=== PATIENT | female | born 1960 | race Caucasian/White ===

== ENCOUNTER 2017-09-18 13:29 | Emergency (ER) | payer OTHER ==
[~2017-09-18] VITALS: Ht 167.6 cm; Wt 106.1 kg
[~2017-09-18 13:29] MED LIST: DEPAKOTE500 MG PO; GLUCOSAMINE &1 EAC1 PO; KEPPRA500 MG PO; LEVOTHYROXINE75 MCG PO; LISINOPRIL2.5 MG PO; MACRODANTIN100 MG PO; OMEPRAZOLE20 MG PO; PRAMIPEXOLE0.125 MG PO; XANAX0.5 MG PO
[2017-09-18] MEDS ORDERED: ROBAXIN-750750 MG NG (16:17)
== END 2017-09-18 16:46 | disposition home or self-care (01) ==
LOC: ED 13:29
DX: M62.838 Other muscle spasm (principal); I10 Essential (primary) hypertension; E03.9 Hypothyroidism, unspecified; K21.9 Gastro-esophageal reflux disease without esophagitis; F32.9 Major depressive disorder, single episode, unspecified; G40.909 Epilepsy, unspecified, not intractable, without status epilepticus; Z90.710 Acquired absence of both cervix and uterus; Z87.891 Personal history of nicotine dependence; Z90.89 Acquired absence of other organs; Z88.5 Allergy status to narcotic agent; Z88.8 Allergy status to other drugs, medicaments and biological substances; Z88.0 Allergy status to penicillin; Z79.899 Other long term (current) drug therapy
CPT/HCPCS: 76830; 76856; 80053; 81001; 85025; 99284

== ENCOUNTER 2018-01-20 07:21 | Emergency (ER) | payer OTHER ==
[~2018-01-20] VITALS: Ht 167.6 cm; Wt 108.9 kg
--- OUTSIDE RECORDS SUMMARY | ~2018-01-20 | XMS | Clinical Summary ---
Demographics + + + | Address | [address] | | | [address] [place] [address] | | | [place] [address] | + + + | Home Phone | | + + + | Preferred Language | Unknown | + + + | Marital Status | Single | + + + | Judaism Affiliation | 1013 | + + + | Race | Unknown | + + + | Ethnic Group | Unknown | + + + Author + + + | Author | [facility] | | | and [place] | + + + | Organization | [facility] | | | and [place] | + + + | Address | Unknown | + + + | Phone | Unavailable | + + + Support + + +---------+ + | Name | Relationship | Address | Phone | + + +---------+ + | Rosita Casey | RYLIE | Unknown | | + + +---------+ + Care Team Providers + +------+ + | Care Shop Coordinator Name | Role | Phone | + +------+ + PP | Unavailable | + +------+ + Allergies + + + +--------+ + | Active Allergy | Reactions | Severity | Noted | Comments | | | | | Date | | + + + +--------+ + | Codeine Sulfate | | | | | + + + +--------+ + | Demerol | | | | | + + + +--------+ + | Hydrocodone-Acetamin | | | | | | ophen | | | | | + + + +--------+ + | Morphine Sulfate | | | | | + + + +--------+ + | Oxycodone | | | | | + + + +--------+ + | Penicillin V | | | | | | Potassium | | | | | + + + +--------+ + Current Medications + + +-------+---------+------+------+-------+ | Prescription | Sig. | Disp. | Refills | Star | End | Statu | | | | | | t | Date | s | | | | | | Date | | | + + +-------+---------+------+------+-------+ | diclofenac | one patch applied to | | | 07/1 | | Activ | | (FLECTOR) 1.3% PTCH | skin of affected | | | 0/20 | | e | | | area every 12 hours. | | | 12 | | | + + +-------+---------+------+------+-------+ | omeprazole | | | | 09/2 | | Activ | | (PRILOSEC) 20 mg | | | | 4/20 | | e | | TBEC | | | | 12 | | | + + +-------+---------+------+------+-------+ | divalproex | | | | 09/2 | | Activ | | (DEPAKOTE) 500 mg EC | | | | 4/20 | | e | | tablet | | | | 12 | | | + + +-------+---------+------+------+-------+ | levothyroxine | | | | 09/2 | | Activ | | (SYNTHROID, | | | | 4/20 | | e | | LEVOTHROID) 100 mcg | | | | 12 | | | | tablet | | | | | | | + + +-------+---------+------+------+-------+ | lisinopril | | | | 05/29 | | Activ | | (MARV CARRANZARILissette) | | | | 4 | | e | | 20 mg tablet | | | | 12 | | | + + +-------+---------+------+------+-------+ Active Problems + + + | Problem | Noted Date | + + + | SHOULDER PAIN, RIGHT | 04/05/2012 | + + + | PARESTHESIA | 04/05/2012 | + + + | MYOFASCIAL PAIN SYNDROME | 04/05/2012 | + + + | BURSITIS, SHOULDER | | + + + Social History + +-------+ [...] on file | | + + + Last Filed Vital Signs + + + + | Vital Sign | Reading | Time Taken | + + + + | Blood Pressure | - | - | + + + + | Pulse | - | - | + + + + | Temperature | - | - | + + + + | Respiratory Rate | - | - | + + + + | Oxygen Saturation | - | - | + + + + | Inhaled Oxygen | - | - | | Concentration | | | + + + + | Weight | 106.6 kg (235 lb) | 04/05/2012 0000 PDT | + + + + | Height | 165.1 cm (5' 5") | 04/05/2012 0000 PDT | + + + + | Body Mass Index | 39.11 | 04/05/2012 0000 PDT | + + + + Plan of Treatment + + + + + | Health Maintenance | Due Date | Last Done | Comments | + + + + + | Hepatitis C | | | | | Screening | 0 | | | + + + + + | Vaccine: | | | | | Dtap/Tdap/Td (1 - | 9 | | | | Tdap) | | | | + + + + + | CERVICAL CANCER | | | | | SCREENING (PAP EVERY | 1 | | | | 3 YEARS 21-64 ) | | | | + + + + + | BREAST CANCER | | | | | SCREENING (MAMM Q2 | 0 | | | | YEARS 50-74) | | | | + + + + + | COLON CANCER | | | | | SCREENING | 0 | | | | (COLONOSCOPY EVERY | | | | | 10 YEARS 50-75) | | | | + + + + + | Vaccine: Influenza | | | | | (Season Ended) | 8 | | | + + + + + Results Not on filefrom Last 3 Months
--- OUTSIDE RECORDS SUMMARY | ~2018-01-20 | XMS | Clinical Summary ---
Demographics + + + | Address | [address] | | | [address] [place] [address] | | | [place] [address] | + + + | Home Phone | | + + + | Preferred Language | Unknown | + + + | Marital Status | Single | + + + | Baptist Affiliation | 1013 | + + + [...] Team Providers + +------+ + | Care Client Success Director Name | Role | Phone | + [...]
--- OUTSIDE RECORDS SUMMARY | ~2018-01-20 | XMS | Clinical Summary ---
Demographics + + + | Address | [address] | | | [place] [address] | + + + | Home Phone | | + + + | Preferred Language | Unknown | + + + | Marital Status | Single | + + + | Hinduism Affiliation | Unknown | + + + | Race | Unknown | + + + | Ethnic Group | Unknown | + + + Author + + + | Author | [facility] | + + + | Organization | [facility] | + + + | Address | [...] Team Providers + +------+ + | Care Certified Wellness Program Coordinator Name | Role | Phone | [...] | Morphine | Anaphylaxis | High | 06/20/20 | [...] | Oxycodone-Acetaminop | Anaphylaxis | High | 09/24/20 | | | hen | | | [...] filefrom Last 3 Months Insurance + +--------+ +------+-------+---------+ | Payer | Benefi | Subscriber | Type | Phone | Address | | | t Plan | ID | | | | | | / | | | | | | | Group | | | | | + +--------+ +------+-------+---------+ | [employer] | [employer] | xxxxxxxxx | | | | | | HEALTH | | | | | | | PLAN | | | | | + +--------+ +------+-------+---------+ + +--------+ +--------+ + + | Guarantor Name | Accoun | Relation to | Date | Phone | Billing Address | | | t Type | Patient | of | | | | | | | | | | + +--------+ +--------+ + + | PAULA MCLEOD | Person | Self [birth year] | Home: | [address] | | | al/Fam | | 1960 | [phone] [place] | | | priti | | | [phone] | + +--------+ +--------+ + +
--- OUTSIDE RECORDS SUMMARY | ~2018-01-20 | XMS | Clinical Summary ---
Demographics + + + | Address | [address] | | | [place] [address] | + + + | Home Phone | | + + + | Preferred Language | Unknown | + + + | Marital Status | Single | + + + | Mormonism Affiliation | Unknown | + + + | Race | Unknown | + + + | Ethnic Group | Unknown | + + + Author + + + | Author | [facility] | + + + | Organization | [facility] | + + + | Address | [...] Team Providers + +------+ + | Care Jack Spooler Tender Name | Role | Phone | [...] | | al/Fam | | 1960 | [phone] | [place] | | | priti | | | [phone] | [phone] | + +--------+ +--------+ + +
[~2018-01-20 07:21] MED LIST changes: +ROBAXIN-750750 MG NG
[2018-01-20] MEDS ORDERED: FISH OIL + D31 EACH PO (08:00)
[2018-01-20] MEDS ORDERED: PROBIOTIC1 EAC4 PO (08:00)
[2018-01-20] MEDS ORDERED: MIRAPEX0.125 MG PO (08:09)
[2018-01-20] MEDS ORDERED: KETOROLAC TROME10 MG PO (09:22)
[2018-01-27] MEDS ORDERED: KEPPRA250 MG PO (15:39)
[2018-01-27] MEDS ORDERED: LOVASTATIN40 MG PO (15:42)
[2018-01-27] MEDS ORDERED: SERTRALINE HCL50 MG PO (15:42)
== END 2018-01-20 10:34 | disposition home or self-care (01) ==
LOC: ED 07:21
DX: G40.909 Epilepsy, unspecified, not intractable, without status epilepticus (principal); S82.51XA Displaced fracture of medial malleolus of right tibia, 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 for closed fracture; I10 Essential (primary) hypertension; E03.9 Hypothyroidism, unspecified; K21.9 Gastro-esophageal reflux disease without esophagitis; F32.9 Major depressive disorder, single episode, unspecified; Z87.891 Personal history of nicotine dependence; Z88.5 Allergy status to narcotic agent; Z88.8 Allergy status to other drugs, medicaments and biological substances; Z88.0 Allergy status to penicillin; Z91.041 Radiographic dye allergy status; Z79.899 Other long term (current) drug therapy; X50.1XXA Overexertion from prolonged static or awkward postures, 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
CPT/HCPCS: 70450; 73610; 80053; 85025; 85610; 85730; 96365; 96375; 99284; J1170; J1885; J1953; J2405

== ENCOUNTER 2018-10-24 21:17 | Emergency (ER) | payer OTHER ==
[~2018-10-24] VITALS: Ht 165.1 cm; Wt 108.0 kg
[~2018-10-24 21:17] MED LIST changes: +FISH OIL + D31 EACH PO; +KEPPRA250 MG PO; +KETOROLAC TROME10 MG PO; +LOVASTATIN40 MG PO; +MIRAPEX0.125 MG PO; +PROBIOTIC1 EAC4 PO; +ROBAXIN-750750 MG PO; +SERTRALINE HCL50 MG PO
[2018-10-24] MEDS ORDERED: LISINOPRIL2.5 MG PO (21:35)
[2018-10-24] MEDS ORDERED: ZESTRIL2.5 MG PO (21:35)
[2018-10-24] MEDS ORDERED: NEURONTIN300 MG PO (21:36)
[2018-10-25] MEDS ORDERED: PROTONIX40 MG PO (02:51)
--- NOTE | 2018-10-25 07:58 | EKG ---
[facility] [address] [facility] [place], [place] [address] Signed Normal sinus rhythm Normal ECG When compared with ECG of 20-JUL-2017 10:35, No significant change was found Confirmed by MIGUEL GLEZ MD ([id number]) on 10/25/2018 7:57:49 AM Electronically Signed By: MIGUEL GLEZ MD 10/25/18 0758 PATIENT NAME: PAULA MCLEOD Electrocardiogram DATE OF : 60 PHYSICIAN: MIGUEL GLEZ MD REPORT #: [id number] REPORT IS CONFIDENTIAL AND NOT TO BE RELEASED WITHOUT AUTHORIZATION
== END 2018-10-25 03:05 | disposition home or self-care (01) ==
LOC: ED 21:17
DX: K21.9 Gastro-esophageal reflux disease without esophagitis (principal); I10 Essential (primary) hypertension; E03.9 Hypothyroidism, unspecified; E78.00 Pure hypercholesterolemia, unspecified; F32.9 Major depressive disorder, single episode, unspecified; Z87.891 Personal history of nicotine dependence; Z88.5 Allergy status to narcotic agent; Z88.8 Allergy status to other drugs, medicaments and biological substances; Z88.0 Allergy status to penicillin; Z91.041 Radiographic dye allergy status
CPT/HCPCS: 80053; 81001; 83690; 85025; 93005; 93010; 96361; 96374; 96375; 99284-25; C9113; J2405; J7030

== ENCOUNTER 2018-10-28 06:55 | Day surgery (SDC) | payer OTHER ==
[~2018-10-28] VITALS: Ht 165.1 cm; Wt 108.0 kg
[~2018-10-28 06:55] MED LIST changes: +NEURONTIN300 MG PO; +PROTONIX40 MG PO; +ZESTRIL2.5 MG PO
--- NOTE | 2018-10-28 09:55 | NUR ---
10/28/18 0955 Angela Aguayo 0942- PT ARRIVES TO PACU. AROUSABLE TO VOICE. PT INSTANTLY BACK TO SLEEP. RESP EVEN AND UNLABORED. OXYGEN SAT HIGH 90'S TO 100% ON RA. PT REPORTS NO PAIN OR NAUSEA AT THIS TIME. 0954- PT SITTING UP IN BED SIPPING ON WATER SHE STATES HER THROAT HURTS. THE PT REPORTS THE PAIN TO IMPROVE WITH DRINKING WATER. PT REMAINS VERY DROWSY AND FALLS INSTANTLY BACK TO SLEEP. RESP EVEN AND UNLABORED.
--- NOTE | 2018-10-28 10:08 | NUR ---
MARCIANO WILSON REQUESTED THAT I NOT VISIT PT BEFORE SURGERY. WILL FOLLOW NEEDED
--- NOTE | 2018-10-29 05:23 | OR ---
[facility] [address] [place], [place] [address] Signed DATE OF OPERATION: 10/28/2018 SURGEON: Viktor Vargas MD PREOPERATIVE DIAGNOSES: 1. Gastroesophageal reflux disease. 2. Change in voice. 3. Epigastric abdominal pain. POSTOPERATIVE DIAGNOSES: 1. Moderate to large hiatal hernia (32-40 cm). 2. Mild to moderate diffuse gastritis. 3. Minimal distal esophagitis. PROCEDURES: EGD with CLOtest and biopsies of the antrum and distal esophagus. ESTIMATED BLOOD LOSS: None. INDICATIONS: Paula is a 58-year-old female with longstanding epilepsy and acid reflux. She has had a benign heart murmur for many years. She said it has never bothered her even when she had her three children. In the last year, she has had a change in her acid reflux. It is becoming worse. She has now had a change in voice. It really bothers her when she goes to bed at night. She has to work the afternoon shift from 2 o'clock to 8:30. She eats and then goes to bed and course that makes it much worse. She had been to her primary care provider. She was asked to see me for an upper endoscopy. When I saw her in the office, she was out of Prilosec for 2 days and said she was miserable. It went on another week and it continued to be miserable. Apparently, she had been in the emergency room because of her symptoms. In the office, I gave Paula a [employer] brochure on acid reflux. We looked at that in detail. She is aware that she can buy an Prilosec [id number] until she gets a new prescription from her primary care provider. We also reviewed upper endoscopy in detail. She understands the nature of the test along with the risks including, but not limited to gas bloating, crampy abdominal pain, bleeding, perforation, requiring surgery, and missed diagnosis. In addition, she has multiple allergies including codeine, Demerol, hydrocodone, morphine, oxycodone, penicillin, and Percocet. She said Dilaudid is okay. She also has a very full face and neck and for these reasons, we asked an anesthesia provider to help us with increased monitoring sedation. She did see our anesthesia provider preoperatively. He actually Electronically Signed By: VIKTOR VARGAS MD 10/29/18 0523 PATIENT NAME: PAULA MCLEOD OPERATIVE REPORT DATE OF : 60 REPORT #: [id number] PHYSICIAN: VIKTOR VARGAS MD PCP: NOAH COOK DO REPORT IS CONFIDENTIAL AND NOT TO BE RELEASED WITHOUT AUTHORIZATION [facility] [address] [place], [place] [address] Signed called and asked that we provide her with some Xanax prior to coming to the hospital. Even then she was quite anxious. In the end, it proved to be a quach decision to have an anesthesia provider for airway control as well as infusion of propofol. She had expressed understanding and wished to proceed. PROCEDURE NOTE: Paula was taken into our endoscopy suite and placed in the supine semi-recumbent position. The posterior oropharynx was anesthetized with Hurricaine spray. A bite block was utilized for the case. She was given IV propofol per our nurse law instructor. The adult gastroscope was then introduced and advanced all the way out into the third portion of the duodenum under direct visualization of camera without difficulty. The duodenum and pyloric channel were unremarkable. The stomach showed moderate inflammatory changes throughout. No ulcerations. We took a biopsy of the antrum for pathologic review as well as CLOtest. Upon retroflexion of scope, we can see she has a moderate-sized hiatal hernia. We could easily see the hernia moved back and forth during her respiratory cycle. No evidence of any gastric or esophageal varices. No Matthias's ulcer. No Yelitza-Leyva tear. The scope was withdrawn up through the area of the GE junction, which was compliant without stricture. Her hiatal hernia measured out from 40 cm back to 32 cm. The Z-line was relatively intact. There was a little bit of inflammatory changes there and she had a little bit of streaky erythematous changes in her distal esophagus. We went ahead and took a biopsy of the distal esophagus for pathologic review. No Acuña's mucosa. The middle and upper esophagus did not show any inflammatory changes. After this, the gas was suctioned out and the gastroscope removed. Paula tolerated the procedure quite well. RECOMMENDATIONS: I will see Paula back in my office in 7 to 14 days to review her results. She needs to maintain her proton pump inhibitor. She might consider a surgical repair of her hiatal hernia. Viktor Vargas MD ALB/MODL /[id number] cc: Noah Cook DO Electronically Signed By: VIKTOR VARGAS MD 10/29/18 0523 PATIENT NAME: PAULA MCLEOD OPERATIVE REPORT DATE OF : 60 REPORT #: [id number] PHYSICIAN: VIKTOR VARGAS MD PCP: NOAH COOK DO REPORT IS CONFIDENTIAL AND NOT TO BE RELEASED WITHOUT AUTHORIZATION [address] [place], [place] [address] Signed Viktor Vargas MD Copies: NOAH COOK ANDREW L MD ~ Electronically Signed By: VIKTOR VARGAS MD 10/29/18 0523 PATIENT NAME: PAULA MCLEOD OPERATIVE REPORT DATE OF : 60 REPORT #: [id number] PHYSICIAN: VIKTOR VARGAS MD PCP: NOAH COOK DO REPORT IS CONFIDENTIAL AND NOT TO BE RELEASED WITHOUT AUTHORIZATION
== END 2018-10-28 11:05 | disposition home or self-care (01) ==
LOC: DS 06:55
PROVIDERS: Colon & Rectal Surgery
PROC: 0DB38ZX Excision of Lower Esophagus, Via Natural or Artificial Opening Endoscopic, Diagnostic (ICD-10-PCS; 2018-10-28)
PROC: 0DB78ZX Excision of Stomach, Pylorus, Via Natural or Artificial Opening Endoscopic, Diagnostic (ICD-10-PCS; principal; 2018-10-28 08:15)
DX: K29.50 Unspecified chronic gastritis without bleeding (principal); K21.0 Gastro-esophageal reflux disease with esophagitis; K44.9 Diaphragmatic hernia without obstruction or gangrene; K31.9 Disease of stomach and duodenum, unspecified; E03.9 Hypothyroidism, unspecified; I10 Essential (primary) hypertension; G25.81 Restless legs syndrome; G47.30 Sleep apnea, unspecified; G40.909 Epilepsy, unspecified, not intractable, without status epilepticus; E66.9 Obesity, unspecified; Z68.39 Body mass index [BMI] 39.0-39.9, adult; Z79.899 Other long term (current) drug therapy
CPT/HCPCS: 86677; 88305; J2704; J7120

== ENCOUNTER 2018-12-28 15:26 | Emergency (ER) | payer OTHER ==
[~2018-12-28] VITALS: Ht 165.1 cm; Wt 108.0 kg
--- OUTSIDE RECORDS SUMMARY | ~2018-12-28 | XMS | Encounter Summary ---
Demographics + + + | Address | [address] | | | [place] [address] | + + + | Home Phone | | + + + | Preferred Language | Unknown | + + + | Marital Status | Single | + + + | Anglican Affiliation | Unknown | + + + | Race | Unknown | + + + | Ethnic Group | Unknown | + + + Author + + + | Author | [facility] | | | and [place] | + + + | Organization | [facility] | | | and [place] | + + + | Address | Unknown | + + + | Phone | Unavailable | + + + Support + + +---------+ + | Name | Relationship | Address | Phone | + + +---------+ + | Rosita Casey | ECON | Unknown | | + + +---------+ + | Rosita Casey | ECON | Unknown | + | + + +---------+ + | Lanie Malhotra | ECON | Unknown | | + + +---------+ + Care Team Providers + +------+ + | Care Development Vice President Name | Role | Phone | + +------+ + | Lupillo Valdez DO | PCP | | + +------+ + Reason for Visit +--------+ + | Reason | Comments | +--------+ + | Other | physical capacity test | +--------+ + Encounter Details +--------+ + + + + | Date | Type | Department | Care Team | Description | +--------+ + + + + | 10/17/ | Telephone | [facility] | Lupillo Valdez | Other (physical | | 2018 | | [facility] | E, DO [address] | capacity test) | | | | [facility] [address] | [place], [place] | | | | | [facility], | [address] | | | | | [place] [address] | [phone] | | | | | [phone] | | | +--------+ + + + + Social History + + [...] + +---------+ + | Alcohol Use | Drinks/We | oz/Week | Comments | | | ek | | | + + +---------+ + | Yes | | | Occassional, may be10 drinks a year | + + +---------+ + + + + | Sex Assigned at | Date Recorded | | | | + + + | Not on file | | + + + as of this encounter Plan of Treatment Not on fileas of this encounter Visit Diagnoses Not on filein this encounter"
--- OUTSIDE RECORDS SUMMARY | ~2018-12-28 | XMS | Encounter Summary ---
Demographics + + + | Address | [address] | | | [place] [address] | + + + | Home Phone | | + + + | Preferred Language | Unknown | + + + | Marital Status | Single | + + + | Druze Affiliation | Unknown | + + + | Race | Unknown | + + + | Ethnic Group | Unknown | + + + Author + + + | Author | [facility] | | | and [place] | + + + | Organization | [facility] | | | and [...] Team Providers + +------+ + | Care Trouble Tracer Name | Role | Phone | + +------+ + | Lupillo Valdez DO | PCP | | + +------+ + Reason for Visit + + + | Reason | Comments | + + + | Medication Refill | | + + + Encounter Details +--------+--------+ + + + | Date | Type | Department | Care Team | Description | +--------+--------+ + + + | 12/19/ | Refill | [facility] | Lavinia Arroyo, | Medication Refill | | 2019 | | [facility] | CC AOC DIRECTOR COMBAT PLANS OFFICER | | | | | [facility] [address] | | | | | | [address] [facility], | | | | | | [place] [address] | | | | | | [phone] | | | +--------+--------+ + + + [...] + +---------+ + | Yes | 0 | 0.0 | Occassional, may be10 drinks a year | | | Glasses | | | | | of wine | | | | | 0 Cans of | | | | | beer 0 | | | | | Shots of | | | | | liquor | | | + + +---------+ + + + + | Sex Assigned at | Date Recorded | | | | + + + | Not on file | | + + + as of this encounter Plan of Treatment Not on fileas of this encounter Visit Diagnoses Not on filein this encounter"
--- OUTSIDE RECORDS SUMMARY | ~2018-12-28 | XMS | Encounter Summary ---
Demographics + + + | Address | [address] | | | [place] [address] | + + + | Home Phone | | + + + | Preferred Language | Unknown | + + + | Marital Status | Single | + + + | Mandaen Affiliation | Unknown | + + + | Race | Unknown | + + + | Ethnic Group | Unknown | + + + Author + + + | Author | [facility] | + + + | Organization | [facility] | + + + | Address | [...] Team Providers + +------+ + | Care Sprinkling Truck Driver Name | Role | Phone | + +------+ + | Noah Valdez DO | PCP | | + +------+ + Reason for Visit + + + | Reason | Comments | + + + | Referral | schedule from new referral | + + + Encounter Details +--------+ + + + + | Date | Type | Department | Care Team | Description | +--------+ + + + + | 10/03/ | Telephone | [facility] | Hemal Rudd, | Referral (schedule | | 2019 | | [facility] | MD [address] | from new referral) | | | | [address] | Drive [place], [place] | | | | | [place], [place] | [address] | | | | | [address] | | | | | | [phone] | | | +--------+ + + + + Social History + +-------+ +--------+------+ | Tobacco Use | Types | Packs/Day | Years | Date | | | | | Used | | + +-------+ +--------+------+ | Former Smoker | | | | | + +-------+ +--------+------+ + + | Comments: quit 30 yrs ago | + + + + +---------+ + | Alcohol Use | Drinks/We | oz/Week | Comments | | | ek | | | + + +---------+ + | Yes | 0 | 0.0 | rarely | | | Standard | | | | | drinks or | | | | | | | | | | equivalen | | | | | t | | | + + +---------+ + + + + | Sex Assigned at | Date Recorded | | | | + + + | Not on file | | + + + as of this encounter Plan of Treatment Not on fileas of this encounter Visit Diagnoses Not on filein this encounter"
--- OUTSIDE RECORDS SUMMARY | ~2018-12-28 | XMS | Encounter Summary ---
Demographics + + + | Address | [address] | | | [place] [address] | + + + | Home Phone | | + + + | Preferred Language | Unknown | + + + | Marital Status | Single | + + + | Tenriism Affiliation | Unknown | + + + | Race | Unknown | + + + | Ethnic Group | Unknown | + + + Author + + + | Author | [facility] | | | and [place] | + + + | Organization | [facility] | | | [...] Team Providers + +------+ + | Care Balloon Artist Name | Role | Phone | + +------+ + | Lupillo Valdez DO | PCP | | + +------+ + Reason for Visit +--------+ + | Reason | Comments | +--------+ + | Other | | +--------+ + Encounter Details +--------+ + + + + | Date | Type | Department | Care Team | Description | +--------+ + + + + | 12/01/ | Telephone | [facility] | Lupillo Valdez | Other | | 2019 | | [facility] | E, DO [address] | | | | | MEDICAL CL[facility] [address] | [place] | | | | [address] [place], | [address] | | | | | [place] [address] | [phone] | | | | | [phone] | | | +--------+ + + + [...]
--- OUTSIDE RECORDS SUMMARY | ~2018-12-28 | XMS | Encounter Summary ---
Demographics + + + | Address | [address] | | | [place] [address] | + + + | Home Phone | | + + + | Preferred Language | Unknown | + + + | Marital Status | Single | + + + | Islam Affiliation | Unknown | + + + | Race | Unknown | + + + | Ethnic Group | Unknown | + + + Author + + + | Author | [facility] | | | and [place] | + + + | Organization | [facility] | | | [...] Team Providers + +------+ + | Care Baling Press Operator Name | Role | Phone | + [...] Description | +--------+--------+ + + + | 12/02/ | Refill | [facility] | Hanh Burger, CC | Medication Refill | | 2019 | | [facility] | [place] II INSPECTOR | | | | | [facility] [address] | | | | | | [facility], | | | | | | [place] [address] | | | | | | [phone] | | | +--------+--------+ + + + [...]
--- OUTSIDE RECORDS SUMMARY | ~2018-12-28 | XMS | Encounter Summary ---
Demographics + + + | Address | [address] | | | [place] [address] | + + + | Home Phone | | + + + | Preferred Language | Unknown | + + + | Marital Status | Single | + + + | Faith Affiliation | Unknown | + + + | Race | Unknown | + + + | Ethnic Group | Unknown | + + + Author + + + | Author | [facility] | | | and [place] | + + + | Organization | [facility] | | | [...] Team Providers + +------+ + | Care Maintenance And Utilities Supervisor Name | Role | Phone | + +------+ + | Lupillo Valdez DO | PCP | | + +------+ + Reason for Visit + + + | Reason | Comments | + + + | Medication Related | | + + + Encounter Details +--------+ + + + + | Date | Type | Department | Care Team | Description | +--------+ + + + + | 10/04/ | Telephone | [facility] | Lupillo Valdez | Medication Related | | 2019 | | [facility] | E, DO [address] | | | | | MEDICAL CLIN[facility] [address] | [place] | | | | | [address] [facility], | [address] | | | | | [place] [address] | [phone] | | | | | [phone] | | | +--------+ + + + [...]
--- OUTSIDE RECORDS SUMMARY | ~2018-12-28 | XMS | Encounter Summary ---
Demographics + + + | Address | [address] | | | [place] [address] | + + + | Home Phone | | + + + | Preferred Language | Unknown | + + + | Marital Status | Single | + + + | Christian Affiliation | Unknown | + + + | Race | Unknown | + + + | Ethnic Group | Unknown | + + + Author + + + | Author | [facility] | + + + | Organization | [facility] | + + + | Address | [...] Team Providers + +------+ + | Care Gasoline Catalyst Operator Name | Role | Phone | [...] + + | 10/03/ | Telephone | [facility] | Hemal Rudd, | Referral (schedule | | 2019 | | [facility] | MD [address] | from new referral) | | | | [address] | Drive [place], [place] | | | | | [place], [place] | [address] | | | | | [address] | | | | | | [phone] | | | +--------+ + + + [...]
--- OUTSIDE RECORDS SUMMARY | ~2018-12-28 | XMS | Encounter Summary ---
Demographics + + + | Address | [address] | | | [place] [address] | + + + | Home Phone | | + + + | Preferred Language | Unknown | + + + | Marital Status | Single | + + + | Sikhism Affiliation | Unknown | + + + | Race | Unknown | + + + | Ethnic Group | Unknown | + + + Author + + + | Author | [facility] | | | and [place] | + + + | Organization | [facility] | | | and [...] Team Providers + +------+ + | Care Ocular Care Technician Name | Role | Phone | + +------+ + | Lupillo Valdez DO | PCP | | + +------+ + Reason for Visit + + + | Reason | Comments | + + + | Follow-up | multiple issues | + + + Encounter Details +--------+---------+ + + + | Date | Type | Department | Care Team | Description | +--------+---------+ + + + | 11/24/ | Office | [facility] | Lupillo Valdez | Hypothyroidism, | | 2019 | Visit | [facility] | E, DO [address] | unspecified type | | | | [facility] | [place], [place] | (Primary Dx); | | | [address] [facility], | [address] | Gastroesophageal | | | | [place] [address] | [phone] | reflux disease | | | | [phone] | | without esophagitis; | | | | | | Nonintractable | | | | | | epilepsy without | | | | | | status epilepticus, | | | | | | unspecified epilepsy | | | | | | type (HCC); Hiatal | | | | | | hernia; Breast | | | | | | cancer screening | +--------+---------+ + + + Social History [...] + + + as of this encounter Last Filed Vital Signs + + + + | Vital Sign | Reading | Time Taken | + + + + | Blood Pressure | 138/76 | 11/24/2018 1443 PST | + + + + | Pulse | 74 | 11/24/20181442 PST | + + + + | Temperature | 36.9 C (98.4 F) | 11/24/20181442 PST | + + + + | Respiratory Rate | 16 | 11/24/20181442 PST | + + + + | Oxygen Saturation | 98% | 11/24/20181442 PST | + + + + | Inhaled Oxygen | - | - | | Concentration | | | + + + + | Weight | 111.6 kg (246 lb) | 11/24/20181442 PST | + + + + | Height | - | - | + + + + | Body Mass Index | 40.94 | 11/24/2018 1443 PST | + + + + in this encounter Instructions Patient Instructions - Carina Figueroa - 11/24/2018 1500 PST-Elevate head of your bed -Start counting your carbohydrates, stay under 100 grams a day -Schedule appointment with -It is okay to take Pepcid on really bad days -Order for Mammogram, call [facility] to schedule [phone] this encounter Progress Notes Lupillo Valdez DO - 11/24/2018 1500 PSTFormatting of this note may be different from t kev original. Patient ID: Abril Callaway is a 58 y.o. year old female Chief Complaint Patient presents with Follow-up multiple issues Assessment: Hypothyroidism, unspecified type (Primary) Gastroesophageal reflux disease without esophagitis Nonintractable epilepsy without status epilepticus, unspecified epilepsy type (HCC) Hiatal hernia Breast cancer screening - AYALA Tomosynthesis Screening Bilateral; Future; Expected date: 11/24/2018 Plan: -Elevate head of your bed -Start counting your carbohydrates, stay under 100 grams a day -Schedule appointment with Lanie Reyes PA-C -It is okay to take Pepcid on really bad days -Order for Mammogram, call [facility] to schedule [phone] Subjective: ROBERT Samuels presents to the clinic today for a follow up regarding multiple concerns. Reviewed recent blood work with her. Her TSH level was 3.39. She is currently Levothyroxine 112 mcg daily. She had a function capacity evaluation. It was a very hard test for her, she did complete i t. It was a 3 hour evaluation she did for 3 hours and 20 minutes. She did the stairs and aft erwards she was in so much pain. The patient is aware of the results. 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 She needs a note stating why she was off work fro m July to October. Her question is where do we go from here? Lanie Reyes PA-C is determining her work status. 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 She had vocational testing done 09/15/2018 with Wilmar Irvin RN. 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 She states she is unable to work because of her below average communication and math skills evaluated by Adriana Irvin RN, her advocate for [facility]. She went to a work hardening therapy. She was only approved for only 3 physical therapy visi t but Ortho requested 3X/week for 3 months. She has a hiatal hernia. She is currently on a BRAT diet, she was started from urgent care in [place]. At the time she was unable to keep anything down. She also have acid reflux. E verything she eats the food will just sit there and burn. She had a EGD scope by Dr. Carroll 3 weeks ago. She was told she had a hiatal hernia and advised the Mediterranean diet. She alamo s take Nexium daily, prescribed by me previously. She has not elevated the head of her bed. She was on Omeprazole for years. Discussion that as you lose weight with the Mediterranean diet the hiatal hernia and acid reflux will get better. Per review she needs Hepatitis C screening, she states she was tested in 1997. She needs a Mammogram. Order has been sent to [facility]. Current Outpatient Prescriptions Medication Sig Dispense Refill CARAFATE 1 GM/10ML suspension gabapentin (NEURONTIN) 100 mg capsule Take 1 capsule by mouth 2 times daily. 180 capsul e 3 levETIRAcetam (KEPPRA) 750 MG tablet Take 750 mg by mouth 2 times daily. levothyroxine (SYNTHROID) 112 mcg tablet lisinopril (PRINIVIL, ZESTRIL) 20 mg tablet Take 1 tablet by mouth Daily. 90 tablet 3 lovastatin (MEVACOR) 40 MG tablet Take 40 mg by mouth nightly. methocarbamol (ROBAXIN) 750 mg tablet pantoprazole (PROTONIX) 40 mg tablet pramipexole (MIRAPEX) 0.125 MG tablet Take 1 tablet by mouth 3 times daily. 90 tablet 3 valACYclovir (VALTREX) 1 g tablet Take two tablets by mouth twice a day for 1 day. 4 ta blet 0 No current facility-administered medications for this visit. Review of Systems Gastrointestinal: Positive for abdominal pain. Hiatal Hernia Acid Reflux Objective: Vitals: BP 138/76 Comment: right arm medium cuff | Pulse 74 Comment: reg | Temp 36.9 C (98.4 F) (Oral) | Resp 16 | Wt 111.6 kg (246 lb) | SpO2 98% Comment: ra | BMI 40.94 kg/m Physical Exam Constitutional: She is oriented to person, place, and time. She appears well-developed and well-nourished. No distress. Eyes: EOM are normal. Pulmonary/Chest: Effort normal. No respiratory distress. She has no wheezes. Neurological: She is alert and oriented to person, place, and time. Skin: Skin is warm and dry. Psychiatric: She has a normal mood and affect. Judgment normal. Entered by Carina Figueroa [facility], acting as scribe for Noah Valdez D.O. The documentation recorded by the scribe accurately reflects the service I personally perfo [facility] and the decisions made by me. in this encounter Plan of Treatment + +--------+ + + | Name | Priori | Associated Diagnoses | Order Schedule | | | ty | | | + +--------+ + + | AYALA Tomosynthesis Screening | Routin | Breast cancer | Expected: | | Bilateral | e | screening | 11/24/2018, Expires: | | | | | 01/23/2020 | + +--------+ + + as of this encounter Procedures + +--------+ + + + | Procedure Name | Priori | Date/Time | Associated Diagnosis | Comments | | | ty | | | | + +--------+ + + + | LABS - EXTERNAL SCAN | | 12/09/2018 | | Results for this | | | | 0000 PDT | | procedure are in the | | | | | | results section. | + +--------+ + + + in this encounter Results LABS - EXTERNAL SCAN (12/09/2018) + + + | Narrative | Performed At | + + + | Ordered by an | | | unspecified provider. | | + + + in this encounter Visit Diagnoses + + | Diagnosis | + + | Hypothyroidism, unspecified type - Primary | + + | Gastroesophageal reflux disease without esophagitis | + + | Esophageal reflux | + + | Nonintractable epilepsy without status epilepticus, unspecified epilepsy type (HCC) | + + | Hiatal hernia | + + | Diaphragmatic hernia without mention of obstruction or gangrene | + + | Breast cancer screening | + + | Breast screening, unspecified | + +"
--- OUTSIDE RECORDS SUMMARY | ~2018-12-28 | XMS | Encounter Summary ---
Demographics + + + | Address | [address] | | | [place] [address] | + + + | Home Phone [...] Providers + +------+ + | Care Maintenance Man Name | Role | Phone | + +------+ + | Lupillo Valdez DO | PCP | | + +------+ + Reason for Referral Evaluate & Treat (Routine) + + + + + + + | Status | Reason | Specialty | Diagnoses / | Referred By | Referred To | | | | | Procedures | Contact | Contact | + + + + + + + | Authorized | Specialty | Audiology | Diagnoses | Courtney, | Kin, | | | Services | | Hearing | Lupillo Ken, | HYUN Rivera | | | Required | | loss, | DO [address] | | | | | unspecified | [address] | | | | | hearing loss | [place], [place] | [place] | | | | | type, | [address] | [address] | | | | | unspecified | Phone: | Phone: | | | | | laterality | [phone] | [phone] | | | | | | Fax: | Fax: | | | | | | [phone] | [phone] | + + + + + + + Reason for Visit + + + | Reason | Comments | + + + | Referral | | + + + Encounter Details +--------+ + + + + | Date | Type | Department | Care Team | Description | +--------+ + + + + | 11/15/ | Telephone | [facility] | Lupillo Valdez | Referral | | 2019 | | [facility] | E, DO [address] | | | | | MEDICAL CLIN[facility] [address] | [place], [place] | | | | [address] [place], | [address] | | | | | [place] [address] | [phone] | | | | | [phone] | | | +--------+ + + + [...] as of this encounter Plan of Treatment + +--------+ + + | Name | Priori | Associated Diagnoses | Order Schedule | | | ty | | | + +--------+ + + | Audiology, External - AMB | Routin | Hearing loss, | Ordered: 11/15/2018 | | Referral | e | unspecified hearing | | | | | loss type, | | | | | unspecified | | | | | laterality | | + +--------+ + + as of this encounter Procedures + +--------+ + + + | Procedure Name | Priori | Date/Time | Associated Diagnosis | Comments | | | ty | | | | + +--------+ + + + | THYROID STIMULATING | Routin | 11/21/2018 | | Results for this | | HORMONE 3RD GEN | e | 1220 PST | | procedure are in the | | | | | | results section. | + +--------+ + + + in this encounter Results Thyroid Stimulating Hormone 3rd Gen (11/21/2018 1220) + + + + + | Component | Value | Ref Range | Performed At | + + + + + | TSH | 3.39Comment: Biotin in | 0.270 - 4.20 | REFERENCE LAB | | | specimens taken from | | [facility] | | | patients on high-dose | | | | | biotin therapy or | | | | | supplements may intefere | | | | | with this test and | | | | | cause inaccurate test | | | | | results. It is | | | | | recommended that for | | | | | patients receiving | | | | | therapy with high biotin | | | | | doses (> 5 mg/day), no | | | | | laboratory test specimen | | | | | should be collected | | | | | until at least 8 hours | | | | | after the last biotin | | | | | administration. | | | + + + + + + + + | Narrative | Performed At | + + + | Testing Performed at: [facility] [place] [facility] CLIA: [id number] | REFERENCE LAB | | [place] [address] | [facility] | + + + + + + + + | Performing | Address | City/State/Zipcode | Phone Number | | Organization | | | | + + + + + | REFERENCE LAB | [facility] | [place] [id number] | [phone] | | [facility] | | | | + + + + + in this encounter Visit Diagnoses + + | Diagnosis | + + | Hearing loss, unspecified hearing loss type, unspecified laterality - Primary | + +"
--- OUTSIDE RECORDS SUMMARY | ~2018-12-28 | XMS | Clinical Summary ---
Demographics + + + | Address | [address] | | | [place] [address] | + + + | Home Phone | | + + + | Preferred Language | Unknown | + + + | Marital Status | Single | + + + | Moravian Affiliation | Unknown | + + + | Race | Unknown | + + + | Ethnic Group | Unknown | + + + Author + + + | Author | [facility] | | | and [place] | + + + | Organization | [facility] | | | and [...] Team Providers + +------+ + | Care Front Desk Auxiliary Name | Role | Phone | + +------+ + | Lupillo Valdez DO | PP | | + +------+ + Allergies + + + + + + | Active Allergy | Reactions | Severity | Noted | Comments | | | | | Date | | + + + + + + | Acetaminophen | Anaphylaxis | High | 08/29/20 | | | | | | 18 | | + + + + + + | Codeine Sulfate | Anaphylaxis | High | | | + + + + + + | Demerol | Anaphylaxis | High | | | + + + + + + | Hydrocodone-Acetamin | Anaphylaxis | High | | | | ophen | | | | | + + + + + + | Morphine Sulfate | Anaphylaxis | High | | | + + + + + + | Oxycodone | Anaphylaxis | High | | | + + + + + + | Penicillin V | Anaphylaxis | High | | | | Potassium | | | | | + + + + + + Current Medications + + +---------+---------+------+------+-------+ | Prescription | Sig. | Disp. | Refills | Star | End | Statu | | | | | | t | Date | s | | | | | | Date | | | + + +---------+---------+------+------+-------+ | levETIRAcetam | Take 750 mg by mouth | | | | | Activ | | (KEPPRA) 750 MG | 2 times daily. | | | | | e | | tablet | | | | | | | + + +---------+---------+------+------+-------+ | lisinopril | Take 1 tablet by | 90 | 3 | 12/0 | | Activ | | (PRINIVIL, ZESTRIL) | mouth Daily. | tablet | | 4/20 | | e | | 20 mg tablet | | | | 18 | | | + + +---------+---------+------+------+-------+ | gabapentin | Take 1 capsule by | 180 | 3 | 12/0 | | Activ | | (NEURONTIN) 100 mg | mouth 2 times daily. | capsule | | 4/20 | | e | | capsule | | | | 18 | | | + + +---------+---------+------+------+-------+ | pramipexole | Take 1 tablet by | 90 | 3 | 12/2 | | Activ | | (MIRAPEX) 0.125 MG | mouth 3 times daily. | tablet | | 0/20 | | e | | tablet | | | | 18 | | | + + +---------+---------+------+------+-------+ | valACYclovir | Take two tablets by | 4 | 0 | 01/0 | | Activ | | (VALTREX) 1 g tablet | mouth twice a day | tablet | | 05/16 | | e | | | for 1 day. | | | 19 | | | + + +---------+---------+------+------+-------+ | levothyroxine | | | | 01/0 | | Activ | | (SYNTHROID) 112 mcg | | | | 04/15 | | e | | tablet | | | | 19 | | | + + +---------+---------+------+------+-------+ | CARAFATE 1 GM/10ML | | | | 02/1 | | Activ | | suspension | | | | 10/16 | | e | | | | | | 19 | | | + + +---------+---------+------+------+-------+ | methocarbamol | | | | 12/1 | | Activ | | (ROBAXIN) 750 mg | | | | 2/20 | | e | | tablet | | | | 18 | | | + + +---------+---------+------+------+-------+ | pantoprazole | Take 1 tablet by | 90 | 3 | 03/0 | | Activ | | (PROTONIX) 40 mg | mouth every morning | tablet | | 8/20 | | e | | tablet | (before breakfast). | | | 19 | | | + + +---------+---------+------+------+-------+ | lovastatin | Take 1 tablet by | 90 | 0 | 03/2 | | Activ | | (MEVACOR) 40 MG | mouth nightly. | tablet | | 5/20 | | e | | tablet | | | | 19 | | | + + +---------+---------+------+------+-------+ | lovastatin | Take 40 mg by mouth | | | | 03/2 | Disco | | (MEVACOR) 40 MG | nightly. | | | | 5/20 | ntinu | | tablet | | | | | 19 | ed | + + +---------+---------+------+------+-------+ | pantoprazole | | | | 01/3 | 03/0 | Disco | | (PROTONIX) 40 mg | | | | 0/20 | 8/20 | ntinu | | tablet | | | | | | ed | + + +---------+---------+------+------+-------+ Active Problems + + + | Problem | Noted Date | + + + | Hiatal hernia | 11/24/2018 | + + + | Primary osteoarthritis, right ankle and foot | 08/15/2018 | + + + + + | Last Assessment & Plan: -Referral to Claus Reed at | | [facility] for Functional Capacity | | Testing-Follow up | + + + + + | Gastroesophageal reflux disease without esophagitis | 06/20/2015 | + + + + + | Last Assessment & Plan: -Referral placed to Dr. Lugo for | | consideration of EGD for evaluation of worsening GERD | + + + + + | Heart murmur | 12/10/2013 | + + + | Degenerative disc disease, cervical | 11/22/2013 | + + + + + | Overview: Overview: Last MRI 2010 in [facility] | | [facility]. Multilevel disc disease and arthritic changes. | + + + + + | Hypertension | 11/22/2013 | + + + | SHOULDER PAIN, RIGHT | 04/05/2012 | + + + | PARESTHESIA | 04/05/2012 | + + + | MYOFASCIAL PAIN SYNDROME | 04/05/2012 | + + + | BURSITIS, SHOULDER | | + + + | Epilepsy without status epilepticus (HCC) | | + + + | Syncope and collapse | | + + + | Piriformis syndrome | | + + + | Neoplasm of soft tissue | | + + + | Hypothyroid | | + + + | Hyposmolality | | + + + | Fatigue | | + + + | Atypical chest pain | | + + + Encounters +--------+ + + + + | Date | Type | Specialty | Care Team | Description | +--------+ + + + + | 12/28/ | Telephone | | Lavinia Arroyo, | Triage (Chest pain, | | 2018 | | | CC TEACHING ARTIST | seizure) | +--------+ + + + + | 12/19/ | Refill | | Lavinia Arroyo, | Medication Refill | | 2018 | | | CC TEACHING ARTIST | | +--------+ + + + + | 12/02/ | Refill | | Hanh Burger CC | Medication Refill | | 2018 | | | TEACHING ARTIST | | +--------+ + + + + | 12/01/ | Telephone | | Lupillo Valdez | Other | | 2019 | | | E, DO | | +--------+ + + + + | 11/24/ | Office | | Lupillo Valdez | Hypothyroidism, | | 2019 | Visit | | E, DO | unspecified type | | | | | | (Primary Dx); | | | | | | Gastroesophageal | | | | | | reflux disease | | | | | | without esophagitis; | | | | | | Nonintractable | | | | | | epilepsy without | | | | | | status epilepticus, | | | | | | unspecified epilepsy | | | | | | type (HCC); Hiatal | | | | | | hernia; Breast | | | | | | cancer screening | +--------+ + + + + | 11/24/ | Telephone | | Hanh Burger CC | Paperwork | | 2018 | | | TEACHING ARTIST | | +--------+ + + + + | 11/21/ | Telephone | Lupillo Limon | Lab Results | | 2018 | | | E, DO | | +--------+ + + + + | 11/21/ | Refill | | Lavinia Arroyo, | Medication Refill | | 2018 | | | CC TEACHING ARTIST | | +--------+ + + + + | 11/15/ | Telephone | | Lupillo Valdez | Referral | | 2018 | | | E, DO | | +--------+ + + + + | 10/24/ | Refill | | Lupillo Valdez | Medication Refill | | 2018 | | | E, DO | | +--------+ + + + + | 10/17/ | Telephone | Lupillo Limon | Other (physical | | 2018 | | | E, DO | capacity test) | +--------+ + + + + | 10/04/ | Telephone | | Lupillo Valdez | Medication Related | | 2018 | | | E, DO | | +--------+ + + + + from Last 3 Months Immunizations + + + + | Name | Dates Previously Given | Next Due | + + + + | INFLUENZA PF | 08/15/2018 | | | QUAD(PED/ADOL/ADULT) | | | | ,PSKT or VIAL | | | + + + + | TDAP, (ADOL/ADULT) | 09/07/2018 | | + + + + Family History + + +------+ + | Medical History | Relation | Name | Comments | + + +------+ + | Arthritis | Mother | | | + + +------+ + | Cancer | Mother | | | + + +------+ + | Depression | Mother | | | + + +------+ + | Heart disease | Mother | | | + + +------+ + | Hypertension | Mother | | | + + +------+ + | Sleep apnea | Mother | | | + + +------+ + | Stroke | Mother | | | + + +------+ + | Thyroid disease | Mother | | | + + +------+ + | Ulcer disease | Mother | | | + + +------+ + + +------+--------+ + | Relation | Name | Status | Comments | + +------+--------+ + | Mother | | | | + +------+--------+ + Social History + + + +--------+ [...] + + | Tobacco Cessation: Counseling Given: Yes | + + + + +---------+ + [...] + | Blood Pressure | 138/76 | 11/24/20181442 PST | + + + [...] Height | 165.1 cm (5' 5") | 08/15/20184 PST | + + + + | Body Mass Index | 40.94 | 11/24/20181442 PST | + + + + Plan of Treatment + + + + + | Health Maintenance | Due Date | Last Done | Comments | + + + + + | Hepatitis C | | | | | Screening | 0 | | | + + + + + | PRIMARY CARE | | | | | OUTREACH-MODERATE | 0 | | | | RISK EVERY 1 YEAR | | | | + + + + + | Cervical Cancer | | | | | Screening (Pap) | 0 | | | + + + + + | BREAST CANCER | | | | | SCREENING (MAMM Q2 | 0 | | | | YEARS 50-74) | | | | + + + + + | Vaccine: Zoster (1 | | | | | of 2) | 0 | | | + + + + + | Colorectal Cancer | | 07/27/2017, 07/27/2017 | | | Screening | 7 | | | | (Colonoscopy) | | | | + + + + + | Vaccine: | | 09/07/2018 | | | Dtap/Tdap/Td (2 - | 8 | | | | Td) | | | | + + + + + | Vaccine: Influenza | Completed | 08/15/2018 | | + + + + + Procedures + +--------+ + + + | Procedure Name | Priori | Date/Time | Associated Diagnosis | Comments | | | ty | | | | + +--------+ + + + | LABS - EXTERNAL SCAN | | 12/24/2018 | | Results for this | | [...] section. | + +--------+ + + + from Last 3 Months Results LABS - EXTERNAL SCAN (12/24/2018)Only the most recent of 2 results within the time period i s included. + + + | Narrative | Performed At | + + + | Ordered by an | | | unspecified provider. | | + + + Thyroid Stimulating Hormone 3rd Gen (11/21/2018 1220) [...] + + + | Testing Performed at: [facility] CLIA: [id number] - [id number] | REFERENCE LAB | | [place] [address] | [facility] | + + + + + + + + | Performing | Address | City/State/Zipcode | Phone Number | | Organization | | | | + + + + + | REFERENCE LAB | [address] [facility] | [place] [address] | [phone] | | [facility] | | | | + + + + + from Last 3 Months Insurance + +--------+ +--------+ +---------+ | Payer | Benefi | Subscriber | Type | Phone | Address | | | t Plan | ID | | | | | | / | | | | | | | Group | | | | | + +--------+ +--------+ +---------+ | [employer] | MODA | [id number] | Medica | [phone] | | MEDICAID HMO | HEALTH | | id | 9821 | | | | [place] | | | | | | | [place] | | | | | + +--------+ +--------+ +---------+ + +--------+ +--------+ + + | Guarantor Name | Accoun | Relation to | Date | Phone | Billing Address | | | t Type | Patient | of | | | | | | | | | | + +--------+ +--------+ + + | PAULA MCLEOD | Person | Self [birth year] | Home: | [address] [place] | | | al/Fam | | 1960 | [phone] [address] [place], [place] | | | priti | | [phone] | [address] | + +--------+ +--------+ + +
--- OUTSIDE RECORDS SUMMARY | ~2018-12-28 | XMS | Encounter Summary ---
Demographics + + + | Address | [address] | | | [place] [address] | + + + | Home Phone | | + + + | Preferred Language | Unknown | + + + | Marital Status | Single | + + + | Anabaptist Affiliation | Unknown | + + + | Race | Unknown | + + + | Ethnic Group | Unknown | + + + Author + + + | Author | [facility] | + + + | Organization | [facility] | + + + | Address | [...] Team Providers + +------+ + | Care Straight Slicing Machine Operator Name | Role | Phone | + +------+ + | Noah Valdez DO | PCP | | + +------+ + Reason for Visit Physical Medicine (Routine) +--------+ + + + + + | Status | Reason | Specialty | Diagnoses / | Referred By | Referred To | | | | | Procedures | Contact | Contact | +--------+ + + + + + | Closed | PT | Physical | Diagnoses | Courtney | Crystal | | | Functional | Therapy | Primary | Noah Ken DO | Physical | | | Capacity | | osteoarthrit | [address] | Therapy 1268 | | | Eval | | is, right | [place], | [address] | | | | | ankle and | [place] | [place], [place] | | | | | foot | [address] | [address] Phone: | | | | | Procedures | Phone: | [phone] | | | | | PT | [phone] | Fax: | | | | | Functional | Fax: | [phone] | | | | | Capacity | [phone] | | | | | | Test | | | +--------+ + + + + + Encounter Details +--------+ + + + + | Date | Type | Department | Care Team | Description | +--------+ + + + + | 11/11/ | Hospital | [facility] | Noha Valdez, | | | 2019 | Encounter | Physical Therapy | DO [address] | | | | | [address] | [place] | | | | | [place] [address] | [id number] | | | | | [phone] | | | | | | | Salomón Caballero, PT | | +--------+ + + + + [...] + + + as of this encounter Medications at Time of Discharge + + +-------+---------+--------+ + | Medication | Sig. | Disp. | Refills | Start | End Date | | | | | | Date | | + + +-------+---------+--------+ + | divalproex | Take 500 mg by mouth | | | | | | (DEPAKOTE) 500 MG EC | 3 (three) times | | | | | | tablet | daily. | | | | | + + +-------+---------+--------+ + | | Take 1 capsule by | | | | | | glucosamine-chondroi | mouth 3 (three) | | | | | | tin 500-400 MG CAPS | times daily. | | | | | + + +-------+---------+--------+ + | levothyroxine | Take 75 mcg by mouth | | | | | | (SYNTHROID) 25 MCG | every morning | | | | | | tablet | before breakfast. | | | | | + + +-------+---------+--------+ + | lisinopril | Take 2.5 mg by mouth | | | | | | (ZESTRIL) 2.5 MG | daily. | | | | | | tablet | | | | | | + + +-------+---------+--------+ + | omeprazole | Take 20 mg by mouth | | | | | | (PRILOSEC) 20 MG | 2 (two) times daily. | | | | | | capsule | | | | | | + + +-------+---------+--------+ + as of this encounter Plan of Treatment Not on fileas of this encounter Visit Diagnoses Not on filein this encounter"
--- OUTSIDE RECORDS SUMMARY | ~2018-12-28 | XMS | Encounter Summary ---
Demographics + + + | Address | [address] | | | [place] [address] | + + + | Home Phone [...] + + + | Author | [facility] | | | and [place] | + + + | Organization | [facility] | | | [...] Team Providers + +------+ + | Care Finish Cleaner Name | Role | Phone | + [...] Medication Refill | | 2019 | | [facility] | E, DO [address] | | | | | MEDICAL CLINIC [address] | [place], [place] | | | | | [address] [place], | [address] | | | | | [place] [address] | [phone] | | | | | [phone] | | | +--------+--------+ + + + [...]
--- OUTSIDE RECORDS SUMMARY | ~2018-12-28 | XMS | Encounter Summary ---
Demographics + + + | Address | [address] | | | [place] [address] | + + + | Home Phone | | + + + | Preferred Language | Unknown | + + + | Marital Status | Single | + + + | Presybeterian Affiliation | Unknown | + + + | Race | Unknown | + + + | Ethnic Group | Unknown | + + + Author + + + | Author | [facility] | + + + | Organization | [facility] | + + + | Address | [...] Team Providers + +------+ + | Care Stock Holder Name | Role | Phone | + +------+ + | Noah Valdez DO | PCP | | + +------+ + Encounter Details +--------+ + + + + | Date | Type | Department | Care Team | Description | +--------+ + + + + | 10/19/ | Documentati | [facility] | Noah Valdez, | | | 2019 | on Only | Medical Center | DO [address] | | | | | Patient Access [id number] | [place] | | | | | [address] [place], | [address] | | | | | [place] [address] | | | | | | [phone] | | | +--------+ + + + [...]
--- OUTSIDE RECORDS SUMMARY | ~2018-12-28 | XMS | Clinical Summary ---
Demographics + + + | Address | [address] | | | [place] [address] | + + + | Home Phone | | + + + | Preferred Language | Unknown | + + + | Marital Status | Single | + + + | Judaism Affiliation | Unknown | + + + | Race | Unknown | + + + | Ethnic Group | Unknown | + + + Author + + + | Author | [facility] | + + + | Organization | [facility] | + + + | Address | [...] Team Providers + +------+ + | Care Packaging Assembler Name | Role | Phone | [...] | Meperidine | Anaphylaxis | High | 06/20/20 | | | | | | 15 | | + + + + + + | Morphine | Anaphylaxis | High | 20 | | | | | | 15 | | + + + + + + | Oxycodone | Anaphylaxis | High | 06/20/20 | [...] tablet by | 30 | 0 | 05/29 | | Activ | | (NORVASC) 5 MG | mouth daily. | tablet | | 5/20 | | e | | tablet | | | | 15 | | | + + +--------+---------+------+------+-------+ | aspirin (ASPIRIN | Take 1 tablet by | 30 | 0 | 05/29 | | Activ | | CHILDRENS) 81 [...] Obesity | 06/20/2015 | + + + Encounters +--------+ + + + + | Date | Type | Specialty | Care Team | Description | +--------+ + + + + | 12/01/ | Telephone | | Salomón Caballero PT | | | 2018 | | | | | +--------+ + + + + | 11/15/ | Telephone | | Salomón Caballero PT | | | 2018 | | | | | +--------+ + + + + | 11/11/ | Hospital | | Noah Valdez, | | | 2018 | Encounter | | DO Salomón Caballero, | | | | | | PT | | +--------+ + + + + | 10/19/ | Documentati | | Noah Valdez, | | | 2018 | on Only | | DO | | +--------+ + + + + | 10/03/ | Telephone | | Hemal Rudd, | Referral (schedule | | 2019 | | | MD | from new referral) | +--------+ + + + + from Last 3 Months Family History + + +------+ + | [...] +------+-------+ + | MEDICAID | [place] | [id number] | | | [address] | | | [place] | | | | [place] | | | [place] | | | | [address] | | | SUBSORTER | | | | | + +--------+ [...] [address] | | | al/[place] | | 1960 | [phone] | [address] [place] | | | [place] | | | [address] | [address] | + +--------+ +--------+ + +
--- OUTSIDE RECORDS SUMMARY | ~2018-12-28 | XMS | Encounter Summary ---
Demographics + + + | Address | [address] | | | [place] [address] | + + + | Home Phone [...] Team Providers + +------+ + | Care Blacking Wheel Tender Name | Role | Phone | + [...] + | 11/21/ | Refill | [facility] | Lavinia Arroyo, | Medication Refill | | 2019 | | [facility] | CC SLEEP MEDICINE PHYSICIAN | | | | | MEDICAL CLINIC [address] | | | | | | [address] [place], | | | | | | [place] [address] | | | | | | [phone] | | | +--------+--------+ + + + [...] as of this encounter Plan of Treatment +------+--------+ + + | Name | Priori | Associated Diagnoses | Order Schedule | | | ty | | | +------+--------+ + + | TSH | Routin | Hypothyroidism, | Expected: | | | e | unspecified type | 11/21/2018, Expires: | | | | | 11/21/2019 | +------+--------+ + + as of this encounter Visit Diagnoses + + | Diagnosis | + + | Hypothyroidism, unspecified type - Primary | + +"
--- OUTSIDE RECORDS SUMMARY | ~2018-12-28 | XMS | Encounter Summary ---
Demographics + + + | Address | [address] | | | [place] [address] | + + + | Home Phone | | + + + | Preferred Language | Unknown | + + + | Marital Status | Single | + + + | Druze Affiliation | Unknown | + + + | Race | Unknown | + + + | Ethnic Group | Unknown | + + + Author + + + | Author | [facility] | + + + | Organization | [facility] | + + + | Address | [...] Team Providers + +------+ + | Care Grease Press Helper Name | Role | Phone | + +------+ + | Noah Valdez DO | PCP | | + +------+ + Encounter Details +--------+ + + + + | Date | Type | Department | Care Team | Description | +--------+ + + + + | 10/19/ | Documentati | [facility] | Noah Valdez, | | | 2019 | on Only | Medical Center | DO [address] | | | | | Patient Access [id number] | [place] | | | | | [address] [place], | [id number] | | | | | [place] [address] | | | | | | [phone] | | | +--------+ + + + [...]
--- OUTSIDE RECORDS SUMMARY | ~2018-12-28 | XMS | Clinical Summary ---
Demographics + + + | Address | [address] | | | [place] [address] | + + + | Home Phone | | + + + | Preferred Language | Unknown | + + + | Marital Status | Single | + + + | Hoahaoism Affiliation | Unknown | + + + | Race | White | + + + | Ethnic Group | Not or | + + + Author + + + | Author | [facility] | + + + | Organization | [facility] | + + + | Address | Unknown | + + + | Phone | Unavailable | + + + Support + + +---------+ + | Name | Relationship | Address | Phone | + + +---------+ + | Camelia Malhotra | ECON | Unknown | | + + +---------+ + Care Team Providers + +------+ + | Care Unscrambler Name | Role | Phone | + +------+ + | Daniel Elliott MD | PP | | + +------+ + Source Comments [facility] is fully live on both [facility] and [facility] InPatient.[facility] Allergies + + + + + + | Active Allergy | Reactions | Severity | Noted | Comments | | | | | Date | | + + + + + + | Codeine | Anaphylaxis | High | 06/20/20 | | | | | | 15 | | + + + + + + | Lag-Nuoabwdcbsh-Mllx | Unknown | | | | | aminophen | | | | | + + + + + + | Meperidine (Pf) | Unknown | | | | + + + + + + | Hydrocodone | Anaphylaxis | High | 06/20/20 | | | | | | 15 | | + + + + + + | Meperidine | Anaphylaxis | High | 06/20/20 | | | | | | 15 | | + + + + + + | Morphine | Palpitations, | High | 11/22/19 | | | | Dyspnea | | 14 | | + + + + + + | Oxycodone | Anaphylaxis | High | 06/20/20 | | | | | | 15 | | + + + + + + | Oxycodone-Acetaminop | Unknown | | | | | hen | | | | | + + + + + + | Penicillins | Anaphylaxis | High | 06/20/20 | | | | | | 15 | | + + + + + + | Propoxyphene | Anaphylaxis | High | 06/20/20 | | | | | | 15 | | + + + + + + | Propoxyphene | Unknown | | | | | N-Acetaminophen | | | | | + + + + + + Current Medications + + +-------+---------+------+------+-------+ | Prescription | Sig. | Disp. | Refills | Star | End | Statu | | | | | | t | Date | s | | | | | | Date | | | + + +-------+---------+------+------+-------+ | levETIRAcetam | Take 750 mg by mouth | | | | | Activ | | (KEPPRA) 750 mg oral | two times daily. | | | | | e | | tablet | | | | | | | + + +-------+---------+------+------+-------+ | levothyroxine 112 | Take 112 mcg by | | | 04/27 | | Activ | | mcg oral tablet | mouth once daily. | | | 020 | | e | | | | | | 18 | | | + + +-------+---------+------+------+-------+ | lisinopril 20 mg | Take 20 mg by mouth | | | 2 | | Activ | | oral tablet | two times daily. | | | 03/16 | | e | | | | | | 18 | | | + + +-------+---------+------+------+-------+ | omeprazole 20 mg | | | | 08 | | Activ | | oral capsule,delayed | | | | 8/20 | | e | | release(DR/EC) | | | | 18 | | | + + +-------+---------+------+------+-------+ | lovastatin 40 mg | 40 mg. | | | 08/1 | | Activ | | oral tablet | | | | 0/20 | | e | | | | | | 18 | | | + + +-------+---------+------+------+-------+ | sertraline 50 mg | Take 50 mg by mouth | | | 07/3 | | Activ | | oral tablet | once daily. | | | 0/20 | | e | | | | | | 18 | | | + + +-------+---------+------+------+-------+ | pramipexole 0.125 | Take 0.125 mg by | | | 08/1 | | Activ | | mg oral tablet | mouth once daily. | | | 0/20 | | e | | | | | | 18 | | | + + +-------+---------+------+------+-------+ | gabapentin 100 mg | Take 100 mg by mouth | | | 08/1 | | Activ | | oral capsule | two times daily. | | | 0/20 | | e | | | | | | 18 | | | + + +-------+---------+------+------+-------+ | IRON ORAL | Take by mouth. | | | | | Activ | | | | | | | | e | + + +-------+---------+------+------+-------+ | ascorbic acid | Take by mouth. | | | | | Activ | | (VITAMIN C ORAL) | | | | | | e | + + +-------+---------+------+------+-------+ | IBUPROFEN ORAL | Take by mouth. | | | | | Activ | | | | | | | | e | + + +-------+---------+------+------+-------+ Active Problems Not on file Social History + + + +--------+------+ | Tobacco Use | Types | Packs/Day | Years | Date | | | | | Used | | + + + +--------+------+ | Former Smoker | Cigarettes | | | | + + + +--------+------+ + +---+---+---+ | Smokeless Tobacco: | | | | | Never Used | | | | + +---+---+---+ + + + | Sex Assigned at | Date Recorded | | | | + + + | Not on file | | + + + Last Filed Vital Signs + + + + | Vital Sign | Reading | Time Taken | + + + + | Blood Pressure | 130/63 | 05/19/2018 9:30 AM PDT | + + + + | Pulse | 62 | 05/19/2018 9:30 AM PDT | + + + + | Temperature | - | - | + + + + | Respiratory Rate | - | - | + + + + | Oxygen Saturation | - | - | + + + + | Inhaled Oxygen | - | - | | Concentration | | | + + + + | Weight | 110.7 kg (244 lb) | 05/19/2018 9:30 AM PDT | + + + + | Height | - | - | + + + + | Body Mass Index | - | - | + + + + Plan of Treatment + + + + + | Health Maintenance | Due Date | Last Done | Comments | + + + + + | Influenza (Flu) | | | | | vaccination (#1) | 8 | | | + + + + + Results Not on filefrom Last 3 Months Insurance + +--------+ +--------+-------+---------+ | Payer | Benefi | Subscriber | Type | Phone | Address | | | t Plan | ID | | | | | | / | | | | | | | Group | | | | | + +--------+ +--------+-------+---------+ | ONCOLOGY RN MEDICAID | ONCOLOGY RN | xxxxxxxx | Medica | | | | | [place] | | id | | | | | [place] | | | | | + +--------+ +--------+-------+---------+ + +--------+ +--------+ + + | Guarantor Name | Accoun | Relation to | Date | Phone | Billing Address | | | t Type | Patient | of | | | | | | | | | | + +--------+ +--------+ + + | PAULA MCLEOD | Person | Self | [birth year] Home: | [address] | | | jose [place] | | 1960 | [phone] | [address] [place] | | | [place] | | | [phone] | [phone] | + +--------+ +--------+ + +"
--- OUTSIDE RECORDS SUMMARY | ~2018-12-28 | XMS | Encounter Summary ---
Demographics + + + | Address | [address] | | | [place] [address] | + + + | Home Phone | | + + + | Preferred Language | Unknown | + + + | Marital Status | Single | + + + | Confucianist Affiliation | Unknown | + + + [...] Team Providers + +------+ + | Care Hosiery Looper Name | Role | Phone | + [...] Medication Related | | 2019 | | [facility] | E, DO [address] | | | | | MEDICAL CLIN[address] | [place] | | | | | [address] [facility], | [address] | | | | | [place] [address] | [phone] | | | | | [phone] | | | +--------+ + + + [...]
--- OUTSIDE RECORDS SUMMARY | ~2018-12-28 | XMS | Encounter Summary ---
Demographics + + + | Address | [address] | | | [place] [address] | + + + | Home Phone | | + + + | Preferred Language | Unknown | + + + | Marital Status | Single | + + + | Congregation Affiliation | Unknown | + + + | Race | Unknown | + + + | Ethnic Group | Unknown | + + + Author + + + | Author | [facility] | + + + | Organization | [facility] | + + + | Address | [...] Team Providers + +------+ + | Care Surgical Training Specialist Name | Role | Phone | + +------+ + | Noah Valdez DO | PCP | | + +------+ + Encounter Details +--------+ + + + + | Date | Type | Department | Care Team | Description | +--------+ + + + + | 12/01/ | Telephone | [facility] | Salomón Caballero PT | | | 2018 | | Physical Therapy | | | | | | [address] | | | | | | [place] [address] | | | | | | [phone] | | | +--------+ + + + [...]
--- OUTSIDE RECORDS SUMMARY | ~2018-12-28 | XMS | Encounter Summary ---
Demographics + + + | Address | [address] | | | [place] [address] | + + + | Home Phone | | + + + | Preferred Language | Unknown | + + + | Marital Status | Single | + + + | Sabianist Affiliation | Unknown | + + + [...] Team Providers + +------+ + | Care Billing Auditor Name | Role | Phone | + +------+ + | Lupillo Valdez DO | PCP | | + +------+ + Reason for Visit + + + | Reason | Comments | + + + | Paperwork | | + + + Encounter Details +--------+ + + + + | Date | Type | Department | Care Team | Description | +--------+ + + + + | 11/24/ | Telephone | [facility] | Hanh Burger, CC | Paperwork | | 2019 | | [facility] | OPERATIONAL INTELLIGENCE OFFICER | | | | | MEDICAL CLINIC [address] | | | | | | [address]TH [facility], | | | | | | [place] [address] | | | | | | [phone] | | | +--------+ + + + [...]
--- OUTSIDE RECORDS SUMMARY | ~2018-12-28 | XMS | Encounter Summary ---
Demographics + + + | Address | [address] | | | [place] [address] | + + + | Home Phone | | + + + | Preferred Language | Unknown | + + + | Marital Status | Single | + + + | Quaker Affiliation | Unknown | + + + | Race | Unknown | + + + | Ethnic Group | Unknown | + + + Author + + + | Author | [facility] | | | and [place] | + + + | Organization | [facility] | | | [...] + | + + +---------+ + | Lnaie Malhotra | ECON | Unknown | | + + +---------+ + Care Team Providers + +------+ + | Care Budget Specialist Name | Role | Phone | + +------+ + | Lupillo Valdez DO | PCP | | + +------+ + Reason for Visit +--------+ + | Reason | Comments | +--------+ + | Triage | Chest pain, seizure | +--------+ + Encounter Details +--------+ + + + + | Date | Type | Department | Care Team | Description | +--------+ + + + + | 12/28/ | Telephone | [facility] | Lavinia Arroyo, | Triage (Chest pain, | | 2019 | | [facility] | CC REEL FED PRINTER | seizure) | | | | MEDICAL CLINIC [address] | | | | | | 4TH [facility], | | | | | | [place] [address] | | | | | | [phone] | | | +--------+ + + + [...]
--- OUTSIDE RECORDS SUMMARY | ~2018-12-28 | XMS | Clinical Summary ---
Demographics + + + | Address | [address] | | | [place] [address] | + + + | Home Phone | | + + + | Preferred Language | Unknown | + + + | Marital Status | Single | + + + | Cheondoism Affiliation | Unknown | + + + [...] Team Providers + +------+ + | Care Director Social Welfare Name | Role | Phone | + [...] -Referral to Claus Reed at | | [facility] for Functional Capacity | | [...] | | 2018 | | | CC OUTSIDE B2B SALES | seizure) | +--------+ + + + + | 12/19/ | Refill | | Lavinia Arroyo, | Medication Refill | | 2018 | | | CC OUTSIDE [facility]ES | | +--------+ + + + + | 12/02/ | Refill | | Hanh Burger CC | Medication Refill | | 2018 | | | OUTSIDE [facility]2[employer] SALES | | +--------+ + + + + [...] Paperwork | | 2018 | | | OUTSIDE [employer] SALES | | +--------+ + + + + | 11/21/ | Telephone | Lupillo Limon | Lab Results | | 2018 | | | E, DO | | +--------+ + + + + | 11/21/ | Refill | | Lavinia Arroyo, | Medication Refill | | 2018 | | | CC OUTSIDE [facility] SALES | | +--------+ + + + + [...] + + + | Testing Performed at: [facility] CLIA: [id number] - [address] | REFERENCE LAB | | [place] [address] | [facility] | + + + + + + + + | Performing | Address | City/State/Zipcode | Phone Number | | Organization | | | | + + + + + | REFERENCE LAB | [address] [facility] | [place] [address] | [phone] | | [facility] | | | | [...] | [facility] | [facility] | [id number] | Medica | [phone] | | | [...] | | al/Fam | | 1960 | [phone] | [address] [place], [place] | | | priti | | | [phone] | [address] | + +--------+ +--------+ + +
--- OUTSIDE RECORDS SUMMARY | ~2018-12-28 | XMS | Encounter Summary ---
Demographics + + + | Address | [address] | | | [place] [address] | + + + | Home Phone | | + + + | Preferred Language | Unknown | + + + | Marital Status | Single | + + + | Yazdanism Affiliation | Unknown | + + + [...] Team Providers + +------+ + | Care Electrolysis Engineer Name | Role | Phone | [...] (Chest pain, | | 2019 | | [facility] | CC MUSIC TYPOGRAPHER | seizure) | | | | MEDICAL CLINIC [address] | | | | | | 4TH [facility], | | | | | | [place] [address] | | | | | | [phone] | | | +--------+ + + + [...]
--- OUTSIDE RECORDS SUMMARY | ~2018-12-28 | XMS | Encounter Summary ---
Demographics + + + | Address | [address] | | | [place] [address] | + + + | Home Phone | | + + + | Preferred Language | Unknown | + + + | Marital Status | Single | + + + | Latter-Day Affiliation | Unknown | + + + | Race | Unknown | + + + | Ethnic Group | Unknown | + + + Author + + + | Author | [facility] | + + + | Organization | [facility] | + + + | Address | [...] Team Providers + +------+ + | Care Sporting Goods Sales Manager Name | Role | Phone | + +------+ + | Noah Valdez DO | PCP | | + +------+ + Encounter Details +--------+ + + + + | Date | Type | Department | Care Team | Description | +--------+ + + + + | 11/15/ | Telephone | [facility] | Salomón Caballero PT | | | 2018 | | Physical Therapy | | | | | | [address] | | | | | | [place] [address] | | | | | | [phone] | | | +--------+ + + + [...]
--- OUTSIDE RECORDS SUMMARY | ~2018-12-28 | XMS | Encounter Summary ---
Demographics + + + | Address | [address] | | | [place] [address] | + + + | Home Phone [...] + + + | Author | [facility] | | | and [place] | + + + | Organization | [facility] | | [...] Team Providers + +------+ + | Care Pediatrician Name | Role | Phone | + [...] | | | | | type, | [address] | [address] | | | | | unspecified | Phone: | Phone: | | | | | laterality | [phone] | [phone] | | | | | | Fax: | Fax: | | | | | | [phone] | [phone] | + + + + + + [...] | Referral | | 2019 | | [facility] | E, DO [address] | | | | | MEDICAL CLINIC [address] | [place], [place] | | | | | [address] [place], | [address] | | | | | [place] [address] | [phone] | | | | | [phone] | | | +--------+ + + + [...] Testing Performed at: [facility] [place] [facility] CLIA: [id number] - 5375 | REFERENCE LAB | | [place] [address] | [facility] | + + + + + + + + | Performing | Address | City/State/Zipcode | Phone Number | | Organization | | | | + + + + + | REFERENCE LAB | [facility] | [place] [id number] | [phone] | | [facility] | | | | + + + + + in this encounter Visit Diagnoses + + | Diagnosis | + + | Hearing loss, unspecified hearing loss type, unspecified laterality - Primary | + +"
--- OUTSIDE RECORDS SUMMARY | ~2018-12-28 | XMS | Encounter Summary ---
Demographics + + + | Address | [address] | | | [place] [address] | + + + | Home Phone [...] Team Providers + +------+ + | Care Receiving Tank Operator Name | Role | Phone [...] Medication Refill | | 2019 | | [facility] | E, DO [address] | | | | | MEDICAL CLINIC [address] | [place], [place] | | | | | [address] [place], | [address] | | | | | [place] [address] | [phone] | | | | | [phone] | | | +--------+--------+ + + + [...]
--- OUTSIDE RECORDS SUMMARY | ~2018-12-28 | XMS | Encounter Summary ---
Demographics + + + | Address | [address] | | | [place] [address] | + + + | Home Phone | | + + + | Preferred Language | Unknown | + + + | Marital Status | Single | + + + | Pentecostalism Affiliation | Unknown | + + + [...] Team Providers + +------+ + | Care Bacon Slicer Name | Role | Phone | + [...] | | | MEDICAL CLINIC [address] | [place], [place] | | | | | [facility], | [address] | | | | | [place] [address] | [phone] | | | | | [phone] | | | +--------+ + + + [...]
--- OUTSIDE RECORDS SUMMARY | ~2018-12-28 | XMS | Encounter Summary ---
Demographics + + + | Address | [address] | | | [place] [address] | + + + | Home Phone | | + + + | Preferred Language | Unknown | + + + | Marital Status | Single | + + + | Caodaism Affiliation | Unknown | + + + | Race | Unknown | + + + | Ethnic Group | Unknown | + + + Author + + + | Author | [facility] | | | and [place] | + + + | Organization | [facility] | | | [...] Team Providers + +------+ + | Care Tag Press Operator Name | Role | Phone [...] Medication Refill | | 2019 | | [facility] | CC PENSION FUND MANAGER | | | | | MEDICAL CLINIC [address] | | | | | | [address]TH [facility], | | | | | | [place] [address] | | | | | | [phone] | | | +--------+--------+ + + + [...]
--- OUTSIDE RECORDS SUMMARY | ~2018-12-28 | XMS | Clinical Summary ---
Demographics + + + | Address | [address] | | | [place] [address] | + + + | Home Phone | | + + + | Preferred Language | Unknown | + + + | Marital Status | Single | + + + | Orthodoxy Affiliation | Unknown | + + + | Race | Unknown | + + + | Ethnic Group | Unknown | + + + Author + + + | Author | [facility] | + + + | Organization | [facility] | + + + | Address | [...] Team Providers + +------+ + | Care Nurses Educator Name | Role | Phone | + [...] +------+-------+ + | MEDICAID | [place] | [id number] | | | [address] | | | [place] | | | | [place] | | | [place] | | | | [address] | | | VP RESEARCH | | | | | + +--------+ [...] | priti | | | [phone] | [address] | + +--------+ +--------+ + +
--- OUTSIDE RECORDS SUMMARY | ~2018-12-28 | XMS | Encounter Summary ---
Demographics + + + | Address | [address] | | | [place] [address] | + + + | Home Phone [...] Team Providers + +------+ + | Care Facilities Project Manager Name | Role | Phone | [...] Medication Refill | | 2019 | | [facility] | WATCH ENGINE OPERATOR | | | | | MEDICAL CLINIC [address] | | | | | | [address]TH [facility], | | | | | | [place] [address] | | | | | | [phone] | | | +--------+--------+ + + + [...]
--- OUTSIDE RECORDS SUMMARY | ~2018-12-28 | XMS | Encounter Summary ---
Demographics + + + | Address | [address] | | | [place] [address] | + + + | Home Phone | | + + + | Preferred Language | Unknown | + + + | Marital Status | Single | + + + | Faith Affiliation | Unknown | + + + | Race | Unknown | + + + | Ethnic Group | Unknown | + + + Author + + + | Author | [facility] | + + + | Organization | [facility] | + + + | Address | [...] Team Providers + +------+ + | Care Rolled Oats Mill Operator Name | Role | Phone | + +------+ + | Noah Valdez DO | PCP | | + +------+ + Encounter Details +--------+ + + + + | Date | Type | Department | Care Team | Description | +--------+ + + + + | 11/15/ | Telephone | [facility] | Salomón Caballero PT | | | 2018 | | Physical Therapy | | | | | | [address] | | | | | | [place] [address] | | | | | | [phone] | | | +--------+ + + + [...]
--- OUTSIDE RECORDS SUMMARY | ~2018-12-28 | XMS | Encounter Summary ---
Demographics + + + | Address | [address] | | | [place] [address] | + + + | Home Phone [...] + + | Author | [facility] | | | and [place] | + + + | Organization | [facility] | | | [...] Team Providers + +------+ + | Care Coke Oven Mason Name | Role | Phone | + +------+ + | Lupillo Valdez DO | PCP | | + +------+ + Reason for Visit + + + | Reason | Comments | + + + | Lab Results | | + + + Encounter Details +--------+ + + + + | Date | Type | Department | Care Team | Description | +--------+ + + + + | 11/21/ | Telephone | [facility] | Lupillo Valdez | Lab Results | | 2019 | | [facility] | E, DO [address] | | | | | MEDICAL CLINIC [address] | [place], [place] | | | | | [address] [place], | [address] | | | | | [place] [address] | [phone] | | | | | [phone] | | | +--------+ + + + [...]
--- OUTSIDE RECORDS SUMMARY | ~2018-12-28 | XMS | Encounter Summary ---
Demographics + + + | Address | [address] | | | [place] [address] | + + + | Home Phone [...] Team Providers + +------+ + | Care Reheater Helper Name | Role | Phone | [...] | Paperwork | | 2019 | | [facility] | INSTALLATION SUPERVISOR | | | | | MEDICAL CLINIC [address] | | | | | | [address]TH [facility], | | | | | | [place] [address] | | | | | | [phone] | | | +--------+ + + + [...]
--- OUTSIDE RECORDS SUMMARY | ~2018-12-28 | XMS | Clinical Summary ---
Demographics + + + | Address | [address] | | | [place] [address] | + + + | Home Phone [...] + + | Author | [facility] | + + + | [...] Team Providers + +------+ + | Care Ict Account Manager Name | Role | Phone | + +------+ + | Daniel Elliott MD | PP | | + +------+ + Source Comments [facility] is [facility] and [facility] In[facility] Allergies + + + + + + | Active Allergy | Reactions | Severity | Noted | Comments | | | | | Date | | + + + + + + | Codeine | Anaphylaxis | High | 06/20/20 | | | | | | 15 | | + + + + + + | Fsj-[id number]-Gpqd | Unknown | | | | | [...] | | | + +--------+ +--------+-------+---------+ | DIRECTOR WRITING MEDICAID | DIRECTOR WRITING | xxxxxxxx | Medica | | | [...] | | | priti | | | [phone] | [phone] | + +--------+ +--------+ + +"
--- OUTSIDE RECORDS SUMMARY | ~2018-12-28 | XMS | Encounter Summary ---
Demographics + + + | Address | [address] | | | [place] [address] | + + + | Home Phone [...] Team Providers + +------+ + | Care Aircraft Maintenance Supervisor Name | Role | Phone | [...] | [facility] | CC THERAPEUTIC RECREATION DIRECTOR | | | | | MEDICAL CLINIC [address] | | | | | | [address]TH [facility], | | | | | | [place] [address] | | | | | | [phone] | | | +--------+--------+ + + + [...]
--- OUTSIDE RECORDS SUMMARY | ~2018-12-28 | XMS | Encounter Summary ---
Demographics + + + | Address | [address] | | | [place] [address] | + + + | Home Phone [...] + + + | Author | [facility] | | | and [place] | + + + | Organization | [facility] | | | and [...] Providers + +------+ + | Care Fitting Room Inspector Name | Role | Phone | [...] | Other | | 2019 | | [facility] | E, DO [address] | | | | | MEDICAL CLINIC [address] | [place] | | | | | [address] [place], | [address] | | | | | [place] [address] | [phone] | | | | | [phone] | | | +--------+ + + + [...]
--- OUTSIDE RECORDS SUMMARY | ~2018-12-28 | XMS | Encounter Summary ---
Demographics + + + | Address | [address] | | | [place] [address] | + + + | Home Phone [...] + + + | Author | [facility] | | | and [place] | + + + | Organization | [facility] | | [...] Team Providers + +------+ + | Care Microwave Supervisor Name | Role | Phone | [...] Lab Results | | 2019 | | [facility] | E, DO [address] | | | | | MEDICAL CLINIC [address] | [place], [place] | | | | | [address] [place], | [address] | | | | | [place] [address] | [phone] | | | | | [phone] | | | +--------+ + + + [...]
--- OUTSIDE RECORDS SUMMARY | ~2018-12-28 | XMS | Encounter Summary ---
Demographics + + + | Address | [address] | | | [place] [address] | + + + | Home Phone | | + + + | Preferred Language | Unknown | + + + | Marital Status | Single | + + + | Baptist Affiliation | Unknown | + + + | Race | Unknown | + + + | Ethnic Group | Unknown | + + + Author + + + | Author | [facility] | + + + | Organization | [facility] | + + + | Address | [...] Team Providers + +------+ + | Care Wilderness Guide Name | Role | Phone | + +------+ + | Noah Valdez DO | PCP | | + +------+ + Encounter Details +--------+ + + + + | Date | Type | Department | Care Team | Description | +--------+ + + + + | 12/01/ | Telephone | [facility] | Salomón Caballero PT | | | 2018 | | Physical Therapy | | | | | | [address] | | | | | | [place] [address] | | | | | | [phone] | | | +--------+ + + + [...]
--- OUTSIDE RECORDS SUMMARY | ~2018-12-28 | XMS | Encounter Summary ---
Demographics + + + | Address | [address] | | | [place] [address] | + + + | Home Phone | | + + + | Preferred Language | Unknown | + + + | Marital Status | Single | + + + | Moravian Affiliation | Unknown | + + + | Race | Unknown | + + + | Ethnic Group | Unknown | + + + Author + + + | Author | [facility] | + + + | Organization | [facility] | + + + | Address | [...] Team Providers + +------+ + | Care Underground Utility Locator Name | Role | Phone | + [...] | | ankle and | [place] | [place], [place] | | | | | foot | [address] | [address] Phone: | | | | | Procedures | Phone: | [phone] | | | | | PT | [phone] | Fax: | | | | | Functional | Fax: | [phone] | | | | | Capacity | [phone] | | | | | | Test | | | +--------+ + + + + + Encounter Details +--------+ + + + + | Date | Type | Department | Care Team | Description | +--------+ + + + + | 11/11/ | Hospital | [facility] | Noah Valdez, | | | 2019 | Encounter | Physical Therapy | DO [address] | | | | | [address] | [place] | | | | | [place] [address] | [id number] | | | | | [phone] | | | | | | | [...]
--- OUTSIDE RECORDS SUMMARY | ~2018-12-28 | XMS | Encounter Summary ---
Demographics + + + | Address | [address] | | | [place] [address] | + + + | Home Phone [...] Team Providers + +------+ + | Care Managing Member Name | Role | Phone | [...] Hypothyroidism, | | 2019 | Visit | [facility] | E, DO [address] | unspecified type | | | | MEDICAL CLINIC [address] | [place], [place] | (Primary Dx); | | | | [address] [facility], | [address] | Gastroesophageal | | | | [place] [address] | [phone] | reflux disease | | | | [phone] | | without esophagitis; | | | [...] Mammogram, call [facility] to schedule [phone] this encounter Progress Notes Lupillo Valdez DO [...] Mammogram, call [facility] to schedule [phone] Subjective: ROBERT Samuels presents to the clinic [...] 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 She needs a note stating why she was off work fro m July to October. Her question is where do we go from here? Lanie Reyes PA-C is determining her work status. 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 She had vocational testing done 09/15/2018 with Wilmar Irvin RN. 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 She states she is unable to work because of her below average communication and math skills evaluated by Adriana Irvin RN, her advocate for [facility]. She went to a work hardening therapy. She was only approved for only 3 physical therapy visi t but Ortho requested 3X/week for 3 months. She has a hiatal hernia. She is currently on a BRAT diet, she was started from urgent care in [place]. At the time she was unable to [...] a Mammogram. Order has been sent to [facility]. Current Outpatient Prescriptions Medication Sig Dispense Refill [...] affect. Judgment normal. Entered by Carina Figueroa [facility], acting as scribe for Noah Valdez D.O. The documentation recorded by the scribe accurately reflects the service I personally perfo [facility] and the decisions made by me. in [...]
[2018-12-28] MEDS ORDERED: NEXIUM20 MG PO (15:39)
--- NOTE | 2018-12-29 15:33 | EKG ---
[facility] [address] [facility] [place], [place] [address] Signed Normal sinus rhythm T wave abnormality, consider lateral ischemia Abnormal ECG When compared with ECG of 24-OCT-2018 21:28, No significant change was found Confirmed by THIAGO LIMA DO ([id number]) on 12/29/2018 3:33:11 PM Electronically Signed By: THIAGO LIMA DO 12/29/18 1533 PATIENT NAME: PAULA MCLEOD Electrocardiogram DATE OF : 60 PHYSICIAN: THIAGO LIMA DO REPORT #: [id number] REPORT IS CONFIDENTIAL AND NOT TO BE RELEASED WITHOUT AUTHORIZATION
== END 2018-12-28 18:00 | disposition short-term general hospital (02) ==
LOC: ED 15:26
DX: I21.4 Non-ST elevation (NSTEMI) myocardial infarction (principal); I10 Essential (primary) hypertension; E03.9 Hypothyroidism, unspecified; K21.9 Gastro-esophageal reflux disease without esophagitis; E78.00 Pure hypercholesterolemia, unspecified; F32.9 Major depressive disorder, single episode, unspecified; Z87.891 Personal history of nicotine dependence; Z88.8 Allergy status to other drugs, medicaments and biological substances; Z88.5 Allergy status to narcotic agent; Z88.0 Allergy status to penicillin; Z91.041 Radiographic dye allergy status; Z79.899 Other long term (current) drug therapy
CPT/HCPCS: 71045; 80053; 84484; 85025; 93005; 93010; 96372; 99291; 99292; J1650

== ENCOUNTER 2019-07-21 09:39 | Emergency (ER) | payer OTHER ==
[~2019-07-21] VITALS: Ht 165.1 cm; Wt 108.0 kg
--- OUTSIDE RECORDS SUMMARY | ~2019-07-21 | XMS | Encounter Summary ---
Demographics + + + | Address | [address] | | | [place] [address] | + + + | Home Phone | | + + + | Preferred Language | Unknown | + + + | Marital Status | Single | + + + | Gnosticist Affiliation | Unknown | + + + | Race | Unknown | + + + | Ethnic Group | Unknown | + + + Author + + + | Author | [facility] | | | and [place] | + + + | Organization | [facility] | | | [...] Team Providers + +------+ + | Care Manager Human Capital Name | Role | Phone | + +------+ + | Lupillo Valdez DO | PCP | | + +------+ + Encounter Details +--------+ + + + + | Date | Type | Department | Care Team | Description | +--------+ + + + + | 05/25/ | Abstract | [facility] | Waldemar Santoyo MD | | | 2018 | | CARDIOLOGY [address] | | | | | [place], | [place] | | | | | [place] [address] | [address] | | | | | [phone] | | | +--------+ + + + [...] + + + + + + | Job Start Date | Occupation | Industry | + + + + | Not on file | Not on file | Not on file | + + + + + + + + | Travel History | Travel Start | Travel End | + + + + + + | No recent travel history available. | + + documented as of this encounter Plan of Treatment +--------+---------+ + + + | Date | Type | Specialty | Care Team | Description | +--------+---------+ + + + | 07/26/ | Office | Pain Medicine | Shar Lugo, | | | 2018 | Visit | | [facility] [address] | | | | | | [place] [address] | | | | | | [phone] | | | | | | | | +--------+---------+ + + + documented as of this encounter Procedures + +--------+ + + + | Procedure Name | Priori | Date/Time | Associated Diagnosis | Comments | | | ty | | | | + +--------+ + + + | EXTERNAL LAB: | Routin | 03/08/2019 | | Results for this | | GLUCOSE | e | | | procedure are in the | | | | | | results section. | + +--------+ + + + | EXTERNAL LAB: ALT | Routin | 03/08/2019 | | Results for this | | | e | | | procedure are in the | | | | | | results section. | + +--------+ + + + | EXTERNAL LAB: AST | Routin | 03/08/2019 | | Results for this | | | e | | | procedure are in the | | | | | | results section. | + +--------+ + + + | EXTERNAL LAB: | Routin | 03/08/2019 | | Results for this | | BILIRUBIN, TOTAL | e | | | procedure are in the | | | | | | results section. | + +--------+ + + + | EXTERNAL LAB: | Routin | 03/08/2019 | | Results for this | | ALBUMIN | e | | | procedure are in the | | | | | | results section. | + +--------+ + + + | EXTERNAL LAB: | Routin | 03/08/2019 | | Results for this | | PROTEIN, TOTAL | e | | | procedure are in the | | | | | | results section. | + +--------+ + + + | EXTERNAL LAB: | Routin | 03/08/2019 | | Results for this | | CALCIUM | e | | | procedure are in the | | | | | | results section. | + +--------+ + + + | EXTERNAL LAB: CARBON | Routin | 03/08/2019 | | Results for this | | DIOXIDE | e | | | procedure are in the | | | | | | results section. | + +--------+ + + + | EXTERNAL LAB: | Routin | 03/08/2019 | | Results for this | | CHLORIDE | e | | | procedure are in the | | | | | | results section. | + +--------+ + + + | EXTERNAL LAB: | Routin | 03/08/2019 | | Results for this | | POTASSIUM | e | | | procedure are in the | | | | | | results section. | + +--------+ + + + | EXTERNAL LAB: SODIUM | Routin | 03/08/2019 | | Results for this | | | e | | | procedure are in the | | | | | | results section. | + +--------+ + + + | EXTERNAL LAB: CBC | Routin | 03/08/2019 | | Results for this | | | e | | | procedure are in the | | | | | | results section. | + +--------+ + + + | EXTERNAL LAB: | Routin | 03/08/2019 | | Results for this | | TRIGLYCERIDES | e | | | procedure are in the | | | | | | results section. | + +--------+ + + + | EXTERNAL LAB: | Routin | 03/08/2019 | | Results for this | | CHOLESTEROL, HDL | e | | | procedure are in the | | | | | | results section. | + +--------+ + + + | EXTERNAL LAB: | Routin | 03/08/2019 | | Results for this | | CHOLESTEROL, TOTAL | e | | | procedure are in the | | | | | | results section. | + +--------+ + + + | EXTERNAL LAB: | Routin | 03/08/2019 | | Results for this | | CHOLESTEROL, LDL | e | | | procedure are in the | | DIRECT | | | | results section. | + +--------+ + + + | EXTERNAL LAB: EGFR | Routin | 03/08/2019 | | Results for this | | | e | | | procedure are in the | | | | | | results section. | + +--------+ + + + | EXTERNAL LAB: | Routin | 03/08/2019 | | Results for this | | CREATININE | e | | | procedure are in the | | | | | | results section. | + +--------+ + + + | LIPID PANEL | Routin | 03/08/2019 | | Results for this | | | e | | | procedure are in the | | | | | | results section. | + +--------+ + + + documented in this encounter Results Lipid Panel (03/08/2019) + +-------+ + + + | Component | Value | Ref Range | Performed | Pathologist | | | | | At | Signature | + +-------+ + + + | BUN/Creatin | 19.2 | 6.0 - 28.6 | | | | ine Ratio | | | | | + +-------+ + + + | Globulin | 2.3 | 1.8 - 3.5 | | | + +-------+ + + + | MCH, POC | 31 | 27 - 33 | | | + +-------+ + + + | % Basophils | 1.3 | 0.0 - 2.0 % | | | + +-------+ + + + + + | Specimen | + + | Blood | + + External Lab: Glucose (03/08/2019) + +---------+ + + + | Component | Value | Ref Range | Performed | Pathologist | | | | | At | Signature | + +---------+ + + + | Glucose, | 110 (A) | 70 - 100 | | | | External | | | | | + +---------+ + + + External Lab: ALT (03/08/2019) + +-------+ + + + | Component | Value | Ref Range | Performed | Pathologist | | | | | At | Signature | + +-------+ + + + | ALT, | 16 | 7 - 52 | | | | External | | | | | + +-------+ + + + External Lab: AST (03/08/2019) + +-------+ + + + | Component | Value | Ref Range | Performed | Pathologist | | | | | At | Signature | + +-------+ + + + | AST, | 19 | 13 - 39 | | | | External | | | | | + +-------+ + + + External Lab: Bilirubin, Total (03/08/2019) + +-------+ + + + | Component | Value | Ref Range | Performed | Pathologist | | | | | At | Signature | + +-------+ + + + | Bilirubin, | 0.5 | 0 - 1.2 | | | | Total, | | | | | | External | | | | | + +-------+ + + + External Lab: Albumin (03/08/2019) + +-------+ + + + | Component | Value | Ref Range | Performed | Pathologist | | | | | At | Signature | + +-------+ + + + | Albumin, | 4.0 | 3.5 - 5 | | | | External | | | | | + +-------+ + + + External Lab: Protein, Total (03/08/2019) + +-------+ + + + | Component | Value | Ref Range | Performed | Pathologist | | | | | At | Signature | + +-------+ + + + | Protein, | 6.3 | 6 - 8.3 | | | | Total, | | | | | | External | | | | | + +-------+ + + + External Lab: Calcium (03/08/2019) + +-------+ + + + | Component | Value | Ref Range | Performed | Pathologist | | | | | At | Signature | + +-------+ + + + | Calcium, | 9.6 | 8.5 - 10.3 | | | | External | | | | | + +-------+ + + + External Lab: Carbon Dioxide (03/08/2019) + +-------+ + + + | Component | Value | Ref Range | Performed | Pathologist | | | | | At | Signature | + +-------+ + + + | Carbon | 24 | 19 - 31 | | | | Dioxide, | | | | | | External | | | | | + +-------+ + + + External Lab: Chloride (03/08/2019) + +-------+ + + + | Component | Value | Ref Range | Performed | Pathologist | | | | | At | Signature | + +-------+ + + + | Chloride, | 103 | 95 - 112 | | | | External | | | | | + +-------+ + + + External Lab: Potassium (03/08/2019) + +-------+ + + + | Component | Value | Ref Range | Performed | Pathologist | | | | | At | Signature | + +-------+ + + + | Potassium, | 4.0 | 3.6 - 5.1 | | | | External | | | | | + +-------+ + + + External Lab: Sodium (03/08/2019) + +-------+ + + + | Component | Value | Ref Range | Performed | Pathologist | | | | | At | Signature | + +-------+ + + + | Sodium, | 137 | 132 - 143 | | | | External | | | | | + +-------+ + + + External Lab: CBC (03/08/2019) + +-------+ + + + | Component | Value | Ref Range | Performed | Pathologist | | | | | At | Signature | + +-------+ + + + | WBC, | 5.3 | 4.5 - 11 | | | | External | | | | | + +-------+ + + + | HGB, | 13.7 | 12 - 16 | | | | External | | | | | + +-------+ + + + | HCT, | 40.0 | 35 - 45 | | | | External | | | | | + +-------+ + + + | PLT, | 220 | 140 - 440 | | | | External | | | | | + +-------+ + + + | Neutrophils | 56.4 | 39 - 80 | | | | %, | | | | | | External | | | | | + +-------+ + + + | Lymphocytes | 31.1 | 24 - 44 | | | | %, | | | | | | External | | | | | + +-------+ + + + | Monocytes | 8.3 | 0 - 12 | | | | %, External | | | | | + +-------+ + + + | Eosinophils | 2.9 | 0 - 6 | | | | %, | | | | | | External | | | | | + +-------+ + + + | RBC, | 4.47 | 3.8 - 5.1 | | | | External | | | | | + +-------+ + + + | MCV, | 90 | 81 - 99 | | | | External | | | | | + +-------+ + + + | RDW, | 13.4 | 10.5 - 15 | | | | External | | | | | + +-------+ + + + External Lab: Triglycerides (03/08/2019) + +---------+ + + + | Component | Value | Ref Range | Performed | Pathologist | | | | | At | Signature | + +---------+ + + + | Triglycerid | 176 (A) | 30 - 150 | | | | es, | | | | | | External | | | | | + +---------+ + + + + + | Specimen | + + | Blood | + + External Lab: Cholesterol, HDL (03/08/2019) + +-------+ + + + | Component | Value | Ref Range | Performed | Pathologist | | | | | At | Signature | + +-------+ + + + | HDL | 45.6 | mg/dl | | | | Cholesterol | | | | | | , External | | | | | + +-------+ + + + + + | Specimen | + + | Blood | + + External Lab: Cholesterol, Total (03/08/2019) + +-------+ + + + | Component | Value | Ref Range | Performed | Pathologist | | | | | At | Signature | + +-------+ + + + | Cholesterol | 167 | mg/dl | | | | , Total, | | | | | | External | | | | | + +-------+ + + + + + | Specimen | + + | Blood | + + External Lab: Cholesterol, LDL Direct (03/08/2019) + +-------+ + + + | Component | Value | Ref Range | Performed | Pathologist | | | | | At | Signature | + +-------+ + + + | LDL | 86 | | | | | Cholesterol | | | | | | , Direct, | | | | | | External | | | | | + +-------+ + + + + + | Specimen | + + | Blood | + + External Lab: eGFR (03/08/2019) + +-------+ + + + | Component | Value | Ref Range | Performed | Pathologist | | | | | At | Signature | + +-------+ + + + | eGFR, | 82 | | | | | External | | | | | + +-------+ + + + + + | Specimen | + + | Blood | + + External Lab: Creatinine (03/08/2019) + +-------+ + + + | Component | Value | Ref Range | Performed | Pathologist | | | | | At | Signature | + +-------+ + + + | Creatinine, | 0.73 | 0.7 - 1.33 | | | | External | | | | | + +-------+ + + + + + | Specimen | + + | Blood | + + documented in this encounter Visit Diagnoses Not on filedocumented in this encounter"
--- OUTSIDE RECORDS SUMMARY | ~2019-07-21 | XMS | Encounter Summary ---
Demographics + + + | Address | [address] | | | [place] [address] | + + + | Home Phone | | + + + | Preferred Language | Unknown | + + + | Marital Status | Single | + + + | Amish Affiliation | Unknown | + + + | Race | Unknown | + + + | Ethnic Group | Unknown | + + + Author + + + | Author | [facility] | | | and [place] | + + + | Organization | [facility] | | | and [...] Team Providers + +------+ + | Care Full Time Staff Interpreter Name | Role | Phone | + +------+ + | Lupillo Valdez DO | PCP | | + +------+ + Reason for Referral Self-referral (Routine) + + + + + + + | Status | Reason | Specialty | Diagnoses / | Referred By | Referred To | | | | | Procedures | Contact | Contact | + + + + + + + | Authorized | Specialty | Ophthalmology | Diagnoses | Courtney, | Provider | | | Services | | Dry eye | Lupillo Ken | Not, In | | | Required | | | DO [address] | [address] | | | | | | [address] | [place] | | | | | | [facility], [place] | Health and | | | | | | [address] | Service | | | | | | Phone: | | | | | | | [phone] | | | | | | | Fax: | | | | | | | [phone] | | + + + + + + + Reason for Visit + + + | Reason | Comments | + + + | Referral | Dry Eyes | + + + Encounter Details +--------+ + + + + | Date | Type | Department | Care Team | Description | +--------+ + + + + | 06/05/ | Telephone | [facility] | Lupillo Valdez | Referral (Dry Eyes) | | 2019 | | [facility] | E, DO [address] | | | | | [facility] | [place], [place] | | | | | [address] [place], | [address] | | | | | [place] [address] | [phone] | | | | | [phone] | | | +--------+ + + + [...] | | 2018 | Visit | | MONOMER RECOVERY SUPERVISOR [address] | | | | | | [address] | | | | | | [place] [address] | | | | | | [phone] | | | | | | | | +--------+---------+ + + + + +--------+ + + | Name | Priori | Associated Diagnoses | Order Schedule | | | ty | | | + +--------+ + + | Ophthalmology, External - AMB | Routin | Dry eye | Ordered: 06/05/2019 | | Referral | e | | | + +--------+ + + documented as of this encounter Visit Diagnoses + + | Diagnosis | + + | Dry eye - Primary | + + documented in this encounter"
--- OUTSIDE RECORDS SUMMARY | ~2019-07-21 | XMS | Encounter Summary ---
Demographics + + + | Address | [address] | | | [place] [address] | + + + | Home Phone | | + + + | Preferred Language | Unknown | + + + | Marital Status | Single | + + + | Zoroastrianism Affiliation | Unknown | + + + | Race | Unknown | + + + | Ethnic Group | Unknown | + + + Author + + + | Author | [facility] | | | and [place] | + + + | Organization | [facility] | | | [...] Team Providers + +------+ + | Care Glaucoma Specialist Name | Role | Phone | + +------+ + | Lupillo Valdez DO | PCP | | + +------+ + Reason for Visit + + + | Reason | Comments | + + + | Referral | checking on status/sent 06/30 | + + + Encounter Details +--------+ + + + + | Date | Type | Department | Care Team | Description | +--------+ + + + + | 07/10/ | Telephone | [facility] | Roland Spears, | Referral (checking | | 2019 | | [facility] | [address] | on status/sent | | | | [address] | 06/30) | | | | [address] | [place] [address] | | | | | [place] | [phone] | | | | | [address] | | | | | | [phone] | | | +--------+ + + + [...] | | 2018 | Visit | | [facility] | | | | | | [address] | | | | | | [place] [address] | | | | | | [phone] | | | | | | | | +--------+---------+ + + + documented as of this encounter Visit Diagnoses Not on filedocumented in this encounter"
--- OUTSIDE RECORDS SUMMARY | ~2019-07-21 | XMS | Clinical Summary ---
Demographics + + + | Address | [address] | | | [place] [address] | + + + | Home Phone | | + + + | Preferred Language | Unknown | + + + | Marital Status | Single | + + + | Samaritan Affiliation | Unknown | + + + | Race | Unknown | + + + | Ethnic Group | Unknown | + + + Author + + + | Author | [facility] (Historical as of | | | 05-13-19) | + + + | Organization | [facility] (Historical as of | | | 05-13-19) | + + + | Address | [...] Team Providers + +------+ + | Care Field Crop Farmworker Name | Role | Phone | + +------+ + | Noah Valdez DO | PP | | + +------+ + Allergies + + + + + + | Active Allergy | Reactions | Severity | Noted | Comments | | | | | Date | | + + + + + + | Codeine | Anaphylaxis | High | 09/24/20 | | | | | | 15 | | + + + + + + | Hydrocodone | Anaphylaxis | High | 09/24/20 | | | | | | 15 | | + + + + + + | Meperidine | Anaphylaxis | High | 09/24/20 | | | | | | 15 | | + + + + + + | Morphine | Anaphylaxis | High | 09/24/20 | | | | | | 15 | | + + + + + + | Oxycodone | Anaphylaxis | High | 09/24/20 | | | | | | 15 | | + + + + + + | Penicillins | Anaphylaxis | High | 09/24/20 | | | | | | 15 | | + + + + + + | Oxycodone-Acetaminop | Anaphylaxis | High | 06/20/20 | | | hen | | | 15 | | + + + + + + | Propoxyphene | Anaphylaxis | High | 06/20/20 | | | | | | 15 | | + + + + + + Current Medications + + +--------+---------+------+------+-------+ | Prescription | Sig. | Disp. | Refills | Star | End | Statu | | | | | | t | Date | s | | | | | | Date | | | + + +--------+---------+------+------+-------+ | divalproex | Take 500 mg by mouth | | | | | Activ | | (DEPAKOTE) 500 MG EC | 3 (three) times | | | | | e | | tablet | daily. | | | | | | + + +--------+---------+------+------+-------+ | levothyroxine | Take 75 mcg by mouth | | | | | Activ | | (SYNTHROID) 25 MCG | every morning | | | | | e | | tablet | before breakfast. | | | | | | + + +--------+---------+------+------+-------+ | lisinopril | Take 2.5 mg by mouth | | | | | Activ | | (ZESTRIL) 2.5 MG | daily. | | | | | e | | tablet | | | | | | | + + +--------+---------+------+------+-------+ | omeprazole | Take 20 mg by mouth | | | | | Activ | | (PRILOSEC) 20 MG | 2 (two) times daily. | | | | | e | | capsule | | | | | | | + + +--------+---------+------+------+-------+ | | Take 1 capsule by | | | | | Activ | | glucosamine-chondroi | mouth 3 (three) | | | | | e | | tin 500-400 MG CAPS | times daily. | | | | | | + + +--------+---------+------+------+-------+ | amLODIPine | Take 1 tablet by | 30 | 0 | 09/2 | | Activ | | (NORVASC) 5 MG | mouth daily. | tablet | | 5/20 | | e | | tablet | | | | 15 | | | + + +--------+---------+------+------+-------+ | aspirin (ASPIRIN | Take 1 tablet by | 30 | 0 | 09/2 | | Activ | | CHILDRENS) 81 MG | mouth daily. | tablet | | 5/20 | | e | | chewable tablet | | | | 15 | | | + + +--------+---------+------+------+-------+ Active Problems + + + | Problem | Noted Date | + + + | Acute chest pain | 06/20/2015 | + + + | Accelerated hypertension | 06/20/2015 | + + + | Gastroesophageal reflux disease without esophagitis | 06/20/2015 | + + + | Epilepsy without status epilepticus (HCC) | 06/20/2015 | + + + | Obesity | 06/20/2015 | + + + Family History + + +------+ + | Medical History | Relation | Name | Comments | + + +------+ + | Alcoholism | Father | | | + + +------+ + | Heart Disease | Mother | | cardiac stent in her 70's, alive | + + +------+ + + +------+--------+ + | Relation | Name | Status | Comments | + +------+--------+ + | Father | | | | + +------+--------+ + | Mother | | | | + +------+--------+ + Social History + +-------+ +--------+------+ | [...] + + + | Blood Pressure | 167/70 | 06/21/2015 3:03 PM PDT | + + + + | Pulse | 71 | 06/21/2015 3:03 PM PDT | + + + + | Temperature | 36.6 C (97.8 F) | 06/21/2015 3:03 PM PDT | + + + + | Respiratory Rate | 16 | 06/21/2015 3:03 PM PDT | + + + + | Oxygen Saturation | 99% | 06/21/2015 3:03 PM PDT | + + + + | Inhaled Oxygen | - | - | | Concentration | | | + + + + | Weight | 109 kg (240 lb 4.8 | 06/20/2015 11:20 PM PDT | | | oz) | | + + + + | Height | 167.6 cm (5' 6") | 06/20/2015 11:16 PM PDT | + + + + | Body Mass Index | 38.79 | 06/20/2015 11:20 PM PDT | + + + + Plan of Treatment Not on file Results Not on filefrom Last 3 Months Insurance + +--------+ +------+-------+ + | Payer | Benefi | Subscriber | Type | Phone | Address | | | t Plan | ID | | | | | | / | | | | | | | Group | | | | | + +--------+ +------+-------+ + | MEDICAID | [employer] | [id number] | | | [address] | | | N | | | | [place], [place] | | | [place] | | | | [address] | | | DIRECTOR DIGITAL COMMUNICATIONS | | | | | + +--------+ +------+-------+ + + +--------+ +--------+ + + | Guarantor Name | Accoun | Relation to | Date | Phone | Billing Address | | | t Type | Patient | of | | | | | | | | | | + +--------+ +--------+ + + | PAULA MCLEOD | Person | Self | [birth year] | Home: | [address] | | | al/Quoc | | 1960 | [phone] [address] [place] | | | [place] | | | [phone] | [address] | + +--------+ +--------+ + +
--- OUTSIDE RECORDS SUMMARY | ~2019-07-21 | XMS | Encounter Summary ---
Demographics + + + | Address | [address] | | | [place] [address] | + + + | Home Phone | | + + + | Preferred Language | Unknown | + + + | Marital Status | Single | + + + | Worship Affiliation | Unknown | + + + | Race | White | + + + | Ethnic Group | Not or | + + + Author + + + | Author | [facility] | + + + | Organization | [facility] | + + + | Address | Unknown | + + + | Phone | Unavailable | + + + Support + + +---------+ + | Name | Relationship | Address | Phone | + + +---------+ + | Camelia Malhotra | ECON | Unknown | | + + +---------+ + Care Team Providers + +------+ + | Care Nitrator Operator Name | Role | Phone | + +------+ + PCP | Unavailable | + +------+ + Encounter Details +--------+ + + + + | Date | Type | Department | Care Team | Description | +--------+ + + + + | 04/12/ | Abstract | Neurology at | Clinic, Neurology | | | 2017 | | [facility] & | | | | | | [facility] [address] | | | | | | Fabiano Snow Mailcode: | | | | | | [facility] | | | | | | [facility], | | | | | | [facility] | | | | | | [place], [place] | | | | | | [address] | | | | | | [phone] | | | +--------+ + + + [...]
--- OUTSIDE RECORDS SUMMARY | ~2019-07-21 | XMS | Encounter Summary ---
Demographics + + + | Address | [address] | | | [place] [address] | + + + | Home Phone [...] + + + | Author | [facility] | | | and [place] | + + + | Organization | [facility] | | [...] Team Providers + +------+ + | Care Computer Meteorologist Name | Role | Phone | + [...] [address] | | | | | [place], | [place] | | | | | [place] [address] | [address] | | | | | [phone] | | | +--------+ + + + [...] | | 2018 | Visit | | COMPANION CAREGIVER [address] | | | | | | [address] | | | | | | [place] [address] | | | | | | [phone] | | | | | | | [...]
--- OUTSIDE RECORDS SUMMARY | ~2019-07-21 | XMS | Encounter Summary ---
Demographics + + + | Address | [address] | | | [place] [address] | + + + | Home Phone | | + + + | Preferred Language | Unknown | + + + | Marital Status | Single | + + + | Evangelical Affiliation | Unknown | + + + | Race | Unknown | + + + | Ethnic Group | Unknown | + + + Author + + + | Author | [facility] | | | and [place] | + + + | Organization | [facility] | | | and [...] Team Providers + +------+ + | Care Scale Tank Operator Name | Role | Phone | + +------+ + | Lupillo Valdez DO | PCP | | + +------+ + Encounter Details +--------+ + + + + | Date | Type | Department | Care Team | Description | +--------+ + + + + | 04/26/ | Orders Only | [facility] | Provider, | | | 2018 | | SYSTEM GENERIC OP | MD [address] | | | | | [address] | [place] | | | | | [address] [place], [place] | [place] [address] | | | | | [address] | | | | | | [phone] | | | +--------+ + + + [...] | | | | | [place] [address] | | | | | | [phone] | | | | | | | | +--------+---------+ + + + documented as of this encounter Visit Diagnoses Not on filedocumented in this encounter"
--- OUTSIDE RECORDS SUMMARY | ~2019-07-21 | XMS | Encounter Summary ---
Demographics + + + | Address | [address] | | | [place] [address] | + + + | Home Phone [...] Team Providers + +------+ + | Care Phosphoric Acid Operator Name | Role | Phone | + +------+ + | Lupillo Valdez DO | PCP | | + +------+ + Encounter Details +--------+ + + + + | Date | Type | Department | Care Team | Description | +--------+ + + + + | 04/26/ | Orders Only | [facility] | Provider, | | | 2018 | | SYSTEM GENERIC OP | [address] | | | | | [address] | [place] | | | | | [address] [place], [place] | [place] [address] | | | | | [address] | | | | | | [phone] | | | +--------+ + + + [...] | | | | | [place] [address] | | | | | | [phone] | | | | | | | | +--------+---------+ + + + documented as of this encounter Visit Diagnoses Not on filedocumented in this encounter"
--- OUTSIDE RECORDS SUMMARY | ~2019-07-21 | XMS | Encounter Summary ---
Demographics + + + | Address | [address] | | | [place] [address] | + + + | Home Phone | | + + + | Preferred Language | Unknown | + + + | Marital Status | Single | + + + | Taoism Affiliation | Unknown | + + + | Race | Unknown | + + + | Ethnic Group | Unknown | + + + Author + + + | Author | [facility] | | | and [place] | + + + | Organization | [facility] | | [...] Team Providers + +------+ + | Care Motor And Chassis Inspector Name | Role | Phone | + [...] | | | | [address] | [place] [address] | | | | | [place] | [phone] | | | | | [address] | | | | | | [phone] | | | +--------+ + + + [...] B | | | | | | [place] [address] | | | | | | [phone] | | | | | | | | +--------+---------+ + + + documented as of this encounter Visit Diagnoses Not on filedocumented in this encounter"
--- OUTSIDE RECORDS SUMMARY | ~2019-07-21 | XMS | Clinical Summary ---
Demographics + + + | Address | [address] | | | [place] [address] | + + + | Home Phone | | + + + | Preferred Language | Unknown | + + + | Marital Status | Single | + + + | Yarsanism Affiliation | Unknown | + + + | Race | Unknown | + + + | Ethnic Group | Unknown | + + + Author + + + | Author | [email or web address] (Historical as of | | | 05-13-19) | + + + | Organization | [email or web address] (Historical as of | | | 05-13-19) [...] Team Providers + +------+ + | Care Aerospace Products Sales Engineer Name | Role | Phone | [...] +------+-------+ + | MEDICAID | [employer] | [id number] | | | [address] | | | N | | | | [place], [place] | | | [place] | | | | [address] | | | [place] SALESPERSON | | | | | + +--------+ [...] | | | [place] | | | [address] | [address] | + +--------+ +--------+ + +
--- OUTSIDE RECORDS SUMMARY | ~2019-07-21 | XMS | Clinical Summary ---
Demographics + + + | Address | [address] | | | [place] [address] | + + + | Home Phone [...] Team Providers + +------+ + | Care Dispatcher Motor Vehicle Name | Role | Phone | + [...] + + + + | Uncoded | Unknown | | 04/26/20 | | | Nonscreenable | | | 19 | | | Allergen | | | | [...] | mouth Daily. | tablet | | /20 | | e | | | | [...] tablet by | 90 | 3 | 04/2 | | Activ | | (SYNTHROID) 100 mcg | mouth every morning | tablet | | 9/20 | | e | | tablet | (before breakfast). | | | 19 | | | | | Patient needs labs | | | | | | | | before further | | | | | | | | fills. | | | | | | + + + +---------+------+------+-------+ | clopidogrel | Take 1 tablet by | 90 | 3 | 04/3 | | Activ | | (PLAVIX) 75 mg | mouth Daily. | tablet | | 0/20 | | e | | tablet | | | | 19 | | | + + + +---------+------+------+-------+ | lisinopril | Take 1 tablet by | 90 | 3 | 04/ | | Activ | | (PRINIVIL, ZESTRIL) | mouth Daily. | tablet | | 0/20 | | e | | 20 mg [...] mg Wednesday, | 36 | 3 | 05/0 | | Activ | | hydroCHLOROthiazide | Wednesday, and | capsule | | 04/15 | | e | | (MICROZIDE) 12.5 MG | Wednesday | | | 19 | | | | capsuleIndications: | | | | | | | | Essential | | | | | | | | hypertension | | | | | | | + + + +---------+------+------+-------+ | pantoprazole | Take 1 tablet by | 90 | 3 | 05/0 | | Activ | | (PROTONIX) 40 mg | mouth every morning | tablet | | 7/20 | | e | | tablet | (before breakfast). | | | 19 | | | + + + +---------+------+------+-------+ | gabapentin | Take 1 capsule by | 180 | 3 | 05/0 | | Activ | | (NEURONTIN) 100 mg | mouth 2 times daily. | capsule | | 7/20 | | e | | capsule | | | | 19 | | | + + + +---------+------+------+-------+ | pramipexole | Take 1 tablet by | 270 | 3 | 05/0 | | Activ | | (MIRAPEX) 0.125 MG | mouth 3 times daily. | tablet | | 7/20 | | e | | tablet | | | | 19 | | | + + + +---------+------+------+-------+ | levETIRAcetam | Take 1 tablet by | 180 | 3 | 06/0 | | Activ | | (KEPPRA) 750 MG | mouth 2 times daily. | tablet | | 5/20 | | e | | tablet | | | | 19 | | | + + + +---------+------+------+-------+ | lovastatin | Take 1 tablet by | 90 | 3 | 06/2 | | Activ | | (MEVACOR) 40 MG | mouth nightly. | tablet | | 6/20 | | e | | tablet | | | | 19 | | | + + + +---------+------+------+-------+ | sertraline | Take 50 mg by mouth | | 0 | 07/3 | | Activ | | (ZOLOFT) 50 mg | once daily. | | | 0/20 | | e | | tablet | | | | 18 | | | + + + +---------+------+------+-------+ | levothyroxine | Take 112 mcg by | | 0 | 08/1 | | Activ | | (SYNTHROID) 112 mcg | mouth once daily. | | | 0/20 | | e | | tablet | | | | 18 | | | + + + +---------+------+------+-------+ | lisinopril | | | 0 | 07/2 | | Activ | | (PRINIVIL, ZESTRIL) | | | | 6/20 | | e | | 20 mg tablet | | | | 18 | | | + + + +---------+------+------+-------+ | lovastatin | 40 mg. | | 0 | 08/1 | | Activ | | (MEVACOR) 40 MG | | | | 0/20 | | e | | tablet | | | | 18 | | | + + + +---------+------+------+-------+ | pramipexole | Take 0.125 mg by | | 0 | 08/1 | | Activ | | (MIRAPEX) 0.125 MG | mouth once daily. 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 Multilevel disc disease [...] + + | Epilepsy without status epilepticus | | + + + | Syncope [...] + + | 07/10/ | Telephone | Pain Medicine | Roland Spears, | Referral (checking | | 2018 | | | | on status/sent | | | | | | 06/30) | +--------+ + + + + | 06/05/ | Telephone | Primary Care | Lupillo Valdez | Referral (Dry Eyes) | | 2018 | | | Su[place], DO | | +--------+ + + + + | 05/25/ | Abstract | Cardiology | Waldemar Santoyo MD | | | 2018 | | | | | +--------+ + + + + | 05/03/ | Refill | Primary Care | Lupillo Valdez | Medication Refill | | 2018 | | | E, DO | | +--------+ + + + + | 04/26/ | Orders Only | | Provider, | | | 2018 | | | MD Gayatri | | +--------+ + + + + [...] recent travel history available. | + + Last Filed Vital Signs + + + + | Vital Sign | Reading | Time Taken | + + + + | Blood Pressure | 118/70 | 03/14/2019 1100 PDT | + + + + | Pulse | 68 | 03/14/2019 1100 PDT | + + + + | Temperature | 36.5 C (97.7 F) | 12/30/2018 1121 PDT | + + + + | Respiratory Rate | 14 | 03/14/2019 1100 PDT | + + + + | Oxygen Saturation | 98% | 01/31/2019 1510 PDT | + + + + | Inhaled Oxygen | - | - | | Concentration | | | + + + + | Weight | 108 kg (238 lb) | 03/14/20191099 PDT | + + + + | Height | 165.1 cm (5' 5") | 03/14/20191099 PDT | + + + + | Body Mass Index | 39.61 | 03/14/20191099 PDT | + + + + Plan of Treatment +--------+---------+ + + + | Date | Type | Specialty | Care Team | Description | +--------+---------+ + + + | 07/26/ | Office | Pain Medicine | Shar Lugo, | | | 2019 | Visit | | INCOME TAX ADJUSTER [address] | [address] | | | [address] | | | | | | [place] [address] | | | | | | [phone] | | | | | | | | +--------+---------+ + + + + + + + + | Health Maintenance | Due Date | Last Done | Comments | + + + + + | Hepatitis C | | | | | Screening | 0 | | | + + + + + | Vaccine: | | | | | Pneumococcal 19-64 | 9 | | | | (PPSV23 only) Medium | | | | | Risk (1 of 1 - | | | | | PPSV23) | | | | + + [...] + + | Vaccine: Influenza | | 08/15/2018 | | | (#1) | 9 | | | + + + + + | Primary Care | | 03/14/2019, 01/31/2019, | | | Outreach (Moderate | 0 | 01/24/2019, Additional history | | | Risk) | | exists | | + + [...] filefrom Last 3 Months Insurance + +--------+ +--------+ [...] | [employer] | [employer] | [id number] | 08/15/ | [phone] | | Medica | | MEDICAID HMO | HEALTH | | 2018-P | 1 | | id | | | [place]CD | | resent | | | | | | [place] | | | | | | + +--------+ +--------+ +---------+--------+ | [employer] | [employer] | [id number] | 12/27/19 | [phone] | | Medica | | MEDICAID HMO | HEALTH | | - | 1 | | id | | | MDCD | | sent | | | | | | [place] | | | | | | + +--------+ +--------+ +---------+--------+ | [employer] | [employer] | [id number] | 07/20/ | [phone] | | Medica | | MEDICAID HMO [...] | Self | [birth year] | [address] | | | al/Fam | | 1960 | [phone] | [address] [place] | | | [place] | | | [address] (Home) | [address] | + +--------+ +--------+ + + | Abril Callaway S | Person | Self | [birth year] | | [address] | | | al/Fam | | 1960 | [phone] | [address] [place], [place] | | | [place] | | | [address] (Home) | [address] | + +--------+ +--------+ + + | Abril Callaway S | Person | Self | [birth year] | | [address] | | | al/Fam | | 1960 | [phone] | [address] [place], [place] | | | [place] | | | [address] (Home) | [address] | + +--------+ +--------+ + + Advance Directives Patient has advance care planning documents, and code status on file. For more information, please contact:[facility] and [place] [address] + + + + + | Code Status | Date | Date | Comments | | | Activated | Inactivated | | + + + + + | Full Code | 12/28/2018 | 12/30/2018 | | | | 21:17 | 14:10 | | + + + + +
--- OUTSIDE RECORDS SUMMARY | ~2019-07-21 | XMS | Encounter Summary ---
Demographics + + + | Address | [address] | | | [place] [address] | + + + | Home Phone [...] Author + + + | Author | [facility] | + + + | Organization | [facility] | + + + | Address | Unknown | + + + | Phone | Unavailable | + + + Support + + +---------+ + | Name | Relationship | Address | Phone | + + +---------+ + | Camelia Malhotra | ECON | Unknown | | + + +---------+ + Care Team Providers + +------+ + | Care Procurement Clerk Name | Role | Phone | + +------+ + | Daniel Elliott MD | PCP | | + +------+ + Reason for Visit + + + | Reason | Comments | + + + | New patient | | | consultation | | + + + Intake Referral (Routine) +--------+--------+ + + + + | Status | Reason | Specialty | Diagnoses / | Referred By | Referred To | | | | | Procedures | Contact | Contact | +--------+--------+ + + + + | Closed | | Neurology | Diagnoses | Adonis Elliott | | | | | Other | Daniel Ken MD | Aging/Alz | | | | | amnesia | [facility] | [address] | | | | | memory | CLINIC | Mario Gwendolyn | | | | | difficulties | NEUROLOGY | Mailcode: | | | | | , second | [address] | [address] | | | | | opinion | [facility] | [facility] | | | | | Procedures | [place], [place] | and Healing, | | | | | [place] NEW | [address] | Building [address], | | | | | PATIENT | Phone: | 8th Floor | | | | | LEVEL V | [phone] | [place], [place] | | | | | | Fax: | [address] | | | | | | [phone] | Phone: | | | | | | | [phone] | | | | | | | Fax: | | | | | | | [phone] | +--------+--------+ + + + + Encounter Details +--------+---------+ + + + | Date | Type | Department | Care Team | Description | +--------+---------+ + + + | 05/19/ | Office | Neurology at | Jacobo Thorpe MD | Cognitive | | 2018 | Visit | [facility] & | [address] | impairment, mild, so | | | | Healing [address] | [place], [place] | stated; Current | | | | [address] Mailcode: | [id number] | moderate episode of | | | | [facility] | [phone] | major depressive | | | | Health and Healing, | | disorder without | | | | Building | | prior episode (HCC) | | | | Floor [place], [place] | | | | | | [address] | | | | | | [phone] | | | +--------+---------+ + + + [...] Pressure | 130/63 | 05/19/2018 9:30 AM | | | | | PDT | | + + + + + | Pulse | 62 | 05/19/2018 9:30 AM | | | | | PDT [...] kg (244 lb) | 05/19/2018 9:30 AM | | | | | PDT | | + + + + + | Height | - | - | | + + + + + | Body Mass Index | - | - | | + + + + + documented in this encounter Progress Notes Jacobo Thorpe MD - 05/20/2018 3:47 PM PDTClinic Date: 05/19/2018 NEUROLOGY [facility] NOTE History: The patient is a 58-year-old woman being seen for further opinion regarding compl aints of cognitive dysfunction. History is obtained from the patient, and outside medical r ecords on workup by her physicians. As best I can tell the patient was in her usual state of cognitive health until approximately June/July of 2016. 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 She began having more problems learning new software. She had a particular event where she woke up in the middle of night. She felt that everything was going in slow motion, felt like she was going to pass out, went into the bathroom, laid on the floor and had diarrhea. In terms of day-to-day cognitive function over the course of the year she has had some i ncreased problems. She says she cannot follow recipes. She lost her job 8 days after the e vent partly for forgetting things. Over the ensuing year she reports inability to remember the correct dates and could not learn new software at work. She was even using cheat sheets to run the equipment at the [employer] in her current position. She reports having over drawn on her checking account recently that she says is unusual for her, but there have been financial problems more recently. 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 She is able to manage her medica tions by setting them out for the week with reminders. She occasionally will almost not pay attention when she is driving and mistakenly go in the wrong direction or miss an exit, but there have been no specific concerns about driving. She is able to continue to do crafts t hat she enjoys, including making jewelry. She does sing karaoke. She does dance when able, but recently had an ankle and back injury, for which she is getting physical therapy and valadez s not been able to do this more recently. She used to be more social, but is fairly isolate d at this point in part because of the musculoskeletal problems, but in part because of some element of withdrawal. The patient apparently has a long history of seizures dating from childhood. She reports o nset of grand mal seizures at about age 2 years. She was initially on phenobarbital, been o n phenobarbital and phenytoin, and at approximately age 29 was switched to Depakote. She wa s maintained on Depakote for over 25 years, but was recently switched to Keppra in part peter use of the cognitive complaints. She did feel she was somewhat better on the Keppra than sh e was on the Depakote in terms of perhaps following recipes, but was not back to what she fe lt was her baseline. More recently because the Keppra levels were somewhat low the dose was increased. Although she apparently has definite seizures she apparently did have EEG fabi p and apparently also has nonepileptic seizures as well. In addition to the apparent genera lized seizures she reports having minor seizures or petit mals when she was a child, where s he would just be out for a few seconds. She reports "No one home" teachers noted. Apparent ly the workup in [place] did reveal that she had some emotional seizures, as well as epilept ic seizures. In addition, she had an episode where she had some chest pain and also went to the emergen cy room and had increased blood pressure and was kept overnight without any clear cardiac di agnoses, but did have some esophageal reflux, along with the accelerated hypertension. 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 She then had an apparent generalize d seizure on January 20. The patient had to cut back on work and has some financial stresso rs at this point. However, she was able to successfully move into her own apartment, having lived with her niece. The patient has some complaints of depression and apparently was voicing some suicidal thou ghts and was referred for counseling and started on antidepressants, which she is currently not taking. She does report her mood is somewhat better since she has moved into her own ap artment and is able to do some work. In terms of other neurologic symptoms that may be rele vant, the patient apparently did have a workup for sleep apnea, which was initially negative , but had a repeat study that apparently was positive, and she is scheduled to get a CPAP, b ut because of finances that has not been done yet. Besides the possible sleep apnea the zacarias martin has significant problems both falling asleep, as well as staying asleep with early morn ing awakenings where she is up for an hour in the middle night. She reports only getting 5- 1/2 to 6 hours of sleep at night. The patient has no history of symptomatic strokes, but apparently following one of the seiz ures where she had the MR was told that she had had a stroke in the past. She never was sym ptomatic as far as I can tell. She has no overt motor problems, other than the current musc uloskeletal problems. Current Medications: Include Keppra 750 mg twice daily, levothyroxine, lisinopril, 20 mg b .i.d., lovastatin 40 mg daily, omeprazole, pramipexole, sertraline 50 mg p.o. (as prescribed , but she is not taking), ibuprofen, gabapentin 100 mg b.i.d. for pain, vitamin C, and iron. Past Surgical History: Includes tonsillectomy as a child, hysterectomy in 1989, rotator cu ff injury in 2000. 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 Of some note, she said did well in writing and history but always had significant dif ficulty with math and science. She is a nondrinker and nonsmoker. At this point she is wor toby part-time at a [employer]. 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 Her first and she has been on her own. Marcos ken has limited social activities. She used to enjoy karaoke and dancing, but that has been limited recently in part because of the musculoskeletal problems, but partly related to the depression. She similarly used to be involved with the [employer], but because of her work sche dule with a swing shift she often cannot make usual meeting times. She does go out with her mother and father pretty regularly and sees one of her daughters regularly and occasionally baby sits one of her younger grandchildren, perhaps every couple of weeks. Family History: The patient's biologic father from cirrhosis of the liver, but her st epfather had adopted her and that is who she sees regularly now, lives with her mother. Her sister is 1 year younger, in good health, which she does see a few times a month. She has 3 children in good health. Review Of Systems: Review of systems is otherwise potentially contributory to the history of hypertension, perhaps since 2007, and high cholesterol since 2016. She has had a thyroid disease since 1998. She has had some urinary incontinence since the hysterectomy, that she manages herself and does not seem to be neurologic in origin. She does have the depressive symptoms as noted above, she says started only recently. Exam: On exam today the patient is an alert, well-nourished, obese woman in no distress. Blood pressure was 130/63, pulse is 62, and weight was 110.7 kg, with pain rating 4. On cog nitive testing the patient does respond to all questions appropriately. On the Geriatric De pression Scale she scores a 6/15, including causes on some questions that she ended up answe ring negatively for. However, she did say she was not basically satisfied with her life, valadez s dropped many of her activities and interests and feels pretty worthless and low energy, am pieter others. On cognitive testing her digit span is significantly impaired on the NCSE with just 4F and 3 backwards. She was able to register 4 unrelated words on the NCSE and recall 1 spontaneously, 1 with category prompt and 2 from a list, scoring a 7/12, but on repeating those words a 2nd time with another delay she recalled 3 spontaneously and 1 with a categor y prompt scoring 11/12. On following 3-step commands she had difficulty making mistakes on 3-step cojmands, but was able to follow along 2-step commands. Her repetition as assessed o n the NCSE was normal. Visual naming was normal. (8/8). Her visual memory was almost compl etely correct, although she had 1 extra vertical line on the first figure. On the visual co nstruction tasks she got all 3 in under 15 seconds. She had difficulty with some arithmetic scoring 3/4 on the NCSE. Reasoning as assessed on the NCSE is probably okay for education . On the MOCA, on the cube copy she seemed to have forgotten 1 line, but otherwise she sco red 4 of 5 on the visuospatial executive section. Her naming was fine. On attention with t he letter A she did lose track on several occasions and she could not do serial 7's past 93. Of some note, on delayed recall though she was able to come up with 4 words spontaneously after delay and it should be noted that this was after the NCSE word list and the potential conflict. Overall MOCA score was 24 out of 30. On the verbal fluency testing she generated 11 F-words in 1 minute and 15 animals in 1 minute, that was also administered. On general neurological exam visual rosenberg were full to confrontation. Extraocular movemen ts were full. There was no significant facial asymmetry. Hearing was intact to finger rub. Palate elevated in midline and voice was normal. Motor exam revealed no grossly normal bu lk, tone, and strength in both upper and lower extremities. Rapid-alternating movements wer e performed adequately. Deep tendon reflexes were trace or almost not obtainable. Because of the back pain and the foot injury she has an antalgic gait and no further testing was don e. She is able to easily walk from chair to examining table. Outside MRI scan was reviewed. It was impressively normal with no evidence of any atrophy in terms of possible neurodegenerative diseases. Assessment: The patient has complaints of mild cognitive dysfunction that seem to mostly c enter around attention, losing track of tasks, and on exam the only deficits are in working memory and attention (digit span, serial 7's, tapping to "a" and even following 3-step comm ands on the NCSE). Given the deficits in attention with a normal MRI scan I think the mild cognitive impairment is not related to any neurodegenerative disease, but is related to one of the medical problems that are likely contributing. 1. Depression. The patient has clear depression that is not currently being treated. Spo ke about her need to re-initiate medication and following up with a counselor. She is not c urrently suicidal, but that was an issue during this past year. 2. The other contributing factor is the sleep disturbance. The patient apparently has slee p apnea, which could contribute to cognitive deficit and even if sleep apnea is not the only cause her relative sleep deprivation is also a contributing factor to the cognitive problem s. 3. Medications. The patient is also on some medications that might cause cognitive proble ms that do include the Keppra and gabapentin (for pain). She likely needs keppra because s ome of the seizures have been epileptic although some have not. The recent dose increase was just based on blood levels and I would consider tapering down the keppra and even consider stopping it if she is seizure free for some period of time. Plan: 1. We spoke about the need to continue treatment of the depression in terms of medications and counselor. 2. The patient should pursue the CPAP machine for treatment of the sleep apnea, although fi nances might be a problem. In either case she does need to try to increase her amount of sl eep, possibly by going to sleep earlier, although this is difficult because of the swing kim ft work. 3. I spoke about general brain health issues, which do include physical activity, which is currently limited, but hopefully with the physical therapy she will be able to reinitiate wa lking with her dog, which she can use as her 20-30 minute daily exercise. I spoke about me ntal activity and this is also somewhat limited, but she does have some activities she does enjoy and hopefully when she is physically better she can continue to do the karaoke, which satisfies both mental, as well as social activity. Socially she is quite isolated at this p oint and this is likely contributing to the depression, as well as long-term contributing to her worsened cognitive function. We spoke about diet and suggested adding a multivitamin a nd fish oil to her current drug regimen. Jacobo Thorpe MD THOMAS/DYLAN /[id number] OkenJacobo MD - 018 9:15 AM PDTThis office note has been dictated. I spent 12 minutes with the patient, ov er half in counseling. CSN #: [id number] documented in this encoun ter Plan of Treatment Not on filedocumented as of this encounter Visit Diagnoses + + | Diagnosis | + + | Cognitive impairment, mild, so stated Mild cognitive impairment, so stated | + + | Current moderate episode of major depressive disorder without prior episode (HCC) | + + documented in this encounter
--- OUTSIDE RECORDS SUMMARY | ~2019-07-21 | XMS | Encounter Summary ---
Demographics + + + | Address | [address] | | | [place] [address] | + + + | Home Phone | | + + + | Preferred Language | Unknown | + + + | Marital Status | Single | + + + | Alevism Affiliation | Unknown | + + + | Race | Unknown | + + + | Ethnic Group | Unknown | + + + Author + + + | Author | [facility] | | | and [place] | + + + | Organization | [facility] | | | [...] Team Providers + +------+ + | Care Comic Book Writer Name | Role | Phone | + [...] Medication Refill | | 2019 | | [facility] | E, DO [address] | | | | | MEDICAL CLINIC [address] | [place], [place] | | | | | [address] [place], | [address] | | | | | [place] [address] | [phone] | | | | | [phone] | | | +--------+--------+ + + + [...] | | | | | [place] [address] | | | | | | [phone] | | | | | | | | +--------+---------+ + + + documented as of this encounter Visit Diagnoses Not on filedocumented in this encounter"
--- OUTSIDE RECORDS SUMMARY | ~2019-07-21 | XMS | Encounter Summary ---
Demographics + + + | Address | [address] | | | [place] [address] | + + + | Home Phone [...] Team Providers + +------+ + | Care Battalion Chief Name | Role | Phone | + [...] | | | | [facility] | [place] | | | | | | [facility], [place] | Health and | | | | | | [address] | Service | | | | | | Phone: | | | | | | | [phone] | | | | | | | Fax: | | | | | | | [phone] | | + + + + + [...] (Dry Eyes) | | 2019 | | [facility] | E, DO [address] | | | | | MEDICAL CLINIC [address] | [place], [place] | | | | | [address] [place], | [address] | | | | | [place] [address] | [phone] | | | | | [phone] | | | +--------+ + + + [...] | | 2018 | Visit | | [facility] [address] | | | | | | [address] | | | | | | [place] [address] | | | | | | [phone] | | | | | | | [...]
--- OUTSIDE RECORDS SUMMARY | ~2019-07-21 | XMS | Encounter Summary ---
Demographics + + + | Address | [address] | | | [place] [address] | + + + | Home Phone [...] Author + + + | Author | [facility] | + + + | Organization | [facility] | + + + | Address | Unknown | + + + | Phone | Unavailable | + + + Support + + +---------+ + | Name | Relationship | Address | Phone | + + +---------+ + | Camelia Malhotra | ECON | Unknown | | + + +---------+ + Care Team Providers + +------+ + | Care Crystal Calibrator Name | Role | Phone | + [...] | amnesia | [facility] | [address] | | | | | memory | CLINIC | Mario Gwendolyn | | | | | difficulties | NEUROLOGY | Mailcode: | | | | | , second | [address] | [address] | | | | | opinion | [facility] | [facility] | | | | | Procedures | [place], [place] | and Healing, | | | | | [place] NEW | [address] | Building 1, | | | | | PATIENT | Phone: | 8th Floor | | | | | LEVEL V | [phone] | [place], [place] | | | | | | Fax: | [address] | | | | | | [phone] | Phone: | | | | | | | [phone] | | | | | | | Fax: | | | | | | | [phone] | +--------+--------+ + + + + Encounter Details +--------+---------+ + + + | Date | Type | Department | Care Team | Description | +--------+---------+ + + + | 05/19/ | Office | Neurology at | Jacobo Thorpe MD | Cognitive | | 2018 | Visit | [facility] & | [address] | impairment, mild, so | | | | Healing [address] | [place], [place] | stated; Current | | | | [address] Mailcode: | [id number] | moderate episode of | | | | [facility] | [phone] | major depressive | | | | Health and Healing, | | disorder without | | | | Building | | prior episode (HCC) | | | | Floor [place], [place] | | | | | | [address] | | | | | | [phone] | | | +--------+---------+ + + + [...] June/July of 2016. 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 She then had an apparent generalize d [...] [employer]. 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 Jacobo Thorpe MD THOMAS/DYLAN /[id number] OkenJacobo MD - 018 9:15 AM PDTThis office note has been dictated. I spent 12 minutes with the patient, ov er half in counseling. CSN #: [id number] documented in this encoun ter Plan of [...]
--- OUTSIDE RECORDS SUMMARY | ~2019-07-21 | XMS | Encounter Summary ---
Demographics + + + | Address | [address] | | | [place] [address] | + + + | Home Phone [...] Team Providers + +------+ + | Care Fly Rail Operator Name | Role | Phone | [...] Medication Refill | | 2019 | | [facility] | E, DO [address] | | | | | MEDICAL CLINIC [address] | [place], [place] | | | | | [address] [place], | [address] | | | | | [place] [address] | [phone] | | | | | [phone] | | | +--------+--------+ + + + [...] | | | | | [place] [address] | | | | | | [phone] | | | | | | | | +--------+---------+ + + + documented as of this encounter Visit Diagnoses Not on filedocumented in this encounter"
--- OUTSIDE RECORDS SUMMARY | ~2019-07-21 | XMS | Clinical Summary ---
Demographics + + + | Address | [address] | | | [place] [address] | + + + | Home Phone [...] + + | Author | [facility] | + + + | Organization | [...] Team Providers + +------+ + | Care Freight Separator Name | Role | Phone | + +------+ + | Daniel Elliott MD | PCP | | + +------+ + Source Comments [facility] is fully live on both [facility] Allergies + + + + + + | Active Allergy | Reactions | Severity | Noted | Comments | | | | | Date | | + + + + + + | Codeine | Anaphylaxis | High | 06/20/20 | | | | | | 15 | | + + + + + + | Eqr-Rethitewhhm-Ayxv | Unknown | | | | | [...] | + + + +---------+------+------+-------+ | levothyroxine 112 | Take 112 mcg by | | 0 | 08/1 | | Activ | | mcg oral tablet | mouth once daily. | | | 0/20 | | e | | | | | | 18 | | | + + + +---------+------+------+-------+ | lisinopril 20 mg | Take 20 mg by mouth | | 0 | 07/2 | | Activ | | oral tablet | two times daily. | | | 6/20 | | e [...] | e | + + + +---------+------+------+-------+ Active Problems Not on file Social History [...] | | | | vaccination (#1) | 9 | | | + + + + + | Pneumococcal | Aged Out | | No longer eligible | | vaccination | | | based on patient's | | | | | age to complete this | | | | | topic | + + + + + [...] | | | + +--------+ +--------+-------+---------+--------+ | HOT BOX OPERATOR MEDICAID | HOT BOX OPERATOR | xxxxxxxx | 05/30/20 | | | Medica | [...] Person | Self | [birth year] | [address] | | | jose r/Quoc | | 1960 | [phone] | [address] [place] | | | priti | | | [address] (Home) | [id number] | + +--------+ +--------+ + +"
--- OUTSIDE RECORDS SUMMARY | ~2019-07-21 | XMS | Clinical Summary ---
Demographics + + + | Address | [address] | | | [place] [address] | + + + | Home Phone | | + + + | Preferred Language | Unknown | + + + | Marital Status | Single | + + + | Yarsani Affiliation | Unknown | + + + [...] Team Providers + +------+ + | Care Fingernail Sculpturer Name | Role | Phone | + +------+ + | Daniel Elliott MD | PCP | | + +------+ + Source Comments [facility] InPatient.[facility] Allergies + + + + + + | Active Allergy | Reactions | Severity | Noted | Comments | | | | | Date | | + + + + + + | Codeine | Anaphylaxis | High | 06/20/20 | | | | | | 15 | | + + + + + + | Zbp-Sohaaptcrct-Eyal | Unknown | | | | | [...] | | | + +--------+ +--------+-------+---------+--------+ | WELL TREATMENT OFFSIDER MEDICAID | WELL TREATMENT OFFSIDER | xxxxxxxx | 05/30/20 | | | [...] priti | | | 4 (Home) | [phone] | + +--------+ +--------+ + +"
--- OUTSIDE RECORDS SUMMARY | ~2019-07-21 | XMS | Clinical Summary ---
Demographics + + + | Address | [address] | | | [place] [address] | + + + | Home Phone [...] Team Providers + +------+ + | Care Law Instructor Name | Role | Phone | + [...] + + | Coronary artery disease involving [place] coronary artery of | 01/09/2019 | | [place] heart without angina pectoris | | + [...] -Referral to Claus Reed at | | [facility] for Functional Capacity | | [...] | | 2019 | Visit | | MICA SPLITTER [address] | | | | | [address] | | | | | | [place] [address] | | | | | | [phone] | | | | | | | [...] | [employer] | MODA | [id number] | 08/15/ | [phone] | | Medica | | MEDICAID HMO | HEALTH | | 2018-P | 1 | | id | | | MDCD | | resent | | | | | | [place] | | | | | | + +--------+ +--------+ +---------+--------+ | [employer] | MODA | [id number] | 12/27/19 | [phone] | | Medica | | MEDICAID HMO | HEALTH | | - | 1 | | id | | | MDCD | | sent | | | | | | [place] | | | | | | + +--------+ +--------+ +---------+--------+ | [employer]AN | MODA | [id number] | 07/20/ | [phone] | | Medica | | MEDICAID HMO [...] | | al/Fam | | 1960 | [phone] | [address] [place] | | | priti | | | 4 (Home) | [address] | + +--------+ +--------+ + + | Abril Callaway S | Person | Self | [birth year] | [address] | | | al/Fam | | 1960 | [phone] | [address] [place], [place] | | | priti | | | 4 (Home) | [address] | + +--------+ +--------+ + + | Abril Callaway S | Person | Self | [birth year] | | [address] | | | al/Fam | | 1960 | [phone] | [address] [place], [place] | | | priti | | | 4 (Home) | [address] | + +--------+ +--------+ + + Advance Directives Patient has advance care planning documents, and code status on file. For more information, please contact:[facility] and [place] [address] + + + + + | Code Status | Date | Date | Comments | | | Activated | Inactivated | | + + + + + | Full Code | 12/28/2018 | 12/30/2018 | | | | 21:17 | 14:10 | | + + + + +
--- OUTSIDE RECORDS SUMMARY | ~2019-07-21 | XMS | Encounter Summary ---
Demographics + + + | Address | [address] | | | [place] [address] | + + + | Home Phone [...] Author + + + | Author | [facility] | + + + | Organization | [facility] | + + + | Address | Unknown | + + + | Phone | Unavailable | + + + Support + + +---------+ + | Name | Relationship | Address | Phone | + + +---------+ + | Camelia Malhotra | ECON | Unknown | | + + +---------+ + Care Team Providers + +------+ + | Care Pharmacoepidemiologist Name | Role | Phone | + +------+ + PCP | Unavailable | + +------+ + Encounter Details +--------+ + + + + | Date | Type | Department | Care Team | Description | +--------+ + + + + | 04/12/ | Abstract | Neurology at | Clinic, Neurology | | | 2017 | | [facility] & | | | | | | [facility] | | | | | | [address] Mailcode: | | | | | | [facility] | | | | | | Health and Healing, | | | | | | [facility] | | | | | | [place], [place] | | | | | | [address] | | | | | | [phone] | | | +--------+ + + + [...]
[~2019-07-21 09:39] MED LIST changes: +NEXIUM20 MG PO
[2019-07-21] MEDS ORDERED: CYCLOBENZAPRINE10 MG PO (11:02)
[2019-07-21] MEDS ORDERED: INDOMETHACIN50 MG PO (11:02)
== END 2019-07-21 11:23 | disposition home or self-care (01) ==
LOC: ED 09:39
DX: M54.5 Low back pain (principal); I10 Essential (primary) hypertension; E03.9 Hypothyroidism, unspecified; F32.9 Major depressive disorder, single episode, unspecified; K21.9 Gastro-esophageal reflux disease without esophagitis; Z87.891 Personal history of nicotine dependence; Z88.5 Allergy status to narcotic agent; Z88.6 Allergy status to analgesic agent; Z88.0 Allergy status to penicillin; Z91.041 Radiographic dye allergy status; Z79.899 Other long term (current) drug therapy
CPT/HCPCS: 96372; 99283; J1885; J2550

== ENCOUNTER → 2020-06-03 | Emergency (ER) | payer OTHER ==
[~2020-06-03] VITALS: Ht 167.6 cm; Wt 111.4 kg
[~2020-06-03] MED LIST changes: +ASPIR-LOW81 MG PO; +CENTRUM WOMEN1 EACH PO; +CYCLOBENZAPRINE10 MG PO; +DILAUDID2 MG PO; +HYDROCHLOROTH12.5 M1 PO; +INDOMETHACIN50 MG PO; +KEPPRA750 MG PO; +MOBIC15 MG PO; +NEURONTIN100 MG PO; +PANTOPRAZOLE SO40 MG PO; +SYNTHROID100 MCG PO; +VITAMIN B-121000 MCG PO; +VITAMIN D350 MC3 PO; +ZESTRIL20 MG PO
--- OUTSIDE RECORDS SUMMARY | ~2020-06-03 | XMS | Encounter Summary ---
Demographics + + + | Address | [address] | | | [place] [address] | + + + | Home Phone | | + + + | Preferred Language | Unknown | + + + | Marital Status | Single | + + + | Quaker Affiliation | Unknown | + + + | Race | White | + + + | Ethnic Group | Not or | + + + Author + + + | Organization | Unknown | + + + | Address | Unknown | + + + | Phone | Unavailable | + + + Support + + +---------+ + | Name | Relationship | Address | Phone | + + +---------+ + | Camelia Malhotra | ECON | Unknown | | + + +---------+ + | Lanie Stephen | ECON | Unknown | | + + +---------+ + Care Team Providers + +------+ + | Care Wildlife And Game Protector Name | Role | Phone | + +------+ + | CourtneyLupillo DO | PCP | | + +------+ + Encounter Details +--------+--------+ + + + | Date | Type | Department | Care Team | Description | +--------+--------+ + + + | 02/06/ | Travel | | | | | 2020 | | | | | +--------+--------+ + + + Social History + + + +--------+------+ | Tobacco Use | Types | Packs/Day | Years | Date | | | | | Used | | + + + +--------+------+ | Former Smoker | Cigarettes | | | | + + + +--------+------+ + +---+---+---+ | Smokeless Tobacco: | | | | | Never Used | | | | + +---+---+---+ + + +---------+ + | Alcohol Use | Drinks/Week | oz/Week | Comments | + + +---------+ + | Yes | | | | + + +---------+ + + + + + | Alcohol Habits | Answer | Date Recorded | + + + + | How often do you have a drink containing | 2-4 times a month | 02/02/2020 | | alcohol? | | | + + + + | How many drinks containing alcohol do you | 1 or 2 | 02/02/2020 | | have on a typical day when you are | | | | drinking? | | | + + + + | How often do you have six or more drinks on | Not asked | | | one occasion? | | | + + + + + + + | Sex Assigned at | Date Recorded | | | | + + + | Not on file | | + + + + + + + | COVID-19 Exposure | Response | Date Recorded | + + + + | In the last month, have you been in contact | No / Unsure | 02/07/2020 9:25 AM | | with someone who was confirmed or | | PDT | | suspected to have Coronavirus / COVID-19? | | | + + + + documented as of this encounter Plan of Treatment Not on filedocumented as of this encounter Visit Diagnoses Not on filedocumented in this encounter"
--- OUTSIDE RECORDS SUMMARY | ~2020-06-03 | XMS | Encounter Summary ---
Demographics + + + | Address | [address] | | | [place] [address] | + + + | Home Phone | | + + + | Preferred Language | Unknown | + + + | Marital Status | Single | + + + | Rastafari Affiliation | Unknown | + + + | Race | White | + + + | Ethnic Group | Not or | + + + Author + + + | Author | [facility] | | | and [place] | + + + | Organization | [facility] | | | and [place] | + + + | Address | Unknown | + + + | Phone | Unavailable | + + + Support + + +---------+ + | Name | Relationship | Address | Phone | + + +---------+ + | Rosita Casey | ECON | Unknown | | + + +---------+ + | Lanie Malhotra | ECON | Unknown | | + + +---------+ + Care Team Providers + +------+ + | Care Tent Assembler Name | Role | Phone | + +------+ + | Lupillo Valdez DO | PCP | | + +------+ + Reason for Visit + +--------+ + | Reason | Onset | Comments | | | Date | | + +--------+ + | Medication Refill | 01/20/ | | | | 2019 | | + +--------+ + Encounter Details +--------+--------+ + + + | Date | Type | Department | Care Team | Description | +--------+--------+ + + + | 01/20/ | Refill | [place] | Carli López | Medication Refill | | 2019 | | [facility] | R, CC BI SPECIALIST | | | | | [facility] [address] | | | | | | [facility], | | | | | | [place] [address] | | | | | | [phone] | | | +--------+--------+ + + + Social History + + + +--------+ + | Tobacco Use | Types | Packs/Day | Years | Date | | | | | Used | | + + + +--------+ + | Former Smoker | Cigarettes | | | Quit: 1999 | + + + +--------+ + + +---+---+---+ | Smokeless Tobacco: | | | | | Never Used | | | | + +---+---+---+ + + +---------+ + | Alcohol Use | Drinks/Week | oz/Week | Comments | + + +---------+ + | Yes | 0 Glasses of wine | 0.0 | Occassional, may | | | 0 Cans of beer 0 | | be10 drinks a year | | | Shots of liquor | | | + + +---------+ + + + + | Sex Assigned at | Date Recorded | | | | + + + | Not on file | | + + + documented as of this encounter Miscellaneous Notes Telephone Encounter - Carli López CC CMA - 01/20/2019 5:05 PM PDTLast office visit 01/09/2019. Last TSH 3.39 11/21/2018. Please sign pended med. IDALIA Mason CMA documented in this encounter Plan of Treatment +--------+---------+ + + + | Date | Type | Specialty | Care Team | Description | +--------+---------+ + + + | 07/01/ | Office | Primary Care | Lupillo Valdez | | 2019 | Visit | | DO [place] [address] [place] [address] | | | | | | [place] | | | | | | [address] | | | | | | [phone] | | | | | | | | +--------+---------+ + + + | 08/14/ | Office | Neurology | Henry, Jessica, SUPERVISOR INSPECTION DEPARTMENT | | | 2020 | Visit | | [address] | | | | | | [place], [place] | | | | | | [address] | | | | | | [phone] | | | | | | | | +--------+---------+ + + + documented as of this encounter Visit Diagnoses Not on filedocumented in this encounter"
--- OUTSIDE RECORDS SUMMARY | ~2020-06-03 | XMS | Encounter Summary ---
Demographics + + + | Address | [address] | | | [place] [address] | + + + | Home Phone | | + + + | Preferred Language | Unknown | + + + | Marital Status | Single | + + + | Buddhism Affiliation | Unknown | + + + | Race | White | + + + | Ethnic Group | Not or | + + + Author + + + | Author | [facility] | | | and [place] | + + + | Organization | [facility] | | | and [...] Team Providers + +------+ + | Care Hybrid Technologist Name | Role | Phone | + +------+ + | Lupillo Cook DO | PCP | | + +------+ + Reason for Visit +--------+--------+ + | Reason | Onset | Comments | | | Date | | +--------+--------+ + | Pain | 08/29/ | | | | 2018 | | +--------+--------+ + Encounter Details +--------+ + + + + | Date | Type | Department | Care Team | Description | +--------+ + + + + | 08/29/ | Telephone | [facility] [facility] | Lupillo Cook | Pain | | 2018 | | [facility] | E, DO [address] | | | | | MED[facility] [address] | [place], [place] | | | | [address] [place], | [address] | | | | | [place] [address] | [phone] | | | | | [phone] | | | +--------+ + + + [...] | Yes | | | Occassional, may | | | | | be10 drinks a year | + + +---------+ + + + + | Sex Assigned at | Date Recorded | | | | + + + | Not on file | | + + + documented as of this encounter Miscellaneous Notes Addendum Note - Lupillo Cook DO - 08/29/2018 4:36 PM PST Addended by: VERO COOK on: 08/29/2018 16:36 Modules accepted: Orders ddendum Note - Hanh Burger CC CMA - 08/29/2018 4:20 PM PST Addended by: Hanh Burger on: 08/29/2018 1 6:20 Modules accepted: Orders elephone Encoun ter Hanh Bates CC CMA - 08/29/2018 4:19 PM PSTPatient informed, verified dose and SI G with pharmacy. I advised patient to call Dr. Tamayo's office Wednesday if she hasn't heard from them by tomorrow. IDALIA Huerta CMA elephone EncounLupillo Simmons DO - 08/29/2018 3:23 PM PSTHave her restart her Meloxicam but she M UST have her appt with Dr Tamayo. elephone Encounter - Hanh Burger CC CMA - 08/29/2018 3:11 PM PSTPatient s tates she has tried everything including Arnica and BioFreeze, she states she can not afford Salonpas. She is having a hard time sleeping. Please advise. IDALIA Huerta CMA elephone Encounte r - Luis Carlos Bagley - 08/29/2018 2:44 PM PSTPt last your call, please call [phone]/sravanthi in elephone Encounter - Hanh Anderson CC CMA - 08/29/2018 2:42 PM PSTLeft detailed message. IDALIA Huerta CMA elephone Lupillo Mantilla DO - 08/29/2018 1:12 PM PSTOk , then use all the other modalities d iscussed ! elephone Encounter - Hanh Burger CC CMA - 08/29/2018 1:09 PM PSTPatient is allergic to Tylenol. IDALIA Huerta CMA elephone Lupillo Mantilla DO - 08/29/2018 10:41 AM PSTShe was instructed to stop ALL NSAIDS du e to uncontrolled GERD. He can use APAP for pain, and she has other meds onboard to control pain. Try ice, heat, muscle rubs, Salonpas patch. elephone Encounter - Hanh Burger CC CMA - 08/29/2018 10:25 AM PSTPatient states LAST OFFICE VISIT 08/15/2018 it was advised she d/c Meloxicam. Patient i s experiencing extreme back pain of L1,2,3 and not sleeping well. She is using IBU 800mg wh ich is causing GERD flare-up. Please advise. IDALIA Huerta CMA elephone Myrna Blanco - 08/29/2018 9:48 AM PSTPt is requesting to speak with Hanh about her b ack pain. Pt states ibuprofen is not helping the pain. Please all pt to discuss Thanks Myrna documented in t his encounter Plan of Treatment +--------+---------+ + + + | Date | Type | Specialty | Care Team | Description | +--------+---------+ + + + | 07/01/ | Office | Primary Care | Lupillo Cook | | | 2019 | Visit | | DO [place] [address] | | | | | | [place] | | | | | | [address] | | | | | | [phone] | | | | | | | | +--------+---------+ + + + | 08/14/ | Office | Neurology | Jessica Henry NP | | | 2019 | Visit | | [address] | | | | | | [place] | | | | | | [address] | | | | | | [phone] | | | | | | | | +--------+---------+ + + + documented as of this encounter Visit Diagnoses Not on filedocumented in this encounter"
--- OUTSIDE RECORDS SUMMARY | ~2020-06-03 | XMS | Encounter Summary ---
Demographics + + + | Address | [address] | | | [place] [address] | + + + | Home Phone | | + + + | Preferred Language | Unknown | + + + | Marital Status | Single | + + + | Sikh Affiliation | Unknown | + + + | Race | White | + + + | Ethnic Group | Not or | + + + Author + + + | Author | [facility] | | | and [place] | + + + | Organization | [facility] | | | and [place] | + + + | Address | Unknown | + + + | Phone | Unavailable | + + + Support + + +---------+ + | Name | Relationship | Address | Phone | + + +---------+ + | Rosita Casey | ECON | Unknown | | + + +---------+ + | Laniefran Malhotra | ECON | Unknown | | + + +---------+ + Care Team Providers + +------+ + | Care Wash Barrel Leader Name | Role | Phone | + +------+ + | Lupillo Valdez DO | PCP | | + +------+ + Reason for Visit + + + | Reason | Comments | + + + | Follow-up | Follow up from director of accounts payable and medications | + + + | Other | Pt reports at rest she has gurgling in her chest, x4-5 months | + + + Encounter Details +--------+---------+ + + + | Date | Type | Department | Care Team | Description | +--------+---------+ + + + | 01/31/ | Office | [place] [facility] | Lupillo Valdez | Coronary artery | | 2019 | Visit | [facility] | E, DO [address] | disease involving | | | | [facility] | [place], [place] | king salmon coronary | | | [address] [place], | [address] | artery of [place] | | | | [place] [address] | [phone] | heart without angina | | | | [phone] | | pectoris (Primary | | | | | | Dx); Essential | | | | | | hypertension; Pure | | | | | | hypercholesterolemia | | | | | | ; Class 3 severe | | | | | | obesity without | | | | | | serious comorbidity | | | | | | with body mass index | | | | | | (BMI) of 40.0 to | | | | | | 44.9 in adult, | | | | | | unspecified obesity | | | | | | type (HCC) | +--------+---------+ + + + Social History + + + +--------+ + | Tobacco Use | Types | Packs/Day | Years | Date | | | | | Used | | + + + +--------+ + | Former Smoker | Cigarettes | | | Quit: 1998 | + + + +--------+ + + +---+---+---+ | Smokeless Tobacco: | | | | | Never Used | | | | + +---+---+---+ + + | Tobacco Cessation: Counseling Given: No | + + + + +---------+ + [...] + + documented as of this encounter Last Filed Vital Signs + + + + + | Vital Sign | Reading | Time Taken | Comments | + + + + + | Blood Pressure | 126/68 | 01/31/2019 3:10 PM | Right arm, large | | | | PDT | cuff | + + + + + | Pulse | 60 | 01/31/2019 3:10 PM | | | | | PDT | | + + + + + | Temperature | - | - | | + + + + + | Respiratory Rate | 16 | 01/31/2019 3:10 PM | | | | | PDT | | + + + + + | Oxygen Saturation | 98% | 01/31/2019 3:10 PM | | | | | PDT | | + + + + + | Inhaled Oxygen | - | - | | | Concentration | | | | + + + + + | Weight | 110.6 kg (243 lb | 01/31/2019 3:10 PM | | | | 12.8 oz) | PDT | | + + + + + | Height | 165.1 cm (5' 5") | 01/31/2019 3:10 PM | | | | | PDT | | + + + + + | Body Mass Index | 40.57 | 01/31/2019 3:10 PM | | | | | PDT | | + + + + + documented in this encounter Patient Instructions Patient Instructions Carina Figueroa - 01/31/2019 3:20 PM PDT-STOP Metoprolol -Keep follow up appointment with Dr. Santoyo in 1 month, complete blood work prior -Contact your insurance company and ask questions regarding gastric bypass surgeryYvette shaggy signed by Carina Figueroa at 01/31/2019 3:48 PM PDT documented in this encounter Progress Notes Lupillo Valdez DO - 01/31/2019 3:20 PM PDT Patient ID: Abril Callaway is a 58 y.o. year old female Chief Complaint Patient presents with Follow-up Follow up from director of accounts payable and medications Other Pt reports at rest she has gurgling in her chest, x4-5 months Assessment: NSTEMI (non-ST elevated myocardial infarction) (HCC) (Primary) Essential hypertension - hydroCHLOROthiazide; Take 12.5 mg Wednesday, Wednesday, and Wednesday Dispense: 36 capsule ; Refill: 3 Pure hypercholesterolemia Class 3 severe obesity without serious comorbidity with body mass index (BMI) of 40.0 to 44 .9 in adult, unspecified obesity type (HCC) Other orders - levETIRAcetam; Take 1 tablet by mouth 2 times daily. Dispense: 180 tablet; Refill: 3 - Pantoprazole Sodium; Take 1 tablet by mouth every morning (before breakfast). Dispen se: 90 tablet; Refill: 3 - Gabapentin; Take 1 capsule by mouth 2 times daily. Dispense: 180 capsule; Refill: 3 - Pramipexole Dihydrochloride; Take 1 tablet by mouth 3 times daily. Dispense: 270 tab let; Refill: 3 Plan: -STOP Metoprolol -Keep follow up appointment with Dr. Santoyo in 1 month, complete blood work prior -Contact your insurance company and ask questions regarding gastric bypass surgery Subjective: ROBERT Samuels presents to the clinic today for a follow up from recent visit with Ground Intelligence Officer and polly raymundo change in medications. Waldemar Santoyo M.D. Ground Intelligence Officer plan from 01/24/2019 was; Patient is to wean off beta-blockers . Her blood pressure is borderline and she will increase her lisinopril to 20 mg a day as pr evious. We will see her back in 1 month's time with evaluation her LFTs and general laborato kirby to see if there is improvement. Plan is to continue her aspirin and Plavix for 1 years time. Lipid therapy per her laboratories. She is currently taking Metoprolol 25 mg 1/2 tablet daily for 6 days. Her breathing is bett er, she went for a 2.5 mile walk yesterday and didn't get winded. She denies having chest pa in, palpitations today. She has a "gurgle" in her chest when she breaths she can hear. This "gurgle" doesn't happen all the time, it has been going on for 4-5 months. She is wondering if would be a candidate for gastric bypass surgery. I advised that she con tact her insurance company and ask questions. Current Outpatient Medications Medication Sig Dispense Refill aspirin 81 MG EC tablet Take 1 tablet by mouth Daily. 30 tablet cholecalciferol (VITAMIN D-3) 5000 units TABS Take 5,000 Units by mouth Daily. clopidogrel (PLAVIX) 75 mg tablet Take 1 tablet by mouth Daily. 90 tablet 3 gabapentin (NEURONTIN) 100 mg capsule Take 1 capsule by mouth 2 times daily. 180 capsul e 3 hydroCHLOROthiazide (MICROZIDE) 12.5 MG capsule Take 12.5 mg Wednesday, Wednesday, and Wed day 12 capsule 1 levETIRAcetam (KEPPRA) 750 MG tablet Take 750 mg by mouth 2 times daily. levothyroxine (SYNTHROID) 100 mcg tablet Take 1 tablet by mouth every morning (before b reakfast). Patient needs labs before further fills. 90 tablet 3 lisinopril (PRINIVIL, ZESTRIL) 20 mg tablet Take 1 tablet by mouth Daily. 90 tablet 3 lovastatin (MEVACOR) 40 MG tablet Take 1 tablet by mouth nightly. 90 tablet 0 metoprolol tartrate (LOPRESSOR) 25 mg tablet Take 0.5 tablets by mouth 2 times daily. 3 0 tablet 5 Multiple Vitamins-Minerals (MULTIVITAMIN ADULT PO) Take by mouth Daily. nitroglycerin (NITROSTAT) 0.[address] 1 tablet under the tongue every 5 mini tab as needed for Chest pain. May repeat X 2 100 tablet 0 pantoprazole (PROTONIX) 40 mg tablet Take 1 tablet by mouth every morning (before break fast). 90 tablet 3 pramipexole (MIRAPEX) 0.125 MG tablet Take 1 tablet by mouth 3 times daily. (Patient ta toby differently: Take 0.375 mg by mouth nightly.) 90 tablet 3 No current facility-administered medications for this visit. Review of Systems Constitutional: Feeling well Respiratory: Negative for shortness of breath. "gurgle" sound in chest while breathing Cardiovascular: Negative for chest pain and palpitations. Objective: Vitals: BP 126/68 Comment: Right arm, large cuff | Pulse 60 | Resp 16 | Ht 1.651 m (5' 5") | Wt 110.6 kg (243 lb 12.8 oz) | SpO2 98% | ? No | BMI 40.57 kg/m Physical Exam Constitutional: She is oriented to person, place, and time. She appears well-developed and well-nourished. Eyes: EOM are normal. Cardiovascular: Normal rate, regular rhythm and normal heart sounds. Pulmonary/Chest: Effort normal and breath sounds normal. Abdominal: Soft. Bowel sounds are normal. Neurological: She is alert and oriented to person, place, and time. Psychiatric: She has a normal mood and affect. Entered by Carina Figueroa CMSP, acting as scribe for Noah Valdez D.O. The documentation recorded by the scribe accurately reflects the service I personally perfo ed and the decisions made by me. documented in this encounter Plan of Treatment +--------+---------+ + + + | Date | Type | Specialty | Care Team | Description | +--------+---------+ + + + | 07/01/ | Office | Primary Care | Lupillo Valdez | | | 2019 | Visit | | DO [place] [address] | | | | | | [place] | | | | | | [address] | | | | | | [phone] | | | | | | | | +--------+---------+ + + + | 08/14/ | Office | Neurology | Jessica Henry NP | | | 2019 | Visit | | [address] [place] | | | | | | [place] | | | | | | [address] | | | | | | [phone] | | | | | | | | +--------+---------+ + + + documented as of this encounter Visit Diagnoses + + | Diagnosis | + + | Coronary artery disease involving king salmon coronary artery of king salmon heart without | | angina pectoris - Primary | + + | Essential hypertension Unspecified essential hypertension | + + | Pure hypercholesterolemia | + + | Class 3 severe obesity without serious comorbidity with body mass index (BMI) of 40.0 | | to 44.9 in adult, unspecified obesity type (HCC) | + + documented in this encounter
--- OUTSIDE RECORDS SUMMARY | ~2020-06-03 | XMS | Encounter Summary ---
Demographics + + + | Address | [address] | | | [place] [address] | + + + | Home Phone | | + + + | Preferred Language | Unknown | + + + | Marital Status | Single | + + + | Synagogue Affiliation | Unknown | + + + | Race | White | + + + | Ethnic Group | Not or | + + + Author + + + | Author | [facility] | | | and [place] | + + + | Organization | [facility] | | | [...] Team Providers + +------+ + | Care Registered Nurse Step Down Name | Role | Phone | + +------+ + | Lupillo Valdez DO | PCP | | + +------+ + Reason for Visit +--------+--------+ + | Reason | Onset | Comments | | | Date | | +--------+--------+ + | Other | 03/04/ | | | | 2020 | | +--------+--------+ + Encounter Details +--------+ + + + + | Date | Type | Department | Care Team | Description | +--------+ + + + + | 03/04/ | Telephone | [place] [facility] | Zakia Neumann | Other | | 2020 | | [facility] | MD Ana Luisa [address] | | | | | CL[address] | [address] | | | | | [address] [place], | [place] [address] | | | | | [place] [address] | [phone] | | | | | [phone] | | | +--------+ + + + + Social History + + + +--------+ + | Tobacco Use | Types | Packs/Day | Years | Date | | | | | Used | | + + + +--------+ + | Former Smoker | Cigarettes | 0.5 | 11 | Quit: 1999 | + + + +--------+ + + +---+---+---+ | Smokeless Tobacco: | | | | | Never Used | | | | + +---+---+---+ + + + + + | Alcohol Use | Drinks/Week | oz/Week | Comments | + + + + + | Yes | 0 Glasses of wine | 0.0 - 2.0 | | | | 0 Cans of beer 0 | | | | | Shots of liquor 0-2 | | | | | Standard drinks or | | | | | equivalent | | | + + + + + + + + | Sex Assigned at | Date Recorded | | | | + + + | Not on file | | + + + documented as of this encounter Miscellaneous Notes Telephone Encounter - Shilpa Yang RN - 03/05/2020 12:30 PM PDTPatient advised to share the DMV paperwork with her family which documents no seizures for 90 days, verbalized unders tanding. elephone Olimpia Diamond - 03/04/2020 11:19 AM PDTThe patient is asking is you could write a letter explaining why you let her get her license back. Her daughters are giving her a b ad time and telling her she should not be driving or living independently. Can you also exp adrian in the letter why she should live independently? documented in this encounter Plan of Treatment +--------+---------+ + + + | Date | Type | Specialty | Care Team | Description | +--------+---------+ + + + | 07/01/ | Office | Primary Care | Lupillo Valdez | | 2019 | Visit | | [place] | | | | | | [place] | | | | | | [address] | | | | | | [phone] | | | | | | | | +--------+---------+ + + + | 08/14/ | Office | Neurology | Jessica Henry NP | | | 2019 | Visit | | [address] [place] | | | | | | [place] | | | | | | [address] | | | | | | [phone] | | | | | | | | +--------+---------+ + + + documented as of this encounter Procedures + +--------+ + + + | Procedure Name | Priori | Date/Time | Associated Diagnosis | Comments | | | ty | | | | + +--------+ + + + | LEVETIRACETAM LEVEL | Routin | 03/18/2020 | | Results for this | | | e | 8:48 AM | | procedure are in the | | | | PDT | | results section. | + +--------+ + + + documented in this encounter Results Levetiracetam Level (03/18/2020 8:48 AM PDT) + + + + + + | Component | Value | Ref Range | Performed | Pathologist | | | | | At | Signature | + + + + + + | LEVETIRACET | 21Comment: Reference | | REFERENCE | | | AM | Range for LEVETIRACETAM | | LAB | | | | 12-46 ug/mLNotes below | | [facility] - | | | | apply to: | | [facility] | | | | LEVETIRACETAMINTERPRETIV | | | | | | E INFORMATION: Keppra | | | | | | (Levetiracetam) | | | | | | Therapeutic Range: | | | | | | 12-46 ug/mL | | | | | | Toxic: Not | | | | | | well Established | | | | | | Pharmacokinetics of | | | | | | levetiracetam are | | | | | | affected by renal | | | | | | function. Adverse | | | | | | effects may include | | | | | | somnolence, weakness, | | | | | | headache and vomiting. | | | | | | This levetiracetam | | | | | | (Keppra) immunoassay | | | | | | uses the [employer] | | | | | | reagents, which has | | | | | | known cross-reactivity | | | | | | with the drug | | | | | | brivaracetam (Briviact) | | | | | | and may report | | | | | | inaccurate results. | | | | | | Patients transitioning | | | | | | from levetiracetam to | | | | | | brivaracetam or those | | | | | | who are using both | | | | | | medications should not | | | | | | monitor drug | | | | | | concentrations with the | | | | | | [employer] assay. | | | | | | These patients should be | | | | | | monitored using a | | | | | | validated | | | | | | chromatographic | | | | | | methodology that | | | | | | distinguishes between | | | | | | drugs to determine drug | | | | | | concentrations.Performed | | | | | | by [facility] | | | | | | [facility],[address] [place] [address] | | | | | | [place] [address] | | | | | | [phone]. | | | | | | Robbi haas MD, | | | | | | Lab. Director | | | | + + + + + + + + | Specimen | + + | | + + + + + | Narrative | Performed At | + + + | Testing Performed at: [facility] CLIA: [id number] - [address] | REFERENCE LAB | | [place] [address] | [facility] - | | | [facility] | + + + + + + + + | Performing | Address | City/State/Zipcode | Phone Number | | Organization | | | | + + + + + | REFERENCE LAB | [address] | [place], [place] | [phone] | | [facility] | | [address] | | + + + + + documented in this encounter Visit Diagnoses Not on filedocumented in this encounter"
--- OUTSIDE RECORDS SUMMARY | ~2020-06-03 | XMS | Encounter Summary ---
Demographics + + + | Address | [address] | | | [place] [address] | + + + | Home Phone | | + + + | Preferred Language | Unknown | + + + | Marital Status | Single | + + + | Taoism Affiliation | Unknown | + + + | Race | White | + + + | Ethnic Group | Not or | + + + Author + + + | Author | [facility] | | | and [place] | + + + | Organization | [facility] | | | [...] Team Providers + +------+ + | Care Fire Crew Worker Name | Role | Phone | + +------+ + | Lupillo Valdez DO | PCP | | + +------+ + Reason for Visit + +--------+ + | Reason | Onset | Comments | | | Date | | + +--------+ + | Appointment | 11/21/ | | | | 2020 | | + +--------+ + Encounter Details +--------+ + + + + | Date | Type | Department | Care Team | Description | +--------+ + + + + | 11/21/ | Telephone | [facility] [facility] | Lupillo Valdez | Appointment | | 2020 | | [facility] | E, DO [address] | | | | | MEDICAL CL[facility] [address] | [place] | | | | [address] [facility] | [address] | | | | | [place] [address] | [phone] | | | | | [phone] | | | +--------+ + + + [...] this encounter Miscellaneous Notes Telephone Encounter - Luis Carlos Bagley - 11/21/2019 1:34 PM PSTI faxed TRISHA to [facility]/robin elephone Margaret green - Lavinia Arroyo CC CMA - 11/21/2019 12:20 PM PSTPlease obtain records from [facility]. The patient was seen last week. She also had labs done. Lavinia Moncada elephone Encounter - Lavinia Arroyo CC CMA - 11/21/2019 12:17 PM PSTI spoke with Abril. She was seen at [facility] by Dr. Walton. Per patient, Dr Walton does no t want to adjust meds, he would like that to be done by Dr. Valdez. Labs were done as well. I told patient we would get records and then review them with the doctor. IDALIA Messina CMA elephone Spencer rhodes - Luis Carlos Bagley - 11/21/2019 10:26 AM PSTPt called and would like to talk to you tavo ding an appointment for neurology, please call/robin documented in this encounter Plan of Treatment +--------+---------+ + + + | Date | Type | Specialty | Care Team | Description | +--------+---------+ + + + | 07/01/ | Office | Primary Care | Lupillo Valdez | | | 2019 | Visit | | DO [place] [address] | | | | | | [place] | | | | | | [address] | | | | | | [phone] | | | | | | | | +--------+---------+ + + + | 08/14/ | Office | Neurology | Jessica Henry NP | | | 2019 | Visit | | [address] | | | | | | [place] | | | | | | [address] | | | | | | [phone] | | | | | | | | +--------+---------+ + + + documented as of this encounter Visit Diagnoses Not on filedocumented in this encounter"
--- OUTSIDE RECORDS SUMMARY | ~2020-06-03 | XMS | Encounter Summary ---
Demographics + + + | Address | [address] | | | [place] [address] | + + + | Home Phone [...] + + + | Author | [facility] | | | and [place] | + + + | Organization | [facility] | | | [...] Team Providers + +------+ + | Care Air Reduction Equipment Operator Name | Role | Phone | + +------+ + | Lupillo Valdez DO | PCP | | + +------+ + Reason for Referral Diagnostic/Screening (Routine) +--------+--------+ + + + + | Status | Reason | Specialty | Diagnoses / | Referred By | Referred To | | | | | Procedures | Contact | Contact | +--------+--------+ + + + + | Closed | | Radiology | Diagnoses | Thien, | Cc Wgr Mri | | | | | Complex | Zakia Orosco, | [address] | | | | | partial | MD [address] | | | | | seizures | [address] | [place], [place] | | | | | evolving to | [address], [address] | [address] | | | | | generalized | [place], | Phone: | | | | | tonic-clonic | [place] [address] | [phone] | | | | | seizures | Phone: | Fax: | | | | | (HCC) | [phone] | [phone] | | | | | Procedures | Fax: | | | | | | MRI Brain w | [phone] | | | | | | wo Contrast | | | +--------+--------+ + + + + Reason for Visit Diagnostic/Screening (Routine) +--------+--------+ + + + + | Status | Reason | Specialty | Diagnoses / | Referred By | Referred To | | | | | Procedures | Contact | Contact | +--------+--------+ + + + + | Closed | | Radiology | Diagnoses | Thien, | Cc Wgr Mri | | | | | Complex | Zakia Orosco, | [address] | | | | | partial | [address] | [address] | | | | | seizures | [address] | [place], [place] | | | | | evolving to | [address], [address] | [address] | | | | | generalized | [place], | Phone: | | | | | tonic-clonic | [place] [address] | [phone] | | | | | seizures | Phone: | Fax: | | | | | (HCC) | [phone] | [phone] | | | | | Procedures | Fax: | | | | | | MRI Brain w | [phone] | | | | | | wo Contrast | | | +--------+--------+ + + + + Encounter Details +--------+ + + + + | Date | Type | Department | Care Team | Description | +--------+ + + + + | 12/31/ | Hospital | [place] [facility] | Zakia Neumann | Complex partial | | 2020 | Encounter | Hospital MRI [address] | [address] | seizures evolving to | | | | [address] | [address], [address] [place] | generalized | | | | [place], [place] | [place] [address] | tonic-clonic | | | | [address] | [phone] | seizures (HCC) | | | | [phone] | | | +--------+ + + + + Social History + + + +--------+ + | Tobacco Use | Types | Packs/Day | Years | Date | | | | | Used | | + + + +--------+ + | Former Smoker | Cigarettes | 0.5 | 11 | Quit: 1998 | + + + [...] + + documented as of this encounter Medications at Time of Discharge + + + +---------+ + + | Medication | Sig | Dispensed | Refills | Start | End Date | | | | | | Date | | + + + +---------+ + + | aspirin 81 MG EC | Take 1 tablet by | 30 | 0 | 01/01/20 | | | tablet | mouth Daily. | tablet | | 19 | | + + + +---------+ + + | cholecalciferol | Take 5,000 Units by | | 0 | | | | (VITAMIN D-3) 5000 | mouth Daily. | | | | | | units TABS | | | | | | + + + +---------+ + + | lisinopril | Take 1 tablet by | 90 | 3 | 08/21/20 | | | (PRINIVIL, ZESTRIL) | mouth Daily. | tablet | | 19 | | | 20 mg tablet | | | | | | + + + +---------+ + + | Misc. Devices | 1 Units by Does not | 1 each | 0 | 10/27/19 | | | (CANSuellen) | apply route | | | 20 | | | MISCIndications: | continuous. | | | | | | Syncope and | | | | | | | collapse, Gait | | | | | | | instability | | | | | | + + + +---------+ + + | Multiple | Take by mouth | | 0 | | | | Vitamins-Minerals | Daily. | | | | | | (MULTIVITAMIN ADULT | | | | | | | PO) | | | | | | + + + +---------+ + + | nitroglycerin | Place 1 tablet under | 100 | 0 | 12/31/19 | | | (NITROSTAT) 0.4 mg | the tongue every 5 | tablet | | 19 | | | SL tablet | minutes as needed | | | | | | | for Chest pain. May | | | | | | | repeat X 2 | | | | | + + + +---------+ + + | Cyanocobalamin | Take by mouth | | 0 | | | | (VITAMIN B12 PO) | Daily. Patient | | | | 0 | | | unsure of dose | | | | | + + + +---------+ + + | gabapentin | Take 1 capsule by | 180 | 3 | 02/01/20 | | | (NEURONTIN) 100 mg | mouth 2 times daily. | capsule | | 19 | 0 | | capsule | | | | | | + + + +---------+ + + | | Take 12.5 mg Wednesday, | 36 | 3 | 02/01/20 | | | hydroCHLOROthiazide | Wednesday, and | capsule | | 19 | 0 | | (MICROZIDE) 12.5 MG | Wednesday | | | | | | capsuleIndications: | | | | | | | Essential | | | | | | | hypertension | | | | | | + + + +---------+ + + | levETIRAcetam | Take 1 tablet by | 180 | 3 | 11/28/19 | | | (KEPPRA) 750 MG | mouth 2 times daily. | tablet | | 20 | 0 | | tabletIndications: | | | | | | | Nonintractable | | | | | | | epilepsy without | | | | | | | status epilepticus, | | | | | | | unspecified epilepsy | | | | | | | type (HCC) | | | | | | + + + +---------+ + + | levothyroxine | Take 100 mcg by | | 0 | 11/28/19 | | | (SYNTHROID) 100 mcg | mouth Daily. | | | 20 | 0 | | tablet | | | | | | + + + +---------+ + + | lovastatin | Take 1 tablet by | 90 | 3 | 03/22/20 | | | (MEVACOR) 40 MG | mouth nightly. | tablet | | 19 | 0 | | tablet | | | | | | + + + +---------+ + + | pantoprazole | Take 1 tablet by | 90 | 3 | 02/01/20 | | | (PROTONIX) 40 mg | mouth every morning | tablet | | 19 | 0 | | tablet | (before breakfast). | | | | | + + + +---------+ + + | pramipexole | Take 1 tablet by | 270 | 3 | 02/01/20 | | | (MIRAPEX) 0.125 MG | mouth 3 times daily. | tablet | | 19 | 0 | | tablet | | | | | | + + + +---------+ + + documented as of this encounter Plan of Treatment +--------+---------+ + + + | Date | Type | Specialty | Care Team | Description | +--------+---------+ + + + | 07/01/ | Office | Primary Care | Lupillo Valdez | | | 2019 | Visit | | [address] | | | | | [place] | | | | | | [address] | | | | | | [phone] | | | | | | | | +--------+---------+ + + + | 08/14/ | Office | Neurology | Jessica Henry NP | | | 2019 | Visit | | [address] [place] | | | | | | [place] | | | | | | [address] | | | | | | [phone] | | | | | | | | +--------+---------+ + + + documented as of this encounter Procedures + +--------+ + + + | Procedure Name | Priori | Date/Time | Associated Diagnosis | Comments | | | ty | | | | + +--------+ + + + | MRI BRAIN W WO | Routin | 01/01/2020 | Complex partial | Results for this | | CONTRAST | e | 2:05 PM | seizures evolving to | procedure are in the | | | | PDT | generalized | results section. | | | | | tonic-clonic | | | | | | seizures (HCC) | | + +--------+ + + + documented in this encounter Results MRI Brain w wo Contrast (01/01/2020 2:05 PM PDT) + + | Specimen | + + | | + + + + + | Impressions | Performed At | + + + | 1. No acute finding. 2. Mild white matter changes nonspecific the | [facility] | | most typically associated with small-vessel postischemic process. | | | Demyelination, and vasculitis could result in similar appearance. | | | Rarely infectious process such as Lyme disease can result in white | | | matter signal abnormalities. Dictated by: Yossi Dawn | | | | | + + + + + + | Narrative | Performed At | + + + | EXAMINATION: MRI BRAIN W WO CONTRAST HISTORY: Seizure, | [facility] | | nontraumatic (Age > 41y) COMPARISON STUDY: None TECHNIQUE: | | | Multiplanar multi sequence MRI of the brain is performed without and | | | with contrast. mL Gadovist was injected intravenously without post | | | contrast reaction. FINDINGS: Diffusion-weighted images show no | | | evidence of restricted diffusion. The henry-white matter interface is | | | intact. No acute intracranial hemorrhage, mass lesion, or midline | | | shift. No abnormal enhancement. Basilar cisterns are patent. | | | Ventricles are demonstrate cavum septum interpositum. Sulci are age | | | appropriate. Major flow voids are present. On the FLAIR sequence | | | images a few regions of periventricular and subcortical hyperintense | | | focal white matter lesion. Paranasal sinuses and mastoid air cells | | | are clear . No focal pituitary abnormality is identified. Corpus | | | callosum is unremarkable. Brainstem is unremarkable. No enhancing | | | masses are identified at the cerebellopontine angle or within the | | | internal auditory canals bilaterally. Visualized seventh and eighth | | | nerves are unremarkable. The cochlea and semicircular canals are | | | unremarkable. | | + + + + + | Procedure Note | + + | Hollis, Rad Results In - 01/01/2020 2:50 PM PDT EXAMINATION:MRI BRAIN W WO | | CONTRASTHISTORY:Seizure, nontraumatic (Age > 41y)COMPARISON | | STUDY:NoneTECHNIQUE:Multiplanar multi sequence MRI of the brain is performed without and | | with contrast. mL Gadovist was injected intravenously without post contrast | | reaction.FINDINGS:Diffusion-weighted images show no evidence of restricted diffusion.The | | henry-white matter interface is intact.No acute intracranial hemorrhage, mass lesion, or | | midline shift.No abnormal enhancement.Basilar cisterns are patent.Ventricles are | | demonstrate cavum septum interpositum.Sulci are age appropriate.Major flow voids are | | present.On the FLAIR sequence images a few regions of periventricular and subcortical | | hyperintense focal white matter lesion.Paranasal sinuses and mastoid air cells are clear | | .No focal pituitary abnormality is identified.Corpus callosum is unremarkable.Brainstem | | is unremarkable.No enhancing masses are identified at the cerebellopontine angle or | | within the internal auditory canals bilaterally. Visualized seventh and eighth nerves | | are unremarkable. The cochlea and semicircular canals are unremarkable.IMPRESSION: 1. No | | acute finding.2. Mild white matter changes nonspecific the most typically associated | | with small-vessel postischemic process. Demyelination, and vasculitis could result in | | similar appearance. Rarely infectious process such as Lyme disease can result in white | | matter signal abnormalities.Dictated by: Yossi Dawn | |Sulci are age appropriate. | |Major flow voids are present. | |On the FLAIR sequence images a few regions of periventricular and subcortical hyperintense focal white matter lesion. | |Paranasal sinuses and mastoid air cells are clear . | |No focal pituitary abnormality is identified. | |Corpus callosum is unremarkable. | |Brainstem is unremarkable. | | | |No enhancing masses are identified at the cerebellopontine angle or within the internal aud itory canals bilaterally. Visualized seventh and eighth nerves are unremarkable. The cochlea and semicircular canals are unremarkable. | | | |IMPRESSION: | |1. No acute finding. | |2. Mild white matter changes nonspecific the most typically associated with small-vessel po stischemic process. Demyelination, and vasculitis could result in similar appearance. Rare ly infectious process such as | |Lyme disease can result in white matter | |signal abnormalities. 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 (HCC) | | Localization-related (focal) (partial) epilepsy and epileptic syndromes with complex | | partial seizures, without mention of intractable epilepsy | + + documented in this encounter Administered Medications + +--------+ +--------+------+------+ | Medication Order | MAR | Action | Dose | Rate | Site | | | Action | Date | | | | + +--------+ +--------+------+------+ | gadobutrol (GADAVIST) injection | Given | 01/01/20 | 10 mLs | | | | 10 mL 10 mL, Intravenous, ONCE | | 20 1:57 | | | | | PRN, Other, Starting 01/01/20 | | PM PDT | | | | | at 1357, For 1 dose, MRI | | | | | | + +--------+ +--------+------+------+ +---+---+ | | | +---+---+ documented in this encounter"
--- OUTSIDE RECORDS SUMMARY | ~2020-06-03 | XMS | Encounter Summary ---
Demographics + + + | Address | [address] | | | [place] [address] | + + + | Home Phone | | + + + | Preferred Language | Unknown | + + + | Marital Status | Single | + + + | Gnosticism Affiliation | Unknown | + + + | Race | White | + + + | Ethnic Group | Not or | + + + Author + + + | Author | [facility] | | | and [place] | + + + | Organization | [facility] | | [...] Team Providers + +------+ + | Care Nondestructive Tester Name | Role | Phone | + +------+ + | Lupillo Valdez DO | PCP | | + +------+ + Reason for Referral Evaluate & Treat (Routine) +--------+ + + + + + | Status | Reason | Specialty | Diagnoses / | Referred By | Referred To | | | | | Procedures | Contact | Contact | +--------+ + + + + + | Closed | Specialty | Cardiology | Diagnoses | Courtney, | Jordyn, | | | Services | | NSTEMI | Lupillo Ken, | MD Nick | | | Required | | (non-ST | DO [address] | [address] | | | | | elevated | [address] [place] | [place] | | | | | myocardial | [place] | [place], [place] | | | | | infarction) | [address] | [address] Phone: | | | | | ([facility]) | Phone: | [phone] | | | | | | [phone] | Fax: | | | | | | Fax: | [phone] | | | | | | [phone] | | +--------+ + + + + + Reason for Visit + +--------+ + | Reason | Onset | Comments | | | Date | | + +--------+ + | Cardiac Arrest | 12/30/ | | | | 2018 | | + +--------+ + Encounter Details +--------+ + + + + | Date | Type | Department | Care Team | Description | +--------+ + + + + | 12/30/ | Telephone | [place] [facility] | Lupillo Valdez | Cardiac Arrest | | 2019 | | [facility] | E, DO [address] | | | | | [facility] [address] | [place], [place] | | | | | [address] [place], | [address] | | | | | [place] [address] | [phone] | | | | | [phone] | | | +--------+ + + + [...] this encounter Miscellaneous Notes Telephone Encounter - FigueroaMilton elderjeroxie Ana Luisa - 12/30/2018 3:30 PM PDTPlease sign pended referral. Thank You Carina elephone Encounter - Hanh Burger CC CMA - 12/30/2018 1:56 PM PDTKelsha, please write referral for patient to see Dr. Cobb in [place] for NSTEMI. Thank you, IDALIA Huerta CMA elephone Encounking r Hanh Bates CC CMA - 12/30/2018 1:51 PM PDTPatient needs a referral to Dr. Jordyn whalen or recent NSTEMI. Referral done. Patient transferred to front office for APPOINTMENT to [facility] with Dr. Valdez. IDALIA Huerta CMA elephone Encounking r Angela Harmon - 12/30/2018 1:27 PM PDTPatient returning your call Please call back [address] elephone Encounter - Hanh Burger CC CMA - 12/30/2018 12:37 PM PDTLeft message requesting call back. IDALIA Verma CMA elephone EncounLuis Carlos Landin - 12/30/2018 12:25 PM PDTPt called and [facility] a [facility], please call to discuss as soon as possible/Zaki portillo signed by Luis Carlos Bagley at 12/30/2018 12:27 PM PDTdocumented in this encounter Plan of Treatment +--------+---------+ + + + | Date | Type | Specialty | Care Team | Description | +--------+---------+ + + + | 07/01/ | Office | Primary Care | uLpillo Valdez | | | 2019 | Visit | | DO [address] | | | | | | [place] | | | | | | [address] | | | | | | [phone] | | | | | | | | +--------+---------+ + + + | 08/14/ | Office | Neurology | Jessica Henry NP | | | 2019 | Visit | | [address] [place] | | | | | | [place] | | | | | | [address] | | | | | | [phone] | | | | | | | | +--------+---------+ + + + + + +--------+ + + | Name | Type | Priori | Associated Diagnoses | Order Schedule | | | | ty | | | + + +--------+ + + | Cardiology, External | Outpatient | Routin | NSTEMI (non-ST | Ordered: 12/30/2018 | | - AMB Referral | Referral | e | elevated myocardial | | | | | | infarction) (ELLIE) | | + + +--------+ + + documented as of this encounter Visit Diagnoses + + | Diagnosis | + + | NSTEMI (non-ST elevated myocardial infarction) ([facility]) - Primary Acute myocardial | | infarction, subendocardial infarction, episode of care unspecified | + + documented in this encounter"
--- OUTSIDE RECORDS SUMMARY | ~2020-06-03 | XMS | Encounter Summary ---
Demographics + + + | Address | [address] | | | [place] [address] | + + + | Home Phone [...] + | Author | [facility] | | | and [place] | + + + | Organization | [facility] | | | [...] Team Providers + +------+ + | Care Casey Saw Operator Name | Role | Phone | + +------+ + | Lupillo Valdez DO | PCP | | + +------+ + Reason for Visit + + + | Reason | Comments | + + + | Follow-up | | + + + Follow Up (Routine) +--------+--------+ + + + + | Status | Reason | Specialty | Diagnoses / | Referred By | Referred To | | | | | Procedures | Contact | Contact | +--------+--------+ + + + + | Closed | | Cardiology | Diagnoses | Courtney, | Waldemar Santoyo | | | | | NSTEMI | Lupillo Ken, | MD Denys [address] | | | | | (non-ST | DO [address] | | | | | elevated | [place] | [place], | | | | | myocardial | [place], [place] | [place] [address] | | | | | infarction) | [address] | Phone: | | | | | (HCC) | Phone: | [phone] | | | | | Procedures | [phone] | Fax: | | | | | [facility] | Fax: | [phone] | | | | | | [phone] | | +--------+--------+ + + + + Encounter Details +--------+---------+ + + + | Date | Type | Department | Care Team | Description | +--------+---------+ + + + | 03/14/ | Office | [facility] [place] | Waldemar Santoyo MD | Precordial pain | | 2018 | Visit | CARDIOLOGY [address] | [address] | (Primary Dx) | | | | [place], | [place], [place] | | | | | [place] [address] | [address] | | | | | [phone] | | | +--------+---------+ + + + Social History [...] + + + | Blood Pressure | 118/70 | 03/14/2019 11:00 AM | | | | | PDT | | + + + + + | Pulse | 68 | 03/14/2019 11:00 AM | | | | | PDT | | + + + + + | Temperature | - | - | | + + + + + | Respiratory Rate | 14 | 03/14/2019 11:00 AM | | | | | PDT | | + + + + + | Oxygen Saturation | - | - | | + + + + + | Inhaled Oxygen | - | - | | | Concentration | | | | + + + + + | Weight | 108 kg (238 lb) | 03/14/2019 11:00 AM | | | | | PDT | | + + + + + | Height | 165.1 cm (5' 5") | 03/14/2019 11:00 AM | | | | | PDT | | + + + + + | Body Mass Index | 39.61 | 03/14/2019 11:00 AM | | | | | PDT | | + + + + + documented in this encounter Progress Notes Waldemar Santoyo MD - 03/14/2019 11:15 AM PDT PATIENT NAME: Abril Callaway : 1960: AGE: 58 y.o. PRIMARY CARE: Lupillo Valdez DO CORONARY DISEASE FOLLOW UP VISIT Date of Service: 03/14/19 PROBLEMS ADDRESSED AT THIS VISIT: Problem List Items Addressed This Visit None HISTORY OF PRESENT ILLNESS: Abril Callaway is a 58 y.o. female who was last seen after hospitalization with elevated trop onins and normal angiograms except for diffuse atherosclerosis. She had atypical pains and we stopped her beta-blockers. She now feels quite well except for the fact that there is si gnificant bruising from her Plavix. MEDICAL, SURGICAL, AND PERSONAL HISTORY Past Medical, Surgical, Family, and Social History are reviewed in EPIC. Patient Active Problem List Diagnosis SHOULDER PAIN, RIGHT PARESTHESIA MYOFASCIAL PAIN SYNDROME BURSITIS, SHOULDER Epilepsy without status epilepticus Syncope and collapse Piriformis syndrome Neoplasm of soft tissue Hypothyroid Hyposmolality Fatigue Atypical chest pain Degenerative disc disease, cervical Gastroesophageal reflux disease without esophagitis Heart murmur Hypertension Primary osteoarthritis, right ankle and foot Hiatal hernia NSTEMI (non-ST elevated myocardial infarction) Coronary artery disease involving lower brule coronary artery of lower brule heart without angina pectoris Hyperlipidemia Pure hypercholesterolemia Class 3 severe obesity in adult CURRENT MEDICATIONS Current Outpatient Medications Medication Sig Dispense Refill [...] 12.5 mg Wednesday, Wednesday, and Wed day 36 capsule 3 levETIRAcetam (KEPPRA) 750 MG tablet Take 1 tablet by mouth 2 times daily. 180 tablet 3 levothyroxine (SYNTHROID) 100 mcg tablet Take 1 tablet by mouth every morning (before b reakfast). Patient needs labs before further fills. 90 tablet 3 lisinopril (PRINIVIL, ZESTRIL) 20 mg tablet Take 1 tablet by mouth Daily. 90 tablet 3 lovastatin (MEVACOR) 40 MG tablet Take 1 tablet by mouth nightly. 90 tablet 0 Multiple Vitamins-Minerals (MULTIVITAMIN ADULT PO) Take by [...] 1 tablet by mouth 3 times daily. 270 tablet 3 No current facility-administered medications for this visit. ALLERGIES Allergies Allergen Reactions Acetaminophen Anaphylaxis Codeine Sulfate Anaphylaxis Demerol Anaphylaxis Hydrocodone-Acetaminophen Anaphylaxis Morphine Sulfate Anaphylaxis Oxycodone Anaphylaxis Penicillin V Potassium Anaphylaxis ROS Pertinent changes since last note: OBJECTIVE: PHYSICAL EXAM BP 118/70 | Pulse 68 | Resp 14 | Ht 1.651 m (5' 5") | Wt 108 kg (238 lb) | BMI 39.61 k g/m General: More comfortable today with moderate set HEENT: Neck veins are flat Chest: Chest clear to auscultation percussion CV: Normal S1-S2 no S3-S4 Abd: Benign Ext: No edema ECG: Not performed RECENT TEST DATA: None ASSESSMENT: Patient appears to be stable with decrease atypical chest pains off beta-blockers. Blood p ressure is controlled on her present regimen. I have reviewed her angiograms. What I felt was distal occlusion may be just taping her vessels. Given her bruising, we will DC her Lyudmila vix today. PLAN: DC Plavix. Lipid panel with primary care doctor, 3 months time. Follow-up as needed Electronically signed by: Waldemar Santoyo MD [facility] 03/14/2019 Portions of this chart may have been created with [employer] voice recognition software. Occasi onal wrong-word or sound-alike substitutions may have occurred due to the inherent colon itations of voice recognition software. Please read the chart carefully and recognize, using context, where these substitutions have occurred. documented in this enco unter Plan of Treatment +--------+---------+ + + + | Date | Type | Specialty | Care Team | Description | +--------+---------+ + + + | 07/01/ | Office | Primary Care | Lupillo Valdez | | | 2019 | Visit | | E, DO [address] | | | | | | [place] | | | | | | [address] | | | | | | [phone] | | | | | | | | +--------+---------+ + + + | 08/14/ | Office | Neurology | Jessica Henry NP | | | 2019 | Visit | | [address] | | | | | | [place] | | | | | | [address] | | | | | | [phone] | | | | | | | | +--------+---------+ + + + documented as of this encounter Procedures + +--------+ + + + | Procedure Name | Priori | Date/Time | Associated Diagnosis | Comments | | | ty | | | | + +--------+ + + + | LABS - EXTERNAL SCAN | | 03/08/2019 | | Results for this | | | | 12:00 AM | | procedure are in the | | | | PDT | | results section. | + +--------+ + + + | LABS - EXTERNAL SCAN | | 03/08/2019 | | Results for this | | | | 12:00 AM | | procedure are in the | | | | PDT | | results section. | + +--------+ + + + documented in this encounter Results LABS - EXTERNAL SCAN (03/08/2019 12:00 AM PDT) + + + | Narrative | Performed At | + + + | Ordered by an | | | unspecified provider. | | + + + LABS - EXTERNAL SCAN (03/08/2019 12:00 AM PDT) + + + | Narrative | Performed At | + + + | Ordered by an | | | unspecified provider. | | + + + documented in this encounter Visit Diagnoses + + | Diagnosis | + + | Precordial pain - Primary | + + documented in this encounter
--- OUTSIDE RECORDS SUMMARY | ~2020-06-03 | XMS | Encounter Summary ---
Demographics + + + | Address | [address] | | | [place] [address] | + + + | Home Phone | | + + + | Preferred Language | Unknown | + + + | Marital Status | Single | + + + | Moravian Affiliation | Unknown | + + + | Race | White | + + + | Ethnic Group | Not or | + + + Author + + + | Author | [facility] | | | and [place] | + + + | Organization | [facility] | | [...] Team Providers + +------+ + | Care Student Services Advisor Name | Role | Phone | + +------+ + | Lupillo Valdez DO | PCP | | + +------+ + Encounter Details +--------+ + + + + | Date | Type | Department | Care Team | Description | +--------+ + + + + | 11/11/ | Hospital | [facility] | Salomón Caballero, | | | 2019 | Encounter | CENTER OUTPATIENT | PT | | | | | PHYSICAL THERAPY | | | | | | [address] | | | | | | [place], [place] | | | | | | [address] | | | | | | [phone] | | | +--------+ + + + [...] + + + +---------+ + + | ascorbic acid | Take 500 mg by mouth | | 0 | | | | (VITAMIN C) 500 mg | Daily. | | | | 9 | | tablet | | | | | | + + + +---------+ + + | CARAFATE 1 GM/10ML | | | 0 | 11/07/19 | | | suspension | | | | 19 | 9 | + + + +---------+ + + | Cholecalciferol | Take by mouth | | 0 | | | | (VITAMIN D PO) | Daily. | | | | 9 | + + + +---------+ + + | gabapentin | Take 1 capsule by | 180 | 3 | 08/30/20 | | | (NEURONTIN) 100 mg | mouth 2 times daily. | capsule | | 18 | 9 | | capsule | | | | | | + + + +---------+ + + | levETIRAcetam | Take 750 mg by mouth | | 0 | | | | (KEPPRA) 750 MG | 2 times daily. | | | | 9 | | tablet | | | | | | + + + +---------+ + + | levothyroxine | Take 100 mcg by | | 0 | 10/03/19 | | | (SYNTHROID) 100 mcg | mouth every morning | | | 19 | 9 | | tablet | (before breakfast). | | | | | + + + +---------+ + + | levothyroxine | Take 112 mcg by | | 0 | 05/06/20 | | | (SYNTHROID) 112 mcg | mouth once daily. | | | 18 | 0 | | tablet | | | | | | + + + +---------+ + + | levothyroxine | | | 0 | 06/20/20 | | | (SYNTHROID, | | | | 12 | 9 | | LEVOTHROID) 100 mcg | | | | | | | tablet | | | | | | + + + +---------+ + + | lisinopril | | | 0 | 04/21/20 | | | (PRINIVIL, ZESTRIL) | | | | 18 | 9 | | 20 mg tablet | | | | | | + + + +---------+ + + | lisinopril | Take 1 tablet by | 90 | 3 | 08/30/20 | | | (PRINIVIL, ZESTRIL) | mouth Daily. | tablet | | 18 | 9 | | 20 mg tablet | | | | | | + + + +---------+ + + | lovastatin | 40 mg. | | 0 | 05/06/20 | | | (MEVACOR) 40 MG | | | | 18 | 9 | | tablet | | | | | | + + + +---------+ + + | lovastatin | Take 40 mg by mouth | | 0 | | | | (MEVACOR) 40 MG | nightly. | | | | 9 | | tablet | | | | | | + + + +---------+ + + | meloxicam (MOBIC) | Take 1 tablet by | 30 | 0 | 08/29/20 | | | 15 mg tablet | mouth Daily. | tablet | | 18 | 9 | + + + +---------+ + + | methocarbamol | | | 0 | 09/07/20 | | | (ROBAXIN) 750 mg | | | | 18 | 9 | | tablet | | | | | | + + + +---------+ + + | omeprazole | | | 0 | 10/24/19 | | | (PRILOSEC) 20 mg | | | | 19 | 9 | | capsule | | | | | | + + + +---------+ + + | omeprazole | Take 1 tablet by | 30 each | 3 | 10/24/19 | | | (PRILOSEC) 20 mg | mouth 2 times daily. | | | 19 | 9 | | TBEC | | | | | | + + + +---------+ + + | pantoprazole | | | 0 | 10/26/19 | | | (PROTONIX) 40 mg | | | | 19 | 9 | | tablet | | | | | | + + + +---------+ + + | pramipexole | Take 0.125 mg by | | 0 | 05/06/20 | | | (MIRAPEX) 0.125 MG | mouth once daily. | | | 18 | 9 | | tablet | | | | | | + + + +---------+ + + | pramipexole | Take 1 tablet by | 90 | 3 | 09/15/20 | | | (MIRAPEX) 0.125 MG | mouth 3 times daily. | tablet | | 18 | 9 | | tablet | | | | | | + + + +---------+ + + | sertraline | Take 50 mg by mouth | | 0 | 04/25/20 | | | (ZOLOFT) 50 mg | once daily. | | | 18 | 9 | | tablet | | | | | | + + + +---------+ + + | valACYclovir | Take two tablets by | 4 | 0 | 10/04/19 | | | (VALTREX) 1 g tablet | mouth twice a day | tablet | | 19 | 9 | | | for 1 day. | | | | | + + + +---------+ + + | VITAMIN E PO | Take by mouth | | 0 | | | | | Daily. | | | | 9 | + + + +---------+ + + documented as of this encounter Miscellaneous Notes Miscellaneous - Salomón Caballero PT - 11/11/2018 11:53 AM PST Treatment Plan by Salomón Caballero PT at 11/11/18 9398 Author: Salomón Caballero PT Service: (none) Author Type: Physical Therapist Filed: 11/15/18 0819 Date of Service: 11/11/181152 Status: Signed Freezer Machine Operator: Salomón Caballero PT (Physical Therapist) Functional Capacity Evaluation Client Name: Abril Callaway Dates of FCE: 11/11/2018 Therapist: Salomón Caballero Referrer: Noah Valdez DO [address] [place] [address] Functional Capacity Evaluation Summary Report Name: Abril Callaway Test Date: 11/11/2018 Date of : 1960 Gender: F Address: [address] [place] [address] [address] City: [place] State: [place] Zip Code: [address] Physician: Noah Valdez DO Employer: [employer] Primary Diagnosis: M19.071 - Primary osteoarthritis, right ankle and foot. Reason for Testing Evaluation to determine functional abilities and limitations. Description of Test Done One day Core [facility]. Cooperation and Effort The client demonstrated cooperative behavior and was willing to work to maximum abilities i n all test items, observed patterns of movement and physiological responses were consistent with maximal effort. She voiced anxiety and inability to continue during some test items, ho wever with encouragement the client was able to continue. Consistency of Performance The client gave maximal effort on all test items as evidenced by predictable patterns of mo vement including increased accessory muscle recruitment, counterbalancing, use of momentum, and physiological responses (i.e. increased heart rate). Her performance was consistent jw g FCE items as similar items had similar performance. Observed functional limitations were c onsistent with physical impairments, diagnosis, and past or prior injury. Pain Report Reported increase in the severity of lower back pain was the reason for limitations during the kneeling/half-kneeling and stair-climbing subtests. Objective signs coincided with the c scott's reports including increased heart rate, compensatory movements, and use of momentum. Safety The client demonstrated safe performance using appropriate body mechanics throughout all cameron btests, she was able to apply safety and body mechanics techniques to new situations after i nstruction. Quality of Movement The client demonstrated smooth and coordinated movement patterns throughout FCE testing. Sh e demonstrated safe and appropriate changes in body mechanics including use of accessory mus cles, counterbalancing, and momentum as load/force increased. These changes were expected an d are consistent with maximal effort. Abilities/Strengths -Good tolerance for prolonged ambulation. -Good tolerance for prolonged, seated work tasks. -Ability to lift up to 15 lbs from diesl-ab-sflyr height. -Ability to lift up to 22.5 lbs from acspj-kw-lcsys height. -Ability to carry up to 27.5 lbs a distance of 50 feet. -Ability to generate an average static push force of 87 lbs. -Ability to generate an average static pull force of 88 lbs. -Good tolerance for elevated, weighted work tasks. -Good tolerance for work tasks in a prolonged, forward-flexed posture. -Good tolerance for prolonged, standing work tasks. -Good tolerance for prolonged partial-squat/crouch positions. - Limitations -Antalgic gait pattern. -Slight to significant limitations with some spine (cervical and lumbar) and extremity AROM . -Slightly limited strength in the R ankle. -Limited tolerance for repetitive knee squatting. -Below average B solutions sales executive strength scores. -Below average B fine motor skills test scores. -Limited tolerance for kneeling/half-kneeling postures. -Limited tolerance for stair-climbing. Summary/Recommendations These projections are for 8 hours a day, 5 days a week at the levels indicated on the FCE g rid. Signature Salomón T. Federico, PT Date 11/11/18 [facility] Test Results and Interpretation The interpretation of [facility]'s standardized functional testing is based on assumptions in cluding normal breaks, basic ergonomic conditions and that the tested functions are not requ ired more than 2/3 of a normal working day. If a function is required continuously, job spec ific testing should be performed. Client Name: Abril Callaway Test Date: 11/11/2018 Interpretation of observed function regarding activity during a normal working day Frequency Weighted Activities Observed Physiologic Effort Level Position/Ambulation Quantitative + Qualitative Results % of Workday NEVER Contraindicated Not Possible 0% RARELY Maximum Significant Limitation 1-5% OCCASIONALLY Heavy Some Limitation 6-33% FREQUENTLY Low Slight/No Limitation 34-66% SELF LIMITED Client stopped test; submaximum effort level Submax percent Lifting, Strength(lbs) Never Max Rare 1-5% Heavy Occ 6-33% Low Freq 34-66% Limitations Fred mmendations Waist to Floor (11 in./28 cm from floor) 15 lbs 12.5 lbs 10 lbs Waist To [place] (Handles) 22.5 lbs 20 lbs 15 lbs Front Carry 27.5 lbs 25 lbs 15 lbs Posture, Flexibility, Ambulation Never Significant Limitation Rare 1-5% Some Limitation Occ 6-33% Slight/No Limitation Noted Freq 34-66% Limitations Recommendations Elevated Work (Weighted - 2 lb./1 kg cuff on both wrists) X Forward Bending-Standing X Standing Work X [place] X The client was only able to assume a partial squat/crouch position (45 degrees B hip and knee flexion) but was able to maintain this position for the full test duration. Kneel - Half Kneel X The client was limited during this subtest due to reports of increa sed severity of lower back pain. Stairs X The client climbed stairs with the use of B handrails and a step-to pattern. Sh e was limited during this subtest due to reports of increased severity of lower back pain. Walk - 6 Min Walk Test X The client ambulated just short of a distance considered averag e for her age range, it is anticipated she could actually walk frequently throughout the da y (though likely with pain and discomfort). Sitting X The client was able to sit for 45 continuous minutes. Push-Pull (Static) Force Generated(lbs) Limitations Recommendations Push Static 87 Pull Static 88 (Numerous variables impact Push/Pull force including load, equipment, surface, etc. These f orces do not represent the amount of weight that is moved.) Hand Function Hand/Finger Strength Force Generated (lbs) Mean for Age/ Gender Values for approx 2/3 of this age/ gender group Limitation Recommendations Hand Apprentice/Lineman Right 51 57.3 45 - 70 Hand Apprentice/Lineman Left 40 47.3 35 - 59 Coordination Standard Score Rating Limitations Recommendations PCE Board - Round Blocks Dominant Hand 45 Low PCE Board - Round Blocks Non Dominant Hand 45 Low Purdue Average Percentile Limitations Recommendations Purdue Pegboard Right 12.67 1 Purdue Pegboard Left 14 10 Purdue Pegboard Bilateral Assembly 10.67 1 Signature Salomón Caballero, PT Date 11/11/18 [facility] Physical Exam Systems Review Blood Pressure: 140/62 Height: 5'5" Heart Rate (resting): 67 Weight: 237 lbs Gait: Antalgic gait pattern: decreased stance time on R LE, decreased step-length with L LE . Posture: Unremarkable. Coordination: Normal. Movement Characteristics (speed, smoothness, posturing): Normal. Atrophy/Edema: None observed. Integumentary: Unremarkable. Muscle Tone/Spasms: None observed. PAR-Q Yes No Question X 1. Has your doctor ever said that you have a heart condition and that you should only do physical activity recommended by a doctor? X 2. Do you feel pain in your chest when you do physical activity? X 3. In the past month, have you had chest pain when you weren't doing physical activity? X 4. Do you lose your balance because of dizziness or do you ever lose consciousness? X 5. Do you have a bone or joint problem (for example, back, knee or hip) that could be ma de worse by a change in your physical activity? X 6. Is your doctor currently prescribing drugs (for example, water pills) for blood press ure or heart condition? X 7. Do you know any other reason why you should not do physical activity? Musculoskeletal System Neck Normal Range of Motion Flexion 45 WNL Extension 45 WNL Right Lateral Flexion 45 42 Left Lateral Flexion 45 WNL Right Rotation 90 75 Left Rotation 90 WNL Trunk Normal Range of Motion Flexion 80 60 Extension 30 15 Right Lateral Flexion 35 30 Left Lateral Flexion 35 WNL Right Rotation 45 WNL Left Rotation 45 WNL Comments/Quality of Motion - Spine Slightly limited AROM with cervical spine R lateral flexion, cervical spine R rotation, lum bar flexion, and R lumbar lateral flexion. Significantly limited AROM with lumbar extension. Range of Motion Muscle Strength Shoulder Normal Right Left Right Left Forward Flexion 180 WNL WNL 5 5 Extension 60 WNL WNL 5 5 Abduction 180 WNL WNL 5 5 Internal Rotation 70 WNL WNL 5 5 External Rotation 90 WNL WNL 5 5 Range of Motion Muscle Strength Elbow Normal Right Left Right Left Flexion 150 WNL WNL 5 5 Extension 0 WNL WNL 5 5 Range of Motion Muscle Strength Wrist Normal Right Left Right Left Flexion 80 35 70 5 5 Extension 70 60 WNL 5 5 Ulnar Deviation 30 WNL WNL 5 5 Radial Deviation 20 12 10 5 5 Range of Motion Muscle Strength Gross Hand Motion Normal Right Left Right Left Composite Motion WNL WNL See solutions sales executive strength testing. See solutions sales executive strength testing. Comments/Quality of Motion - [place] Slight AROM limitations with L wrist flexion and R wrist extension. Significant AROM limita tions with R wrist flexion and B wrist radial deviation. Range of Motion Muscle Strength Hip Normal Right Left Right Left Flexion (knee extd) 90 WNL WNL 5 5 Flexion (knee flxd) 120 WNL WNL 5 5 Abduction 45 WNL WNL 5 5 Extension 30 WNL WNL 5 5 Internal Rotation 45 WNL WNL 5 5 External Rotation 45 WNL WNL 5 5 Range of Motion Muscle Strength Knee Normal Right Left Right Left Flexion 135 120 120 5 5 Extension 0 WNL WNL 5 5 Range of Motion Muscle Strength Ankle Normal Right Left Right Left Plantar Flexion 50 40 WNL 5 5 Dorsiflexion 20 15 WNL 5 5 Inversion 35 WNL WNL 4 5 Eversion 15 WNL WNL 4+ 5 Other Toe Rise Reps (10) Right 10 Left 10 Knee Squat (20) 13 Comments/Quality of Motion - [place] Quarter Slight AROM limitations with B knee flexion, R ankle plantarflexion and R ankle dorsiflexio n. Slightly limited strength with R ankle inversion and eversion. This client was limited with repetitive knee squatting due to reports of increased severity of lower back pain. Screening for Gross Balance Attribute Trial 1(Times) Trial 2(Times) Standing on Floor, Eyes Open 30 N/T Standing on Floor, Eyes Closed 30 N/T Standing on Foam, Eyes Open 30 N/T Standing on Foam, Eyes Closed 30 N/T First Day Summary of Physical Exam Observation and physical assessment revealed: antalgic gait pattern, slight to significant limitations with some spine (cervical and lumbar) and extremity AROM, slightly limited stren gth in the R ankle, and limited tolerance for repetitive knee squatting. Signature Salomón Caballero, PT Date 11/11/18 [facility] FCE History Name: Abril Callaway Dates of FCE Testin11/11/2018 Date of : 1960 Date of Injury: 01/20/2018 Gender: Female Employer: [employer] Address: [address] [place] [address] [address] City/State/Zip: [place] [address] Physician: Noah Valdez DO Primary Diagnosis: M19.071 - Primary osteoarthritis, right ankle and foot. 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 The client reports multiple medical issues though her primary concern and limiting factor is a lower ba ck injury sustained during a seizure in December 2017. Apparently her lower back pain was the r flori she was "medically laid off" on 08/02/2018, she has not worked in any capacity since . Previous Treatment: Physical therapy, occupational therapy, chiropractic, and orthotics. Pertinent Surgery/Other Clinical Tests/Past Medical History: OA R ankle and foot, RTC repair R, HTN, epilepsy, DDD cervical, lower back pain, and myofas cial pain syndrome. Current Medications: Nexium, lisinopril, levothyroxin, lovastatin, gabapentin, and pramipexole. Functional Status/ Activity Level: This client reports the following activities increase her symptoms: sitting (> 30 minutes), walking, twisting, standing (> 1 hour), lifting, bending, stairs, rising from a chair, push ing, and pulling. The client reports being unable to complete the following household activi ties: vacuuming, cooking, washing dishes, and dancing. She has not worked in any capacity si nce being laid off by [employer] on 08/02/2018. Chief Complaints/Symptoms: The client reports pain with a severity of 4-5/10 on average and 8-9/10 at worst, at the st art of today's evaluation her pain was reported as 4/10. The pain is located in the lower ba ck, B hips, R posterior knee, B ankles, L heel, and R plantar surface of the foot. Return to Work Information: not working Goals: "Hopefully go back to work." Signature Salomón Caballero, PT Date 11/11/18 documented in this e ncounter Plan of Treatment +--------+---------+ + + + | Date | Type | Specialty | Care Team | Description | +--------+---------+ + + + | 07/01/ | Office | Primary Care | Lupillo Valdez | | | 2019 | Visit | | [place] DO [address] | | | | | | [place] | | | | | | [address] | | | | | | [phone] | | | | | | | | +--------+---------+ + + + | 08/14/ | Office | Neurology | Jessica Henry NP | | 2019 | Visit | | [address] | | | | | | [place] | | | | | | [address] | | | | | | [phone] | | | | | | | | +--------+---------+ + + + documented as of this encounter Visit Diagnoses Not on filedocumented in this encounter
--- OUTSIDE RECORDS SUMMARY | ~2020-06-03 | XMS | Encounter Summary ---
Demographics + + + | Address | [address] | | | [place] [address] | + + + | Home Phone [...] Author + + + | Author | [facility] | | | and [place] | + + + | Organization | [facility] | | [...] Team Providers + +------+ + | Care Band Aid Machine Operator Name | Role | Phone | + +------+ + | Lupillo Valdez DO | PCP | | + +------+ + Reason for Visit + +--------+ + | Reason | Onset | Comments | | | Date | | + +--------+ + | Medication Refill | 11/21/ | | | | 2019 | | + +--------+ + Encounter Details +--------+--------+ + + + | Date | Type | Department | Care Team | Description | +--------+--------+ + + + | 11/21/ | Refill | [place] [facility] | Lavinia Arroyo, | Medication Refill | | 2019 | | [facility] | CC PRODUCT SAFETY OFFICER | | | | | [facility] [address] | | | | | | [address] [facility], | | | | | | [place] [address] | | | | | | [phone] | | | +--------+--------+ + + + [...] this encounter Miscellaneous Notes Telephone Encounter - Abena Allison RN - 11/21/2018 2:54 PM PSTReferral was already comp leted previously. Abena Allison RN elephone Encounter - Abena Allison RN - 11/21/2018 10:55 AM PSTSpoke with patient to notify her that lab orders for TSH were sent to [facility] in [place]. Patient would like a referral to [facility] in [place] for a hearing test in order t o update her hearing aids. Would you like me to do the referral? Encouraged her to call with any questions. Abena Allison RN elephone Encounter - Lupillo Valdez DO - 11/21/2018 10:22 AM PSTShe needs labs in [place] at [facility] signed by Lupillo Valdez DO at 11/21/2018 10:22 AM PSTTelephone Encounter - Lavinia Arroyo CC CMA - 11/21/2018 10:18 AM PSTFormatting of this note might be different from t he original. Medication pended, the patient does not have a TSH on file. I will have her come in [facility] t. Patient was last seen on Recent Visits 08/15/2018 Gastroesophageal reflux disease without esophagitis [facility] Lupillo Valdez DO Office Visit IDALIA Messina CMA documented in th is encounter Plan of Treatment +--------+---------+ + + + | Date | Type | Specialty | Care Team | Description | +--------+---------+ + + + | 07/01/ | Office | Primary Care | Lupillo Valdez | | | 2019 | Visit | | E, DO [address] | | | | | | [place] | | | | | | [address] | | | | | | [phone] | | | | | | | | +--------+---------+ + + + | 08/14/ | Office | Neurology | Jessica Henry NP | | | 2019 | Visit | | [address] | | | | | | [place] | | | | | | [address] | | | | | | [phone] | | | | | | | | +--------+---------+ + + + +------+------+--------+ + + | Name | Type | Priori | Associated Diagnoses | Order Schedule | | | | ty | | | +------+------+--------+ + + | TSH | Lab | Routin | Hypothyroidism, | Expected: | | | | e | unspecified type | 11/21/2018, Expires: | | | | | | 11/21/2019 | +------+------+--------+ + + documented as of this encounter Visit Diagnoses + + | Diagnosis | + + | Hypothyroidism, unspecified type - Primary | + + documented in this encounter"
--- OUTSIDE RECORDS SUMMARY | ~2020-06-03 | XMS | Encounter Summary ---
Demographics + + + | Address | [address] | | | [place] [address] | + + + | Home Phone | | + + + | Preferred Language | Unknown | + + + | Marital Status | Single | + + + | Lutheran Affiliation | Unknown | + + + | Race | White | + + + | Ethnic Group | Not or | + + + Author + + + | Author | [facility] | | | and [place] | + + + | Organization | [facility] | | | and [...] Team Providers + +------+ + | Care Sales Merchandiser Name | Role | Phone | + +------+ + | Lupillo Valdez DO | PCP | | + +------+ + Reason for Visit + + + | Reason | Comments | + + + | Advice Only | | + + + Encounter Details +--------+ + + + + | Date | Type | Department | Care Team | Description | +--------+ + + + + | 08/07/ | Clinical | [facility] [facility] | Lupillo Valdez | | | 2019 | Support | [facility] | E, DO [address] | | | | | [facility] CLIN[facility] [address] | [facility] [place] | | | | [address] [facility], | [address] | | | | | [place] [address] | [phone] | | | | | [phone] | | | +--------+ + + + [...] + + documented as of this encounter Progress Notes Hanh Burger CC JEWELRY ESTIMATOR - 08/07/2019 5:30 PM PSTPatient came in to discuss multiple falls, she states she has had 5 in the past. Abril was told by her OCCUPATIONAL THERAPY she has an "adliterated central spinal columns." APPOINTMENT made to discuss with Dr. Valdez 08/18/20 19. We will need to obtain MRI done 08/02/2019 and Lucre[facility]'s chart notes from jaleel larson in [place]. Record request sent to Robin. Hanh Neely. IDALIA Burger JEWELRY ESTIMATOR documented in this encounter Plan of Treatment [...] [place] | | | | | | [address] | | | | | | [phone] | | | | | | | | +--------+---------+ + + + | 08/14/ | Office | Neurology | Jessica Henry NP | | | 2020 | Visit | | [address] | | | | | | [place] | | | | | | [address] | | | | | | [phone] | | | | | | | | +--------+---------+ + + + documented as of this encounter Visit Diagnoses Not on filedocumented in this encounter
--- OUTSIDE RECORDS SUMMARY | ~2020-06-03 | XMS | Encounter Summary ---
Demographics + + + | Address | [address] | | | [place] [address] | + + + | Home Phone [...] Author + + + | Author | [facility] | | | and [place] | + + + | Organization | [facility] | | | [...] Team Providers + +------+ + | Care Shift Supervisor Rn Name | Role | Phone | + +------+ + | Lupillo Valdez DO | PCP | | + +------+ + Reason for Visit + +--------+ + | Reason | Onset | Comments | | | Date | | + +--------+ + | Medication Question | 02/19/ | | | | 2019 | | + +--------+ + Encounter Details +--------+ + + + + | Date | Type | Department | Care Team | Description | +--------+ + + + + | 02/19/ | Telephone | [facility] | Zakia Neumann | Medication Question | | 2020 | | [facility] | MD Ana Luisa [address] | | | | | CL[address] | [place] | | | | | [address], | [place], [place] [address] | | | | | [place] [address] | [phone] | | | | | [phone] | | | +--------+ + + + [...] this encounter Miscellaneous Notes Telephone Encounter - Zakia Neumann MD - 02/20/2020 8:18 AM PDTPatient may resume K eppra 500 mg twice daily. She needs a level done in 2 weeks. elephone Encounter - Shilpa Yang RN - 2019 8:15 AM PDTPatient states that prior to her last seizure when she ran out of Keppra sh e was taking 500 mg twice a day. At the ER her dose was increased to 750 mg twice a day whi ch she has been taking. Patient states that she felt better on 500 mg twice a day and would like to go back to that dose. What do you recommend? elephone Encounter - Angelia Finn - 02/20/2020 8:03 AM PD TPt is calling about her medications. She has no energy. She has an rx for Keppra for 500 mg per day and she has been taking the 750 mg Keppra as that is what the pharmacy has been filling. She thinks she should be on the 500 mg dose. She thinks this is what is causing her recent issues with no energy and not able to think c learly. Please call pt to discuss. [phone] signed by Angelia Finn at 02/20/2020 8:06 AM PDTdocumented in this encounter Plan of Treatment +--------+---------+ + + + | Date | Type | Specialty | Care Team | Description | +--------+---------+ + + + | 07/01/ | Office | Primary Care | Lupillo Valdez | | | 2019 | Visit | | E DO [address] | | | | | | [place] | | | | | | [address] | | | | | | [phone] | | | | | | | | +--------+---------+ + + + | 08/14/ | Office | Neurology | Jessica Henry NP | | | 2019 | Visit | | [address] | | | | | | [place], [place] | | | | | | [address] | | | | | | [phone] | | | | | | | | +--------+---------+ + + + + +------+--------+ + + | Name | Type | Priori | Associated Diagnoses | Order Schedule | | | | ty | | | + +------+--------+ + + | Levetiracetam Level | Lab | Routin | Nonintractable | 1 Occurrences | | | | e | epilepsy without | starting 02/20/2020 | | | | | status epilepticus, | until 02/19/2021 | | | | | unspecified epilepsy | | | | | | type (HCC) | | + +------+--------+ + + documented as of this encounter Visit Diagnoses + + | Diagnosis | + + | Nonintractable epilepsy without status epilepticus, unspecified epilepsy type (HCC) | + + documented in this encounter"
--- OUTSIDE RECORDS SUMMARY | ~2020-06-03 | XMS | Encounter Summary ---
Demographics + + + | Address | [address] | | | [place] [address] | + + + | Home Phone | | + + + | Preferred Language | Unknown | + + + | Marital Status | Single | + + + | Judaism Affiliation | Unknown | + + + | Race | White | + + + | Ethnic Group | Not or | + + + Author + + + | Author | [facility] | | | and [place] | + + + | Organization | [facility] | | | [...] Team Providers + +------+ + | Care Home Supervisor Name | Role | Phone | + +------+ + | Lupillo Valdez DO | PCP | | + +------+ + Reason for Visit +---------+--------+ + | Reason | Onset | Comments | | | Date | | +---------+--------+ + | Results | 01/01/ | | | | 2020 | | +---------+--------+ + Encounter Details +--------+ + + + + | Date | Type | Department | Care Team | Description | +--------+ + + + + | 01/01/ | Telephone | [facility] | Zakia Neumann | Results | | 2020 | | HOSPITAL [facility] | MD Ana Luisa [address] | | | | | CL[address] | [address] [address] | | | | | [address], | [place], [place] [address] | | | | | [place] [address] | [phone] | | | | | [phone] | | | +--------+ + + + [...] Telephone Encounter - Zakia Neumann MD - 01/02/2020 7:05 AM PDTCalled patient and w ent over her EEG and brain MRI results, both of which are essentially normal. She verbalize d understanding. Her 24-hour EEG is scheduled for next week. The patient also tells me that she has a history of ALVINA and is currently untreated. I aske d her to call her PCP for a referral to me for a sleep evaluation. documented in this encounter Plan of Treatment +--------+---------+ + + + | Date | Type | Specialty | Care Team | Description | +--------+---------+ + + + | 07/01/ | Office | Primary Care | Lupillo Valdez | | 2019 | Visit | | [address] | | | | | | [place] | | | | | | [address] | | | | | | [phone] | | | | | | | | +--------+---------+ + + + | 08/14/ | Office | Neurology | Jessica Henry NP | | | 2019 | Visit | | [address] | | | | | | [place] | | | | | | [address] | | | | | | [phone] | | | | | | | | +--------+---------+ + + + documented as of this encounter Visit Diagnoses Not on filedocumented in this encounter"
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
--- OUTSIDE RECORDS SUMMARY | ~2020-06-03 | XMS | Encounter Summary ---
Demographics + + + | Address | [address] | | | [place] [address] | + + + | Home Phone | | + + + | Preferred Language | Unknown | + + + | Marital Status | Single | + + + | Catholic Affiliation | Unknown | + + + | Race | White | + + + | Ethnic Group | Not or | + + + Author + + + | Author | [facility] | | | and [place] | + + + | Organization | [facility] | | | [...] Team Providers + +------+ + | Care Healthcare Insurance Sales Agent Name | Role | Phone | + +------+ + | Lupillo Valdez DO | PCP | | + +------+ + Reason for Visit + +--------+ + | Reason | Onset | Comments | | | Date | | + +--------+ + | Medication Refill | 01/23/ | | | | 2019 | | + +--------+ + Encounter Details +--------+--------+ + + + | Date | Type | Department | Care Team | Description | +--------+--------+ + + + | 01/23/ | Refill | [facility] | Lavinia Arroyo, | Medication Refill | | 2018 | | [facility] | CC CARDIOLOGY TECHNICIAN | | | | | MEDICAL CLINIC [address] | | | | | | [address]TH [facility], | | | | | | [place] [address] | | | | | | [phone] | | | +--------+--------+ + + + [...] Encounter - Lavinia Arroyo CC CMA - 01/23/2019 11:52 AM PDTRequest for levothy roxine refill. Patient has nbeen informed she needs labs. Pended for 30 days. IDALIA Messina CMA documented in th is [...] [place] | | | | | | [address] | | | | | | [phone] | | | | | | | | +--------+---------+ + + + | 08/14/ | Office | Neurology | Jessica Henry NP | | | 2020 | Visit | | [address] | | | | | | [place], [place] | | | | | | [address] | | | | | | [phone] | | | | | | | | +--------+---------+ + + + documented as of this encounter Visit Diagnoses Not on filedocumented in this encounter"
--- OUTSIDE RECORDS SUMMARY | ~2020-06-03 | XMS | Encounter Summary ---
Demographics + + + | Address | [address] | | | [place] [address] | + + + | Home Phone | | + + + | Preferred Language | Unknown | + + + | Marital Status | Single | + + + | Hinduism Affiliation | Unknown | + + + | Race | White | + + + | Ethnic Group | Not or | + + + Author + + + | Author | [facility] | | | and [place] | + + + | Organization | [facility] | [...] Team Providers + +------+ + | Care Gun Sealing Machine Operator Name | Role | Phone | + +------+ + PCP | Unavailable | + +------+ + Encounter Details +--------+ + + + + | Date | Type | Department | Care Team | Description | +--------+ + + + + | 06/25/ | Hospital | [facility] | | | | 1997 | Encounter | MED CTR GENERIC OP | | | | | | CONV DEPT [address] | | | | | | [place], | | | | | | [place] [address] | | | | | | [phone] | | | +--------+ + + + + Social History + +-------+ +--------+------+ | Tobacco Use | Types | Packs/Day | Years | Date | | | | | Used | | + +-------+ +--------+------+ | Never Assessed | | | | | + +-------+ +--------+------+ + + + | Sex Assigned at [...] [place] | | | | | | [address] | | | | | | [phone] | | | | | | | | +--------+---------+ + + + | 08/14/ | Office | Neurology | Jessica Henry NP | | | 2019 | Visit | | [address] | | | | | | [place], [place] | | | | | | [address] | | | | | | [phone] | | | | | | | | +--------+---------+ + + + documented as of this encounter Visit Diagnoses Not on filedocumented in this encounter"
--- OUTSIDE RECORDS SUMMARY | ~2020-06-03 | XMS | Encounter Summary ---
Demographics + + + | Address | [address] | | | [place] [address] | + + + | Home Phone | | + + + | Preferred Language | Unknown | + + + | Marital Status | Single | + + + | Christian Affiliation | Unknown | + + + | Race | White | + + + | Ethnic Group | Not or | + + + Author + + + | Author | [facility] | | | and [place] | + + + | Organization | [facility] | | [...] Team Providers + +------+ + | Care Lining Machine Operator Name | Role | Phone | + +------+ + | Lupillo Valdez DO | PCP | | + +------+ + Reason for Visit +--------+--------+ + | Reason | Onset | Comments | | | Date | | +--------+--------+ + | Other | 05/03/ | | | | 2020 | | +--------+--------+ + Encounter Details +--------+ + + + + | Date | Type | Department | Care Team | Description | +--------+ + + + + | 05/03/ | Telephone | [facility] | Lupillo Valdez | Other | | 2020 | | [facility] | E, [address] | | | | | MEDICAL CLINIC [address] | [place], [place] | | | | | [address] [place], | [address] | | | | | [place] [address] | [phone] | | | | | [phone] | | | +--------+ + + + [...] this encounter Miscellaneous Notes Telephone Encounter - Nghia China Espinoza - 05/03/2020 3:35 PM PDTPatient is requesting a kim l back to discuss her last physical therapy appointment that caused her pain and the things she's done at home that could have contributed but will explain in more detail on return kim l. She also wants Dr. Valdez know that she stopped taking her Duloxetine about 2 weeks ago due to heart palpitations. Patient is aware call back will be on 05-06-20 or 05-07-20 when Lorena Valdez returns to clinic. China Agrawal documented in this encou nter Plan of Treatment +--------+---------+ + + + | Date | Type | Specialty | Care Team | Description | +--------+---------+ + + + | 07/01/ | Office | Primary Care | Lupillo Valdez | | 2019 | Visit | | E, DO [address] | | | | | | [place] | | | | | | [address] | | | | | | [phone] | | | | | | | | +--------+---------+ + + + | 08/14/ | Office | Neurology | Jessica Henry NP | | | 2019 | Visit | | [address] | | | | | | [place] | | | | | | [address] | | | | | | [phone] | | | | | | | | +--------+---------+ + + + documented as of this encounter Visit Diagnoses Not on filedocumented in this encounter"
--- OUTSIDE RECORDS SUMMARY | ~2020-06-03 | XMS | Encounter Summary ---
Demographics + + + | Address | [address] | | | [place] [address] | + + + | Home Phone | | + + + | Preferred Language | Unknown | + + + | Marital Status | Single | + + + | Mormon Affiliation | Unknown | + + + | Race | White | + + + | Ethnic Group | Not or | + + + Author + + + | Author | [facility] | | | and [place] | + + + | Organization | [facility] | | | [...] Team Providers + +------+ + | Care Couture Alterations Dressmaker Name | Role | Phone | + +------+ + PCP | Unavailable | + +------+ + Encounter Details +--------+ + + + + | Date | Type | Department | Care Team | Description | +--------+ + + + + | 08/06/ | Hospital | [facility] | | | | 1993 | Encounter | MED CTR GENERIC OP | | | | | | CONV DEPT [address] | | | | | | [place], | | | | | | [place] [address] | | | | | | [phone] | | | +--------+ + + + [...] [place] | | | | | | [address] | | | | | | [phone] | | | | | | | | +--------+---------+ + + + | 08/14/ | Office | Neurology | Jessica Henry NP | | | 2019 | Visit | | [address] | | | | | | [place], [place] | | | | | | [address] | | | | | | [phone] | | | | | | | | +--------+---------+ + + + documented as of this encounter Visit Diagnoses Not on filedocumented in this encounter"
--- OUTSIDE RECORDS SUMMARY | ~2020-06-03 | XMS | Encounter Summary ---
Demographics + + + | Address | [address] | | | [place] [address] | + + + | Home Phone | | + + + | Preferred Language | Unknown | + + + | Marital Status | Single | + + + | Voodoo Affiliation | Unknown | + + + | Race | White | + + + | Ethnic Group | Not or | + + + Author + + + | Author | [facility] | | | and [place] | + + + | Organization | [facility] | | [...] Team Providers + +------+ + | Care Life Coach Name | Role | Phone | + +------+ + | Lupillo Valdez DO | PCP | | + +------+ + Reason for Visit + +--------+ + | Reason | Onset | Comments | | | Date | | + +--------+ + | New Patient | 07/24/ | new patient appointment 07/26 | | | 2019 | | + +--------+ + Encounter Details +--------+ + + + + | Date | Type | Department | Care Team | Description | +--------+ + + + + | 07/24/ | Telephone | [facility] | Shar Lugo, | New Patient (new | | 2018 | | [facility] | ASSISTANT DIRECTOR OF PUBLIC WORKS [address] | patient appointment | | | | [address] | 07/26) | | | | [address] | [place] [address] | | | | | [place], [place] | [phone] | | | | | [address] | | | | | | [phone] | | | +--------+ + + + [...] this encounter Miscellaneous Notes Telephone Encounter - Flor Lovelace - 07/24/2019 3:44 PM PDTTeri, is calling regarding N ew Patient (new patient appointment 07/26) and would like a call back. Additional Call Details: Patient feel was told by to cancel appointment until she could do MRI. Patient will call back to reschedule. If this is a symptom based call, was patient offered triage? Not Applicable If this is a symptom based call and you were unable to immediately transfer the call to a karissa berry trimming press operator was caller made aware that if at any time she feels it is an emergency they sh ould call 911 or go to the nearest emergency room? not applicable documented in this encounter Plan of Treatment [...] [place] | | | | | | [address] | | | | | | [phone] | | | | | | | | +--------+---------+ + + + | 08/14/ | Office | Neurology | Jessica Henry NP | | | 2019 | Visit | | [address] | | | | | | [place], [place] | | | | | | [address] | | | | | | [phone] | | | | | | | | +--------+---------+ + + + documented as of this encounter Visit Diagnoses Not on filedocumented in this encounter"
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
--- OUTSIDE RECORDS SUMMARY | ~2020-06-03 | XMS | Encounter Summary ---
Demographics + + + | Address | [address] | | | [place] [address] | + + + | Home Phone | | + + + | Preferred Language | Unknown | + + + | Marital Status | Single | + + + | Zoroastrian Affiliation | Unknown | + + + | Race | White | + + + | Ethnic Group | Not or | + + + Author + + + | Author | [facility] | | | and [place] | + + + | Organization | [facility] | | | [...] Team Providers + +------+ + | Care Hi Ranger Operator Name | Role | Phone | [...] + + | Closed | Specialty | Physical | Diagnoses | [place], | [facility] | | | Services | Therapy / | Lumbar | Chelle Orosco DNP | Therapy Pt | | | Required | Rehabilitatio | spondylolysi | [address] | [address] | | | | n | s DDD | St [place] | [place], | | | | | (degenerativ | [place], [place] | [place] [address] | | | | | e disc | [phone] | Phone: | | | | | disease), | Phone: | [phone] | | | | | lumbar Risk | [phone] | Fax: | | | | | for falls | Fax: | [phone] | | | | | Procedures | [phone] | | | | | | PT EVAL | | | +--------+ + + + + + Self-referral (Routine) +--------+ + + + + + | Status | Reason | Specialty | Diagnoses / | Referred By | Referred To | | | | | Procedures | Contact | Contact | +--------+ + + + + + | Closed | Specialty | Physical | Diagnoses | [facility], | [facility] | | | Services | Therapy | Lumbar | Lupillo Suellen, | HOSPITAL | | | Required | | spondylolysi | DO [address] | PHYSICAL | | | | | s DDD | ST [place] | THERAPY [address] | | | | | (degenerativ | [place], [place] | [place] | | | | | e disc | [address] | [place], [place] | | | | | disease), | Phone: | [phone] | | | | | lumbar | [phone] | Phone: | | | | | | Fax: | [phone] | | | | | | [phone] | Fax: | | | | | | | [phone] | +--------+ + + + + + Reason for Visit + +--------+ + | Reason | Onset | Comments | | | Date | | + +--------+ + | Appointment | 09/01/ | Appt questions | | | 2018 | | + +--------+ + Encounter Details +--------+ + + + + | Date | Type | Department | Care Team | Description | +--------+ + + + + | 09/01/ | Telephone | [facility] | Lupillo Valdez | Appointment (Appt | | 2019 | | [facility] | E, DO [address] | questions ) | | | | MEDICAL [facility] [address] | [place], [place] | | | | | [place], | [address] | | | | | [place] [address] | [phone] | | | | | [phone] | | | +--------+ + + + [...] this encounter Miscellaneous Notes Telephone Encounter - Hanh Burger CC CMA - 09/07/2019 2:31 PM PSTSpoke with patient wh o states she "is not trying to be a thorn in my side." Patient states Dr. Miranda in [place] fused to take take patient as a client due to many allergies to pain medication. Abril then states: "Dr. Miranda does not know I tolerate Dilaudid." Patient states she informed Will Dang's office of this, I asked if she contacted Dr. Miranda office herself and she said she di d. Patient states she found a neurosurgeon in [place] that will take her insurance. She will know more on Wednesday. I advised patient to call us Wednesday and to take one day at a time. Lyly martin verbalized understanding. IDALIA Huerta CMA elephone Encounte r - Iza Alva CMA - 09/07/2019 2:24 PM PSTPt wants to discuss pain management after surgery and discussions had with another provider. Please call to discuss. Iza Alva CMA ddendum Note - Chelle Vicente DNP - 09/07/2019 12:07 PM PST Addended by: CHELLE LAURENT on: 09/07/2019 12:07 P M Modules accepted: Orders elephone Encounter - Chelle Laurent DNP - 09/07/2019 12:06 PM PSTPhysical therapy order has been placed. The referral will be sent to [facility] physical therapy. I noticed that the cooper badillo lives in [place]. If she would like to go to physical therapy elsewhere, please let me know and I will redirect the order. elephone Encounter - Gali Bourgeois CC [facility] - 09/06/2019 1:25 PM PSTLooks like pt needs to get PT ordered. IDALIA Quiñonez CMA elephone Encounter - Myrna Jordan - 09/06/2019 10:57 AM PSTPt states she was contacted by her insurance to schedule appt for PT. Pt states she is not comfortable doing PT on lower back due to her needing surgery but is w illing to do upper and lower extremities for strengthening only. Please call pt to discuss Thanks Myrna elephone Marielena maldonado - Lavinia Arroyo CC [facility] - 09/05/2019 8:20 AM PSTI spoke with Abril, she would like P T. Ordered. IDALIA Messina CMA elephone Lupillo Mejias DO - 09/05/2019 8:05 AM PST1. I am not in the habit to try and ch alma a nueurosurgeon's mind on his/her decision to accept a patient. 2. Those are definitely not my words regarding 'one wrong move....' 3. PT is fine. ele phone Encounter - Lavinia Arroyo CC [facility] - 09/05/2019 7:46 AM PSTI spoke with Sophia. Marcos white states patient needs to see Dr. Miranda in [place] (neurosurg), but Dr Miranda will not see her d/t her allergies to narcotics. Sophia wants to know if you will call Dr Miranda t convince him to see patient. Sophia stat es patient can take dilaudid, and states dilaudid "is a great after surgery drug". Sophia states Dr. Valdez told the patient "one wrong move and you could ". Sophia sta tab patient is scared. Sophia requesting PT for patient, since patient had recent fall, Sophia states PT would h elp. I told Sophia the patient would need to call to request this. IDALIA Messina CMA elephone Hanh Wong CC CMA - 09/04/2019 4:48 PM PSTI was unable to return call until now. Please try again tomorrow morning. IDALIA Huerta CMA elephone Luis Carlos Patel - 09/04/2019 12:57 PM PSTMelinda called back and will be in office until 4 pm today,is going to step out for lunch for just a little bit/Kadielectronically signed by Luis Carlos Bagley at 09/04/2019 12:59 PM PSTTelephone German - Hanh Burger CC CMA - 1 11/05/2018 12:34 PM PSTLeft message requesting call back. IDALIA Huerta CMA elephone Luis Carlos Patel - 09/01/2019 12:59 PM PSTMelinda called back, please call/Foreign coon signed by Luis Carlos Bagley at 09/01/2019 1:00 PM PSTTelephone German - Andrae Arroyo CC CMA - 09/01/2019 12:27 PM PSTLeft message. Will standby for return call. IDALIA Messina CMA elephone Luis Carlos French - 09/01/2019 10:51 AM PSTMeltino from [facility] called and had some questi ons regarding pts last visit with Dr Valdez, please call Sophia/Indiadaryl signed by Luis Carlos Bagley at 09/01/2019 10:53 AM PSTdocumented in this encounter Plan of Treatment +--------+---------+ + + + | Date | Type | Specialty | Care Team | Description | +--------+---------+ + + + | 07/01/ | Office | Primary Care | Lupillo Valdez | | | 2019 | Visit | | DO [place] [address] | | | | | | [place] | | | | | | [address] | | | | | | [phone] | | | | | | | | +--------+---------+ + + + | 08/14/ | Office | Neurology | Jessica Henry NP | | | 2019 | Visit | | [address] | | | | | | [place] | | | | | | [address] | | | | | | [phone] | | | | | | | | +--------+---------+ + + + + + +--------+ + + | Name | Type | Priori | Associated Diagnoses | Order Schedule | | | | ty | | | + + +--------+ + + | [facility] | Outpatient | Routin | Lumbar | Ordered: 09/05/2019 | | [facility] Physical | Referral | e | spondylolysis DDD | | | Therapy, External - | | | (degenerative disc | | | AMB Referral | | | disease), lumbar | | + + +--------+ + + | * [facility] | Outpatient | Routin | Lumbar | Ordered: 09/07/2019 | | [facility] Physical Therapy | Referral | e | spondylolysis DDD | | | - AMB Referral | | | (degenerative disc | | | | | | disease), lumbar | | | | | | Risk for falls | | + + +--------+ + + documented as of this encounter Visit Diagnoses + + | Diagnosis | + + | Lumbar spondylolysis - Primary Acquired spondylolisthesis | + + | DDD (degenerative disc disease), lumbar Degeneration of lumbar or lumbosacral | | intervertebral disc | + + | Risk for falls Personal history of fall | + + documented in this encounter
--- OUTSIDE RECORDS SUMMARY | ~2020-06-03 | XMS | Encounter Summary ---
Demographics + + + | Address | [address] | | | [place] [address] | + + + | Home Phone | | + + + | Preferred Language | Unknown | + + + | Marital Status | Single | + + + | Protestant Affiliation | Unknown | + + + [...] Team Providers + +------+ + | Care Senior Cytogenetic Technologist Name | Role | Phone | + +------+ + | Lupillo Valdez DO | PCP | | + +------+ + Reason for Visit + +--------+ + | Reason | Onset | Comments | | | Date | | + +--------+ + | Medication Refill | 10/24/ | | | | 2019 | | + +--------+ + Encounter Details +--------+--------+ + + + | Date | Type | Department | Care Team | Description | +--------+--------+ + + + | 10/24/ | Refill | [facility] | Lupillo Valdez | Medication Refill | | 2019 | | [facility] | E, DO [address] | | | | | MEDICAL CLIN[facility] [address] | [place], [place] | | | | [address] [place], | [address] | | | | | [place] [address] | [phone] | | | | | [phone] | | | +--------+--------+ + + + [...] [place] | | | | | | [address] | | | | | | [phone] | | | | | | | | +--------+---------+ + + + | 08/14/ | Office | Neurology | Jessica Henry NP | | | 2019 | Visit | | [address] | | | | | | [place] | | | | | | [address] | | | | | | [phone] | | | | | | | | +--------+---------+ + + + documented as of this encounter Visit Diagnoses Not on filedocumented in this encounter"
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
--- OUTSIDE RECORDS SUMMARY | ~2020-06-03 | XMS | Encounter Summary ---
Demographics + + + | Address | [address] | | | [place] [address] | + + + | Home Phone | | + + + | Preferred Language | Unknown | + + + | Marital Status | Single | + + + | Taoist Affiliation | Unknown | + + + | Race | White | + + + | Ethnic Group | Not or | + + + Author + + + | Author | [facility] | | | and [place] | + + + | Organization | [facility] | | [...] Team Providers + +------+ + | Care Architectural Engineer Name | Role | Phone | + [...] [address] | | | | | [place], | [place], [place] | | | | | [place] [address] | [address] | | | | | [phone] | | | +--------+ + + + [...] | 2019 | Visit | | [facility] [address] | | | | | | [place] | | | | | | [address] | | | | | | [phone] | | | | | | | | +--------+---------+ + + + | 08/14/ | Office | Neurology | Jessica Henry NP | | | 2019 | Visit | | [address] | | | | | | [place] | | | | | | [address] | | | | | | [phone] | | | | | | | [...]
--- OUTSIDE RECORDS SUMMARY | ~2020-06-03 | XMS | Encounter Summary ---
Demographics + + + | Address | [address] | | | [place] [address] | + + + | Home Phone [...] Author + + + | Author | [facility] | | | and [place] | + + + | Organization | [facility] | | | and [...] Team Providers + +------+ + | Care Last Model Department Supervisor Name | Role | Phone | + +------+ + | Lupillo Valdez DO | PCP | | + +------+ + Reason for Visit + +--------+ + | Reason | Onset | Comments | | | Date | | + +--------+ + | Medication Question | 11/28/ | Mannyppra | | | 2020 | | + +--------+ + Encounter Details +--------+ + + + + | Date | Type | Department | Care Team | Description | +--------+ + + + + | 11/28/ | Telephone | [place] | Lavinia Arroyo, | Medication Question | | 2020 | | [facility] | [facility]ANG[facility] | ([facility]) | | | | [facility] [address] | | | | | [address] [facility] | | | | | | [place] [address] | | | | | | [phone] | | | +--------+ + + + [...] Encounter - Lavinia Arroyo CC CMA - 11/29/2019 12:16 PM PSTI spoke with the pa noel, she does not need name brand Electronically signed by IDALIA Rosa CMA at 12/2019 12:17 PM PSTTelephone Encounter - Lupillo Valdez DO - 11/29/2019 11:41 AM PSTCal l the patient. The pharmacy has changed, verify brand necessary elephone Encounter - Lavinia Arroyo CC CMA - 11/29/2019 11 :24 AM PSTNote from in [place] states pt needs name brand anurag. Pt used to fill at [facility] but [facility] has no record of needing name brand. Insurance won't pay for name brand. Please advise. IDALIA Messina CMA documented in th is [...] [place] | | | | | | [address] | | | | | | [phone] | | | | | | | | +--------+---------+ + + + | 08/14/ | Office | Neurology | Jessica Henry NP | | | 2019 | Visit | | [address] | | | | | | [place] | | | | | | [address] | | | | | | [phone] | | | | | | | | +--------+---------+ + + + documented as of this encounter Visit Diagnoses Not on filedocumented in this encounter"
--- OUTSIDE RECORDS SUMMARY | ~2020-06-03 | XMS | Encounter Summary ---
Demographics + + + | Address | [address] | | | [place] [address] | + + + | Home Phone | | + + + | Preferred Language | Unknown | + + + | Marital Status | Single | + + + | Adventism Affiliation | Unknown | + + + | Race | White | + + + | Ethnic Group | Not or | + + + Author + + + | Author | [facility] | | | and [place] | + + + | Organization | [facility] | | | [...] Team Providers + +------+ + | Care Car Pusher Name | Role | Phone | + +------+ + | Lupillo Valdez DO | PCP | | + +------+ + Reason for Visit +--------+--------+ + | Reason | Onset | Comments | | | Date | | +--------+--------+ + | Other | 08/23/ | testify in a trial | | | 2018 | | +--------+--------+ + Encounter Details +--------+ + + + + | Date | Type | Department | Care Team | Description | +--------+ + + + + | 08/23/ | Telephone | [facility] | Lupillo Valdez | Other (testify in a | | 2019 | | [facility] | E, DO [address] | trial) | | | | [facility] [address] | [place], [place] | | | | | [place], | [address] | | | | | [place] [address] | [phone] | | | | | [phone] | | | +--------+ + + + [...] Telephone Encounter - Luis Carlos Bagley - 08/23/2019 3:16 PM Levy from [employer] called and was asking if Dr Valdez would be available to testify in a discrimination trial for this pt. Dr Valdez saw pt in [facility], please call Bart/Jarred signed by Luis Carlos Bagley at 08/23/2019 3:20 PM PSTdocumented in this encounter Plan of Treatment [...] [place] | | | | | | [address] | | | | | | [phone] | | | | | | | | +--------+---------+ + + + | 08/14/ | Office | Neurology | Jessica Henry NP | | | 2020 | Visit | | [address] | | | | | | [place] | | | | | | [address] | | | | | | [phone] | | | | | | | | +--------+---------+ + + + documented as of this encounter Visit Diagnoses Not on filedocumented in this encounter"
--- OUTSIDE RECORDS SUMMARY | ~2020-06-03 | XMS | Encounter Summary ---
Demographics + + + | Address | [address] | | | [place] [address] | + + + | Home Phone | | + + + | Preferred Language | Unknown | + + + | Marital Status | Single | + + + | Methodist Affiliation | Unknown | + + + | Race | White | + + + | Ethnic Group | Not or | + + + Author + + + | Author | [facility] | | | and [place] | + + + | Organization | [facility] | | | [...] Team Providers + +------+ + | Care Monorail Crane Operator Name | Role | Phone | + +------+ + | Lupillo Valdez DO | PCP | | + +------+ + Reason for Visit +--------+--------+ + | Reason | Onset | Comments | | | Date | | +--------+--------+ + | Other | 08/08/ | | | | 2019 | | +--------+--------+ + Encounter Details +--------+ + + + + | Date | Type | Department | Care Team | Description | +--------+ + + + + | 08/08/ | Telephone | [facility] | Lupillo Valdez | Other | | 2019 | | [facility] | E, [address] | | | | | [facility] [address] | [place], [place] | | | | [address] [place], | [address] | | | | | [place] [address] | [phone] | | | | | [phone] | | | +--------+ + + + [...] Telephone Encounter - Luis Carlos Bagley - 08/08/2019 10:15 AM PSTROI sent to [facility] and [facility]/robin el ephone Encounter - Luis Carlos Bagley - 08/08/2019 10:15 AM PST----- Message from IDALIA Noyola CULINARY ARTS TEACHER sent at 08/07/2019 5:48 PM PST ----- Regarding: Medical Records Needed Please obtain MRI done 08/02/2019 at [facility]'s chart notes from physiatry in [place]. Thank you, IDALIA Huerta CULINARY ARTS TEACHER documented in this encoun ter Plan of Treatment +--------+---------+ + + + | Date | Type | Specialty | Care Team | Description | +--------+---------+ + + + | 07/01/ | Office | Primary Care | Lupillo Valdez | | | 2019 | Visit | | E, DO [address] | | | | | | [place], [place] | | | | | | [address] | | | | | | [phone] | | | | | | | | +--------+---------+ + + + | 08/14/ | Office | Neurology | Jessica Henry NP | | | 2020 | Visit | | [address] [place] | | | | | | [place] | | | | | | [address] | | | | | | [phone] | | | | | | | | +--------+---------+ + + + documented as of this encounter Visit Diagnoses Not on filedocumented in this encounter"
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
--- OUTSIDE RECORDS SUMMARY | ~2020-06-03 | XMS | Encounter Summary ---
Demographics + + + | Address | [address] | | | [place] [address] | + + + | Home Phone | | + + + | Preferred Language | Unknown | + + + | Marital Status | Single | + + + | Jainism Affiliation | Unknown | + + + | Race | White | + + + | Ethnic Group | Not or | + + + Author + + + | Author | [facility] | | | and [place] | + + + | Organization | [facility] | | | [...] Team Providers + +------+ + | Care Referral Clerk Name | Role | Phone | + +------+ + | Lupillo Valdez DO | PCP | | + +------+ + Reason for Referral Self-referral (Routine) +--------+ + + + + + | Status | Reason | Specialty | Diagnoses / | Referred By | Referred To | | | | | Procedures | Contact | Contact | +--------+ + + + + + | Closed | Specialty | Audiology | Diagnoses | Courtney, | Kin, | | | Services | | Hearing | Lupillo Ken, | Nicole, AUD | | | Required | | loss, | DO [address] | [address] | | | | | unspecified | [address] | [address]VE | | | | | hearing loss | [place], [place] | [place], [place] | | | | | type, | [address] | [address] | | | | | unspecified | Phone: | Phone: | | | | | laterality | [phone] | [phone] | | | | | | Fax: | Fax: | | | | | | [phone] | [phone] | +--------+ + + + + + Reason for Visit + +--------+ + | Reason | Onset | Comments | | | Date | | + +--------+ + | Referral | 11/15/ | | | | 2018 | | + +--------+ + Encounter Details +--------+ + + + + | Date | Type | Department | Care Team | Description | +--------+ + + + + | 11/15/ | Telephone | [facility] | Lupillo Valdez | Referral | | 2019 | | [facility] | E, DO [address] | | | | | MEDICAL CLINIC [address] | [place], [place] | | | | | [address] [facility], | [address] | | | | | [place] [address] | [phone] | | | | | [phone] | | | +--------+ + + + [...] this encounter Miscellaneous Notes Telephone Encounter - Carina Figueroa - 11/15/2018 4:32 PM PSTPlease sign pended referral. Thank You Carina elephone Encounter - Lupillo Valdez DO - 11/15/2018 3:21 PM PSTsure elephone Encounter - Luis Carlos Bagley - 11/15/2018 11:27 AM PSTPt called and is asking for a referral for a hearing test with margarita Keys hearing aids and they need to be updated/robinElectronically signed by Luis Carlos Bagley at 0 11/15/2018 11:28 AM PSTdocumented in this encounter Plan of [...] [place] | | | | | | [address] | | | | | | [phone] | | | | | | | | +--------+---------+ + + + | 08/14/ | Office | Neurology | Jessica Henry NP | | 2019 | Visit | | [address] | | | | | | [place] | | | | | | [address] | | | | | | [phone] | | | | | | | | +--------+---------+ + + + + + +--------+ + + | Name | Type | Priori | Associated Diagnoses | Order Schedule | | | | ty | | | + + +--------+ + + | Audiology, External | Outpatient | Routin | Hearing loss, | Ordered: 11/15/2018 | | - AMB Referral | Referral | e | unspecified hearing | | | | | | loss type, | | | | | | unspecified | | | | | | laterality | | + + +--------+ + + documented as of this encounter Procedures + +--------+ + + + | Procedure Name | Priori | Date/Time | Associated Diagnosis | Comments | | | ty | | | | + +--------+ + + + | THYROID STIMULATING | Routin | 11/21/2018 | | Results for this | | HORMONE 3RD GEN | e | 12:20 PM | | procedure are in the | | | | PST | | results section. | + +--------+ + + + documented in this encounter Results Thyroid Stimulating Hormone 3rd Gen (11/21/2018 12:20 PM PST) + + + + + + | Component | Value | Ref Range | Performed | Pathologist | | | | | At | Signature | + + + + + + | TSH | 3.39Comment: Biotin in | 0.270 - 4.20 | REFERENCE | | | | specimens taken from | | LAB | | | | patients on high-dose | | [facility] | | | | biotin therapy or | | | | | | supplements may intefere | | | | | | with this test and | | | | | | cause inaccurate test | | | | | | results. It is | | | | | | recommended that for | | | | | | patients receiving | | | | | | therapy with high biotin | | | | | | doses (> 5 mg/day), no | | | | | | laboratory test specimen | | | | | | should be collected | | | | | | until at least 8 hours | | | | | | after the last biotin | | | | | | administration. | | | | + + + + + + + + | Specimen | + + | | + + + + + | Narrative | Performed At | + + + | Testing Performed at: [facility] CLIA: [id number] - [address] | REFERENCE LAB | | [place] [address] | [facility] | + + + + + + + + | Performing | Address | City/State/Zipcode | Phone Number | | Organization | | | | + + + + + | REFERENCE LAB | [address] | [place] | [phone] | | [facility] | | [address] | | + + + + + | REFERENCE LAB | [address] | [place] | [phone] | | [facility] | | [address] | | + + + + + documented in this encounter Visit Diagnoses + + | Diagnosis | + + | Hearing loss, unspecified hearing loss type, unspecified laterality - Primary | + + documented in this encounter"
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
--- OUTSIDE RECORDS SUMMARY | ~2020-06-03 | XMS | Encounter Summary ---
Demographics + + + | Address | [address] | | | [place] [address] | + + + | Home Phone | | + + + | Preferred Language | Unknown | + + + | Marital Status | Single | + + + | Scientology Affiliation | Unknown | + + + | Race | White | + + + | Ethnic Group | Not or | + + + Author + + + | Author | [facility] | | | and [place] | + + + | Organization | [facility] | | | and [...] Team Providers + +------+ + | Care Labor And Delivery Nurse Name | Role | Phone | + +------+ + | Lupillo Valdez DO | PCP | | + +------+ + Reason for Visit + +--------+ + | Reason | Onset | Comments | | | Date | | + +--------+ + | Lab Results | 11/21/ | | | | 2019 | | + +--------+ + Encounter Details +--------+ + + + + | Date | Type | Department | Care Team | Description | +--------+ + + + + | 11/21/ | Telephone | [facility] | Lupillo Valdez | Lab Results | | 2019 | | [facility] | E, DO [address] | | | | | MEDICAL CLINIC [address] | [place], [place] | | | | | [address] [place], | [address] | | | | | [place] [address] | [phone] | | | | | [phone] | | | +--------+ + + + [...] Encounter - Abena Allison RN - 11/21/2018 4:21 PM PSTSpoke with patient regard ing TSH lab. She verbalized understanding and had no further questions at this time. Abena Allison RN elephone Encounter - Abena Allison RN - 11/21/2018 4:21 PM PST----- Message from IDALIA Noyola CMA sent at 11/21/2018 16:07 PST ----- ----- Message ----- From: Lupillo Valdez DO Sent: 11/21/2018 15:18 To: IDALIA Noyola CMA Let her know it's normal tsh. documented in this encounter Plan of Treatment +--------+---------+ + + + | Date | Type | Specialty | Care Team | Description | +--------+---------+ + + + | 07/01/ | Office | Primary Care | Lupillo Valdez | | | 2019 | Visit | | [address] | | | | | | [place] | | | | | | [address] | | | | | | [phone] | | | | | | | | +--------+---------+ + + + | 08/14/ | Office | Neurology | Jessica Henry NP | | | 2019 | Visit | | [address] | | | | | | [place] | | | | | | [address] | | | | | | [phone] | | | | | | | | +--------+---------+ + + + documented as of this encounter Visit Diagnoses Not on filedocumented in this encounter"
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
--- OUTSIDE RECORDS SUMMARY | ~2020-06-03 | XMS | Encounter Summary ---
Demographics + + + | Address | [address] | | | [place] [address] | + + + | Home Phone | | + + + | Preferred Language | Unknown | + + + | Marital Status | Single | + + + | Episcopalian Affiliation | Unknown | + + + | Race | White | + + + | Ethnic Group | Not or | + + + Author + + + | Author | [facility] | | | and [place] | + + + | Organization | [facility] | | | and [...] Team Providers + +------+ + | Care Geothermal Plant Manager Name | Role | Phone | + +------+ + PCP | Unavailable | + +------+ + Encounter Details +--------+ + + + + | Date | Type | Department | Care Team | Description | +--------+ + + + + | 11/02/ | Hospital | [facility] | | | | 1991 | Encounter | MED CTR GENERIC OP | | | | | | CONV DEPT [address] | | | | | | [place], | | | | | | [place] [address] | | | | | | [phone] | | | +--------+ + + + [...] [place] | | | | | | [address] | | | | | | [phone] | | | | | | | | +--------+---------+ + + + | 08/14/ | Office | Neurology | Jessica Henry NP | | | 2019 | Visit | | [address] | | | | | | [place], [place] | | | | | | [address] | | | | | | [phone] | | | | | | | | +--------+---------+ + + + documented as of this encounter Visit Diagnoses Not on filedocumented in this encounter"
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
--- OUTSIDE RECORDS SUMMARY | ~2020-06-03 | XMS | Encounter Summary ---
Demographics + + + | Address | [address] | | | [place] [address] | + + + | Home Phone [...] Team Providers + +------+ + | Care Tractor Operator Laser Leveling Name | Role | Phone | + +------+ + PCP | Unavailable | + +------+ + Encounter Details +--------+ + + + + | Date | Type | Department | Care Team | Description | +--------+ + + + + | 08/02/ | Hospital | [facility] | | | | 1999 | Encounter | MED CTR GENERIC OP | | | | | | CONV DEPT [address] | | | | | | [place], | | | | | | [place] [address] | | | | | | [phone] | | | +--------+ + + + [...] [place] | | | | | | [address] | | | | | | [phone] | | | | | | | | +--------+---------+ + + + | 08/14/ | Office | Neurology | Jessica Henry NP | | | 2019 | Visit | | [address] | | | | | | [place], [place] | | | | | | [address] | | | | | | [phone] | | | | | | | | +--------+---------+ + + + documented as of this encounter Visit Diagnoses Not on filedocumented in this encounter"
--- OUTSIDE RECORDS SUMMARY | ~2020-06-03 | XMS | Encounter Summary ---
Demographics + + + | Address | [address] | | | [place] [address] | + + + | Home Phone [...] + + + | Author | [facility] | | | and [place] | + + + | Organization | [facility] | | [...] Team Providers + +------+ + | Care Maternity Floor Supervisor Name | Role | Phone | + +------+ + | Lupillo Valdez DO | PCP | | + +------+ + Reason for Visit + +--------+ + | Reason | Onset | Comments | | | Date | | + +--------+ + | Referral | 07/10/ | checking on status/sent 06/30 | | | 2019 | | + +--------+ + Encounter Details +--------+ + + + + | Date | Type | Department | Care Team | Description | +--------+ + + + + | 07/10/ | Telephone | [facility] | Roland Spears, | Referral (checking | | 2019 | | [facility] | [address] | on status/sent | | | | [address] | 06/30) | | | | [facility] | [place] [address] | | | | | [place], [place] | [phone] | | | | | [address] | | | | | | [phone] | | | +--------+ + + + [...] this encounter Miscellaneous Notes Telephone Encounter - Doretha Arroyo I - 07/13/2019 4:01 PM Trev (PCP office), is analy [place] again for Referral (checking on status/sent 06/30) and would like a call back. Additional Call Details: Margie contacted patient regarding referral. Patient will be awajanine eid for our call to schedule from consult. elephone Encounter - Flor Godoy - 07/10/2019 8:26 AM PDTPCP, is calling regarding Referral (checking on statu s/sent 06/30) and would like a call back. Additional Call Details: PCP is checking to make sure referral sent 06/30 has been receive gabby Sánchez [phone] ext [phone] If this is a symptom based call, was patient offered triage? Not Applicable If this is a symptom based call and you were unable to immediately transfer the call to a karissa berry motor transport inspector was caller made aware that if at [...] [place] | | | | | | [address] | | | | | | [phone] | | | | | | | | +--------+---------+ + + + | 08/14/ | Office | Neurology | Jessica Henry NP | | | 2019 | Visit | | [address] | | | | | | [place] | | | | | | [address] | | | | | | [phone] | | | | | | | | +--------+---------+ + + + documented as of this encounter Visit Diagnoses Not on filedocumented in this encounter"
--- OUTSIDE RECORDS SUMMARY | ~2020-06-03 | XMS | Encounter Summary ---
Demographics + + + | Address | [address] | | | [place] [address] | + + + | Home Phone | | + + + | Preferred Language | Unknown | + + + | Marital Status | Single | + + + | Sabianism Affiliation | Unknown | + + + [...] Team Providers + +------+ + | Care Drum Dyeing Machine Operator Name | Role | Phone | + +------+ + | Lupillo Valdez DO | PCP | | + +------+ + Encounter Details +--------+ + + + + | Date | Type | Department | Care Team | Description | +--------+ + + + + | 12/31/ | Hospital | [place] [facility] | Zakia Neumann | Complex partial | | 2019 | Encounter | HOSPITAL RESPIRATORY | MD Ana Luisa [address] | seizures evolving to | | | | THERAPY [address] | NIMESH [address]DSON | generalized | | | | [address] [place], [place] | [place] [address] | tonic-clonic | | | | [address] | [phone] | seizures (HCC) | | | | [phone] | | | +--------+ + + + [...] | 0 | 10/27/19 | | | ([facility]ANE) | apply route | | | 20 [...] documented as of this encounter Progress Notes Azar Noguera RRT - 01/01/2020 10:30 AM PDTAwake and drowsy EEG performed, patient enid ated study well. docum ented in this encounter Procedure Notes Zakia Neumann MD - 01/01/2020 10:30 AM PDTAssociated Order(s): EEG AWAKE OR DROWSY R OUTINEPre-Procedure Diagnose(s): Complex partial seizures evolving to generalized tonic-clon ic seizures (HCC)Name:Abril Rascon Kyleek :1960 DATE OF SERVICE: 01/01/2020 STUDY: ELECTROENCEPHALOGRAM INTRODUCTION: This is a digital EEG recording with a record length of 20 minutes. The pat mario is a 59 y.o. year-old female with seizures. BACKGROUND RHYTHM: The patient has a well defined background pattern of 9-10 hz. This act ivity is more prominent posteriorly, symmetrical, and synchronous. It attenuates with eye o pening and returns with eye closing. Drowsiness is appreciated by the attenuation and slowi ng of the patient's background activities. The patient was also noted to go into stage N2 o f sleep, as evidenced by the appearance of lip spindles. ABNORMAL POTENTIALS: No focal slow waves or epileptiform discharges are seen. HYPERVENTILATION/PHOTIC STIMULATION: Hyperventilation was not completed as the patient dev eloped dizziness. Photic stimulation was without significant effect. IMPRESSION: Normal awake and sleep EEG. However, if seizures are strongly suspected clini shaggy, a repeat EEG with prolonged sleep recording is recommended. Thank you for the opportunity to participate in the care of this patient. Zakia Neumann MD01/01/202011:56 AM documented in thi s encounter Plan of [...] [place] | | | | | | [address] | | | | | | [phone] | | | | | | | | +--------+---------+ + + + | 08/14/ | Office | Neurology | Jessica Henry NP | | | 2019 | Visit | | [address] | | | | | | [place] | | | | | | [address] | | | | | | [phone] | | | | | | | | +--------+---------+ + + + documented as of this encounter Procedures + +--------+ + + + | Procedure Name | Priori | Date/Time | Associated Diagnosis | Comments | | | ty | | | | + +--------+ + + + | EEG AWAKE OR DROWSY | Routin | 01/01/2020 | Complex partial | Results for this | | ROUTINE | e | 10:30 AM | seizures evolving to | procedure are in the | | | | PDT | generalized | results section. 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
--- OUTSIDE RECORDS SUMMARY | ~2020-06-03 | XMS | Encounter Summary ---
Demographics + + + | Address | [address] | | | [place] [address] | + + + | Home Phone [...] Author + + + | Author | [facility] | | | and [place] | + + + | Organization | [facility] | [...] Team Providers + +------+ + | Care Hostess Party Sales Representative Name | Role | Phone | + +------+ + | Lupillo Valdez DO | PCP | | + +------+ + Reason for Visit Evaluate & Treat (Routine) +--------+ + + [...] | | | | | infarction) | [address] | [address] Phone: | | | | | ([facility]) | Phone: | [phone] | | | | | | [phone] | Fax: | | | | | | Fax: | [phone] | | | | | | [phone] | | +--------+ + + + + + Encounter Details +--------+---------+ + + + | Date | Type | Department | Care Team | Description | +--------+---------+ + + + | 01/24/ | Office | [facility] [place] | Waldemar Santoyo MD | Essential | | 2019 | Visit | CARDIOLOGY [address] | hypertension | | | | [place], | [place], [place] | (Primary Dx); Pure | | | | [place] [address] | [address] | hypercholesterolemia | | | | [phone] | | ; Atherosclerosis of | | | | | | venetie ira coronary | | | | | | artery of venetie ira | | | | | | heart, angina | | | | | | presence unspecified | +--------+---------+ + + + Social History [...] + + + | Blood Pressure | 106/68 | 01/24/2019 7:54 AM | | | | | PDT | | + + + + + | Pulse | 68 | 01/24/2019 7:54 AM | | | | | PDT | | + + + + + | Temperature | - | - | | + + + + + | Respiratory Rate | 18 | 01/24/2019 7:54 AM | | | | | PDT | | + + + + + | Oxygen Saturation | - | - | | + + + + + | Inhaled Oxygen | - | - | | | Concentration | | | | + + + + + | Weight | 110 kg (242 lb 8.1 | 01/24/2019 7:54 AM | | | | oz) | PDT | | + + + + + | Height | 165.1 cm (5' 5") | 01/24/2019 7:54 AM | | | | | PDT | | + + + + + | Body Mass Index | 40.36 | 01/24/2019 7:54 AM | | | | | PDT | | + + + + + documented in this encounter Patient Instructions Patient Instructions Zita García RN - 01/24/2019 8:00 AM PDTMetoprolol 25 mg 1/2 tablet twice a day for 1 week plavix 75 mg one daily Increase lisinopril to 20 mg one daily Blood test: Fasting- 12 hours prior to test, no food, no caffiene, water is ok Date Due: prior to next visit Where to go for labs: Lab of your choice, please see lab orders, take them with you to the lab. Follow up appointment: 1 month Provider: Natanael Medeiros MD Date: Check-In Time: documented in this encounter Progress Notes Waldemar Santoyo MD - 01/24/2019 8:00 AM PDT PATIENT NAME: Abril Callaway : 1960: AGE: 58 y.o. REFERRED BY: Lupillo Valdez PRIMARY CARE: Lupillo Valdez DO [facility] PATIENT OFFICE VISIT Date of Service: 01/24/19 CHIEF COMPLAINT: STEMI and recurrent chest pains. HISTORY OF PRESENT ILLNESS: Abril Callaway is a 58 y.o. female referred by Lupillo Valdez. History is obtained from the patient and I reviewed the records at [facility]. Patient was hospitalized with prolonged chest pains. Troponins were 0.69 she underwent ang iography. She was found to have diffuse coronary disease involving ostium circumflex, dista l LAD, distal right coronary artery. Nuclear scan was negative and she is discharged home m edical therapy. Patient states that she has continued Ms. chest pressure. The pain will come and go at any time and not necessarily related to activity. She however, has noticed shortness of breath since her hospitalization when beta-blockers were started. She also has right shoulder dis comfort which is new since they performed her angiograms from the right radial approach. The patient has had no PND orthopnea. There is no radiation to her chest discomfort to the arms or neck. She has not taken nitroglycerin for this. . PROBLEM LIST: Patient Active Problem List Diagnosis SHOULDER PAIN, RIGHT PARESTHESIA MYOFASCIAL PAIN SYNDROME BURSITIS, SHOULDER Epilepsy without status epilepticus Syncope and collapse Piriformis syndrome Neoplasm of soft tissue Hypothyroid Hyposmolality Fatigue Atypical chest pain Degenerative disc disease, cervical Gastroesophageal reflux disease without esophagitis Heart murmur Hypertension Primary osteoarthritis, right ankle and foot Hiatal hernia NSTEMI (non-ST elevated myocardial infarction) Coronary artery disease involving venetie ira coronary artery of venetie ira heart without angina pectoris Hyperlipidemia MEDICAL, SURGICAL, AND PERSONAL HISTORY Past Surgical History: Procedure Laterality Date CARDIAC CATHERIZATION N/A 12/29/2018 Procedure: CV LHC; Surgeon: Nick Cobb MD; Location: [facility] CV LAB CARDIAC CATHERIZATION N/A 12/29/2018 Procedure: CV Cor Angio; Surgeon: Nick Cobb MD; Location: [facility] CV LAB COLONOSCOPY 07/27/2017 ROTATOR CUFF REPAIR Right 2001 TONSILLECTOMY TOTAL HYSTERECTOMY Family History Problem Relation Age of Onset Heart disease Mother Hypertension Mother Stroke Mother Ulcer disease Mother Cancer Mother Arthritis Mother Depression Mother Thyroid disease Mother Sleep apnea Mother Family Status Relation Name Status Mother (Not Specified) Social History Socioeconomic History Marital status: Single Spouse name: Not on file Number of children: Not on file Years of education: Not on file Highest education level: Not on file Tobacco Use Smoking status: Former Smoker Types: Cigarettes Last attempt to quit: 1998 Years since quittin.3 Smokeless tobacco: Never Used Substance and Sexual Activity Alcohol use: Yes Alcohol/week: 0.0 oz Comment: Occassional, may be10 drinks a year Drug use: No Sexual activity: Never CURRENT MEDICATIONS Current Outpatient Medications Medication Sig Dispense Refill aspirin 81 MG EC tablet Take 1 tablet by mouth Daily. 30 tablet clopidogrel (PLAVIX) 75 mg tablet Take 1 [...] 1 tablet by mouth every morning (before ). Patient needs labs before further fills. 90 [...] Oxycodone Anaphylaxis Penicillin V Potassium Anaphylaxis ROS ROS OBJECTIVE: PHYSICAL EXAM BP 106/68 | Pulse 68 | Resp 18 | Ht 1.651 m (5' 5") | Wt 110 kg (242 lb 8.1 oz) | BMI 40.36 kg/m Body mass index is 40.36 kg/m. General: Heavyset. No distress. Moderate anxiety. HEENT: Head: No evidence of trauma. EOMs normal for age. PER. Modified Mallampati Class: III: Visible soft palate, base of uvula. Mouth opening and palate: normal Neck: normal length, ROM, circumference.. Bruit none. Chest: Normal respiratory effort and pattern. No chest wall tenderness. Lungs are clear to auscultation . Cardiac: Neck veins are flat without hepatojugular reflux. Carotid upstroke and amplitude are normal. Rhythm is regular. Heart tones are normal. No murmur, rub or gallop audible. Abdomen: No tenderness, mass or hepatomegaly apparent. Ext. Edema: None No deformity or amputation. Neuro: Mental state normal. Grossly normal without apparent motor or cranial nerve abnorm alities. CARDIAC TEST RESULTS SUMMARIZED: Patient is tests were reviewed. Cardiac catheterization i s describes moderate disease in the distal LAD as well as a 30% ostial circumflex and subtot al disease of the PDA. However, on review the angiograms, there is no question the patient has diffuse atherosclerosis. However, the distal right lesion is very very small subtotally occluded. LAB: Lipid panel in the hospital showed cholesterol 131, HDL 38, LDL 65. ASSESSMENT: Patient with recurrent atypical chest pains. Does have small vessel disease and her arteri es overall are small for her size reflecting diffuse atherosclerosis. However, did does not appear to be any significant large area of myocardium at risk if her atypical pains are nicki ly angina. Her new symptoms of shortness of breath may be related to beta-blockers. PLAN, RECOMMENDATIONS and DISCUSSION: Patient is to wean off beta-blockers. Her blood pressure is borderline and she will increa se her lisinopril to 20 mg a day as previous. We will see her back in 1 month's time with e valuation her LFTs and general laboratories to see if there is improvement. Plan is to continue her aspirin and Plavix for 1 years time. Lipid therapy per her laborat ories. Electronically signed by: Waldemar Santoyo MD [facility] 01/24/2019 Portions of this chart may have been created with [employer] voice recognition software. Occasi onal wrong-word or sound-alike substitutions may have occurred due to the inherent colon itations of voice recognition software. Please read the chart carefully and recognize, using context, where these substitutions have occurred. documented in this encounter Plan of Treatment [...] [place] | | | | | | [address] | | | | | | [phone] | | | | | | | | +--------+---------+ + + + | 08/14/ | Office | Neurology | Jessica Henry NP | | | 2019 | Visit | | [address] | | | | | | [place] | | | | | | [address] | | | | | | [phone] | | | | | | | | +--------+---------+ + + + + +------+--------+ + + | Name | Type | Priori | Associated Diagnoses | Order Schedule | | | | ty | | | + +------+--------+ + + | Basic Metabolic | Lab | Routin | Essential | Expected: | | Panel | | e | hypertension | 01/24/2019, Expires: | | | | | | 01/24/2020 | + +------+--------+ + + | CBC with | Lab | Routin | Essential | Expected: | | Differential | | e | hypertension | 01/24/2019, Expires: | | | | | | 01/24/2020 | + +------+--------+ + + | Hepatic Function | Lab | Routin | Pure | Expected: | | Panel | | e | hypercholesterolemia | 01/24/2019, Expires: | | | | | | 01/24/2020 | + +------+--------+ + + | Lipid Panel | Lab | Routin | Pure | Expected: | | | | e | hypercholesterolemia | 01/24/2019, Expires: | | | | | | 01/24/2020 | + +------+--------+ + + documented as of this encounter Visit Diagnoses + + | Diagnosis | + + | Essential hypertension - Primary Unspecified essential hypertension | + + | Pure hypercholesterolemia | + + | Atherosclerosis of venetie ira coronary artery of venetie ira heart, angina presence unspecified | + + documented in this encounter
--- OUTSIDE RECORDS SUMMARY | ~2020-06-03 | XMS | Encounter Summary ---
Demographics + + + | Address | [address] | | | [place] [address] | + + + | Home Phone [...] Team Providers + +------+ + | Care Release Manager Name | Role | Phone | + +------+ + | Lupillo Valdez DO | PCP | | + +------+ + Reason for Visit + +--------+ + | Reason | Onset | Comments | | | Date | | + +--------+ + | Lab Results | 03/20/ | | | | 2020 | | + +--------+ + Encounter Details +--------+ + + + + | Date | Type | Department | Care Team | Description | +--------+ + + + + | 03/20/ | Telephone | [place] [facility] | Shilpa Yang RN | Lab Results | | 2020 | | HOSPITAL NEUROLOGY | | | | | | CLINIC [address] | | | | | | [address] [place], | | | | | | [place] [address] | | | | | | [phone] | | | +--------+ + + + [...] Telephone Encounter - Shilpa Yang RN - 03/20/2020 11:55 AM PDTReviewed therapeutic Kepp ra level and continue with Keppra 500 mg twice a day, verbalized understanding.Electronicall y signed by Shilpa Yang RN at 03/20/2020 11:55 AM PDTTelephone Encounter - Octavio Perez - 03/20/2020 11:49 AM PDTPt returned Dalia's call. Please try again elephone Encounter - Shilpa Yang RN - 02/26 8:16 AM PDTLeft a message to call back. elephone Encounter - Shilpa Yang RN - 03/20/2020 8:16 AM PDT-- --- Message from Zakia Neumann MD sent at 03/20/2020 6:51 AM PDT ----- Please let patient know her Keppra level is therapeutic and she may remain on 500 mg twice a day. elephone Encount er - Shilpa Yang RN - 03/20/2020 8:14 AM PDT----- Message from Zakia Neumann MD s ent at 03/20/2020 6:51 AM PDT ----- Please let patient know her Keppra level is therapeutic and she may remain on 500 mg twice a day. documented in thi s encounter Plan of [...] [place] | | | | | | [address] | | | | | | [phone] | | | | | | | | +--------+---------+ + + + | 08/14/ | Office | Neurology | Jessica Henry NP | | | 2019 | Visit | | [address] | | | | | | [place] | | | | | | [address] | | | | | | [phone] | | | | | | | | +--------+---------+ + + + documented as of this encounter Visit Diagnoses Not on filedocumented in this encounter"
--- OUTSIDE RECORDS SUMMARY | ~2020-06-03 | XMS | Encounter Summary ---
Demographics + + + | Address | [address] | | | [place] [address] | + + + | Home Phone [...] Author + + + | Author | [facility] | | | and [place] | + + + | Organization | [facility] | | | [...] Team Providers + +------+ + | Care Rn Baby Name | Role | Phone | + +------+ + | Lupillo Valdez DO | PCP | | + +------+ + Reason for Visit + +--------+ + | Reason | Onset | Comments | | | Date | | + +--------+ + | Paperwork | 11/03/ | | | | 2020 | | + +--------+ + Encounter Details +--------+ + + + + | Date | Type | Department | Care Team | Description | +--------+ + + + + | 11/03/ | Telephone | [place] [facility] | Lupillo Valdez | Paperwork | | 2020 | | [facility] | E, DO [address] | | | | | [facility] [address] | [place], [place] | | | | [address] [place], | [address] | | | | | [place] [address] | [phone] | | | | | [phone] | | | +--------+ + + + [...] Encounter - Lavinia Arroyo CC CMA - 11/08/2019 11:01 AM PSTPPW sent to scan, a copy is at my desk with faxed prescriptions. IDALIA Messina CMA elephone Encoun Lavinia Bowden CC CMA - 11/07/2019 12:15 PM PSTFaxed. IDALIA Messina CMA elephone Encoun Lavinia Bowden CC CMA - 11/07/2019 7:[address] Valdez's box.Electronica lly signed by IDALIA Rosa CMA at 11/07/2019 7:56 AM PSTTelephone Encounter - Myrna Mars - 11/06/2019 11:13 AM PSTPPW has been received that was faxed by pt and placed in p [facility] box. Have not received records from Dr. Elliott yet. Myrna elephone Encounter - Bobbi Chen - 11/06/2019 10:40 AM PSTTeri faxed our office ppw. She sent two copies, one for Courtney, and one that she filled out with what she knows. Fax number to fax this colby k is listed on the ppw. Pt requests a phone call when this is faxed back so she can fax some other ppw that goes with it. Appointment needed? Thanks, Emersonectronically signed by Bobbi Chen at 11/06/2019 10:41 AM PSTTelephone Encount er - Myrna Jordan - 11/06/2019 9:57 AM PSTFaxed STAT records request to Dr. Elliott on 11/03 Tia elephone Encounter - Lavinia Arroyo CC CMA - 11/03/2019 2:21 PM PSTCan you get these records? elephone Encounter - Vikas Valdez DO - 11/03/2019 1:57 PM PSTI had referred her to Dr Elliott neurology in . Please obtain those records (I do not see them in her record) I am happy to review the paperwork.Electronically signed by Lupillo Valdez DO at 2019 1:58 PM PSTTelephone Encounter - Lavinia Arroyo CC CMA - 11/03/2019 1:10 PM PSTAre you okay with filling out this ppw? Provider use okay to use? 1 :10 PM PSTTelephone Encounter - Bobbi Chen - 11/03/2019 11:57 AM PSTPatient states t hat she does not have a neurologist on board and that Courtney has been managing her care for this. Currently have a 20 min opening on Wednesday on hold for pt. Would this be sufficient? Please advise. Bobbi Moncada elephone Encounter - Lavinia Arroyo CC CMA - 11/03/2019 11:47 AM PST1. Pt sees neurology for her seizures, so they should fill out the ppw. If patient would like Dr. Valdez to LOOK at the papers, she n eeds appt. 2. Gagandeep did send a script for the cane. Have her contact [facility] to see if they re ceived the script. Lavinia Moncada elephone Encounter - Bobbi Chen - 11/03/2019 11:36 AM PSTPatient received SS admin papers - pt states she needs seen immediately and papers need returned by 11/09/19. Pt filled out a se cond copy of what she could but Eileenki would need to fill out a copy and sign it. Ppw is ti tled: Treating Physician Report for Seizure Disorder." Patient has increased symptoms for he r back and also wants to be seen for this. Currently scheduled 12/08/19. Pt also requested an order for a cane be sent to [facility] in [place] which it look s like Margret was going to do - pt states she has not heard from them. Could we check and see if this did get sent? Thanks, Ryann documented in thi s encounter [...] [place] | | | | | | [address] | | | | | | [phone] | | | | | | | | +--------+---------+ + + + | 08/14/ | Office | Neurology | Jessica Henry NP | | 2019 | Visit | | [address] | | | | | | [place] | | | | | | [address] | | | | | | [phone] | | | | | | | | +--------+---------+ + + + documented as of this encounter Visit Diagnoses Not on filedocumented in this encounter
--- OUTSIDE RECORDS SUMMARY | ~2020-06-03 | XMS | Encounter Summary ---
Demographics + + + | Address | [address] | | | [place] [address] | + + + | Home Phone | | + + + | Preferred Language | Unknown | + + + | Marital Status | Single | + + + | Rastafarian Affiliation | Unknown | + + + [...] Team Providers + +------+ + | Care Advanced Manufacturing Consultant Name | Role | Phone | + +------+ + PCP | Unavailable | + +------+ + Encounter Details +--------+ + + + + | Date | Type | Department | Care Team | Description | +--------+ + + + + | 06/16/ | Hospital | [facility] | Conversion | Primary | | 2018 | Encounter | [facility] | Transaction, | osteoarthritis, | | | | MEDICINE [address] | Provider Unknown | right ankle and foot | | | | [address] | [phone] | | | | | [place], [place] | | | | | | [address] | | | | | | [phone] | | | +--------+ + + + [...] + + + +---------+ + + | diclofenac | one patch applied to | | 0 | 04/05/20 | | | (FLECTOR) 1.3% PTCH | skin of affected | | | 12 | 8 | | | area every 12 hours. | | | | | + + + +---------+ + + | divalproex | | | 0 | 06/20/20 | | | (DEPAKOTE) 500 mg EC | | | | 12 | 8 | | tablet | | | | [...] | 0 | 04/21/20 | | | (PRINIVIL ZESTRIL) | | | | 18 | 9 | | 20 mg tablet | | | | | | + + + +---------+ + + | lisinopril | | | 0 | 06/20/20 | | | (PRINIVIL, ZESTRIL) | | | | 12 | 8 | | 20 mg tablet | | | | | | + + + +---------+ + + | lovastatin | 40 mg. | | 0 | 05/06/20 | | | (MEVACOR) 40 MG | | | | 18 | 9 | | tablet | | | | | | + + + +---------+ + + | omeprazole | | | 0 | 06/20/20 | | | (PRILOSEC) 20 mg | | | | 12 | 9 | | [facility] | | [...] Care | Lupillo Valdez | | | 2020 | Visit | | E, DO [address] | | | | | | [place] | | | | | | [address] | | | | | | [phone] | | | | | | | | +--------+---------+ + + + | 08/14/ | Office | Neurology | Jessica Henry NP | | | 2020 | Visit | | [address] | | | | | | [place] | | | | | | [address] | | | | | | [phone] | | | | | | | | +--------+---------+ + + + documented as of this encounter Procedures + +--------+ + + + | Procedure Name | Priori | Date/Time | Associated Diagnosis | Comments | | | ty | | | | + +--------+ + + + | NM BONE SCAN 3 PHASE | Routin | 06/16/2018 | | Results for this | | | e | 4:18 PM | | procedure are in the | | | | PDT | | results section. | + +--------+ + + + documented in this encounter Results NM Bone Scan 3 Phase (06/16/2018 4:18 PM PDT) + + | Specimen | + + | | + + + + + | Impressions | Performed At | + + + | 1. Moderate hyperemia and delayed moderate uptake in the right | | | subtalar joint, suggesting arthritis/degenerative change. Plain film | | | correlation is suggested. 2. Moderate hyperemia and intense delayed | | | left medial malleolar uptake. This may be related to fracture. | | | Degenerative related uptake seems less likely. Plain film correlation | | | is necessary. 3. Mild left posterior plantar calcaneal uptake | | | focally, suggesting enthesitis. | | + + + + + + | Narrative | Performed At | + + + | HISTORY: Right ankle osteoarthritis. COMPARISON: None. | | | TECHNIQUE: Following the intravenous administration of 27 millicuries | | | of technetium 99m MDP, flow scintigraphic images were obtained in the | | | anterior projection over the ankles and feet. Anterior and posterior | | | blood pool scintigraphic images over the ankles and feet. Delayed | | | anterior, posterior, medial, lateral, plantar scintigraphic images of | | | the ankles and feet. Anterior and posterior scintigraphic images over | | | the knees. FINDINGS: Flow images were unremarkable. Blood pool | | | images show moderate increased uptake in the right ankle, and | | | minimally in the medial left ankle. Delayed images show intense | | | increased uptake in the region of the left medial malleolus. Faint | | | uptake along the left plantar posterior calcaneus, suggesting | | | enthesitis. On the right, there is moderate uptake in the subtalar | | | joint posteriorly, with faint hyperemia throughout the proximal and | | | mid right foot diffusely, likely degenerative. | | + + + + -------+ | Procedure Note | + -------+ | Julio Shafer - 05/10/2019 10:15 AM PDT HISTORY:Right ankle osteoarthritis. | | COMPARISON:None. TECHNIQUE:Following the intravenous administration of 27 millicuries of | | technetium 99m MDP, flow scintigraphic images were obtained in the anterior projection | | over the ankles and feet. Anterior and posterior blood pool scintigraphic images over | | the ankles and feet. Delayed anterior, posterior, medial, lateral, plantar scintigraphic | | images of the ankles and feet. Anterior and posterior scintigraphic images over the | | knees. FINDINGS:Flow images were unremarkable. Blood pool images show moderate increased | | uptake in the right ankle, and minimally in the medial left ankle. Delayed images show | | intense increased uptake in the region of the left medial malleolus. Faint uptake along | | the left plantar posterior calcaneus, suggesting enthesitis. On the right, there is | | moderate uptake in the subtalar joint posteriorly, with faint hyperemia throughout the | | proximal and mid right foot diffusely, likely degenerative. IMPRESSION: 1. Moderate | | hyperemia and delayed moderate uptake in the right subtalar joint, suggesting | | arthritis/degenerative change. Plain film correlation is suggested.2. Moderate | | hyperemia and intense delayed left medial malleolar uptake. This may be related to | | fracture. Degenerative related uptake seems less likely. Plain film correlation is | | necessary.3. Mild left posterior plantar calcaneal uptake focally, suggesting | | enthesitis. | |1. Moderate hyperemia and delayed moderate uptake in the right subtalar joint, suggesting arthritis/degenerative change. Plain film correlation is suggested. | |2. Moderate hyperemia and intense delayed left medial malleolar uptake. This may be relate d to fracture. Degenerative related uptake seems less likely. Plain film correlation is nece ssary. | |3. Mild left posterior plantar calcaneal uptake focally, suggesting enthesitis. | | | | | + -------+ documented in this encounter Visit Diagnoses + + | Diagnosis | + + | Primary osteoarthritis, right ankle and foot | + + documented in this encounter"
--- OUTSIDE RECORDS SUMMARY | ~2020-06-03 | XMS | Encounter Summary ---
Demographics + + + | Address | [address] | | | [place] [address] | + + + | Home Phone | | + + + | Preferred Language | Unknown | + + + | Marital Status | Single | + + + | Temple Affiliation | Unknown | + + + [...] Team Providers + +------+ + | Care Mobility Manager Name | Role | Phone | + +------+ + | Lupillo Valdez DO | PCP | | + +------+ + Reason for Visit + +--------+ + | Reason | Onset | Comments | | | Date | | + +--------+ + | Referral (Follow up) | 09/01/ | | | | 2018 | | + +--------+ + Encounter Details +--------+ + + + + | Date | Type | Department | Care Team | Description | +--------+ + + + + | 09/01/ | Telephone | [facility] | Lupillo Valdez | Referral (Follow up) | | 2017 | | [facility] | E, DO [address] | | | | | [facility] [address] | [place], [place] | | | | | [address] [place], | [address] | | | | | [place] [address] | [phone] | | | | | [phone] | | | +--------+ + + + [...] Encounter - Hanh Burger CC CMA - 09/01/2018 5:[address] Kate Carroll in [place]. Please change referral and fax over. Thank you, IDALIA Huerta MD elephone Encounte r - Lupillo Valdez DO - 09/01/2018 3:48 PM PSTOptions are: -referral to Drs. Lundy/Carmina in [place] for EGD -referral to Dr Carroll in [place] for same. All options OK with me. P M PSTTelephone Encounter - Niels Hernandez - 09/01/2018 11:25 AM PSTPt states that she is unable to get into Dr. Tamayo until 12/05/18 and was under the impression that she needed to b e seen sooner. Pt would like to know if PCP can contact Dr. Tamayo and get a sooner appt, or if her referral can be send to Dr. Carroll to be seen sooner. Please call pt and let her know what can be done. Thanks, Niels Hernandez P STdocumented in this encounter Plan of Treatment +--------+---------+ + + + | Date | Type | Specialty | Care Team | Description | +--------+---------+ + + + | 07/01/ | Office | Primary Care | Lupillo Valdez | | | 2019 | Visit | | DO [address] | | | | | | [place] | | | | | | [address] | | | | | | [phone] | | | | | | | | +--------+---------+ + + + | 08/14/ | Office | Neurology | Jessica Henry NP | | | 2019 | Visit | | [address] | | | | | | [place] | | | | | | [address] | | | | | | [phone] | | | | | | | | +--------+---------+ + + + documented as of this encounter Visit Diagnoses Not on filedocumented in this encounter"
--- OUTSIDE RECORDS SUMMARY | ~2020-06-03 | XMS | Encounter Summary ---
Demographics + + + | Address | [address] | | | [place] [address] | + + + | Home Phone | | + + + | Preferred Language | Unknown | + + + | Marital Status | Single | + + + | Episcopal Affiliation | Unknown | + + + [...] Team Providers + +------+ + | Care Branch Maker Name | Role | Phone | + [...] + + | Closed | Specialty | Ophthalmology | Diagnoses | Courtney, | Provider | | | Services | | Dry eye | Lupillo E, | Not, In | | | Required | | | DO [address] | [address] | | | | | | [address] [place] | [place] | | | | | | [facility], [place] | Health and | | | | | | [address] | Service | | | | | | Phone: | | | | | | | [phone] | | | | | | | Fax: | | | | | | | [phone] | | +--------+ + + + + + Reason for Visit + +--------+ + | Reason | Onset | Comments | | | Date | | + +--------+ + | Referral | 06/05/ | Dry Eyes | | | 2019 | | + +--------+ + Encounter Details +--------+ + + + + | Date | Type | Department | Care Team | Description | +--------+ + + + + | 06/05/ | Telephone | [facility] | Lupillo Valdez | Referral (Dry Eyes) | | 2019 | | [facility] | E, DO [address] | | | | | MEDICAL CLIN[facility] [address] | [place], [place] | | | | | [address] [place], | [address] | | | | | [place] [address] | [phone] | | | | | [phone] | | | +--------+ + + + [...] this encounter Miscellaneous Notes Telephone Encounter - Minnie WillisLaniBirdie booth - 06/08/2019 9:38 AM PDTPt would like to notify Dr. Valdez's team that she made an appointment to see the fire equipment inspector helper so there is no need t o follow up with Dr. Valdez yet. Thanks, Birdie WillisLanis elephone Encounter - Hanh Burger CC CMA - 06/05/2019 4:07 PM PDTPatient informed as listed. IDALIA Huerat [facility] elephone Encounte r - Lupillo Valdez DO - 06/05/2019 12:17 PM PDTReferral is fine. elephone Encounter - Lavinia Arroyo CC [facility] - 06/05/2019 11:35 AM PDTTeri states she has dry eyes in both eyes. Patient denies itch ing and pain. Patient states this has been going on for a couple of weeks, she has tried OTC eyedrops without relief. Insurance will pay for eye exam only with referral from PCP. Okay to do referral or should we see her first? Dr. Espinoza in [place] elephone Encounter - Angela Talbot - 06/05/2019 10:18 AM PDTPt requestin g a call back from medical staff in regards to severe dry eye. Pt requesting a referral to Dr. Espinoza in [place]. Please call and advise Thanks Ariana documented in this en counter Plan of Treatment +--------+---------+ + + + | Date | Type | Specialty | Care Team | Description | +--------+---------+ + + + | 07/01/ | Office | Primary Care | Lupillo Valdez | | | 2019 | Visit | | E, DO [address] | | | | | | [place] | | | | | | [address] | | | | | | [phone] | | | | | | | | +--------+---------+ + + + | 08/14/ | Office | Neurology | Jessica Henry NP | | | 2019 | Visit | | [address] | | | | | | [place], [place] | | | | | | [address] | | | | | | [phone] | | | | | | | | +--------+---------+ + + + + + +--------+ + + | Name | Type | Priori | Associated Diagnoses | Order Schedule | | | | ty | | | + + +--------+ + + | Ophthalmology, | Outpatient | Routin | Dry eye | Ordered: 06/05/2019 | | External - AMB | Referral | e | | | | Referral | | | | | + + +--------+ + + documented as of this encounter Visit Diagnoses + + | Diagnosis | + + | Dry eye - Primary | + + documented in this encounter"
--- OUTSIDE RECORDS SUMMARY | ~2020-06-03 | XMS | Encounter Summary ---
Demographics + + + | Address | [address] | | | [place] [address] | + + + | Home Phone [...] Team Providers + +------+ + | Care Fitting Supervisor Name | Role | Phone | + +------+ + | Lupillo Valdez DO | PCP | | + +------+ + Reason for Visit +--------+--------+ + | Reason | Onset | Comments | | | Date | | +--------+--------+ + | Other | 12/01/ | | | | 2019 | | +--------+--------+ + Encounter Details +--------+ + + + + | Date | Type | Department | Care Team | Description | +--------+ + + + + | 12/01/ | Telephone | [facility] | Lupillo Valdez | Other | | 2019 | | [facility] | E, [address] | | | | | MEDICAL CLIN[address] | [place], [place] | | | | | [address] [place], | [address] | | | | | [place] [address] | [phone] | | | | | [phone] | | | +--------+ + + + [...] Encounter - Hanh Burger CC CMA - 12/01/2018 2:47 PM PSTCalled patient and in formed her we can not do addendums to other facility/professional notes other than our own. Patient states the report from [facility], Salomón Caballero, Physical Therapist had missing informa tion such as how patient tolerated tests, objective data, vitals, before/during/after pain b ehaviors. I explain to patient that we can request missing information but we can not relea se the report to her. She will need to call Salomón Caballero's office and obtain the report her self and for any other facilities that need this report. Patient verbalized understanding. IDALIA Huerta CMA Jessica can you please locate the full report that patient is requesting we obtain? Thank you, IDALIA Huerta CMA elephone EncounAngela Hendrix - 12/01/2018 1:56 PM PSTPatient requesting a call back from medical staff in regards to some addendums needed for physical capacity test. Please call and advise Thanks Ariana documented in this en counter Plan of Treatment +--------+---------+ + + + | Date | Type | Specialty | Care Team | Description | +--------+---------+ + + + | 10/05/ | Office | Primary Care | Lupillo Valdez | | | 2019 | Visit | | E, DO [address] | | | | | | [place], [place] | | | | | | [address] | | | | | | [phone] | | | | | | | | +--------+---------+ + + + | 08/14/ | Office | Neurology | Jessica Henry NP | | | 2019 | Visit | | [address] | | | | | | [place], [place] | | | | | | [address] | | | | | | [phone] | | | | | | | | +--------+---------+ + + + documented as of this encounter Visit Diagnoses Not on filedocumented in this encounter"
--- OUTSIDE RECORDS SUMMARY | ~2020-06-03 | XMS | Encounter Summary ---
Demographics + + + | Address | [address] | | | [place] [address] | + + + | Home Phone | | + + + | Preferred Language | Unknown | + + + | Marital Status | Single | + + + | Anabaptism Affiliation | Unknown | + + + [...] Team Providers + +------+ + | Care Money Laundering Investigator Name | Role | Phone | + +------+ + | Lupillo Valdez DO | PCP | | + +------+ + Reason for Visit + +--------+ + | Reason | Onset | Comments | | | Date | | + +--------+ + | Paperwork | 11/26/ | | | | 2020 | | + +--------+ + Encounter Details +--------+ + + + + | Date | Type | Department | Care Team | Description | +--------+ + + + + | 11/26/ | Telephone | [facility] | Hanh Burger, CC | Paperwork | | 2020 | | [facility] | [address] | | | | | [facility] [address] | | | | | | [address] [facility], | | | | | | [place] [address] | | | | | | [phone] | | | +--------+ + + + [...] this encounter Miscellaneous Notes Telephone Encounter - Kathrinejuan Swapna - 11/28/2019 8:32 AM PSTRecords found and sent back to you with a note. Swapna Rousseau elephone Encounter - Hanh Joe CC CMA - 11/27/2019 5:44 PM PSTRaquel, I sent a whole bunch of records to scan your way, not realizing patient had APPOINTMENT gilbert josefinarachel at 1:20pm. Can you obtain all reports from [facility] please? IDALIA Huerta MA documented in this encounter Plan of Treatment +--------+---------+ + + + | Date | Type | Specialty | Care Team | Description | +--------+---------+ + + + | 07/01/ | Office | Primary Care | Lupillo Valdez | | 2019 | Visit | | E, DO [address] | | | | | | [place] | | | | | | [address] | | | | | | [phone] | | | | | | | | +--------+---------+ + + + | 08/14/ | Office | Neurology | Jessica Henry NP | | | 2019 | Visit | | [address] | | | | | | [place] | | | | | | [address] | | | | | | [phone] | | | | | | | | +--------+---------+ + + + documented as of this encounter Visit Diagnoses Not on filedocumented in this encounter"
--- OUTSIDE RECORDS SUMMARY | ~2020-06-03 | XMS | Encounter Summary ---
Demographics + + + | Address | [address] | | | [place] [address] | + + + | Home Phone [...] Team Providers + +------+ + | Care Cat Operator Name | Role | Phone | + +------+ + | Lupillo Valdez DO | PCP | | + +------+ + Reason for Visit +--------+--------+ + | Reason | Onset | Comments | | | Date | | +--------+--------+ + | Other | 04/19/ | | | | 2020 | | +--------+--------+ + Encounter Details +--------+ + + + + | Date | Type | Department | Care Team | Description | +--------+ + + + + | 04/19/ | Telephone | [facility] | Lupillo Valdez | Other | | 2020 | | [facility] | E, [address] | | | | | MEDICAL CL[facility] | [place], [place] | | | | | [address] [place], | [address] | | | | | [place] [address] | [phone] | | | | | [phone] | | | +--------+ + + + [...] this encounter Miscellaneous Notes Telephone Encounter - Cherie Malhotra - 05/01/2020 2:05 PM PDTOk to close this message? tyrn ing to clear out old ones el ephone Encounter - Cherie Malhotra - 04/19/2020 3:41 PM PDTPt returning call please call documented in this e ncounter Plan of Treatment +--------+---------+ + + + | Date | Type | Specialty | Care Team | Description | +--------+---------+ + + + | 07/01/ | Office | Primary Care | Lupillo Valdez | | 2019 | Visit | | DO [address] [place] [address] ST | | | | | | [place] | | | | | | [address] | | | | | | [phone] | | | | | | | | +--------+---------+ + + + | 08/14/ | Office | Neurology | Henry, Jessica, OUTREACH WORKER | | | 2020 | Visit | | [address] | | | | | | [place], [place] | | | | | | [address] | | | | | | [phone] | | | | | | | | +--------+---------+ + + + documented as of this encounter Visit Diagnoses Not on filedocumented in this encounter"
--- OUTSIDE RECORDS SUMMARY | ~2020-06-03 | XMS | Encounter Summary ---
Demographics + + + | Address | [address] | | | [place] [address] | + + + | Home Phone [...] Team Providers + +------+ + | Care Tuck Pointer Name | Role | Phone | + +------+ + PCP | Unavailable | + +------+ + Encounter Details +--------+ + + + + | Date | Type | Department | Care Team | Description | +--------+ + + + + | 10/08/ | Hospital | [facility] | | | | 1994 | Encounter | MED [facility] | | | | | | CONV DEPT [address] | | | | | | [place], | | | | | | [place] [address] | | | | | | [phone] | | | +--------+ + + + [...] [place] | | | | | | [address] | | | | | | [phone] | | | | | | | | +--------+---------+ + + + | 08/14/ | Office | Neurology | Jessica Henry NP | | | 2019 | Visit | | [address] | | | | | | [place], [place] | | | | | | [address] | | | | | | [phone] | | | | | | | | +--------+---------+ + + + documented as of this encounter Visit Diagnoses Not on filedocumented in this encounter"
--- OUTSIDE RECORDS SUMMARY | ~2020-06-03 | XMS | Encounter Summary ---
Demographics + + + | Address | [address] | | | [place] [address] | + + + | Home Phone [...] Author + + + | Author | [facility] | | | and [place] | + + + | Organization | [facility] | | | and [...] Team Providers + +------+ + | Care Dolphin Trainer Name | Role | Phone | + +------+ + | Lupillo Valdez DO | PCP | | + +------+ + Reason for Visit + +--------+ + | Reason | Onset | Comments | | | Date | | + +--------+ + | Medication Problem | 04/19/ | | | | 2019 | | + +--------+ + Encounter Details +--------+--------+ + + + | Date | Type | Department | Care Team | Description | +--------+--------+ + + + | 04/19/ | Refill | [facility] | Yuliana Solis | Medication Problem | | 2019 | | [facility] | L, RN | | | | | [facility] [address] | | | | | | [address] [facility], | | | | | | [place] [address] | | | | | | [phone] | | | +--------+--------+ + + + [...] this encounter Miscellaneous Notes Telephone Encounter - Yuliana Solis RN - 04/22/2020 2:57 PM PDTSpoke to patient taniya madrid and she is feeling better. Patient called pharmacist this weekend and he has her tapering down her dose so she can discontinue. Patient is aware of her follow up with Dr. Valdez. Patient also stated, "Whatever is in the cymbalta for pain, has helped my pain immensely!" Yuliana Solis RN elephone Encount er - Malgorzata Paige - 04/19/2020 5:59 PM PDTPt is returning the missed call. Please call he r back at . Thank you. Malgorzata Paige elephone Encounter - Gagandeep Vicente DNP - 04/19/2020 2:03 PM PDTHow long has she been on it and what is her current dose? Patient on her chart I think she is taking 20 mg. From that dose she can discontinu e use immediately. Follow-up with Dr. Valdez regarding alternative medication if needed.El ectronically signed by Gagandeep Oswald DNP at 04/19/2020 2:04 PM PDTTelephone Encounter - Yuliana Dorantes RN - 04/19/2020 10:51 AM PDTPatient called clinic to report severe side e ffects from starting Cymbalta. Patient stated she is having heart palpitations and is light headed. Patient would like to completely stop the medication at this point due to "Feeling r eally crummy and I hate it." Please advise. Yuliana Solis RN documented in thi s encounter Plan of [...] [place] | | | | | | [address] | | | | | | [phone] | | | | | | | | +--------+---------+ + + + | 08/14/ | Office | Neurology | Jessica Henry NP | | | 2019 | Visit | | [address] | | | | | | [place] | | | | | | [address] | | | | | | [phone] | | | | | | | | +--------+---------+ + + + documented as of this encounter Visit Diagnoses Not on filedocumented in this encounter
--- OUTSIDE RECORDS SUMMARY | ~2020-06-03 | XMS | Encounter Summary ---
Demographics + + + | Address | [address] | | | [place] [address] | + + + | Home Phone [...] Team Providers + +------+ + | Care Supervisor Tunnel Heading Name | Role | Phone | + +------+ + PCP | Unavailable | + +------+ + Encounter Details +--------+ + + + + | Date | Type | Department | Care Team | Description | +--------+ + + + + | 09// | Abstract | [facility] | DATA MIGRATION [facility] | | | 2011 | | Conversion Location | SR | | | | | [address] [facility] | | | | | | [place], [place] | | | | | | [address] | | | | | | [phone] | | | +--------+ + + + [...] Blood Pressure | - | - | | + + + + + | Pulse | - | - | | + + + + + | Temperature | - | - | | + + + + + | Respiratory Rate | - | - | | + + + + + | Oxygen Saturation | - | - | | + + + + + | Inhaled Oxygen | - | - | | | Concentration | | | | + + + + + | Weight | 106.6 kg (235 lb) | 04/05/2012 12:00 AM | | | | | PDT | | + + + + + | Height | 165.1 cm (5' 5") | 04/05/2012 12:00 AM | | | | | PDT | | + + + + + | Body Mass Index | 39.11 | 04/05/2012 12:00 AM | | | | | PDT | | + + + + + documented in this encounter Plan of Treatment [...] [place] | | | | | | [address] | | | | | | [phone] | | | | | | | | +--------+---------+ + + + | 08/14/ | Office | Neurology | Jessica Henry NP | | | 2019 | Visit | | [address] | | | | | | [place] | | | | | | [address] | | | | | | [phone] | | | | | | | | +--------+---------+ + + + documented as of this encounter Visit Diagnoses Not on filedocumented in this encounter
--- OUTSIDE RECORDS SUMMARY | ~2020-06-03 | XMS | Encounter Summary ---
Demographics + + + | Address | [address] | | | [place] [address] | + + + | Home Phone [...] Author + + + | Author | [facility] | | | and [place] | + + + | Organization | [facility] | | [...] Team Providers + +------+ + | Care Credit Intern Name | Role | Phone | + +------+ + | Lupillo Valdez DO | PCP | | + +------+ + Reason for Visit + +--------+ + | Reason | Onset | Comments | | | Date | | + +--------+ + | Referral Question | 08/29/ | | | | 2018 | | + +--------+ + Encounter Details +--------+ + + + + | Date | Type | Department | Care Team | Description | +--------+ + + + + | 08/29/ | Telephone | [place] | Hanh Burger, CC | Referral Question | | 2018 | | [facility] | METER TESTER | | | | | MEDICAL CL[facility] [address] | | | | | | [address] [facility], | | | | | | [place] [address] | | | | | | [phone] | | | +--------+ + + + [...] - Hanh Burger CC CMA - 08/29/2018 3:10 PM PSTPatient made aware. A IDALIA Sarabia CMA elephone Encounte deysi Burger Hanh IDALIA Neely CMA - 08/29/2018 3:10 PM PSTFormatting of this note might be differe nt from the original. Referral Question Heidi Willis 3 hours ago (11:38) Called Dr. Tamayo's office and referral was received. Patient will be called by their office to schedule an appointment. They are out til October or November of next year. Thanks, Heidi (Routing comment) elephone Encounte Hanh Ashley CC CMA - 08/29/2018 10:29 AM PSTPatient has not heard from Dr. Tamayo's o ffice. Please call and advise patient. Thank you, IDALIA Huerta CMA documented in this encounter [...] [place] | | | | | | [address] | | | | | | [phone] | | | | | | | | +--------+---------+ + + + | 08/14/ | Office | Neurology | Jessica Henry NP | | | 2020 | Visit | | [address] [place] | | | | | | [place] | | | | | | [address] | | | | | | [phone] | | | | | | | | +--------+---------+ + + + documented as of this encounter Visit Diagnoses Not on filedocumented in this encounter"
--- OUTSIDE RECORDS SUMMARY | ~2020-06-03 | XMS | Encounter Summary ---
Demographics + + + | Address | [address] | | | [place] [address] | + + + | Home Phone [...] Author + + + | Author | [facility] | | | and [place] | + + + | Organization | [facility] | | [...] Team Providers + +------+ + | Care Reimbursement Coordinator Name | Role | Phone | + +------+ + | Lupillo Valdez DO | PCP | | + +------+ + Reason for Visit + +--------+ + | Reason | Onset | Comments | | | Date | | + +--------+ + | Phone Attempt | 04/08/ | | | | 2020 | | + +--------+ + Encounter Details +--------+ + + + + | Date | Type | Department | Care Team | Description | +--------+ + + + + | 04/08/ | Telephone | [place] [facility] | Lupillo Valdez | Phone Attempt | | 2020 | | [facility] | E, DO [address] | | | | | MEDICAL CLIN[facility] [address] | [place], [place] | | | | [address] [place], | [address] | | | | | [place] [address] | [phone] | | | | | [phone] | | | +--------+ + + + [...] Encounter - Hanh Burger CC CMA - 04/08/2020 5:33 PM PDTPlease offer virtual visit for Wednesday as per Dr. Valdez. We have not received SS paperwork, patient is now s aying it was sent to us in October 2019. Please call patient to schedule, cannot address p aperwork at this time. Patient has been informed of APPOINTMENT change, no longer needs to be scheduled with NURSE SUPERVISOR. Tomorrows appt will be for depression, patient is aware of this to. Please call to schedule. IDALIA Huerta CMA elephone Encounte r - Lupillo Valdez DO - 04/08/2020 5:31 PM PDTOffer virtual visit. Electronically sign ed by Lupillo Valdez DO at 04/08/2020 5:32 PM PDTTelephone Encounter - Ann Dickey - 04/08/2020 5:07 PM PDTPt is requesting a call from medical staff: Pt states that she is needing to discuss social security disability ppw. Pt states that dis ability office says they have not received anything from our office, and that ppw was suppos ed to be sent over in December. Pt was hoping to schedule with Courtney but I informed her it would be near end of April. I have pt scheduled with Mela Eugenia to go over the SS ppw. Pt states that "everything that's going on with her" is making her very depressed and that she thinks she should start taking antidepressant again. Pt was crying on phone. Pls call pt to advise. Thanks, Ann Dickey documented in this encounte r Plan of Treatment +--------+---------+ + + + | Date | Type | Specialty | Care Team | Description | +--------+---------+ + + + | 07/01/ | Office | Primary Care | Lupillo Valdez | | | 2019 | Visit | | DO [place] [address] | | | | | | [place] | | | | | | [address] | | | | | | [phone] | | | | | | | | +--------+---------+ + + + | 08/14/ | Office | Neurology | Jessica Henry NP | | | 2019 | Visit | | [address] | | | | | | [place] | | | | | | [address] | | | | | | [phone] | | | | | | | | +--------+---------+ + + + documented as of this encounter Visit Diagnoses Not on filedocumented in this encounter
--- OUTSIDE RECORDS SUMMARY | ~2020-06-03 | XMS | Encounter Summary ---
Demographics + + + | Address | [address] | | | [place] [address] | + + + | Home Phone | | + + + | Preferred Language | Unknown | + + + | Marital Status | Single | + + + | Muslim Affiliation | Unknown | + + + | Race | White | + + + | Ethnic Group | Not or | + + + Author + + + | Author | [facility] | | | and [place] | + + + | Organization | [facility] | | [...] Team Providers + +------+ + | Care Paint Line Operator Name | Role | Phone | + +------+ + | Lupillo Valdez DO | PCP | | + +------+ + Reason for Visit +--------+--------+ + | Reason | Onset | Comments | | | Date | | +--------+--------+ + | LABS | 01/17/ | | | | 2019 | | +--------+--------+ + Encounter Details +--------+ + + + + | Date | Type | Department | Care Team | Description | +--------+ + + + + | 01/17/ | Telephone | [place] [facility] | Lavinia Arroyo, | LABS | | 2019 | | [facility] | [facility] | | | | | MEDICAL CLINIC [address] | | | | | | [address] [facility], | | | | | | [place] [address] | | | | | | [phone] | | | +--------+ + + + [...] Encounter - Hanh Burger CC CMA - 01/17/2019 2:24 PM PDTPatient informed as juan m isdavian. IDALIA Huerta PHARMACY INFORMATICIST elephone Encounte r - Lupillo Valdez DO - 01/17/2019 1:21 PM PDTNot until I see her. Electronically sign ed by Lupillo Valdez DO at 01/17/2019 1:21 PM PDTTelephone Encounter - Lavinia Arroyo CC CMA - 01/17/2019 11:54 AM PDTPatient has upcoming appt to fu on NSTEMI/ Cardio. Do you want her to have labs done prior to appt? IDALIA Messina CMA documented in th is encounter Plan of Treatment +--------+---------+ + + + | Date | Type | Specialty | Care Team | Description | +--------+---------+ + + + | 07/01/ | Office | Primary Care | Lupillo Valdez | | | 2019 | Visit | | E, | | | | | | [place] | | | | | | [address] | | | | | | [phone] | | | | | | | | +--------+---------+ + + + | 08/14/ | Office | Neurology | Jessica Henry NP | | | 2020 | Visit | | [address] | | | | | | [place] | | | | | | [address] | | | | | | [phone] | | | | | | | | +--------+---------+ + + + documented as of this encounter Visit Diagnoses Not on filedocumented in this encounter"
--- OUTSIDE RECORDS SUMMARY | ~2020-06-03 | XMS | Encounter Summary ---
Demographics + + + | Address | [address] | | | [place] [address] | + + + | Home Phone [...] Author + + + | Author | [facility] | | | and [place] | + + + | Organization | [facility] | | [...] Team Providers + +------+ + | Care Extrusion Former Name | Role | Phone | + +------+ + PCP | Unavailable | + +------+ + Encounter Details +--------+ + + + + | Date | Type | Department | Care Team | Description | +--------+ + + + + | 12/11/ | Hospital | [facility] | | | | 1993 | Encounter | MED CTR GENERIC OP | | | | | | CONV DEPT [address] | | | | | | [place], | | | | | | [place] [address] | | | | | | [phone] | | | +--------+ + + + [...] [place] | | | | | | [address] | | | | | | [phone] | | | | | | | | +--------+---------+ + + + | 08/14/ | Office | Neurology | Jessica Henry NP | | | 2019 | Visit | | [address] | | | | | | [place], [place] | | | | | | [address] | | | | | | [phone] | | | | | | | | +--------+---------+ + + + documented as of this encounter Visit Diagnoses Not on filedocumented in this encounter"
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
--- OUTSIDE RECORDS SUMMARY | ~2020-06-03 | XMS | Encounter Summary ---
Demographics + + + | Address | [address] | | | [place] [address] | + + + | Home Phone [...] + + | Author | [facility] | | | and [place] | + + + | Organization | [facility] | | [...] Team Providers + +------+ + | Care Housing Inspectors Name | Role | Phone | + +------+ + | Lupillo Valdez DO | PCP | | + +------+ + Reason for Visit + +--------+ + | Reason | Onset | Comments | | | Date | | + +--------+ + | Medication Refill | 03/01/ | | | | 2019 | | + +--------+ + Encounter Details +--------+--------+ + + + | Date | Type | Department | Care Team | Description | +--------+--------+ + + + | 03/01/ | Refill | [place] [facility] | Lupillo Valdez | Medication Refill | | 2019 | | [facility] | E, DO [address] | | | | | MEDICAL CLIN[address] | [place], [place] | | | | [address] [place], | [address] | | | | | [place] [address] | [phone] | | | | | [phone] | | | +--------+--------+ + + + [...] Encounter - Lavinia Arroyo CC CMA - 03/01/2019 9:34 AM PDT Labs: UTD Recent Visits Department Visit Type Primary Dx 01/31/2019 [facility] Office Visit Coronary artery dise ase involving grand [place] tribes coronary artery of grand [place] tribes heart without angina pectoris 01/09/2019 [facility] Office Visit Coronary artery dise ase involving grand [place] tribes coronary artery of grand [place] tribes heart without angina pectoris 11/24/2018 [facility] Office Visit Hypothyroidism, unsp ecified type IDALIA Messina CMA elephone Myrna Mcgovern - 03/01/2019 9:03 AM PDTlevETIRAcetam (KEPPRA) 750 MG tablet Pt states she only has 2 tab left and is requesting to mushroom picker as soon as possible. Yevgeniy OGDEN documented in t his encounter Plan of [...] [place] | | | | | | [address] | | | | | | [phone] | | | | | | | | +--------+---------+ + + + | 08/14/ | Office | Neurology | Jessica Henry NP | | | 2019 | Visit | | [address] | | | | | | [place], [place] | | | | | | [address] | | | | | | [phone] | | | | | | | | +--------+---------+ + + + documented as of this encounter Visit Diagnoses Not on filedocumented in this encounter"
--- OUTSIDE RECORDS SUMMARY | ~2020-06-03 | XMS | Encounter Summary ---
Demographics + + + | Address | [address] | | | [place] [address] | + + + | Home Phone [...] Author + + + | Author | [facility] | | | and [place] | + + + | Organization | [facility] | | | [...] Team Providers + +------+ + | Care Can Filling Machine Operator Name | Role | Phone | + +------+ + | Lupillo Valdez DO | PCP | | + +------+ + Reason for Visit + +--------+ + | Reason | Onset | Comments | | | Date | | + +--------+ + | Appointment | 05/22/ | | | | 2020 | | + +--------+ + Encounter Details +--------+ + + + + | Date | Type | Department | Care Team | Description | +--------+ + + + + | 05/22/ | Telephone | [facility] | Hanh Burger, CC | Appointment | | 2020 | | [facility] | SOCIAL SCIENCE INSTRUCTOR | | | | | [facility] [address] | | | | | | [address] [facility], | | | | | | [place] [address] | | | | | | [phone] | | | +--------+ + + + [...] Encounter - Hanh Burger CC CMA - 05/22/2020 2:55 PM PDTPatient called in and spoke with reception centre manager, she has an appointment today at 1500 for 20 minutes. Patient reporte d car problems which are now fixed and is now on her way. Cylinder Grinder did not know how far ou t she was. I called patient and left message requesting call back. Patient returned call at 1438, stating she was at [facility] which is roughly 30 minutes from our clinic. I informed patient she was scheduled for a 20 minutes visit and her visit would likely be cu t short. Her appt should be 40 minutes, always to meet her needs and have enough time with Dr. Valdez. Patient verbalized understanding and agreeable to reschedule next week. Met w [facility] management and scrubbed next weeks schedule to accommodate. Patient reschedule to 10/2019 at 1500 for 40 minutes. CLIFF placed in chart for all future scheduling needs. IDALIA Huerta CMA documented in this encounter [...] [place] | | | | | | [address] | | | | | | [phone] | | | | | | | | +--------+---------+ + + + | 08/14/ | Office | Neurology | Jessica Henry NP | | | 2020 | Visit | | [address] [place] [address] | | | | | | [place] | | | | | | [address] | | | | | | [phone] | | | | | | | | +--------+---------+ + + + documented as of this encounter Visit Diagnoses Not on filedocumented in this encounter"
--- OUTSIDE RECORDS SUMMARY | ~2020-06-03 | XMS | Encounter Summary ---
Demographics + + + | Address | [address] | | | [place] [address] | + + + | Home Phone | | + + + | Preferred Language | Unknown | + + + | Marital Status | Single | + + + | Baptism Affiliation | Unknown | + + + | Race | White | + + + | Ethnic Group | Not or | + + + Author + + + | Author | [facility] | | | and [place] | + + + | Organization | [facility] | | [...] Team Providers + +------+ + | Care Siderographist Name | Role | Phone | + +------+ + | Lupillo Valdez DO | PCP | | + +------+ + Reason for Visit +--------+--------+ + | Reason | Onset | Comments | | | Date | | +--------+--------+ + | Letter | 12/10/ | for service animals | | | 2020 | | +--------+--------+ + | Letter | 12/24/ | Pt request call back today re: letter for service | | | 2020 | animals | +--------+--------+ + | Letter | 01/02/ | Pt states paperwork for service animals ect needed to be | | | 2019 | faxed *See note | +--------+--------+ + Encounter Details +--------+ + + + + | Date | Type | Department | Care Team | Description | +--------+ + + + + | 12/10/ | Telephone | [facility] | Lupillo Valdez | Letter (for service | | 2020 | | [facility] | E, DO [address] | animals); Letter (Pt | | | | [facility] [address] | [place], [place] | request call back | | | [address] [place], | [address] | today re: letter for | | | | [place] [address] | [phone] | service animals); | | | | [phone] | | Letter (Pt states | | | | | | paperwork for | | | | | | service animals ect | | | | | | needed to be faxed | | | | | | *See note) | +--------+ + + + + Social [...] this encounter Miscellaneous Notes Telephone Encounter - Noemi Live CC CMA - 01/03/2020 3:04 PM PDTContacted pt t o inform her that the letters have been faxed. IDALIA Shelton CMA elephone China Hammonds - 01/03/2020 12:47 PM PDT1) Patient is calling to let Dr. Hurtado i know that the paperwork he filled out and mailed to her was supposed to be faxed to: [employer] Attn: Angelia. Patient states this is time sensitive as she's supposed to fill paperwork out Wednesday but th at won't happen until they receive these papers. You can call Angelia if needed at phone # [phone]. Call if any questions otherwise can you please let Abril know when you have faxed these tara rs. 2) Pt got results of EEG & MRI from Dr. Neumann and was said that she needs to revisit sleep apnea therefore needs a referral to Dr. Neumann. China Agrawal elephone Encounter - Si Hanh huff CC CMA - 12/25/2019 4:55 PM PDTPatient informed paperwork complete, mailed to pts address per request. Confirmed address. IDALIA Huerta CMA elephone Encounte China Kang - 12/25/2019 8:54 AM PDTPatient is requesting a call back JIM today a s letter needed for service animals is time sensitive. I informed her as per December S. Requkimberly t that Hanh S. will be returning her call today. China Agrawal elephone Encounter - Hanh Anderson CC CMA - 12/20/2019 11:42 AM PDTPatient was advised by staff to see MACHINE BUNCH MAKER for ser vice animal letter. Patient was seen by Yousuf today and Yousuf does not provide these types of letters. I ask Yousuf to see patient, document the need for service animal and second bedroom for "crafts" which is patients outlet for anxiety and life stressors. Yousuf proceeded with APPOINTMENT. I was able to obtain a copy for patient certified service dog, patient also has a cat that will need to be included in the letter. Patient states her cat is elderly and provides reli ef during stressfull situations, her cat also has the capability to know when seizure will o ccur and will alert her dog. I informed patient Dr. Valdez is out of office today and we w ill get back to her tomorrow after reviewing Yousuf's notes. Copy of Service Dog Certification placed in Dr. Rojas's inbox. IDALIA Huerta CMA elephone Encount er - Bobbi Chen - 12/13/2019 10:31 AM PDTScheduled for 12/20[facility]. Thanks, Emersonectronically signed by Bobbi Chen at 12/13/2019 10:32 AM PDTTelephone Encount er - Lavinia Arroyo CC CMA - 12/11/2019 6:25 PM PDTTeri needs an appt to discuss this pe r Dr. Valdez. Dr. Valdez is booked out pretty far so an MACHINE BUNCH MAKER may be more appropriate. Long a ppt necessary since this is two problems. IDALIA Messina CMA elephone Encoun carmelo - Lakshmi Guerra RN - 12/11/2019 4:38 PM PDTPatient is aware that Dr. Valdez is o ut and someone will call her tomorrow. afshaneyc elephone Encounter - Luis Carlos Bagley - 12/11/2019 11:14 AM PDTP t called and pt is monving into and apt with no stairs and is needing a updated note for her dog and cat for service animals and to get a second bedroom for therapy equipment. I let p t know that you were out of clinic today and a call back tomorrow would be fine/Ryan nguyen signed by Luis Carlos Bagley at 12/11/2019 11:17 AM PDTdocumented in this encounter Plan of [...] [place] | | | | | | [address] | | | | | | [phone] | | | | | | | | +--------+---------+ + + + | 08/14/ | Office | Neurology | Jessica Henry NP | | 2019 | Visit | | [address] [place] | | | | | | [place] | | | | | | [address] | | | | | | [phone] | | | | | | | | +--------+---------+ + + + documented as of this encounter Visit Diagnoses Not on filedocumented in this encounter
--- OUTSIDE RECORDS SUMMARY | ~2020-06-03 | XMS | Encounter Summary ---
Demographics + + + | Address | [address] | | | [place] [address] | + + + | Home Phone [...] Team Providers + +------+ + | Care Fall Intern Name | Role | Phone | [...] + + | Closed | Specialty | | Diagnoses | Courtney, | Carly, | | | Services | | | Lupillo Ken, | Elias Santoyo, | | | Required | | Gastroesopha | DO [address] | [address] | | | | | [address]al reflux | [address] [place] | [place] | | | | | disease | [place], [place] | [place], [place] | | | | | without | [address] | [address] | | | | | esophagitis | Phone: | Phone: | | | | | | [phone] | [phone] | | | | | | Fax: | Fax: | | | | | | [phone] | [phone] | +--------+ + + + + + Self-referral (Routine) +--------+ + + + + + | Status | Reason | Specialty | Diagnoses / | Referred By | Referred To | | | | | Procedures | Contact | Contact | +--------+ + + + + + | Closed | Specialty | Physical | Diagnoses | Courtney, | [facility] | | | Services | Therapy | Primary | Lupillo Ken, | KEVIN | | | Required | | osteoarthrit | DO [address] | PHYSICAL | | | | | is, right | ST [place] | THERAPY - | | | | | ankle and | [place], [place] | [place] | | | | | foot | [address] | [address] | | | | | | Phone: | OBNI NIMESH | | | | | | [phone] | 15 | | | | | | Fax: | [place], [place] | | | | | | [phone] | [address] | | | | | | | Phone: | | | | | | | [phone] | | | | | | | Fax: | | | | | | | [phone] | +--------+ + + + + + Reason for Visit + + + | Reason | Comments | + + + | Establish Care | Re-establish care for seizures and focus level "jumps subject to | | | subject". | + + + | Stress | Pt reports stress level is really high, recently laid off of work | | | and is considering disability | + + + | Gastroesophageal | Omeprazole not relieving symptoms of GERD | | Reflux | | + + + Encounter Details +--------+---------+ + + + | Date | Type | Department | Care Team | Description | +--------+---------+ + + + | 08/15/ | Office | [facility] | Lupillo Valdez | Gastroesophageal | | 2018 | Visit | [facility] | E, DO [address] | reflux disease | | | | MEDICAL [facility] [address] | [place], [place] | without esophagitis | | | | [address] [place], | [address] | (Primary Dx); | | | | [place] [address] | [phone] | Primary | | | | [phone] | | osteoarthritis, | | | | | | right ankle and | | | | | | foot; Need for | | | | | | influenza | | | | | | vaccination | +--------+---------+ + + [...] + + + | Blood Pressure | 132/68 | 08/15/2018 3:34 PM | | | | | PST | | + + + + + | Pulse | 63 | 08/15/2018 3:34 PM | | | | | PST | | + + + + + | Temperature | 36.9 C (98.5 F) | 08/15/2018 3:34 PM | | | | | PST | | + + + + + | Respiratory Rate | 16 | 08/15/2018 3:34 PM | | | | | PST | | + + + + + | Oxygen Saturation | 99% | 08/15/2018 3:34 PM | | | | | PST | | + + + + + | Inhaled Oxygen | - | - | | | Concentration | | | | + + + + + | Weight | 107.5 kg (237 lb) | 08/15/2018 3:34 PM | | | | | PST | | + + + + + | Height | 165.1 cm (5' 5") | 08/15/2018 3:34 PM | | | | | PST | | + + + + + | Body Mass Index | 39.44 | 08/15/2018 3:34 PM | | | | | PST | | + + + + + documented in this encounter Progress Notes Hanh Burger CC CMA - 08/15/2018 3:30 PM Hola Callaway presents today with Chief Comp laint of: Re-establish care for seizures and focus level "jumps subject to subject". Pt rep orts stress level is really high, recently laid off of work and is considering disability. O meprazole not relieving symptoms of GERD. Current medications verified with her at time of visit. Pt currently shows no s/s of distress, shortness of breath. Vital signs: BP 132/68 | Pulse 63 | Temp 36.9 C (98.5 F) (Oral) | Resp 16 | Ht 1.65 1 m (5' 5") | Wt 107.5 kg (237 lb) | SpO2 99% | ? No | BMI 39.44 kg/m Labs Obtained per protocol: None. Verbal Report given to: Lupillo Valdez DO. IDALIA Huerta CMA After obtaining consent, and per orders of Dr. Lupillo aVldez, injection of Fluzone given by Hanh Burger. Site: LEFT Deltoid. Patient tolerated well and ambulated out of clinic w ith out assistance. IDALIA Huerta CMA Lupillo Nunez DO - 08/15/2018 3:30 PM PST Patient ID: Abril Callaway is a 58 y.o. year old female Chief Complaint: Chief Complaint Patient presents with Establish Care Re-establish care for seizures and focus level "jumps subject to subject". Stress Pt reports stress level is really high, recently laid off of work and is considering disa bility Gastroesophageal Reflux Omeprazole not relieving symptoms of GERD Assessment and Plan: Gastroesophageal reflux disease without esophagitis (Primary) Assessment & Plan: -Referral placed to Dr. Lugo for consideration of EGD for evaluation of worsening GERD Orders: - AMB Referral to General Surgery Primary osteoarthritis, right ankle and foot Assessment & Plan: -Referral to Claus Reed at [facility] Physical Therapy for Functional Capacity Test ing -Follow up Orders: - Ambulatory referral to Physical Therapy Need for influenza vaccination - Influenza PF 3Yrs or >,Quad PSKT or Vial Subjective: Patient presents to the clinic to re-establish care and discuss her seizure disorder. She w as previously a patient of mine at [facility]. She has been experiencing difficulty focusing. She is often jumping from one subject to ano ther while she is having a conversation. Recently she has been feeling like she was going to have a seizure but didn't. She is taking Keppra 750mg BID and Gabapentin and feels like her side effect have been worsening with the dose increases. On 05/19/18 she was evaluated by aby angulo neurologist Dr. Obed Thorpe at [facility] for memory issues. She has been using her CPAP at night . On 08/02/18, Lanei Collazo PA-C laid her off of work at [employer]. 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 Next month she has an appointment with an orthopedics group in [place], [place] to follow up on her right ankle. She has been unable to sleep due to the pain and is concerned that she may have a seizure. This has caused a high amount of stress in her life. Due to the high doses of anti-seizure medications, she does experience side effects which a ffect her memory. She is working on applying for disability and states that we need to put k ey words into the note such as, "She is unable to withstand employment". She is taking Omeprazole 20mg BID but is still experiencing heartburn. She is waking up fee ling nauseous due to the acid reflux and if she has any food in her stomach, it exacerbates it. She has not had an EGD and has not tried elevating the head of her bed. Allergies: Allergies Allergen Reactions Codeine Sulfate Anaphylaxis Demerol Anaphylaxis Hydrocodone-Acetaminophen Anaphylaxis Morphine Sulfate Anaphylaxis Oxycodone Anaphylaxis Penicillin V Potassium Anaphylaxis Medications: Current Outpatient Prescriptions Medication Sig Dispense Refill ascorbic acid (VITAMIN C) 500 mg tablet Take 500 mg by mouth Daily. Cholecalciferol (VITAMIN D PO) Take by mouth Daily. GABAPENTIN PO Take by mouth 2 times daily. levETIRAcetam (KEPPRA) 750 MG tablet Take 750 mg by mouth 2 times daily. levothyroxine (SYNTHROID, LEVOTHROID) 100 mcg tablet (Patient taking differently: Take 100 mcg by mouth every morning (before breakfast).) lisinopril (PRINIVIL, ZESTRIL) 20 mg tablet (Patient taking differently: Take 20 mg by mouth Daily.) lovastatin (MEVACOR) 40 MG tablet Take 40 mg by mouth nightly. MELOXICAM PO Take by mouth Daily. omeprazole (PRILOSEC) 20 mg TBEC (Patient taking differently: Take 20 mg by mouth ever y morning (before breakfast).) pramipexole (MIRAPEX) 0.125 MG tablet Take 0.125 mg by mouth 3 times daily. VITAMIN E PO Take by mouth Daily. No current facility-administered medications for this visit. Problem List: Patient Active Problem List Diagnosis SHOULDER PAIN, RIGHT PARESTHESIA MYOFASCIAL PAIN SYNDROME BURSITIS, SHOULDER Epilepsy without status epilepticus Syncope and collapse Piriformis syndrome Neoplasm of soft tissue Hypothyroid Hyposmolality Fatigue Atypical chest pain Degenerative disc disease, cervical Gastroesophageal reflux disease without esophagitis Heart murmur Hypertension Primary osteoarthritis, right ankle and foot Social History: Social History Social History Marital status: Single Spouse name: N/A Number of children: N/A Years of education: N/A Occupational History Not on file. Social History Main Topics Smoking status: Former Smoker Types: Cigarettes Smokeless tobacco: Never Used Alcohol use Yes Comment: Occassional, may be10 drinks a year Drug use: No Sexual activity: No Other Topics Concern Not on file Social History Narrative No narrative on file Family History: Family History Problem Relation Age of Onset Heart disease Mother Hypertension Mother Stroke Mother Ulcer Disease Mother Cancer Mother Arthritis Mother Depression Mother Thyroid disease Mother Sleep Apnea Mother Review of Systems Constitutional: Negative. Gastrointestinal: Positive for: Heartburn Musculoskeletal: Positive for: Right ankle pain Psychiatric/Behavioral: Positive for: High stress level Objective: Vitals: BP 132/68 | Pulse 63 | Temp 36.9 C (98.5 F) (Oral) | Resp 16 | Ht 1.651 m (5' 5") | Wt 107.5 kg (237 lb) | SpO2 99% | ? No | BMI 39.44 kg/m Physical Exam Constitutional: She is oriented to person, place, and time. She appears well-developed and well-nourished. HENT: Head: Normocephalic and atraumatic. Eyes: Pupils are equal, round, and reactive to light. Conjunctivae are normal. Cardiovascular: Normal rate and regular rhythm. Murmur heard. Pulmonary/Chest: Effort normal and breath sounds normal. Abdominal: There is tenderness in the epigastric area. Neurological: She is alert and oriented to person, place, and time. Psychiatric: She has a normal mood and affect. Entered by Leeanna Forrester CNA 2, [facility], acting as scribe for Dr. Courtney DO The documentation recorded by the scribe accurately reflects the service I personally perfo rmed and the decisions made by me. Electronically signed by: Lupillo Valdez DO 08/15/2018 16:34 Note: Part of this report was transcribed using voice recognition software. Every effort wa s made to ensure accuracy. However, inadvertent computerized nail technician teacher errors may be pre sent. documented in this encounter Miscellaneous Notes Assessment & Plan Note - Leeanna Forrester CNA - 08/15/2018 4:08 PM PSTAssociated Proble m(s): Primary osteoarthritis, right ankle and foot-Referral to Claus Reed at [facility] Physical Therapy for Functional Capacity Testing -Follow up ssess ment & Plan Note - Leeanna Forrester CNA - 08/15/2018 4:04 PM PSTAssociated Problem(s): G astroesophageal reflux disease without esophagitis-Referral placed to Dr. Lugo for consider ation of EGD for evaluation of worsening GERD documented in this encounter Plan of Treatment [...] [place] | | | | | | [address] | | | | | | [phone] | | | | | | | | +--------+---------+ + + + | 08/14/ | Office | Neurology | Jessica Henry NP | | | 2019 | Visit | | [address] [place] | | | | | | [place], [place] | | | | | | [address] | | | | | | [phone] | | | | | | | | +--------+---------+ + + + + + +--------+ + + | Name | Type | Priori | Associated Diagnoses | Order Schedule | | | | ty | | | + + +--------+ + + | Physical Therapy - | Outpatient | Routin | Primary | Ordered: 08/15/2018 | | Ambulatory Referral | Referral | e | osteoarthritis, | | | | | | right ankle and foot | | + + +--------+ + + | General Surgery, | Outpatient | Routin | Gastroesophageal | Ordered: 08/15/2018 | | External - AMB | Referral | e | reflux disease | | | Referral | | | without esophagitis | | + + +--------+ + + documented as of this encounter Visit Diagnoses + + | Diagnosis | + + | Gastroesophageal reflux disease without esophagitis - Primary Esophageal reflux | + + | Primary osteoarthritis, right ankle and foot | + + | Need for influenza vaccination Need for prophylactic vaccination and inoculation | | against influenza | + + documented in this encounter
--- OUTSIDE RECORDS SUMMARY | ~2020-06-03 | XMS | Clinical Summary ---
Demographics + + + | Address | [facility] [address] | | | [place] [address] | + + + | Home Phone [...] + + | Author | [facility] | + + + | Organization | [...] Providers + +------+ + | Care Branch Specialist Name | Role | Phone | + +------+ + | Lupillo Valdez DO | PCP | | + +------+ + Source Comments [facility] is fully live on both EpicCare Ambulatory and EpicCare InPatient.[facility] Allergies + + + + + + | Active Allergy | Reactions | Severity | Noted | Comments | | | | | Date | | + + + + + + | Codeine | Anaphylaxis | High | 06/20/20 | | | | | | 15 | | + + + + + + | Vrd-Jzhwqkhcarm-Xgzn | Unknown | | | | | [...] | Penicillins | Anaphylaxis | High | /24/20 | | | | | | 15 | | + + + + + + | Propoxyphene | Anaphylaxis | High | //20 | | | | | | 15 [...] | | + + + +---------+------+------+-------+ | levETIRAcetam | Take 750 mg by mouth | | 0 | | | Activ | | (KEPPRA) 750 mg oral | two times daily. | | | | | e | | tablet | | | | | | | + + + +---------+------+------+-------+ | lisinopril 20 mg | Take 20 mg by mouth | | 0 | 07/2 | | Activ | | oral tablet | two times daily. | | | 620 | | e | | | | | | 18 | | | + + + +---------+------+------+-------+ | omeprazole 20 mg | | | 0 | 08/1 | | Activ | | oral capsule,delayed | | | | 820 | | e | | release(DR/EC) | | | | 18 | | | + + + +---------+------+------+-------+ | lovastatin 40 mg | 40 mg. | | 0 | 08/1 | | Activ | | oral tablet | | | | 0/20 | | e | | | | | | 18 | | | + + + +---------+------+------+-------+ | sertraline 50 mg | Take 50 mg by mouth | | 0 | 07/3 | | Activ | | oral tablet | once daily. | | | 0/20 | | e | | | | | | 18 | | | + + + +---------+------+------+-------+ | pramipexole 0.125 | Take 0.125 mg by | | 0 | 08/1 | | Activ | | mg oral tablet | mouth once daily. | | | 0/20 | | e | | | | | | 18 | | | + + + +---------+------+------+-------+ | gabapentin 100 mg | Take 100 mg by mouth | | 0 | 08/1 | | Activ | | oral capsule | two times daily. | | | 0/20 | | e | | | | | | 18 | | | + + + +---------+------+------+-------+ | IRON ORAL | Take by mouth. | | 0 | | | Activ | | | | | | | | e | + + + +---------+------+------+-------+ | ascorbic acid | Take by mouth. | | 0 | | | Activ | | (VITAMIN C ORAL) | | | | | | e | + + + +---------+------+------+-------+ | IBUPROFEN ORAL | Take by mouth. | | 0 | | | Activ | | | | | | | | e | + + + +---------+------+------+-------+ | levothyroxine 100 | Take 100 mcg by | | 0 | 10/29 | | Activ | | mcg oral tablet | mouth once daily. | | | 03/16 | | e | | | | | | 14 | | | + + + +---------+------+------+-------+ | pantoprazole 40 mg | Take 40 mg by mouth | | 0 | | | Activ | | oral tablet,delayed | once daily. | | | | | e | | release (DR/EC) | | | | | | | + + + +---------+------+------+-------+ | | Take 12.5 mg by | | 0 | | | Activ | | hydroCHLOROthiazide | mouth. Wednesday, | | | | | e | | 12.5 mg oral capsule | Wednesday, Wednesday | | | | | | + + + +---------+------+------+-------+ | aspirin EC 81 mg | Take 81 mg by mouth | | 0 | | | Activ | | oral tablet,delayed | once daily. | | | | | e | | release (DR/EC) | | | | | | | + + + +---------+------+------+-------+ | cyanocobalamin | Take 500 mcg by | | 0 | | | Activ | | (VITAMIN B-12) 500 | mouth once daily. | | | | | e | | mcg oral tablet | | | | | | | + + + +---------+------+------+-------+ | Cholecalciferol | Take 2,000 Units by | | 0 | | | Activ | | (Vitamin D3) 2,000 | mouth once daily. | | | | | e | | unit oral tablet | | | | | | | + + + +---------+------+------+-------+ | glucos sul | Take by mouth. | | 0 | | | Activ | | 2KCl/msm/chond/C/Mn | | | | | | e | | (GLUCOSAMINE | | | | | | | | CHONDROITIN ORAL) | | | | | | | + + + +---------+------+------+-------+ | docosahexaenoic | Take 1,000 mg by | | 0 | | | Activ | | acid/epa (FISH OIL | mouth two times | | | | | e | | ORAL) | daily. | | | | | | + + + +---------+------+------+-------+ Active Problems Not on file Family History + + +------+ + | Medical History | Relation | Name | Comments | + + +------+ + | Emphysema | Other | | | + + +------+ + | Genetic Disorder | Other | | | + + +------+ + | Seizures | Other | | | + + +------+ + | Sleep apnea | Other | | | + + +------+ + + +------+--------+ + | Relation | Name | Status | Comments | + +------+--------+ + | Other | | | | + +------+--------+ + Social History + + + +--------+------+ [...] + + + | Blood Pressure | 147/79 | 02/02/2020 11:06 AM | | | | | PDT | | + + + + + | Pulse | 66 | 02/02/2020 11:06 AM | | | | | PDT | | + + + + + | Temperature | 36.1 C (97 F) | 02/02/2020 11:06 AM | | | | | PDT [...] + + + + | Weight | 109.9 kg (242 lb 3.2 | 02/07/2020 1:05 PM | | | | oz) | PDT | | + + + + + | Height | 166.6 cm (5' 5.6") | 02/07/2020 1:05 PM | | | | | PDT | | + + + + + | Body Mass Index | 39.57 | 02/07/2020 1:05 PM | | | | | PDT | | + + + + + Plan of Treatment + + + + + | Health Maintenance | Due Date | Last | Comments | | | | Done | | + + + + + | Influenza (Flu) | | 08/18/20 | | | vaccination (#1) | 0 | 19, | | | | | 08/15/20 | | | | | 18 | | + + + + + | Pneumococcal | Aged Out | | No longer eligible based on patient's age | | vaccination | | | to complete this topic | + + + + + Results Not on filefrom Last 3 Months Insurance + +--------+ +--------+-------+---------+--------+ | Payer | Benefi | Subscriber | Effect | Phone | Address | Type | | | t Plan | ID | ron | | | | | | / | | Dates | | | | | | Group | | | | | | + +--------+ +--------+-------+---------+--------+ | ENGRAVER LETTER MEDICAID | ENGRAVER LETTER | [id number] | 05/30/20 | | | Medica | | | [place] | | 18-Pre | | | id | | | [place] | | sent | | | | + +--------+ +--------+-------+---------+--------+ + +--------+ +--------+ + + | Guarantor Name | Accoun | Relation to | Date | Phone | Billing Address | | | t Type | Patient | of | | | | | | | | | | + +--------+ +--------+ + + | Abril Callaway | Person | Self | [birth year] | [address] | | | al/Fam | | 1960 | [phone] | [place] | | | priti | | | [address] (Home) | [phone] | + +--------+ +--------+ + +
--- OUTSIDE RECORDS SUMMARY | ~2020-06-03 | XMS | Encounter Summary ---
Demographics + + + | Address | [address] | | | [place] [address] | + + + | Home Phone [...] Team Providers + +------+ + | Care Training Engineer Name | Role | Phone | + +------+ + | CourtneyLupillo DO | PCP | | + +------+ + Encounter Details +--------+--------+ + + + | Date | Type | Department | Care Team | Description | +--------+--------+ + + + | 02/01/ | Travel | | | | | [...] in contact | No / Unsure | 02/02/2020 9:57 AM | | with someone who was confirmed or | | PDT | | suspected to have Coronavirus / COVID-19? | | | + + + + documented as of this encounter Plan of Treatment Not on filedocumented as of this encounter Visit Diagnoses Not on filedocumented in this encounter"
--- OUTSIDE RECORDS SUMMARY | ~2020-06-03 | XMS | Encounter Summary ---
Demographics + + + | Address | [address] | | | [place] [address] | + + + | Home Phone [...] Author + + + | Author | [facility] | + + + | Organization | [facility] | + + + | Address | [...] Team Providers + +------+ + | Care Lpn Private Duty Name | Role | Phone | + +------+ + | Lupillo Valdez DO | PCP | | + +------+ + Encounter Details +--------+ + + + + | Date | Type | Department | Care Team | Description | +--------+ + + + + | 02/06/ | Hospital | Radiology/Imaging | Dain Berry MD | | | 2020 | Encounter | Lab at [facility] [address] | | | | | [facility] | Tammy Parsons [place], | | | | | [facility], | [place] [address] | | | | | [facility] | [phone] | | | | | Floor [place], [place] | | | | | | [address] | | | | | | [phone] | | | +--------+ + + + [...] + + | ascorbic acid | Take by mouth. | | 0 | | | | (VITAMIN C ORAL) | | | | | | + + + +---------+ + + | aspirin EC 81 mg | Take 81 mg by mouth | | 0 | | | | oral tablet,delayed | once daily. | | | | | | release (DR/EC) | | | | | | + + + +---------+ + + | Cholecalciferol | Take 2,000 Units by | | 0 | | | | (Vitamin D3) 2,000 | mouth once daily. | | | | | | unit oral tablet | | | | | | + + + +---------+ + + | cyanocobalamin | Take 500 mcg by | | 0 | | | | (VITAMIN B-12) 500 | mouth once daily. | | | | | | mcg oral tablet | | | | | | + + + +---------+ + + | docosahexaenoic | Take 1,000 mg by | | 0 | | | | acid/epa (FISH OIL | mouth two times | | | | | | ORAL) | daily. | | | | | + + + +---------+ + + | gabapentin 100 mg | Take 100 mg by mouth | | 0 | 08/10/20 | | | oral capsule | two times daily. | | | 18 | | + + + +---------+ + + | glucos sul | Take by mouth. | | 0 | | | | 2KCl/msm/chond/C/Mn | | | | | | | (GLUCOSAMINE | | | | | | | CHONDROITIN ORAL) | | | | | | + + + +---------+ + + | | Take 12.5 mg by | | 0 | | | | hydroCHLOROthiazide | mouth. Wednesday, | | | | | | 12.5 mg oral capsule | Wednesday, Wednesday | | | | | + + + +---------+ + + | IBUPROFEN ORAL | Take by mouth. | | 0 | | | + + + +---------+ + + | IRON ORAL | Take by mouth. | | 0 | | | + + + +---------+ + + | levETIRAcetam | Take 750 mg by mouth | | 0 | | | | (KEPPRA) 750 mg oral | two times daily. | | | | | | tablet | | | | | | + + + +---------+ + + | levothyroxine 100 | Take 100 mcg by | | 0 | 11/22/19 | | | mcg oral tablet | mouth once daily. | | | 14 | | + + + +---------+ + + | lisinopril 20 mg | Take 20 mg by mouth | | 0 | 04/21/20 | | | oral tablet | two times daily. | | | 18 | | + + + +---------+ + + | lovastatin 40 mg | 40 mg. | | 0 | 05/06/20 | | | oral tablet | | | | 18 | | + + + +---------+ + + | omeprazole 20 mg | | | 0 | 05/14/20 | | | oral capsule,delayed | | | | 18 | | | release(DR/EC) | | | | | | + + + +---------+ + + | pantoprazole 40 mg | Take 40 mg by mouth | | 0 | | | | oral tablet,delayed | once daily. | | | | | | release (DR/EC) | | | | | | + + + +---------+ + + | pramipexole 0.125 | Take 0.125 mg by | | 0 | 05/06/20 | | | mg oral tablet | mouth once daily. | | | 18 | | + + + +---------+ + + | sertraline 50 mg | Take 50 mg by mouth | | 0 | 04/25/20 | | | oral tablet | once daily. | | | 18 | | + + + +---------+ + + documented as of this encounter Plan of Treatment Not on filedocumented as of this encounter Procedures + +--------+ + + + | Procedure Name | Priori | Date/Time | Associated Diagnosis | Comments | | | ty | | | | + +--------+ + + + | X-RAY SPINE | Routin | 02/07/2020 | Low back pain, | Results for this | | LUMBOSACRAL 2 VIEWS | e | 12:57 PM | unspecified back | procedure are in the | | | | PDT | pain laterality, | results section. | | | | | unspecified | | | | | | chronicity, | | | | | | unspecified whether | | | | | | sciatica present | | + +--------+ + + + documented in this encounter Results X-RAY SPINE LUMBOSACRAL 2 VIEWS (02/07/2020 12:57 PM PDT) + + | Specimen | + + | | + + + + + | Narrative | Performed At | + + + | EXAM: SPINE LUMBOSACRAL 2 VIEWS, SPINE ENTR SRVHany LORENZO AND LAT | [facility] | | HISTORY: low back pain COMPARISON: MRI 08/02/2019 FINDINGS: | RADIOLOGY VOICE | | Entire spine: There is neutral coronal and sagittal balance. Minimal | RECOGNITION 2 | | thoracolumbar levocurvature and lumbar dextrocurvature are seen. | | | There is exaggerated thoracic process measuring approximately 66 | | | degrees. Multilevel degenerative disc disease is observed, mild to | | | moderate in the cervical and thoracic spine and moderate in the lumbar | | | spine with some sparing at L4-L5. Lower lumbar facet hypertrophy is | | | seen. No acute fracture or focal destruction is noted. Vertebral body | | | heights are maintained. Lumbar spine: There is static | | | retrolisthesis at L2-L3 and L3-L4 unchanged between flexion and | | | extension. Remaining vertebral body alignment is normal. Vertebral | | | body heights are preserved. There is multilevel degenerative disc | | | disease, moderate at L1-L2 and L3-L4 and mild elsewhere. Severe lumbar | | | facet hypertrophy is noted. No fracture or focal destruction is seen. | | | Vascular calcifications are noted. IMPRESSION: Exaggerated | | | thoracic kyphosis and mild thoracic and lumbar curvatures. | | | Multilevel degenerative disc disease as described with severe lower | | | lumbar facet hypertrophy. Static retrolistheses in the lumbar | | | spine. No dynamic instability. I have personally reviewed the | | | images and, if necessary, edited the report. I agree with the report | | | as now presented. Final signature: Jesi Ni MD | | | 02/07/2020 2:49 PM Preliminary: Jesi Ni MD | | | Dictation initiated: Jesi Ni MD 02/07/2020 2:43 PM | | + + + + + | Procedure Note | + + | Service Account, Radiant Res In Interface - 02/07/2020 2:50 PM PDT EXAM: SPINE | | LUMBOSACRAL 2 VIEWS, SPINE ENTR SRVY STDY PA AND LAT HISTORY: low back pain COMPARISON: | | MRI 08/02/2019 FINDINGS: Entire spine: There is neutral coronal and sagittal balance. | | Minimal thoracolumbar levocurvature and lumbar dextrocurvature are seen. There is | | exaggerated thoracic process measuring approximately 66 degrees. Multilevel degenerative | | disc disease is observed, mild to moderate in the cervical and thoracic spine and | | moderate in the lumbar spine with some sparing at L4-L5. Lower lumbar facet hypertrophy | | is seen. No acute fracture or focal destruction is noted. Vertebral body heights are | | maintained. Lumbar spine: There is static retrolisthesis at L2-L3 and L3-L4 unchanged | | between flexion and extension. Remaining vertebral body alignment is normal. Vertebral | | body heights are preserved. There is multilevel degenerative disc disease, moderate at | | L1-L2 and L3-L4 and mild elsewhere. Severe lumbar facet hypertrophy is noted. No | | fracture or focal destruction is seen. Vascular calcifications are noted. IMPRESSION: | | Exaggerated thoracic kyphosis and mild thoracic and lumbar curvatures. Multilevel | | degenerative disc disease as described with severe lower lumbar facet hypertrophy. | | Static retrolistheses in the lumbar spine. No dynamic instability. I have personally | | reviewed the images and, if necessary, edited the report. I agree with the report as now | | presented. Final signature: Jesi Ni MD 02/07/2020 2:49 PM Preliminary: | | Jesi Ni MD Dictation initiated: Jesi Ni MD 02/07/2020 2:43 PM | |Multilevel degenerative disc disease as described with severe lower lumbar facet hypertroph y. | | | |Static retrolistheses in the lumbar spine. No dynamic instability. | | | |I have personally reviewed the images and, if necessary, edited the report. I agree with th e report as now presented. | | | |Final signature: Jesi Ni MD 02/07/2020 2:49 PM | |Preliminary: Jesi Ni MD | |Dictation initiated: Jesi Ni MD 02/07/2020 2:43 PM | + + + +---------+ + + | Performing | Address | City/State/Zipcode | Phone Number | | Organization | | | | + +---------+ + + | [facility] | | | | | VOICE RECOGNITION 2 | | | | + +---------+ + + documented in this encounter Visit Diagnoses + + | Diagnosis | + + | Low back pain, unspecified back pain laterality, unspecified chronicity, unspecified | | whether sciatica present | + + documented in this encounter"
--- OUTSIDE RECORDS SUMMARY | ~2020-06-03 | XMS | Encounter Summary ---
Demographics + + + | Address | [address] | | | [place] [address] | + + + | Home Phone [...] | Author | [facility] | | | and [place] | + + + | Organization | [facility] | | [...] Team Providers + +------+ + | Care Systems Program Manager Name | Role | Phone | + +------+ + | Lupillo Valdez DO | PCP | | + +------+ + Reason for Visit + +--------+ + | Reason | Onset | Comments | | | Date | | + +--------+ + | Medication Refill | 05/03/ | | | | 2019 | | + +--------+ + Encounter Details +--------+--------+ + + + | Date | Type | Department | Care Team | Description | +--------+--------+ + + + | 05/03/ | Refill | [facility] | Lupillo Valdez | Medication Refill | | 2019 | | [facility] | E, DO [address] | | | | | [facility] [address] | [place], [place] | | | | | [address] [place], | [address] | | | | | [place] [address] | [phone] | | | | | [phone] | | | +--------+--------+ + + + [...] Telephone Encounter - Iza Alva CMA - 05/03/2019 4:39 PM PDT Recent Visits 01/31/2019 Coronary artery disease involving [place] coronary artery of match[place] heart withou t angina pectoris [facility] Courtney, DO Office Visit 01/09/2019 Coronary artery disease involving [place] band coronary artery of [place] heart withou t angina pectoris [facility] Courtney, DO Office Visit 11/24/2018 Hypothyroidism, unspecified type [facility] Lupillo Valdez, DO Office Visit Pharmacy Confirmed:[facility]. Last refill:10/04/18 Iza Alva CMA elephone Encounter - Angela Talbot - 05/03/2019 4:23 PM PDTVALACYCLOVIR (VALTREX) 1G TABLET Pt requesting a refill Pt states she broke out in a fever blister, pt states she is going on a cruise on Wednesday and does not want to deal with this while being away Please send to [facility] in [place] Please call and advise pt Thanks Ariana documented in this en counter [...] [place] | | | | | | [address] | | | | | | [phone] | | | | | | | | +--------+---------+ + + + | 08/14/ | Office | Neurology | Jessica Henry NP | | | 2019 | Visit | | [address] | | | | | | [place] | | | | | | [address] | | | | | | [phone] | | | | | | | | +--------+---------+ + + + documented as of this encounter Visit Diagnoses Not on filedocumented in this encounter"
--- OUTSIDE RECORDS SUMMARY | ~2020-06-03 | XMS | Encounter Summary ---
Demographics + + + | Address | [address] | | | [place] [address] | + + + | Home Phone | | + + + | Preferred Language | Unknown | + + + | Marital Status | Single | + + + | Mu-Ism Affiliation | Unknown | + + + [...] Team Providers + +------+ + | Care Twister Frame Tender Name | Role | Phone | + +------+ + | Lupillo Valdez DO | PCP | | + +------+ + Reason for Visit Auth/Cert +--------+--------+ + + + + | Status | Reason | Specialty | Diagnoses / | Referred By | Referred To | | | | | Procedures | Contact | Contact | +--------+--------+ + + + + | | | | Diagnoses | | | | | | | NSTEMI | | | +--------+--------+ + + + + Encounter Details +--------+ + + + + | Date | Type | Department | Care Team | Description | +--------+ + + + + | 12/28/ | Hospital | [facility] | Jeny Armstrong | NSTEMI (non-ST | | 2019 - | Encounter | [facility] [address] | MD Pepe [address] | elevated myocardial | | | | [place], | [address] [place] | infarction) ([facility]); | | 12/30/ | | [place] [address] | [place] [address] | Nonintractable | | 2019 | | [phone] | [phone] | epilepsy without | | | | | | status epilepticus, | | | | | | unspecified epilepsy | | | | | | type ([facility]); | | | | | | Restless leg | | | | | | syndrome; Essential | | | | | | hypertension; | | | | | | Hypothyroidism, | | | | | | unspecified type; | | | | | | Gastroesophageal | | | | | | reflux disease, | | | | | | esophagitis presence | | | | | | not specified | +--------+ + + + + Social [...] + + + | Blood Pressure | 108/76 | 12/30/2018 11:21 AM | | | | | PDT | | + + + + + | Pulse | 57 | 12/30/2018 11:21 AM | | | | | PDT | | + + + + + | Temperature | 36.5 C (97.7 F) | 12/30/2018 11:21 AM | | | | | PDT | | + + + + + | Respiratory Rate | 11 | 12/30/2018 11:21 AM | | | | | PDT | | + + + + + | Oxygen Saturation | 95% | 12/30/2018 11:21 AM | | | | | PDT | | + + + + + | Inhaled Oxygen | - | - | | | Concentration | | | | + + + + + | Weight | 107.5 kg (237 lb) | 12/30/2018 8:07 AM | | | | | PDT | | + + + + + | Height | 167.6 cm (5' 6") | 12/28/2018 7:39 PM | | | | | PDT | | + + + + + | Body Mass Index | 38.25 | 12/28/2018 7:39 PM | | | | | PDT | | + + + + + documented in this encounter Discharge Summaries Nick Ryan MD - 12/30/2018 10:58 AM PDTFormatting of this note might be different fro m the original. [facility], [place] HOSPITALIST DISCHARGE SUMMARY Pt. Name/Age/: Paula Mcleod 58 y.o. 1960 Date of Admission: 12/28/2018 Date of Discharge: 12/30/2018 Admitting Physician: Jeny Armstrong MD Primary Care Provider: Lupillo Valdez DO Discharging Physician: Nick Ryan MD DISCHARGE DIAGNOSES: Active Hospital Problems Diagnosis NSTEMI (non-ST elevated myocardial infarction) Resolved Hospital Problems Diagnosis No resolved problems to display. DISCHARGE MEDICATIONS: Discharge Medications New Medications Details aspirin 81 MG EC tablet Take 1 tablet by mouth Daily. Start: 12/31/2018 clopidogrel 75 mg tablet Take 1 tablet by mouth Daily. aka: PLAVIX Start: 12/31/2018 metoprolol tartrate 25 mg tablet Take 0.5 tablets by mouth 2 times daily. aka: LOPRESSOR nitroglycerin 0.[address] 1 tablet under the tongue every 5 minutes as needed for Chest pain. May repeat X 2 aka: NITROSTAT Changed Medications Details pramipexole 0.125 MG tablet Take 1 tablet by mouth 3 times daily. What changed: how much to take when to take this aka: MIRAPEX Unchanged Medications Details gabapentin 100 mg capsule Take 1 capsule by mouth 2 times daily. aka: NEURONTIN KEPPRA 750 MG tablet Generic drug: levETIRAcetam Take 750 mg by mouth 2 times daily. levothyroxine 112 mcg tablet every morning (before breakfast). aka: SYNTHROID lisinopril 20 mg tablet Take 1 tablet by mouth Daily. aka: PRINIVIL, ZESTRIL lovastatin 40 MG tablet Take 1 tablet by mouth nightly. aka: MEVACOR pantoprazole 40 mg tablet Take 1 tablet by mouth every morning (before breakfast). aka: PROTONIX Alternative Med Lists (all with hard stops if not reconciled) 1 Dot DCMEDSSUMMARY (for discharge summary) 2 Dot DCMEDSDCRA (signed & held med orders with a discharge readmit phase of care) 3 Dot DCMEDSSNF (intended for SNF transfers) 4 Dot DCMEDSWITHREADMIT (preferred for all discharge summaries as it includes 1 & 2 above u sing 1 for most discharges but 2 when there is and order for discharge readmit) HOSPITAL COURSE: Please refer to the H&P for full details and the most recent rounding rounding (progress) n ote. Syncope (this sounds like seizure) Cleaning bathroom waking up on the toilet side with head over the side counter and left rula ed chest pain, slight confusion X 10 minutes, CP resolved after NTG in [place] ER, later e nroute reoccured resolved with NTG NSTEMI 4th troponin peaked at 1.51 now falling, Dr Cobb plans cath today, chest pain resolved 4th addendum cath today moderate mid LAD stenosis and distally has moderately severe diffus e disease not amenable to intervention (cannot bypass nor stent) , was not able to stent the mid LAD today (she moved much) will will have stress test on Wed and if sig area of ischemi a will attempt to stent the mid LAD. Not need to continue hep gtt Seizure disorder, not new 4th continue Rx, a seizure could have elevated the troponin (however t wave changes did res olve on followup EKG) CPK added on Keppra at 1000 mg bid (TELLER 750 mg bid) PCP is in [place] (he used to be in [place], she has followed with him 25 years) Chronic back pain, disk disease, does physical therapy outpatient Restless leg syndrome 5th interfered with her procedure discussed have her Mirapex and Gabapentin before repeat c ath (if repeat needed) HTN GERD Hypothyroid on Rx Chol 131 HDL 36 LDL 65 TG 139 (dot meyaddendum tdnorefesh nownorefresh) (dot meyvent) (dot malnutattest is attestation for malnutrition) Plan Stress test this morning Clear liquids after injection just in case needs to go to cath later today DVT proph with SCDs and antiplatelets for now Discussed cath results with patient Echo report pending Should have her restless leg meds (gabapentin Mirapex) prior to cath (if cath needed again) Morning labs pending Addendum (12/30/2018 9:33) Tele had some brief PSVT (probably not AF) K and Mg OK this morning and Cr 0.77 Addendum (12/30/2018 10:38) Stress test OK per Dr Cobb so low risk, not need holter monitor at this point he will rec onsider that though in office appt goal 2-4 weeks. Patient is "certain" did not have seizure as did not have her typical post ictal symptomes. Regular activity discussed Will need statin, ASA, Plavix 6 months, discussed lipitor more beneficial than lovastatin, she wants to return to her usual Keppra dose. She declined letting me change her to lipitor generic. Also using low dose beta caio as mild SB. No notes on file Most recent weight: Input and output for last 24hrs: Wt Readings from Last 1 Encounters: 12/30/18 107.5 kg (237 lb) I/O last 24 Hours: In: 850 [P.O.:850] Out: 1100 [Urine:1100] Vitals Ranges: Temp: [36.2 C (97.2 F)-37.1 C (98.8 F)] 36.6 C (97.9 F) Pulse: [54-70] 54 Resp: [12-18] 13 BP: (87-151)/(50-97) 117/80 Vitals: Temp: 36.6 C (97.9 F) BP: 117/80 Pulse: 54 Resp: 13 SpO2: 98 % SpO2 98 % on nasal cannula at flow rate 4L/min PHYSICAL EXAM: Patient seen and examined by me on discharge day PROCEDURES AND CONSULTS: Procedures Consults PENDING RESULTS: DISPOSITION AND DISCHARGE INSTRUCTIONS: Follow-up Information Schedule an appointment as soon as possible for a visit with Lupillo Valdez DO. Specialty: Family Medicine Why: See early next week Contact information: [address] [facility] [address] Call Nick Cobb MD. Specialties: Interventional Cardiology, Cardiology Why: Make appt to see him for 2-4 weeks from now Contact information: [address] [facility] [address] Condition: Patient being discharged with condition improved Do NOT drive vehicle until released by your PCP Can resume usual activities otherwise Talk to your PCP about using generic lipitor instead of lovastatin Get refills on meds from PCP. The plavix should continue for 6 months. Greater than 30 minutes were spent on discharge and coordination of post-hospital care. (terry pereira) Electronically signed by: Nick Ryan MD, 12/30/2018 11:00 [facility] Reference. This is NOT part of the patient's formal assessment section. In the assessment or plan section of notes the author may date some of the subsections with a number such as "" or "23" to indicate the date of that entry or event. In the example below the 1st line is the original entry and the subsequent lines indicate flowing updates to the subsection: Example assessment subsection (such as CHF or CP or Pneumonia) 23 Patient is improved today with resolution of symptoms 24th Worse with recurrence of symptoms requiring further testing Portions of this chart may have been created with [employer]ime[employer] voice recognition software. Occasi onal wrong-word or sound-alike substitutions may have occurred due to the inherent colon itations of voice recognition software. Please read the chart carefully and recognize, using context, where these substitutions have occurred documented in this en counter Discharge Instructions Instructions Nick Ryan MD - 12/29/2018Do NOT drive vehicle until released by your PC P Can resume usual activities otherwise Talk to your PCP about using generic lipitor instead of lovastatin Get refills on meds from PCP. The plavix should continue for 6 months. AttachmentsThe following attachments cannot be sent through Care Everywhere.Heart Attack, D ischarge Instructions for (Australian)Clopidogrel tablets (Australian)Aspirin, ASA oral tablets (E nglish)Metoprolol tablets (Australian)documented in this encounter Medications at Time of Discharge [...] + + + +---------+ + + | clopidogrel | Take 1 tablet by | 30 | 0 | 01/01/20 | | | (PLAVIX) 75 mg | mouth Daily. | tablet | | 19 | 9 [...] tablet by | 90 | 0 | 12/20/19 | | | (MEVACOR) 40 MG | mouth nightly. | tablet | | 19 | 9 | | tablet | | | | | | + + + +---------+ + + | metoprolol | Take 0.5 tablets by | 30 | 0 | 12/31/19 | | | tartrate (LOPRESSOR) | mouth 2 times daily. | tablet | | 19 | 9 | | 25 mg tablet | | | | | | + + + +---------+ + + | pantoprazole | Take 1 tablet by | 90 | 3 | 12/03/19 | | | (PROTONIX) 40 mg | mouth every morning | tablet | | 19 | 9 [...] documented as of this encounter Progress Notes Nick Cobb MD - 12/30/2018 10:25 AM PDT PATIENT NAME: Paula Mcleod : 1960: AGE: 58 y.o. ADMISSION DATE: 12/28/2018 HOSPITAL DAY NUMBER: [id number] PRIMARY CARE: Lupillo Valdez DO CARDIOLOGY PROGRESS NOTE The patient has had no complaints of chest discomfort over the past 24 hours. Today the santhosh cohen underwent a vasodilator nuclear myocardial perfusion stress study which showed normal myocardial perfusion with no evidence of inducible ischemia. Her left ventricular systolic function on the nuclear ventriculogram was normal. The patient has severe diffuse disease i n a small caliber posterior descending artery off the right coronary artery and moderate dif fuse disease of the distal one third of her LAD which supplies the distal inferior wall. Th e patient has a small fistulous branch arising from the left main coronary artery connecting to the main pulmonary artery resulting in a small left to right AV shunt. The patient has had no ventricular dysrhythmia on telemetry. MEDICATIONS: Current Facility-Administered Medications Medication Dose Route Frequency Provider Last Rate Last Dose aluminum & magnesium hydroxide-simethicone (MAALOX PLUS REGULAR STRENGTH) 200-200-20 mg /5 mL suspension 30 mL 30 mL Oral Q4H PRN Jeny Armstrong MD aspirin EC tablet 81 mg 81 mg Oral Daily Jeny Armstrong MD 81 mg at 12/30/18 0 810 atorvaSTATin (LIPITOR) tablet 80 mg 80 mg Oral Nightly Nick Cobb MD 80 mg at 202 clopidogrel (PLAVIX) tablet 75 mg 75 mg Oral Daily Nick Cobb MD 75 mg at 0810 gabapentin (NEURONTIN) capsule 100 mg 100 mg Oral BID Nick Ryan MD 100 mg at 0 12/29/182021 ketorolac (TORADOL) injection 15 mg 15 mg Intravenous Q8H PRN Jeny Armstrong MD 15 mg at 12/29/18 0617 levETIRAcetam (KEPPRA) tablet 1,000 mg 1,000 mg Oral BID Jeny Armstrong MD 1,0 00 mg at 12/30/18 0810 levothyroxine (SYNTHROID) tablet 112 mcg 112 mcg Oral QAM AC Jeny Armstrong MD 112 mcg at 12/30/18 0648 lisinopril (PRINIVIL,ZESTRIL) tablet 2.5 mg 2.5 mg Oral Daily Jeny Armstrong MD 2.5 mg at 12/30/18 0809 melatonin tablet 3 mg 3 mg Oral Nightly PRN Jeny Armstrong MD metoprolol tartrate (LOPRESSOR) tablet 25 mg 25 mg Oral BID Nick Cobb MD Stoppe d at 12/30/18 0812 nitroglycerin (NITROSTAT) SL tablet 0.4 mg 0.4 mg Sublingual Q5 Min PRN Jeny Armstrong MD 0.4 mg at 12/29/18 1126 ondansetron (ZOFRAN) injection 4 mg 4 mg Intravenous Q6H PRN Jeny Armstrong MD pantoprazole (PROTONIX) DR tablet 40 mg 40 mg Oral QAM AC Jeny Armstrong MD 40 mg at 12/30/18 0648 polyethylene glycol (MIRALAX) powder 17 g 17 g Oral Daily PRN Jeny Armstrong MD pramipexole (MIRAPEX) tablet 0.375 mg 0.375 mg Oral Nightly Nick Ryan MD senna (SENOKOT) tablet 8.6 mg 8.6 mg Oral BID PRN Jeny Armstrong MD ALLERGIES Allergies Allergen Reactions Acetaminophen Anaphylaxis Codeine Sulfate Anaphylaxis Demerol Anaphylaxis Hydrocodone-Acetaminophen Anaphylaxis Morphine Sulfate Anaphylaxis Oxycodone Anaphylaxis Penicillin V Potassium Anaphylaxis PHYSICAL EXAM Vital signs: Vitals: 12/30/18 0700 BP: 117/80 Pulse: 54 Resp: 13 Temp: 36.6 C (97.9 F) Admit Weight: Weight: 106.8 kg (235 lb 7.2 oz) Current weight: Weight: 107.5 kg (237 lb ) Body mass index is 38.25 kg/m. General: Alert, resting comfortably Chest: Clear Cardiovascular: Nondisplaced apical impulse, regular rhythm, no S3, jugular venous pressure normal Gastrointestinal: Abdomen soft, non-tender, normal bowel sounds Extremities: No edema Neuro: within normal LABS: Admission on 12/28/2018 Component Date Value Ref Range Status Culture 12/28/2018 1+ Staphylococcus aureus,Methicillin resistant (MRSA) Final *INFECTION PREVENTION ALERT - MRSA* CONTACT PRECAUTIONS REQUIRED. Na 12/29/2018 136 136 - 145 mmol/L Final K 12/29/2018 3.9 3.4 - 5.1 mmol/L Final Cl 12/29/2018 105 98 - 107 mmol/L Final CO2 12/29/2018 25 20 - 31 mmol/L Final Anion Gap 12/29/2018 6 3 - 16 mmol/L Final Glucose 12/29/2018 126* 60 - 106 mg/dL Final BUN 12/29/2018 11 9 - 23 mg/dL Final Creatinine 12/29/2018 0.76 0.55 - 1.02 mg/dL Final eGFR if not 12/29/2018 >60 >=60 mL/min/1.73m2 Final Ca 12/29/2018 9.5 8.7 - 10.4 mg/dL Final BUN/Creatinine Ratio 12/29/2018 14.5 Final WBC 12/29/2018 7.8 4.0 - 11.0 K/uL Final RBC 12/29/2018 4.49 3.70 - 5.20 M/uL Final Hemoglobin 12/29/2018 13.1 11.5 - 16.0 g/dL Final Hematocrit 12/29/2018 40.4 34.0 - 47.0 % Final MCV 12/29/2018 90.0 83.0 - 101.0 fL Final MCH 12/29/2018 29.2 28.0 - 35.0 pg Final MCHC 12/29/2018 32.4 32.0 - 36.0 g/dL Final RDW-CV 12/29/2018 12.7 <15.0 % Final RDW-SD 12/29/2018 41.9 35.1 - 46.3 fL Final Platelet Count 12/29/2018 206 140 - 440 K/uL Final MPV 12/29/2018 9.7 6.5 - 12.4 fL Final % nRBC 12/29/2018 0 0 - 2 per 100 WBCs Final Absolute nRBC 12/29/2018 0.00 0.00 - 0.01 K/uL Final BASELINE BLOOD PRESSURE 12/29/2018 121/74 mmHg Final Patient Weight (lbs) 12/29/2018 238 Final Patient Height 12/29/2018 5'6" Final LVIDd 12/29/2018 5.47 cm Final FS 12/29/2018 35 % Final LA volume 12/29/2018 78.03 mL Final Ascending aorta 12/29/2018 3.66 cm Final Aortic arch 12/29/2018 3.03 cm Final AV mean gradient 12/29/2018 9.29 mmHg Final Aortic Valve Area by Continuity VTI 12/29/2018 1.56 cm2 Final MV Area by P 1/2 method 12/29/2018 3.29 cm2 Final IVRT 12/29/2018 145.33 msec Final LVOT diameter 12/29/2018 1.98 cm Final LVOT peak ganesh 12/29/2018 97.87 cm/s Final LVOT peak VTI 12/29/2018 26.54 cm Final AV peak ganesh 12/29/2018 204.43 cm/s Final AV VTI 12/29/2018 52.37 cm Final AV peak gradient 12/29/2018 16.72 mmHg Final MV Pressure 1/2 time 12/29/2018 66.88 msec Final LA Volume Index 12/29/2018 36 mL/m2 Final AV LVOT Peak Gradient 12/29/2018 3.83 mmHg Final AV LVOT Mean Gradient 12/29/2018 2.38 mmHg Final LV Diastolic Length 4C 12/29/2018 7.8 cm Final LV Ackerman's Biplane EF 12/29/2018 65 % Final LV ED Volume (Ackerman's) 12/29/2018 82.13 ml Final LV ED Volume Index 12/29/2018 38 ml/m2 Final LV ES Volume 12/29/2018 29.53 ml Final LVOT Mean Velocity 12/29/2018 72.35 cm/s Final MV E' Septal Velocity 12/29/2018 6 cm/s Final MV Deceleration Richardson 12/29/2018 341.15 cm/s2 Final MV Deceleration Time 12/29/2018 230.62 msec Final MV E/A Ratio 12/29/2018 0.97 Final MV Peak A-Wave 12/29/2018 81.23 cm/s Final MV Peak E-Wave 12/29/2018 78.68 cm/s Final AV Mean Velocity 12/29/2018 144.14 cm/s Final LA/Aorta Ratio 12/29/2018 1.39 Final MV E/E SEPTAL 12/29/2018 13.11 Final LA Major 12/29/2018 0.5237 cm Final LV ES Volume Index 12/29/2018 14 ml/m2 Final Aortic Root Diameter 12/29/2018 3.08 cm Final IVS Diastolic Thickness MM 12/29/2018 0.94 cm Final LVPW Diastolic Thickness MM 12/29/2018 1.04 cm Final IVS Systolic Thickness MM 12/29/2018 1.1 cm Final LV Systolic Diameter MM 12/29/2018 3.57 cm Final LVPW Systolic Thickness MM 12/29/2018 1.45 cm Final AV Cusp Seperation MM 12/29/2018 2.07 cm Final LA Systolic Diameter MM 12/29/2018 4.28 cm Final TAPSE 12/29/2018 2.1 cm Final LVEF-TTE TRANSTHORACIC ECHO 12/29/2018 55 % Final Triglycerides 12/29/2018 139 <=150 mg/dL Final Cholesterol 12/29/2018 131 <=200 mg/dL Final HDL 12/29/2018 38* 40 - 60 mg/dL Final Chol/HDL Ratio 12/29/2018 3.4 Final LDL, Calculated 12/29/2018 65 <=130 mg/dL Final Hemoglobin A1c 12/29/2018 5.3 4.3 - 6.0 % Final Estimated Average Glucose 12/29/2018 105 mg/dL Final Troponin I 12/28/2018 1.51* <0.06 ng/mL Final New method in use as of November 23, 2018. Check reference range for changes. Some analytes show significant variation from the previous method. It may be necessary to set a new baseline for this analyte. Critical Result called to and read back by Claus Avery on 12/28/2018 at 22:48 by Flavio alan. Troponin I 12/29/2018 0.96* <0.06 ng/mL Final New method in use as of November 23, 2018. Check reference range for changes. Some analytes show significant variation from the previous method. It may be necessary to set a new baseline for this analyte. Consistent with previous results. VENTRICULAR RATE EKG 12/28/2018 73 BPM Final-Edited ATRIAL RATE 12/28/2018 73 BPM Final-Edited P-R INTERVAL 12/28/2018 160 ms Final-Edited QRS DURATION 12/28/2018 86 ms Final-Edited Q-T INTERVAL 12/28/2018 458 ms Final-Edited Q-T INTERVAL (CORRECTED) 12/28/2018 504 ms Final-Edited P WAVE AXIS 12/28/2018 44 degrees Final-Edited QRS AXIS 12/28/2018 59 degrees Final-Edited T AXIS 12/28/2018 108 degrees Final-Edited INTERPRETATION TEXT 12/28/2018 Final-Edited Value:Normal sinus rhythm T wave abnormality, consider lateral ischemia Anterior T wave abnormalities vs artifact: cannot exclude ischemia Long QTc Abnormal ECG No previous ECGs available Reconfirmed by ALONDRA LOBO, KURTIS ([id number]) on 12/29/2018 6:50:04 AM aPTT 12/28/2018 32 22 - 36 seconds Final Prothrombin Time 12/28/2018 13.2 11.3 - 13.9 seconds Final INR 12/28/2018 1.0 0.9 - 1.1 Final Usual Oral Anticoagulation Range: 2.0 - 3.0 High Level Oral Anticoagulation Range: 2.5 - 3.5 Heparin Anti-Xa 12/28/2018 0.94 IU/mL Final Troponin I 12/29/2018 0.60* <0.06 ng/mL Final New method in use as of November 23, 2018. Check reference range for changes. Some analytes show significant variation from the previous method. It may be necessary to set a new baseline for this analyte. VENTRICULAR RATE EKG 12/29/2018 62 BPM Final ATRIAL RATE 12/29/2018 62 BPM Final P-R INTERVAL 12/29/2018 160 ms Final QRS DURATION 12/29/2018 84 ms Final Q-T INTERVAL 12/29/2018 470 ms Final Q-T INTERVAL (CORRECTED) 12/29/2018 477 ms Final P WAVE AXIS 12/29/2018 46 degrees Final QRS AXIS 12/29/2018 57 degrees Final T AXIS 12/29/2018 113 degrees Final INTERPRETATION TEXT 12/29/2018 Final Value:Normal sinus rhythm T wave abnormality, consider lateral ischemia Long QTc Abnormal ECG When compared with ECG of 28-DEC-2018 21:51, (Unconfirmed) T wave abnormalities in anterior leads are no longer present Confirmed by KURTIS CANTU MD ([id number]) on 12/29/2018 6:49:49 AM VENTRICULAR RATE EKG 12/29/2018 60 BPM Final ATRIAL RATE 12/29/2018 60 BPM Final P-R INTERVAL 12/29/2018 160 ms Final QRS DURATION 12/29/2018 84 ms Final Q-T INTERVAL 12/29/2018 492 ms Final Q-T INTERVAL (CORRECTED) 12/29/2018 492 ms Final P WAVE AXIS 12/29/2018 43 degrees Final QRS AXIS 12/29/2018 49 degrees Final T AXIS 12/29/2018 128 degrees Final INTERPRETATION TEXT 12/29/2018 Final Value:Normal sinus rhythm T wave abnormality, consider lateral ischemia Long QTc Abnormal ECG When compared with ECG of 29-DEC-2018 03:40, Inverted Twaves are more prominent in V2 There is new T wave flattening in leads V4-6 T wave inversions are more prominent in leads I and aVL Confirmed by KURTIS CANTU MD ([id number]) on 12/30/2018 6:46:42 AM aPTT 12/29/2018 82* 22 - 36 seconds Final aPTT 12/29/2018 99* 22 - 36 seconds Final CK TOTAL 12/29/2018 273* 34 - 145 U/L Final BASELINE HEART RATE 12/30/2018 58 bpm In process BASELINE BLOOD PRESSURE 12/30/2018 127/70 mmHg In process PEAK HEART RATE 12/30/2018 69 In process PEAK BLOOD PRESSURE 12/30/2018 142/69 mmHG In process Target HR 12/30/2018 138 In process Percent HR 12/30/2018 43 In process WBC 12/30/2018 7.0 4.0 - 11.0 K/uL Final RBC 12/30/2018 4.39 3.70 - 5.20 M/uL Final Hemoglobin 12/30/2018 13.2 11.5 - 16.0 g/dL Final Hematocrit 12/30/2018 39.0 34.0 - 47.0 % Final MCV 12/30/2018 88.8 83.0 - 101.0 fL Final MCH 12/30/2018 30.1 28.0 - 35.0 pg Final MCHC 12/30/2018 33.8 32.0 - 36.0 g/dL Final RDW-CV 12/30/2018 12.8 <15.0 % Final RDW-SD 12/30/2018 41.9 35.1 - 46.3 fL Final Platelet Count 12/30/2018 231 140 - 440 K/uL Final MPV 12/30/2018 9.5 6.5 - 12.4 fL Final % nRBC 12/30/2018 0 0 - 2 per 100 WBCs Final Absolute nRBC 12/30/2018 0.00 0.00 - 0.01 K/uL Final Extra Green Top Tube 12/30/2018 Done Final Activated Clotting Time, POC 12/29/2018 228* 125 - 175 second(s) Final WBC 12/30/2018 6.3 4.0 - 11.0 K/uL Final RBC 12/30/2018 4.29 3.70 - 5.20 M/uL Final Hemoglobin 12/30/2018 13.1 11.5 - 16.0 g/dL Final Hematocrit 12/30/2018 38.3 34.0 - 47.0 % Final MCV 12/30/2018 89.3 83.0 - 101.0 fL Final MCH 12/30/2018 30.5 28.0 - 35.0 pg Final MCHC 12/30/2018 34.2 32.0 - 36.0 g/dL Final RDW-CV 12/30/2018 12.8 <15.0 % Final RDW-SD 12/30/2018 41.6 35.1 - 46.3 fL Final Platelet Count 12/30/2018 194 140 - 440 K/uL Final MPV 12/30/2018 9.3 6.5 - 12.4 fL Final % nRBC 12/30/2018 0 0 - 2 per 100 WBCs Final Absolute nRBC 12/30/2018 0.00 0.00 - 0.01 K/uL Final Na 12/30/2018 135* 136 - 145 mmol/L Final K 12/30/2018 4.2 3.4 - 5.1 mmol/L Final Cl 12/30/2018 104 98 - 107 mmol/L Final CO2 12/30/2018 26 20 - 31 mmol/L Final Anion Gap 12/30/2018 5 3 - 16 mmol/L Final Glucose 12/30/2018 107* 60 - 106 mg/dL Final BUN 12/30/2018 9 9 - 23 mg/dL Final Creatinine 12/30/2018 0.77 0.55 - 1.02 mg/dL Final eGFR if not 12/30/2018 >60 >=60 mL/min/1.73m2 Final Ca 12/30/2018 9.5 8.7 - 10.4 mg/dL Final BUN/Creatinine Ratio 12/30/2018 11.7 Final Magnesium 12/30/2018 2.1 1.6 - 2.6 mg/dL Final IMAGING: No results found. DIAGNOSES AND ASSESSMENTS: 1. Syncope: Etiology of syncope is unclear. Patient has no evidence of inducible myocardia l ischemia and overall normal left ventricular systolic function though she has anterior wal l motion abnormality on her echocardiogram. The possibility of her seizure disorder causing her syncope has not been excluded. The patient will be treated with beta caio therapy 2. Acute non-ST elevation myocardial infarction: The patient has severe diffuse right poste rior sending artery disease and a small caliber vessel that was not amenable to revasculariz ation. She has moderate diffuse distal LAD disease and a long segment and mild mid LAD dise ase. Given that there is no inducible ischemia on her stress study. The patient will be tr eated with dual antiplatelet therapy with aspirin and clopidogrel for minimum 6 months, stat in therapy, and beta caio therapy. PLAN OR RECOMMENDATIONS: Aspirin and clopidogrel for 6 months, then aspirin 81 mg daily indefinitely Continue metoprolol and lisinopril, continue atorvastatin Cardiology clinic follow-up 2-4 weeks Seek medical care if recurrent syncope or recurrent angina I appreciate the opportunity of participating in the care of this patient. Nick Cobb MD,[facility], 12/30/2018 10:25 eyer, Nick Bean MD - 12/30/2018 7:06 AM PDT [place], [place] HOSPITALIST PROGRESS NOTE Patient: Paula Mcleod : 1960: Age: 58 y.o. MedRec: [id number] PCP: Lupillo Valdez DO Admission date: 12/28/2018 Hospital day # : 2 Physician author: Nick Ryan MD Today: 12/30/2018 Assessment and Hospital Course (dot meyprob vs meyprobap) Hospital Course Note No notes on file Active Hospital Problems Diagnosis NSTEMI (non-ST elevated myocardial infarction) Resolved Hospital Problems Diagnosis No resolved problems to display. Syncope (this sounds like seizure) Cleaning bathroom waking up on the toilet side with head over the side counter and left rula ed chest pain, slight confusion X 10 minutes, CP resolved after NTG in [place] ER, later e nroute reoccured resolved with NTG NSTEMI 4th troponin peaked at 1.51 now falling, Dr Cobb plans cath today, chest pain resolved 4th addendum cath today moderate mid LAD stenosis and distally has moderately severe diffus e disease not amenable to intervention (cannot bypass nor stent) , was not able to stent the mid LAD today (she moved much) will will have stress test on Wed and if sig area of ischemi a will attempt to stent the mid LAD. Not need to continue hep gtt Seizure disorder, not new 4th continue Rx, a seizure could have elevated the troponin (however t wave changes did res olve on followup EKG) CPK added on Keppra at 1000 mg bid (TELLER 750 mg bid) PCP is in [place] (he used to be in [place], she has followed with him 25 years) Chronic back pain, disk disease, does physical therapy outpatient Restless leg syndrome 5th interfered with her procedure discussed have her Mirapex and Gabapentin before repeat c ath (if repeat needed) HTN GERD Hypothyroid on Rx Chol 131 HDL 36 LDL 65 TG 139 (dot meyaddendum tdnorefesh nownorefresh) (dot meyvent) (dot malnutattest is attestation for malnutrition) Plan Stress test this morning Clear liquids after injection just in case needs to go to cath later today DVT proph with SCDs and antiplatelets for now Discussed cath results with patient Echo report pending Should have her restless leg meds (gabapentin Mirapex) prior to cath (if cath needed again) Morning labs pending Addendum (12/30/2018 9:33) Tele had some brief PSVT (probably not AF) K and Mg OK this morning and Cr 0.77 Addendum (12/30/2018 10:38) Stress test OK per Dr Cobb so low risk, not need holter monitor at this point he will rec onsider that though in office appt goal 2-4 weeks. Patient is "certain" did not have seizure as did not have her typical post ictal symptomes. Regular activity discussed Will need statin, ASA, Plavix 6 months, discussed lipitor more beneficial than lovastatin, she wants to return to her usual Keppra dose. She declined letting me change her to lipitor generic. Also using low dose beta caio as mild SB. (dot meyaddendum tdnorefesh nownorefresh) (dot meytime meycritical meysign) Nick Ryan MD 12/30/2018 7:06 [facility] Subjective CC TFER from [facility] Cath yesterday Stress test today planned No NV SOB CP ROS See above Objective Exam General Alert NAD Cardiac RRR no MRG Extremities Lung clear not labored Abdominal + BS soft NT Neuro alert fluent (dot meyexam) (dot meyvent) Serial weights: Filed Weights: 12/28/18 1939 12/29/18 0225 12/30/18 0345 Weight: 106.8 kg (235 lb 7.2 oz) 108 kg (238 lb 1.6 oz) 107.7 kg (237 lb 7 oz) Most recent weight: Input and output 2 shifts and 3 shifts: Wt Readings from Last 1 Encounters: 12/30/18 107.7 kg (237 lb 7 oz) I/O last 24 Hours: In: 850 [P.O.:850] Out: 1100 [Urine:1100] I/O last 3 completed shifts: In: 1390 [P.O.:1250; I.V.:140] Out: 1950 [Urine:1950] Vitals Ranges: Temp: [36.2 C (97.2 F)-37.1 C (98.8 F)] 36.5 C (97.7 F) Pulse: [55-71] 55 Resp: [12-18] 14 BP: (87-151)/(50-97) 101/60 Vitals: Temp: 36.5 C (97.7 F) BP: 101/60 Pulse: 55 Resp: 14 SpO2: 97 % SpO2 97 % on nasal cannula at flow rate 4L/min Diet and Supplements Diet Diet NPO; strict NPO; Effective Midnight Number of Occurrences: Until Specified Order Questions: Type Diet NPO NPO conditions strict NPO Objective Data Allergies: Allergies Allergen Reactions Acetaminophen Anaphylaxis Codeine Sulfate Anaphylaxis Demerol Anaphylaxis Hydrocodone-Acetaminophen Anaphylaxis Morphine Sulfate Anaphylaxis Oxycodone Anaphylaxis Penicillin V Potassium Anaphylaxis Current Medications: Current Facility-Administered Medications Medication Dose Route Frequency Provider Last Rate Last Dose aluminum & magnesium hydroxide-simethicone (MAALOX PLUS REGULAR STRENGTH) 200-200-20 mg /5 mL suspension 30 mL 30 mL Oral Q4H PRN Jeny Armstrong MD aspirin EC tablet 81 mg 81 mg Oral Daily Jeny Armstrong MD 81 mg at 12/29/18 0 802 atorvaSTATin (LIPITOR) tablet 80 mg 80 mg Oral Nightly Nick Cobb MD 80 mg at 2022 clopidogrel (PLAVIX) tablet 75 mg 75 mg Oral Daily Nick Cobb MD gabapentin (NEURONTIN) capsule 100 mg 100 mg Oral BID Nick Ryan MD 100 mg at 0 12/29/182021 ketorolac (TORADOL) injection 15 mg 15 mg Intravenous Q8H PRN Jeyn Armstrong MD 15 mg at 12/29/18616 levETIRAcetam (KEPPRA) tablet 1,000 mg 1,000 mg Oral BID Jeny Armstrong MD 1,0 00 mg at 12/29/182021 levothyroxine (SYNTHROID) tablet 112 mcg 112 mcg Oral QAM Jeny Armstrong MD 112 mcg at 12/30/18 0648 lisinopril (PRINIVIL,ZESTRIL) tablet 2.5 mg 2.5 mg Oral Daily Jeny Armstrong MD 2.5 mg at 12/29/18 0801 melatonin tablet 3 mg 3 mg Oral Nightly PRN Jeny Armstrong MD metoprolol tartrate (LOPRESSOR) tablet 25 mg 25 mg Oral BID Nick Cobb MD 25 mg at 12/29/182021 nitroglycerin (NITROSTAT) SL tablet 0.4 mg 0.4 mg Sublingual Q5 Min PRN Jeny Armstrong MD 0.4 mg at 12/29/18 1126 ondansetron (ZOFRAN) injection 4 mg 4 mg Intravenous Q6H PRN Jeny Armstrong MD pantoprazole (PROTONIX) DR tablet 40 mg 40 mg [facility] Armstrong MD 40 mg at 12/30/18 0648 polyethylene glycol (MIRALAX) powder 17 g 17 g Oral Daily PRN Jeny Armstrong MD pramipexole (MIRAPEX) tablet 0.375 mg 0.375 mg Oral Nightly Nick Ryan MD senna (SENOKOT) tablet 8.6 mg 8.6 mg Oral BID PRN Jeny Armstrong MD Current Infusions: Hematology and anemia Recent Labs Lab 12/30/18 0341 12/29/18 0327 WBC 7.0 7.8 HGB 13.2 13.1 HCT 39.0 40.4 PLT 231 206 Recent Labs Lab 12/29/18 1254 12/29/18 0556 12/28/18 2336 PROTIME -- -- 13.2 INR -- -- 1.0 PTT 99* 82* 32 No results for input(s): IRON, TIBC, PCTSAT, FERRITIN, TSH, [id number], FOLATE in the last 168 hours. Inflammatory markers No results for input(s): LACTATE, PROCALCITONI, CRP, ESR in the last 168 hours. Chemistry Recent Labs Lab 12/29/18 0327 GLU 126* NA 136 K 3.9 CL 105 CO2 25 ANIONGAP 6 BUN 11 CREA 0.76 GFRNONAA >60 CALCIUM 9.5 No results for input(s): MG, PHOS in the last 168 hours. No results for input(s): AMYLASE, LIPASE in the last 168 hours. Recent Labs Lab 12/29/18 032 TRIG 139 CHOL 131 HDL 38* LDL 65 No results for input(s): AMMONIA in the last 168 hours. Cardiology & Digoxin Recent Labs Lab 12/29/18 0755 12/29/18 0327 12/28/18 2217 TROPONIN 0.60* 0.96* 1.51* CK -- 273* -- ABG No results for input(s): PHART, PO2ART, KDT5CKV, LLF7QNM, BEART, [id number] in the last 168 h ours. No results for input(s): SPECSOURCE, PHPOCB, PCO2, PO2, HCO3, TCO2, BEART, [id number] in the last 168 hours. Drug of overdose and abuse No results for input(s): ALCOHOL, ACTMN, SALICYLATE in the last 168 hours. No results for input(s): AMPHEQUAL, BARBITURATE, BENZSCR, CANNIBSCR, AMPHETAMINE, METHADSCR , OPIATESCR in the last 168 hours. Urinalysis No results for input(s): GLUCOSEU, WBCUA, RBCUA, SQUAMEPIUA, BACTERIAUA, CULTIF in the last 168 hours. Point of care glucose No results for input(s): POCGLU in the last 168 hours. Micro results more choices using dot micro (below is last 7 days) Microbiology Results (Last 7) Date with Culture/Sensitivity) Procedure Component Value Units Date/Time Culture, MRSA [[id number]] Collected: 12/28/182023 Order Status: Sent Lab Status: In process Updated: 12/28/182053 Specimen: Tissue from Nares Radiology results (more choices using dot risresults) No results found. Reference. This is NOT part of the patient's formal assessment section. In the assessment or plan section of notes the author may date some of the subsections with a number such as "23" or "23" to indicate the date of that entry or event. In the example below the 1st line is the original entry and the subsequent lines indicate flowing updates to the subsection: Example assessment subsection (such as CHF or CP or Pneumonia) 23rd Patient is improved today with resolution of symptoms 24th Worse with recurrence of symptoms requiring further testing Portions of this chart may have been created with iCrimefighter voice recognition software. Occasi onal wrong-word or sound-alike substitutions may have occurred due to the inherent colon itations of voice recognition software. Please read the chart carefully and recognize, using context, where these substitutions have occurred Nick Mckeon MD - 12/29/2018 4:42 PM PDTINTERVAL CARDIOLOGY PROGRESS NOTE Patient underwent diagnostic coronary arteriography today was found to have a codominant ci rculation with the long LAD which supplied the apex and distal inferior segments. The dista l to apical LAD segment had moderately severe diffuse disease. There is a moderate mid vess el stenosis prior to a large diagonal branch with moderate to severe LAD tortuosity. We att empted to perform fractional flow reserve measurements across the mid LAD stenosis however t he patient was intolerant of lying flat and there were other factors including poor guiding catheter support and prolonged procedure time passing the wire into the distal LAD that even tually led us to abort further attempts at FFR of the mid LAD. The patient will have a vasodilator myocardial perfusion stress study tomorrow to assess fo r inducible anterior ischemia. If there is a large area of anterior ischemia involving the territory fed by the mid LAD, the patient will undergo mid LAD PCI during this admission. H er heparin will be discontinued today. She will be started on dual antiplatelet therapy int ensive statin therapy and continuation oral beta caio therapy. ilagros Duong RN - 12/29/2018 11:28 AM PDTP t c/o chest pain on right side of chest. Describes it as if someone is thumping on the insi de of her chest. NTG given. 11 :29 AM Nick Whyte MD - 12/29/2018 7:05 AM PDTFormatting of this note might be diff erent from the original. [facility] [place] HOSPITAL[facility] PROGRESS NOTE Patient: Paula Cohen Prock : 1960: Age: 58 y.o. MedRec: [id number] PCP: Lupillo Valdez DO Admission date: 12/28/2018 Hospital day # : 1 Physician author: Nick Ryan MD Today: 12/29/2018 Assessment and Hospital Course (dot meyprob vs meyprobap) Hospital Course Note No notes on file Active Hospital Problems Diagnosis NSTEMI (non-ST elevated myocardial infarction) Resolved Hospital Problems Diagnosis No resolved problems to display. Syncope (this sounds like seizure) Cleaning bathroom waking up on the toilet side with head over the side counter and left rula ed chest pain, slight confusion X 10 minutes, CP resolved after NTG in [place] ER, later e nroute reoccured resolved with NTG NSTEMI 4th troponin peaked at 1.51 now falling, Dr Cobb plans cath today, chest pain resolved 4th addendum cath today moderate mid LAD stenosis and distally has moderately severe diffus e disease not amenable to intervention (cannot bypass nor stent) , was not able to stent the mid LAD today (she moved much) will will have stress test on Wed and if sig area of ischemi a will attempt to stent the mid LAD. Not need to continue hep gtt Seizure disorder, not new 4th continue Rx, a seizure could have elevated the troponin (however t wave changes did res olve on followup EKG) CPK added on PCP is in [place] (he used to be in [place], she has followed with him 25 years) Chronic back pain, disk disease, does physical therapy outpatient HTN GERD Hypothyroid on Rx Chol 131 HDL 36 LDL 65 TG 139 (dot meyaddendum tdnorefesh nownorefresh) (dot meyvent) (dot malnutattest is attestation for malnutrition) Plan Cath today Dr Cobb To get morning meds exclude beta caio just in case changes to stress test CPK add on Addendum (12/29/2018 7:55) Spoke with Dr Cobb can have clear liquids to 0900 as cath will be around 2 pm today (dot meyaddendum tdnorefesh nownorefresh) (dot meytime meycritical meysign) Nick Ryan MD 12/29/2018 7:05 [facility] Subjective CC TFER from [place] No CP nor SOB Nausea not vomit ROS See above Objective Exam General Alert NAD Cardiac RRR no MRG Extremities Lung clear not labored, no anterior chest wall tenderness over the area she had the CP of y esterday Abdominal + BS soft NT Neuro alert fluent (dot meyexam) (dot meyvent) Serial weights: Filed Weights: 12/28/18193812/29/185 Weight: 106.8 kg (235 lb 7.2 oz) 108 kg (238 lb 1.6 oz) Most recent weight: Input and output 2 shifts and 3 shifts: Wt Readings from Last 1 Encounters: 12/29/18 108 kg (238 lb 1.6 oz) I/O last 24 Hours: In: 540 [P.O.:400; I.V.:140] Out: 850 [Urine:850] I/O last 3 completed shifts: In: 540 [P.O.:400; I.V.:140] Out: 850 [Urine:850] Vitals Ranges: Temp: [36.2 C (97.2 F)-36.8 C (98.2 F)] 36.8 C (98.2 F) Pulse: [61-74] 74 Resp: [9-17] 9 BP: (94-133)/(44-76) 124/70 Vitals: Temp: 36.8 C (98.2 F) BP: 124/70 Pulse: 74 Resp: 9 SpO2: 98 % SpO2 98 % on room air at flow rate L/min Diet and Supplements Diet Diet NPO; strict NPO; Effective Midnight Number of Occurrences: Until Specified Order Questions: Type Diet NPO NPO conditions strict NPO Objective Data Allergies: Allergies Allergen Reactions Acetaminophen Anaphylaxis Codeine Sulfate Anaphylaxis Demerol Anaphylaxis Hydrocodone-Acetaminophen Anaphylaxis Morphine Sulfate Anaphylaxis Oxycodone Anaphylaxis Penicillin V Potassium Anaphylaxis Current Medications: Current Facility-Administered Medications Medication Dose Route Frequency Provider Last Rate Last Dose aluminum & magnesium hydroxide-simethicone (MAALOX PLUS REGULAR STRENGTH) 200-200-20 mg /5 mL suspension 30 mL 30 mL Oral Q4H PRN Jeny Armstrong MD aspirin EC tablet 81 mg 81 mg Oral Daily Jeny Armstrong MD atorvaSTATin (LIPITOR) tablet 40 mg 40 mg Oral Nightly Jeny Armstrong MD 40 mg at 12/28/183 gabapentin (NEURONTIN) capsule 100 mg 100 mg Oral BID Jeny Armstrong MD heparin in half-normal saline 50 units/mL infusion 1,200 Units/hr Intravenous Libby Mckenna PharmD 24 mL/hr at 12/29/18 0654 1,200 Units/hr at 12/29/18 0654 heparin per pharmacy Other Pharmacy Consult Jeny Armstrong MD ketorolac (TORADOL) injection 15 mg 15 mg Intravenous Q8H PRN Jeny Armstrong MD 15 mg at 12/29/18 0617 levETIRAcetam (KEPPRA) tablet 1,000 mg 1,000 mg Oral BID Jeny Armstrong MD levothyroxine (SYNTHROID) tablet 112 mcg 112 mcg Oral QAM Jeny Armstrong MD 112 mcg at 12/29/18 0630 lisinopril (PRINIVIL,ZESTRIL) tablet 2.5 mg 2.5 mg Oral Daily Jeny Armstrong MD melatonin tablet 3 mg 3 mg Oral Nightly PRN Jeny Armstrong MD metoprolol tartrate (LOPRESSOR) tablet 12.5 mg 12.5 mg Oral BID Florinda Ramos D Stopped at 12/28/182212 nitroglycerin (NITROSTAT) SL tablet 0.4 mg 0.4 mg Sublingual Q5 Min PRN Jney Armstrong MD ondansetron (ZOFRAN) injection 4 mg 4 mg Intravenous Q6H PRN Jeny Armstrong MD pantoprazole (PROTONIX) DR tablet 40 mg 40 mg Oral QAM Jeny Armstrong MD 40 mg at 12/29/18 0630 polyethylene glycol (MIRALAX) powder 17 g 17 g Oral Daily PRN Jeny Armstrong MD pramipexole (MIRAPEX) tablet 0.375 mg 0.375 mg Oral Nightly Jeny Armstrong MD senna (SENOKOT) tablet 8.6 mg 8.6 mg Oral BID PRN Jeny Armstrong MD Current Infusions: Heparin Infusion 1,200 Units/hr (12/29/18 0654) Hematology and anemia Recent Labs Lab 12/29/18326 WBC 7.8 HGB 13.1 HCT 40.4 PLT 206 Recent Labs Lab 12/29/18 0556 12/28/18 2336 PROTIME -- 13.2 INR -- 1.0 PTT 82* 32 No results for input(s): IRON, TIBC, PCTSAT, FERRITIN, TSH, [id number], FOLATE in the last 168 hours. Inflammatory markers No results for input(s): LACTATE, PROCALCITONI, CRP, ESR in the last 168 hours. Chemistry Recent Labs Lab 12/29/18326 GLU 126* NA 136 K 3.9 CL 105 CO2 25 ANIONGAP 6 BUN 11 CREA 0.76 GFRNONAA >60 CALCIUM 9.5 No results for input(s): MG, PHOS in the last 168 hours. No results for input(s): AMYLASE, LIPASE in the last 168 hours. Recent Labs Lab 12/29/18326 TRIG 139 CHOL 131 HDL 38* LDL 65 No results for input(s): AMMONIA in the last 168 hours. Cardiology & Digoxin Recent Labs Lab 12/29/1832612/28/18 2217 TROPONIN 0.96* 1.51* ABG No results for input(s): PHART, PO2ART, LSH9CDE, WQJ2HUX, BEART, [id number] in the last 168 h ours. No results for input(s): SPECSOURCE, PHPOCB, PCO2, PO2, HCO3, TCO2, BEART, [id number] in the last 168 hours. Drug of overdose and abuse No results for input(s): ALCOHOL, ACTMN, SALICYLATE in the last 168 hours. No results for input(s): AMPHEQUAL, BARBITURATE, BENZSCR, CANNIBSCR, AMPHETAMINE, METHADSCR , OPIATESCR in the last 168 hours. Urinalysis No results for input(s): GLUCOSEU, WBCUA, RBCUA, SQUAMEPIUA, BACTERIAUA, CULTIF in the last 168 hours. Point of care glucose No results for input(s): POCGLU in the last 168 hours. Micro results more choices using dot micro (below is last 7 days) Microbiology Results (Last 7) Date with Culture/Sensitivity) Procedure Component Value Units Date/Time Culture, MRSA [[id number]] Collected: 12/28/182023 Order Status: Sent Lab Status: In process Updated: 12/28/182053 Specimen: Tissue from Nares Radiology results (more choices using dot risresults) No results found. Reference. This is NOT part of the patient's formal assessment section. In the assessment or plan section of notes the author may date some of the subsections with a number such as "" or "" to indicate the date of that entry or event. In the example below the 1st line is the original entry and the subsequent lines indicate flowing updates to the subsection: Example assessment subsection (such as CHF or CP or Pneumonia) Patient is improved today with resolution of symptoms Worse with recurrence of symptoms requiring further testing Portions of this chart may have been created with iCrimefighter voice recognition software. Occasi onal wrong-word or sound-alike substitutions may have occurred due to the inherent colon itations of voice recognition software. Please read the chart carefully and recognize, using context, where these substitutions have occurred Milind Forrest, Pharm D - 12/29/2018 6:48 AM PDT HEPARIN MONITORING AND DOSING PER PHARMACY Paula Mcleod is a 58 y.o. female admitted on 12/28/2018 19:27. Heparin infusion is ordered. Diagnosis: ACS Protocol: CARDIAC DOSE 0.2- 0.4 units/mL Maximums: bolus 7,000 units, infusion 1,400 unit/h r Initial assessment: Describe any recent anticoagulant use prior to heparin initiation: enoxaparin 100 mg SC on 12/28 @ 1630 If TELLER medlist shows Xa inhibitor oral agent or LMWH subcutaneous Consider baseline anti-Xa and evaluate renal function ---> Renal function is very good If recent oral Xa inhibitor, use PTT monitoring for 1-5 days depending on renal function and then switch to anti-xa monitoring. Bleeding risks Unknown -- pt direct admit from [facility], limited history available History of liver dysfunction or ETOH abuse: Unknown -- pt direct admit from [facility] , limited history available History of HIT: Unknown -- pt direct admit from [facility], limited history available Reason for no bolus or use of Cardiac dose in non-cardiac pts: patient received treatmen t dose LMWH about 7 hours prior to initiation of heparin Recent Labs Lab 12/29/18 1254 12/29/18 0327 12/28/18 2336 HGB -- -- 13.1 -- HCT -- -- 40.4 -- PLT -- -- 206 -- INR -- -- -- 1.0 HEPANTIXA -- -- -- 0.94 PTT 99* < > -- 32 < > = values in this interval not displayed. Results for PAULA MCLEOD ( ) as of 12/29/2018 13:46 Ref. Range 12/28/2018 23:36 12/29/2018 05:56 12/29/2018 12:54 PTT Latest Ref Range: 22 - 36 seconds 32 82 (H) 99 (H) Date 12/28 12/29 12/29 Time 233 0556 1254 Xa 0.94 -- -- PTT 32 82 99 Platelets 206 -- -- Current (units/hr) 0 1300 1300 Bolus (units) omit -- -- Hold (minutes) -- -- 30 New (units/hr) 1300 1200 1000 * Weight at start of infusion 106.8 kg (adjustments based on this dosing weight) ASSESSMENT/PLAN: 1. Communicate with prescriber within 24 hours of infusion start to discuss bleeding risks, clotting risks, goals for therapy, and any other prescriber preferences. 2. DC other anticoagulants as appropriate (list): enoxaparin SC already d/c'ed by [place] [facility] 3. Dosing plan: Any adverse events or interruptions in therapy: No Bolus: None Infusion: Hold for 30 minutes and decrease by 200 units/hr to 1000 units/hr; MAY NOT BE RESTARTED - PT IN ENGLISH PROFESSOR NOW Per dosing protocol 4. Discussed and coordinated with nurse 5. Weight. Admission: Weight: 106.8 kg (235 lb 7.2 oz) Wt. Current: Weight: 108 kg (238 lb 1.6 oz) 6. Monitoring - report to attending provider if: HGB < 8 g/dL or drop greater than 2 g/dL from baseline = 11.1 g/dL HCT < 25% or drop greater than 6 points from baseline = 34.4% PLT < 100 K/uL or drop greater than 50% from baseline = 103 K/uL Rate greater than 25 units/kg/hr = 2670 units/hr ? Stat heparin anti-Xa, PTT, PT/INR, and CBC without diff. if not already done. Draw prior to giving heparin bolus or starting infusion, then initiate heparin therapy JIM after labs are drawn. Consider anti-Xa if prior oral Xa inhibitor or LMWH and evaluate max l function. ? 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 CBC without diff every other day while on Heparin. ? PTT 6hrs after infusion initiation and any rate change until 2 consecutive PTT are in ran ge then daily. ? If bolus is 5,000 units or greater, consider ordering Xa/PTT in 8 hours ? Next PTT ordered for: NOT ORDERED AT THISTIME ? Consider switching to monitoring heparin anti-Xa levels on 12/30 or 12/31 IMPROVE Bleeding Risk Score Calculator Table: Heparin Infusion Dosing and Monitoring Per P&T approved Heparin Infusion Protocol Electronically signed by: Milind Mckenna, PharmD 12/29/2018 13:46 Yossi Jolly PharmD - 12/28/2018 11:31 PM PDT HEPARIN MONITORING AND DOSING PER PHARMACY Paula Mcleod is a 58 y.o. female admitted on 12/28/2018 19:27. Heparin infusion is ordered. Diagnosis: ACS Protocol: CARDIAC DOSE 0.2- 0.4 units/mL Maximums: bolus 7,000 units, infusion 1,400 unit/h r Initial assessment: Describe any recent anticoagulant use prior to heparin initiation: enoxaparin 100 mg SC on 12/28 @ 1630 If TELLER medlist shows Xa inhibitor oral agent or LMWH subcutaneous Consider baseline anti-Xa and evaluate renal function ---> Renal function is very good If recent oral Xa inhibitor, use PTT monitoring for 1-5 days depending on renal function and then switch to anti-xa monitoring. Bleeding risks Unknown -- pt direct admit from [facility], limited history available History of liver dysfunction or ETOH abuse: Unknown -- pt direct admit from [facility] , limited history available History of HIT: Unknown -- pt direct admit from [facility], limited history available Reason for no bolus or use of Cardiac dose in non-cardiac pts: patient received treatmen t dose LMWH about 7 hours prior to initiation of heparin Recent Labs Lab 12/29/18 0327 12/28/18 2336 HGB 13.1 -- HCT 40.4 -- PLT 206 -- INR -- 1.0 HEPANTIXA -- 0.94 PTT -- 32 Date 12/28 Time of Xa test 2336 Xa 0.94 PTT 32 Platelets 206 Current (units/hr) 0 Bolus (units) omit Hold (minutes) -- New (units/hr) 1300 * Weight at start of infusion 106.8 kg (adjustments based on this dosing weight) ASSESSMENT/PLAN: 1. Communicate with prescriber within 24 hours of infusion start to discuss bleeding risks, clotting risks, goals for therapy, and any other prescriber preferences. 2. DC other anticoagulants as appropriate (list): enoxaparin SC already d/c'ed by [place] [facility] 3. Dosing plan: Any adverse events or interruptions in therapy: No, initiating infusion Bolus: None Infusion: Initiate at 1300 units/hr (~12 units/kg/hr = 1281 units/hr --> rounded to 1300 units/hr) Modified from protocol by omitting bolus dose 4. Discussed and coordinated with nurse 5. Weight. Admission: Weight: 106.8 kg (235 lb 7.2 oz) Wt. Current: Weight: 108 kg (238 lb 1.6 oz) 6. Monitoring - report to attending provider if: HGB < 8 g/dL or drop greater than 2 g/dL from baseline = 11.1 g/dL HCT < 25% or drop greater than 6 points from baseline = 34.4% PLT < 100 K/uL or drop greater than 50% from baseline = 103 K/uL Rate greater than 25 units/kg/hr = 2670 units/hr ? Stat heparin anti-Xa, PTT, PT/INR, and CBC without diff. if not already done. Draw prior to giving heparin bolus or starting infusion, then initiate heparin therapy JIM after labs are drawn. Consider anti-Xa if prior oral Xa inhibitor or LMWH and evaluate max l function. ? 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 CBC without diff every other day while on Heparin. ? PTT 6hrs after infusion initiation and any rate change until 2 consecutive PTT are in ran ge then daily. ? If bolus is 5,000 units or greater, consider ordering Xa/PTT in 8 hours ? Next PTT ordered for: 12/29 @ 0600. ? Consider switching to monitoring heparin anti-Xa levels on 12/30 or 12/31 IMPROVE Bleeding Risk Score Calculator Table: Heparin Infusion Dosing and Monitoring Per P&T approved Heparin Infusion Protocol Electronically signed by: Yossi Caballero PharmD 12/29/2018 4:33 documented in this encounter H&P Notes Jeny Armstrong MD - 12/28/2018 11:51 PM PDTFormatting of this note might be differen t from the original. [facility] HOSPITALIST HISTORY & PHYSICAL Patient: Paula Mcleod : 1960: Age: 58 y.o. MedRec: [id number] Admission date: 12/28/2018 Hospital day # : 0 Physician author: Jeny Armstrong MD Today: 12/28/2018 CHIEF COMPLAINT: Chest pain HISTORY OF PRESENT ILLNESS: This is a 58 y.o. female with a history of Epilepsy, HTN, HLD, Hypothyroidism, GERD and RLS who presented to [facility] ER with CP. Pt reports that she was cleaning the bathroom th is morning, next thing she remembers waking up on the toilet site with head over the side co unter and non radiating left sided chest pain, deep aching quality, 5/10, a/w SOB, no diapho resis/nausea/vomiting. Pt was slightly confused after waking up, lasted for 10 minutes. She thought she had a seizure, went to her parent's house, called PCP who told her to go to the ER. At [facility] ER, CP resolved s/p Nitro X 3, Troponin found to be 0.192, EKG showed T WI in Lead 1, aVL and V1. Transferred here for for further evaluation. Pt's CP returned en r oute relieved by another nitro. Currently her CP is 1/10. She had a negative stress test in 2014. Former smoker. No family h/o early CAD. PAST MEDICAL and SURGICAL HISTORY: Past Medical History: Diagnosis Date Arthritis Atypical chest pain Bronchitis Bursitis, trochanteric Depression Epilepsy (HCC) Fatigue Hernia of abdominal cavity Hypertension Hyposmolality Hypothyroidism Neoplasm of soft tissue Organic sleep apnea Piriformis syndrome Reaction to chronic stress Syncope and collapse Past Surgical History: Procedure Laterality Date COLONOSCOPY 07/27/2017 ROTATOR CUFF REPAIR Right 2001 TONSILLECTOMY TOTAL HYSTERECTOMY FAMILY HISTORY: family history includes Arthritis in her mother; Cancer in her mother; Depression in her mo ther; Heart disease in her mother; Hypertension in her mother; Sleep apnea in her mother; St roke in her mother; Thyroid disease in her mother; Ulcer disease in her mother. SOCIAL HISTORY: reports that she quit smoking about 20 years ago. Her smoking use included Cigarettes. She has never used smokeless tobacco. She reports that she drinks alcohol. She reports that she does not use drugs. REVIEW OF SYSTEMS: A complete 10 system ROS was done, negative except HPI HOME MEDICATIONS: PT REPORTED TAKING NOT TAKING Medication Sig Last Dose Dispense Doc. Provider CARAFATE 1 GM/10ML suspension Not Taking Historical Provider, gabapentin (NEURONTIN) 100 mg capsule Take 1 capsule by mouth 2 times daily. 12/27/2018 180 capsule Lupillo Valdez DO levETIRAcetam (KEPPRA) 750 MG tablet Take 750 mg by mouth 2 times daily. 12/28/2018 Histori kim Provider, levothyroxine (SYNTHROID) 112 mcg tablet every morning (before breakfast). 12/28/2018 Histo rical Provider, lisinopril (PRINIVIL, ZESTRIL) 20 mg tablet Take 1 tablet by mouth Daily. 12/28/2018 90 tabl et Lupillo Valdez DO lovastatin (MEVACOR) 40 MG tablet Take 1 tablet by mouth nightly. 12/27/2018 90 tablet Ulices Valdez DO methocarbamol (ROBAXIN) 750 mg tablet Not Taking Historical Provider, pantoprazole (PROTONIX) 40 mg tablet Take 1 tablet by mouth every morning (before breakfas t). 12/28/2018 90 tablet Lupillo Valdez DO pramipexole (MIRAPEX) 0.125 MG tablet Take 1 tablet by mouth 3 times daily. Patient taking differently: Take 0.375 mg by mouth nightly. 12/27/2018 90 tablet Lupillo Valdez DO valACYclovir (VALTREX) 1 g tablet Take two tablets by mouth twice a day for 1 day. Patient not taking: Reported on 12/28/2018 Not Taking 4 tablet Lupillo Valdez, ALLERGIES: Allergies Allergen Reactions Acetaminophen Anaphylaxis Codeine Sulfate Anaphylaxis Demerol Anaphylaxis Hydrocodone-Acetaminophen Anaphylaxis Morphine Sulfate Anaphylaxis Oxycodone Anaphylaxis Penicillin V Potassium Anaphylaxis VITAL SIGNS: Temp: 36.7 C (98.1 F), Pulse: 68, Resp: 12, BP: 104/62, SpO2 98 % on room air at flow r ate L/min Temp Min: 36.2 C (97.2 F) Max: 36.7 C (98.1 F) Weight: 106.8 kg (235 lb 7.2 oz) PHYSICAL EXAMINATION: GA: NAD, AAOX3 HEENT: EOMI, MMM Neck: no JVD, no LDN Cardiac: CP reproducible on palpation, rrr, no m/g/r Lung: CTAB, normal respiratory effort Abdomen: soft, nt/nd, nabs Ext: trace LE swelling Pych: normal mood and affect 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 I reviewed imaging EKG Results (I reviewed EKG) I reviewed and summarized old records ASSESSMENT: Principal Problem: NSTEMI (non-ST elevated myocardial infarction) ([facility]) Active Hospital Problems Diagnosis NSTEMI (non-ST elevated myocardial infarction) Resolved Hospital Problems Diagnosis No resolved problems to display. Code Status Full Medical Decision Maker Self DVT Prophylaxis Heparin gtt PLAN: # NSTEMI - EKG showed TWI in Lead 1 and aVL, no previous EKGs available to compare, although from EKG report available in care everywhere from 2014 the t wave abnormalities could be old. N ot able to see the actual EKGs from 2015 - Trop 0.192 at OSH, marcus to 1.51 here - chest pain is also reproducible on palpation? - spoke with Dr. Cobb - given up trending troponins, asa/statin/BB/Heprain gtt/Nitro prn and possible LHC tomorro w - continue to cycle troponins with serial EKGs - ordered 2D Echo to r/o WMA - Tele # Epilepsy - possible seizure this AM, unwitnessed, pt does not remember the details, did have confusi on for 10 minutes after waking up - h/o grand mal seizures, last seizure 1 year ago with prolonged post ictal confusion - seizure can also cause troponin elevation? - increased home Kepra dose # RLS - cont pramipexole # HTN - cont home ACEI # Hypothyroidism - cont home levothyroxine # GERD - cont PPI CMS Documentation I expect this patient will be hospitalized for greater than 2-midnights and expect the post -hospital plan to be discharge to home or to an adult foster home. Electronically signed by: Jeny Armstrong MD 12/28/2018 23:51 [facility] Portions of this chart may have been created with [employer] voice recognition software. Occasi onal wrong-word or sound-alike substitutions may have occurred due to the inherent colon itations of voice recognition software. Please read the chart carefully and recognize, using context, where these substitutions have occurred documented in th is encounter Consult Notes Nick Cobb MD - 12/29/2018 10:11 AM PDT PATIENT NAME: Paula Mcleod : 1960: AGE: 58 y.o. ADMISSION DATE: 12/28/2018 HOSPITAL DAY NUMBER: 1 PRIMARY CARE: Lupillo Valdez DO REFERRING PROVIDER: Nick Ryan MD CONSULTING PROVIDER: Nick Cobb MD CARDIOLOGY CONSULTATION DATE OF CONSULTATION: 12/29/18 REASON FOR CONSULT: Acute non-ST elevation myocardial infarction HISTORY OF PRESENT ILLNESS: Paula Mcleod is a 58 y.o. female without a history of cardiac illness who presented to [facility] inserted with chest pain. The patient states she was cleaning her bathro om when she had an episode of syncope without preceding chest pain. She she is unsure as to the duration of her loss of consciousness. Upon awakening the patient had substernal chest pressure associated with dyspnea. She has a history of seizure disorder and her last seizu re was proxy one year ago and typically had different presentation and symptoms than her epi sode of loss of consciousness yesterday. Her chest pressure persisted and her family drove her to the emergency department at [facility] where her pain was relieved after a total of 4 sublingual nitro glycerin tablets. She was transferred to our facility last e vening and had some brief discomfort last night but this morning is pain-free. She has had no recent complaints of exertional chest pain nor shortness of breath. She is a former ciga rette smoker smoking for 10 years with 1 pack lasting approximately 1 week quitting several years ago. Her family history is markable for her mother having coronary stents in her 70s. The patient is nondiabetic. She has a history of medically treated hypertension. She is on lovastatin for elevated lipids. She was told that she had a small stroke several years a go during a period of recurrent grand mal seizures but has had no persistent neurologic defi cits and no recurrence of symptoms suggesting TIA or stroke. She has no history of gastric intestinal hemorrhage, leg claudication, nor deep venous thrombosis. She is no allergies to iodine contrast. 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 She has a history o f reflux esophagitis. She underwent upper endoscopy in September of this year and was told th ere were no peptic ulcers. Her presenting ECG at outside hospital had lateral T-wave invers ion. Her troponin levels since admission to our facility are 1.51 and 0.96. Transthoracic echocardiogram is morning shows mild reduction in left and regular systolic function with mo derately severe hypokinesis of the anterior septum and anterior and anterior apical segments . PAST MEDICAL HISTORY Past Medical History: Diagnosis Date Arthritis Atypical chest pain Bronchitis Bursitis, trochanteric Depression Epilepsy (HCC) Fatigue Hernia of abdominal cavity Hypertension Hyposmolality Hypothyroidism Neoplasm of soft tissue Organic sleep apnea Piriformis syndrome Reaction to chronic stress Syncope and collapse PAST SURGICAL HISTORY Past Surgical History: Procedure Laterality Date COLONOSCOPY 07/27/2017 ROTATOR CUFF REPAIR Right 2001 TONSILLECTOMY TOTAL HYSTERECTOMY FAMILY HISTORY Family History Problem Relation Age of Onset Heart disease Mother Hypertension Mother Stroke Mother Ulcer disease Mother Cancer Mother Arthritis Mother Depression Mother Thyroid disease Mother Sleep apnea Mother SOCIAL HISTORY Social History Social History Marital status: Single Spouse name: N/A Number of children: N/A Years of education: N/A Occupational History Not on file. Social History Main Topics Smoking status: Former Smoker Types: Cigarettes Quit date: 1998 Smokeless tobacco: Never Used Alcohol use 0.0 oz/week Comment: Occassional, may be10 drinks a year Drug use: No Sexual activity: No Other Topics Concern Not on file Social History Narrative No narrative on file MEDICATIONS: Current Facility-Administered Medications Medication Dose Route Frequency Provider Last Rate Last Dose aluminum & magnesium hydroxide-simethicone (MAALOX PLUS REGULAR STRENGTH) 200-200-20 mg /5 mL suspension 30 mL 30 mL Oral Q4H PRN Jeny Armstrong MD aspirin EC tablet 81 mg 81 mg Oral Daily Jeny Armstrong MD 81 mg at 12/29/18 0 802 atorvaSTATin (LIPITOR) tablet 40 mg 40 mg Oral Nightly Jeny Armstrong MD 40 mg at 12/28/18 2213 gabapentin (NEURONTIN) capsule 100 mg 100 mg Oral BID Jeny Armstrong MD 100 mg at 12/29/18 0801 heparin in half-normal saline 50 units/mL infusion 1,200 Units/hr Intravenous Continuo us Milind Mckenna PharmD 24 mL/hr at 12/29/18 0654 1,200 Units/hr at 12/29/18 0654 heparin per pharmacy Other Pharmacy Consult Jeny Armstrong MD ketorolac (TORADOL) injection 15 mg 15 mg Intravenous Q8H PRN Jeny Armstrong MD 15 mg at 12/29/18 0617 levETIRAcetam (KEPPRA) tablet 1,000 mg 1,000 mg Oral BID Jeny Armstrong MD 1,0 00 mg at 12/29/18 0802 levothyroxine (SYNTHROID) tablet 112 mcg 112 mcg Oral QAM AC Jeny Armstrong MD 112 mcg at 12/29/18 0630 lisinopril (PRINIVIL,ZESTRIL) tablet 2.5 mg 2.5 mg Oral Daily Jeny Armstrong MD 2.5 mg at 12/29/18 0801 melatonin tablet 3 mg 3 mg Oral Nightly PRN Jeny Armstrong MD metoprolol tartrate (LOPRESSOR) tablet 12.5 mg 12.5 mg Oral BID Florinda Ramos D 12.5 mg at 12/29/18 0804 nitroglycerin (NITROSTAT) SL tablet 0.4 mg 0.4 mg Sublingual Q5 Min PRN Jeny Armstrong MD ondansetron (ZOFRAN) injection 4 mg 4 mg Intravenous Q6H PRN Jeny Armstrong MD pantoprazole (PROTONIX) DR tablet 40 mg 40 mg Oral QAM AC Jeny Armstrong MD 40 mg at 12/29/18 0630 polyethylene glycol (MIRALAX) powder 17 g 17 g Oral Daily PRN Jeny Armstrong MD pramipexole (MIRAPEX) tablet 0.375 mg 0.375 mg Oral Nightly Jeny Armstrong MD senna (SENOKOT) tablet 8.6 mg 8.6 mg Oral BID PRN Jeny Armstrong MD [facility] list of outpatient meds: Prescriptions Prior to Admission Medication Sig Dispense Refill CARAFATE 1 GM/10ML suspension gabapentin (NEURONTIN) 100 mg capsule Take 1 capsule by mouth 2 times daily. 180 capsul e 3 levETIRAcetam (KEPPRA) 750 MG tablet Take 750 mg by mouth 2 times daily. levothyroxine (SYNTHROID) 112 mcg tablet every morning (before breakfast). lisinopril (PRINIVIL, ZESTRIL) 20 mg tablet Take 1 tablet by mouth Daily. 90 tablet 3 lovastatin (MEVACOR) 40 MG tablet Take 1 tablet by mouth nightly. 90 tablet 0 methocarbamol (ROBAXIN) 750 mg tablet pantoprazole (PROTONIX) 40 mg tablet Take 1 tablet by mouth every morning (before break fast). 90 tablet 3 pramipexole (MIRAPEX) 0.125 MG tablet Take 1 tablet by mouth 3 times daily. (Patient ta toby differently: Take 0.375 mg by mouth nightly.) 90 tablet 3 valACYclovir (VALTREX) 1 g tablet Take two tablets by mouth twice a day for 1 day. (Pat ient not taking: Reported on 12/28/2018) 4 tablet 0 ALLERGIES Allergies Allergen Reactions Acetaminophen Anaphylaxis Codeine Sulfate Anaphylaxis Demerol Anaphylaxis Hydrocodone-Acetaminophen Anaphylaxis Morphine Sulfate Anaphylaxis Oxycodone Anaphylaxis Penicillin V Potassium Anaphylaxis REVIEW OF SYSTEMS The items listed in the history and physical were reviewed and the following updates or teo ndments were found: Constitutional symptoms (e.g., fever, weight loss) negative Eyes negative Ears, Nose, Mouth, Throat negative Cardiovascular see above Respiratory negative Gastrointestinal see above Genitourinary negative Musculoskeletal negative Integumentary (skin and/or breast) negative Neurological see above Psychiatric negative Endocrine history of hypothyroidism Hematologic/Lymphatic negative Allergic/Immunologic see above PHYSICAL EXAM Vital signs: Vitals: 12/29/18 0751 BP: Pulse: 71 Resp: 12 Temp: 36.7 C (98.1 F) Admit Weight: Weight: 106.8 kg (235 lb 7.2 oz) Current weight: Weight: 108 kg (238 lb 1 .6 oz) Body mass index is 38.43 kg/m. General appearance: Alert, resting comfortably Chest: Clear Cardiovascular: Nondisplaced apical impulse, regular rhythm, S4 present, no S3, jugular venous pressure normal Gastrointestinal Abdomen: soft, non-tender, normal bowel sounds, no organomegaly nor masses. Mental Status/Neurological Grossly oriented. No obvious motor or cranial nerve deficits. Affect/Mood: appropriate. Extremities No edema Skin: Unremarkable LABS: Admission on 12/28/2018 Component Date Value Ref Range Status Na 12/29/2018 136 136 - 145 mmol/L Final K 12/29/2018 3.9 3.4 - 5.1 mmol/L Final Cl 12/29/2018 105 98 - 107 mmol/L Final CO2 12/29/2018 25 20 - 31 mmol/L Final Anion Gap 12/29/2018 6 3 - 16 mmol/L Final Glucose 12/29/2018 126* 60 - 106 mg/dL Final BUN 12/29/2018 11 9 - 23 mg/dL Final Creatinine 12/29/2018 0.76 0.55 - 1.02 mg/dL Final eGFR if not 12/29/2018 >60 >=60 mL/min/1.73m2 Final Ca 12/29/2018 9.5 8.7 - 10.4 mg/dL Final BUN/Creatinine Ratio 12/29/2018 14.5 Final WBC 12/29/2018 7.8 4.0 - 11.0 K/uL Final RBC 12/29/2018 4.49 3.70 - 5.20 M/uL Final Hemoglobin 12/29/2018 13.1 11.5 - 16.0 g/dL Final Hematocrit 12/29/2018 40.4 34.0 - 47.0 % Final MCV 12/29/2018 90.0 83.0 - 101.0 fL Final MCH 12/29/2018 29.2 28.0 - 35.0 pg Final MCHC 12/29/2018 32.4 32.0 - 36.0 g/dL Final RDW-CV 12/29/2018 12.7 <15.0 % Final RDW-SD 12/29/2018 41.9 35.1 - 46.3 fL Final Platelet Count 12/29/2018 206 140 - 440 K/uL Final MPV 12/29/2018 9.7 6.5 - 12.4 fL Final % nRBC 12/29/2018 0 0 - 2 per 100 WBCs Final Absolute nRBC 12/29/2018 0.00 0.00 - 0.01 K/uL Final BASELINE BLOOD PRESSURE 12/29/2018 121/74 mmHg In process Patient Weight (lbs) 12/29/2018 238 In process Patient Height 12/29/2018 5'6" In process LVIDd 12/29/2018 5.47 cm In process FS 12/29/2018 35 % In process LA volume 12/29/2018 78.03 mL In process Ascending aorta 12/29/2018 3.66 cm In process Aortic arch 12/29/2018 3.03 cm In process AV mean gradient 12/29/2018 9.29 mmHg In process Aortic Valve Area by Continuity VTI 12/29/2018 1.56 cm2 In process MV Area by P 1/2 method 12/29/2018 3.29 cm2 In process IVRT 12/29/2018 145.33 msec In process LVOT diameter 12/29/2018 1.98 cm In process LVOT peak ganesh 12/29/2018 97.87 cm/s In process LVOT peak VTI 12/29/2018 26.54 cm In process AV peak ganesh 12/29/2018 204.43 cm/s In process AV VTI 12/29/2018 52.37 cm In process AV peak gradient 12/29/2018 16.72 mmHg In process MV Pressure 1/2 time 12/29/2018 66.88 msec In process LA Volume Index 12/29/2018 36 mL/m2 In process AV LVOT Peak Gradient 12/29/2018 3.83 mmHg In process AV LVOT Mean Gradient 12/29/2018 2.38 mmHg In process LV Diastolic Length 4C 12/29/2018 7.8 cm In process LV Ackerman's Biplane EF 12/29/2018 65 % In process LV ED Volume (Ackerman's) 12/29/2018 82.13 ml In process LV ED Volume Index 12/29/2018 38 ml/m2 In process LV ES Volume 12/29/2018 29.53 ml In process LVOT Mean Velocity 12/29/2018 72.35 cm/s In process MV E' Septal Velocity 12/29/2018 6 cm/s In process MV Deceleration Richardson 12/29/2018 341.15 cm/s2 In process MV Deceleration Time 12/29/2018 230.62 msec In process MV E/A Ratio 12/29/2018 0.97 In process MV Peak A-Wave 12/29/2018 81.23 cm/s In process MV Peak E-Wave 12/29/2018 78.68 cm/s In process AV Mean Velocity 12/29/2018 144.14 cm/s In process LA/Aorta Ratio 12/29/2018 1.39 In process MV E/E SEPTAL 12/29/2018 13.11 In process LA Major 12/29/2018 0.5237 cm In process LV ES Volume Index 12/29/2018 14 ml/m2 In process Aortic Root Diameter 12/29/2018 3.08 cm In process IVS Diastolic Thickness MM 12/29/2018 0.94 cm In process LVPW Diastolic Thickness MM 12/29/2018 1.04 cm In process IVS Systolic Thickness MM 12/29/2018 1.1 cm In process LV Systolic Diameter MM 12/29/2018 3.57 cm In process LVPW Systolic Thickness MM 12/29/2018 1.45 cm In process AV Cusp Seperation MM 12/29/2018 2.07 cm In process LA Systolic Diameter MM 12/29/2018 4.28 cm In process TAPSE 12/29/2018 2.1 cm In process Triglycerides 12/29/2018 139 <=150 mg/dL Final Cholesterol 12/29/2018 131 <=200 mg/dL Final HDL 12/29/2018 38* 40 - 60 mg/dL Final Chol/HDL Ratio 12/29/2018 3.4 Final LDL, Calculated 12/29/2018 65 <=130 mg/dL Final Hemoglobin A1c 12/29/2018 5.3 4.3 - 6.0 % Final Estimated Average Glucose 12/29/2018 105 mg/dL Final Troponin I 12/28/2018 1.51* <0.06 ng/mL Final New method in use as of November 23, 2018. Check reference range for changes. Some analytes show significant variation from the previous method. It may be necessary to set a new baseline for this analyte. Critical Result called to and read back by Claus Avery on 12/28/2018 at 22:48 by Flavio alan. Troponin I 12/29/2018 0.96* <0.06 ng/mL Final New method in use as of November 23, 2018. Check reference range for changes. Some analytes show significant variation from the previous method. It may be necessary to set a new baseline for this analyte. Consistent with previous results. VENTRICULAR RATE EKG 12/28/2018 73 BPM Final-Edited ATRIAL RATE 12/28/2018 73 BPM Final-Edited P-R INTERVAL 12/28/2018 160 ms Final-Edited QRS DURATION 12/28/2018 86 ms Final-Edited Q-T INTERVAL 12/28/2018 458 ms Final-Edited Q-T INTERVAL (CORRECTED) 12/28/2018 504 ms Final-Edited P WAVE AXIS 12/28/2018 44 degrees Final-Edited QRS AXIS 12/28/2018 59 degrees Final-Edited T AXIS 12/28/2018 108 degrees Final-Edited INTERPRETATION TEXT 12/28/2018 Final-Edited Value:Normal sinus rhythm T wave abnormality, consider lateral ischemia Anterior T wave abnormalities vs artifact: cannot exclude ischemia Long QTc Abnormal ECG No previous ECGs available Reconfirmed by ALONDRA LOBO, KURTIS ([id number]) on 12/29/2018 6:50:04 AM aPTT 12/28/2018 32 22 - 36 seconds Final Prothrombin Time 12/28/2018 13.2 11.3 - 13.9 seconds Final INR 12/28/2018 1.0 0.9 - 1.1 Final Usual Oral Anticoagulation Range: 2.0 - 3.0 High Level Oral Anticoagulation Range: 2.5 - 3.5 Heparin Anti-Xa 12/28/2018 0.94 IU/mL Final Troponin I 12/29/2018 0.60* <0.06 ng/mL Final New method in use as of November 23, 2018. Check reference range for changes. Some analytes show significant variation from the previous method. It may be necessary to set a new baseline for this analyte. VENTRICULAR RATE EKG 12/29/2018 62 BPM Final ATRIAL RATE 12/29/2018 62 BPM Final P-R INTERVAL 12/29/2018 160 ms Final QRS DURATION 12/29/2018 84 ms Final Q-T INTERVAL 12/29/2018 470 ms Final Q-T INTERVAL (CORRECTED) 12/29/2018 477 ms Final P WAVE AXIS 12/29/2018 46 degrees Final QRS AXIS 12/29/2018 57 degrees Final T AXIS 12/29/2018 113 degrees Final INTERPRETATION TEXT 12/29/2018 Final Value:Normal sinus rhythm T wave abnormality, consider lateral ischemia Long QTc Abnormal ECG When compared with ECG of 28-DEC-2018 21:51, (Unconfirmed) T wave abnormalities in anterior leads are no longer present Confirmed by ALONDRA LOBO, KURTIS ([id number]) on 12/29/2018 6:49:49 AM INTERPRETATION TEXT 12/29/2018 Not Confirmed Preliminary aPTT 12/29/2018 82* 22 - 36 seconds Final CK TOTAL 12/29/2018 273* 34 - 145 U/L Final IMAGING: No results found. EC12/28/18, 21:51 normal sinus rhythm 73 bpm, T-wave inversions 1, aVL, minor nonspecif ic anterior and anterolateral T wave abnormality DIAGNOSES AND ASSESSMENTS: 1. 50-year-old woman with new onset of chest pain at rest after episode of syncope, ECG wit h nonspecific repolarization abnormality, elevated troponin consistent with myocardial necro sis. The patient has been treated with aspirin, heparin, beta caio therapy. I recommend the patient undergo diagnostic coronary arteriography with possible percutaneous revascular ization today. I have explained the risks and benefits of the procedure to the patient who states that she understands these risks and wishes to proceed. Informed consent has been ob tained. PLAN OR RECOMMENDATIONS: Diagnostic coronary geography with possible PCI today. I appreciate the opportunity of participating in the care of this patient. Nick Cobb MD, [facility], 12/29/2018 10:11 documented in this enc ounter Miscellaneous Notes eICU Note - Claudio Sánchez RN - 12/30/2018 12:00 PM PDTAfter reviewing DC orders the AVS was printed and reviewed with the patient allowing for questions and confirming understandi ng. Extra time was spent reviewing med changes and planned follow up with providers. Paula co nfirmed that she had all of her personal belongings. Her peripheral IV was removed prior to wheelchair transport [facility] the [facility] by ICU staff where she met her ride. Electronically signed by: Claudio Sánchez RN 12/30/2018 12:13 lan of Care - Sahara Hahn Chaplain - 12/30/2018 10:44 AM PDTProblem: Patient Care Overview (Adult) Goal: Care Team Goals & Evaluation PROBLEM-RELATED GOALS: Paula will have relief from chest pain and shortness of breath, along with return to baselin e activity tolerance before discharge. STRATEGY TO ACHIEVE GOALS: On Heparin drip, possible heart cath in AM. Monitor VS, minimize cardiac demand. RESTRAINT-RELATED GOALS: Restraint use not anticipated. STRATEGIES TO ACHIEVE RESTRAINT GOALS: NA SPIRITUAL CARE Spiritual Evaluation Patient resting, awake and alert with multiple close family members present, (SO, daughter, granddaughters). Conversant and shared apprehension that she was experiencing first time c ardiac symptoms. Shared she was raised Quaker, converted to Yazidism and currently wors hips with some influence. Accepted prayer by Lobby Attendant and thanked for the v isit. Spiritual Intervention Listened to her concerns with supportive listening and encouragement. Accepted prayer by Denys goetz. Spiritual Outcomes Prayed with patient and family, thanked Lobby Attendant for visit. Hopeful for recovery and retur n home to normal routine. Spiritual Goals/Followup lan of Care - Dania Lambert RN - 12/29/2018 2:01 PM PDTProblem: Discharge Planning Goal: Patient will be discharged in a safe manner Outcome: Unchanged This CM visited with patient at her bedside to discuss her potential discharge needs. She confirmed that she was transported here by ground ambulance from [facility] for her N STEMI continuity of care. She states that she lives in her low income housing apt in [place] but has not been able to pay her utilities paid due to her many health issues causing her unemployment since Jul 29. She appears very distraught, since she is from [place], and when you are under age there is just not any help available. She has already contacted the Aging People with Disabilities, she s jos and this is what they told her. She states that she has even been homeless prior to getting into her subsidized housing. 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 She just recently had a sleep study last year and has a CPAP at home but needs to get it ad justed since it is not fitting right. She got her CPAP from [facility] in [place], but has not been getting good service t here so may be changing to [facility], she states. She reports that she does not use any DME for her mobility, and no home 02. She reports that she has applied for disability and has a SS advocate, Adriana Lynn, p# . Left message with Adriana requesting a return call [facility]; this writers' p# left with her. Had her sign a TRISHA allowing this CM to talk with her to help expedite this process for her since she has been denied once per technicalities she reports. Signed TRISHA placed in ghost chart. Patient also reports that she has been caring for her aging parents as well and they have b een helping her a bit with some of her financial needs from their SS income. She does get food stamps. This CM contactcindy Benavidez, financial counselor, and she confirmed that patient's insurance valadez s now been placed in [employer]. Her boyfriend was in the room at the time of this discussion, and this was fine with her. She states that he does not live with her. She will find someone to drive her back home at discharge, she reports. Confirmed her PCP is Lupillo Valdez, who moved to [facility] now, and her pharmacy is [facility] in [place]. Dispo plan: Her goal is to return to her apt at discharge. She will be finding someone to transport her back to [place]. CM will need to continue to work with Adriana, SS advocate, and also help patient with her u tility bills issue. Electronically signed by: Dania Lambert RN 12/29/2018 14:01 14:30 This CM contacted the [place] Aging and Disabilities in [place], p# [phone] request ing assistance for people who are needing SSI in [place]. They gave me the p# for the SS in [facility], p# [phone]. This CM called and spoke with Ted, and he recommended that patient either call to make an appt to come in and get help with the application, or call and do it over the phone. Information given to patient with p# and address : [facility] [place], [place]. Let patient know that if the application was declined less than 60 days ago this would hel p speed up the process. Electronically signed by: Dania Lambert RN 12/29/2018 15:51 lan of Care - Tyrone Avery RN - 12/29/2018 12:57 AM PDTProblem: Patient Care Overview (Adult) Goal: Care Team Goals & Evaluation PROBLEM-RELATED GOALS: Paula will have relief from chest pain and shortness of breath, along with return to baselin e activity tolerance before discharge. STRATEGY TO ACHIEVE GOALS: On Heparin drip, possible heart cath in AM. Monitor VS, minimize cardiac demand. RESTRAINT-RELATED GOALS: Restraint use not anticipated. STRATEGIES TO ACHIEVE RESTRAINT GOALS: NA Outcome: Improving Goal Evaluation: Goal: Personalization Needs & Preferences Outcome: Improving Problem: Fall Risk (Adult) Goal: Identify Related Risk Factors and Signs and Symptoms Related risk factors and signs and symptoms are identified upon initiation of Human Respons e Clinical Practice Guideline (CPG) Outcome: Improving Goal: Absence of Falls Patient will demonstrate the desired outcomes by discharge/transition of care. Outcome: Improving Problem: Acute Coronary Syndrome (ACS) (Adult) Prevent and manage potential problems includin. cardiovascular structural defects2. ches t pain (angina)3. dysrhythmia/arrhythmia4. embolism5. hemodynamic instability6. ischemia sugey ding to infarction7. pericarditis8. situational response Goal: Signs and Symptoms of Listed Potential Problems Will be Absent or Manageable (Acute C oronary Syndrome) Signs and symptoms of listed potential problems will be absent or manageable by discharge/t ransition of care (reference Acute Coronary Syndrome (ACS) (Adult) CPG). Outcome: Unchanged documented in this enco unter Plan of Treatment +--------+---------+ + + + | Date | Type | Specialty | Care Team | Description | +--------+---------+ + + + | 07/01/ | Office | Primary Care | Lupillo Valdez | | | 2019 | Visit | | DO Cindy [address] | | | | | | [place] | | | | | | [address] | | | | | | [phone] | | | | | | | | +--------+---------+ + + + | 08/14/ | Office | Neurology | Jessica Henry NP | | | 2019 | Visit | | [address] [place] | | | | | | [place] | | | | | | [address] | | | | | | [phone] | | | | | | | | +--------+---------+ + + + documented as of this encounter Procedures + +--------+ + + + | Procedure Name | Priori | Date/Time | Associated Diagnosis | Comments | | | ty | | | | + +--------+ + + + | NM NUCLEAR STRESS | Routin | 12/30/2018 | NSTEMI (non-ST | Results for this | | TEST (PHARMACOLOGIC | e | 9:51 AM | elevated myocardial | procedure are in the | | - VASODILATOR) | | PDT | infarction) ([facility]) | results section. | + +--------+ + + + | CBC NO DIFFERENTIAL | Routin | 12/30/2018 | | Results for this | | | e | 7:58 AM | | procedure are in the | | | | PDT | | results section. | + +--------+ + + + | MAGNESIUM | Routin | 12/30/2018 | | Results for this | | | e | 7:58 AM | | procedure are in the | | | | PDT | | results section. | + +--------+ + + + | BASIC METABOLIC | Routin | 12/30/2018 | | Results for this | | PANEL | e | 7:58 AM | | procedure are in the | | | | PDT | | results section. | + +--------+ + + + | EXTRA GREEN TOP TUBE | Routin | 12/30/2018 | | Results for this | | | e | 3:41 AM | | procedure are in the | | | | PDT | | results section. | + +--------+ + + + | CBC NO DIFFERENTIAL | Routin | 12/30/2018 | | Results for this | | | e | 3:41 AM | | procedure are in the | | | | PDT | | results section. | + +--------+ + + + | CV LHC | Routin | 12/29/2018 | | Results for this | | | e | 3:39 PM | | procedure are in the | | | | PDT | | results section. | + +--------+ + + + | CV COR ANGIO | Routin | 12/29/2018 | | Results for this | | | e | 3:39 PM | | procedure are in the | | | | PDT | | results section. | + +--------+ + + + | POC ACTIVATED | Routin | 12/29/2018 | | Results for this | | CLOTTING TIME ISTAT | e | 2:56 PM | | procedure are in the | | | | PDT | | results section. | + +--------+ + + + | PTT | Routin | 12/29/2018 | | Results for this | | | e | 12:54 PM | | procedure are in the | | | | PDT | | results section. | + +--------+ + + + | ECG 12 LEAD | Routin | 12/29/2018 | | Results for this | | | e | 9:09 AM | | procedure are in the | | | | PDT | | results section. | + +--------+ + + + | ECHO COMPLETE | Routin | 12/29/2018 | | Results for this | | | e | 7:55 AM | | procedure are in the | | | | PDT | | results section. | + +--------+ + + + | TROPONIN I | Routin | 12/29/2018 | | Results for this | | | e | 7:55 AM | | procedure are in the | | | | PDT | | results section. | + +--------+ + + + | PTT | Timed | 12/29/2018 | | Results for this | | | | 5:56 AM | | procedure are in the | | | | PDT | | results section. | + +--------+ + + + | ECG 12 LEAD | Routin | 12/29/2018 | | Results for this | | | e | 3:40 AM | | procedure are in the | | | | PDT | | results section. | + +--------+ + + + | LIPID PANEL | Routin | 12/29/2018 | | Results for this | | | e | 3:27 AM | | procedure are in the | | | | PDT | | results section. | + +--------+ + + + | TROPONIN I | Routin | 12/29/2018 | | Results for this | | | e | 3:27 AM | | procedure are in the | | | | PDT | | results section. | + +--------+ + + + | CBC NO DIFFERENTIAL | Routin | 12/29/2018 | | Results for this | | | e | 3:27 AM | | procedure are in the | | | | PDT | | results section. | + +--------+ + + + | HEMOGLOBIN A1C | Routin | 12/29/2018 | | Results for this | | | e | 3:27 AM | | procedure are in the | | | | PDT | | results section. | + +--------+ + + + | CK TOTAL | Add-On | 12/29/2018 | | Results for this | | | | 3:27 AM | | procedure are in the | | | | PDT | | results section. | + +--------+ + + + | BASIC METABOLIC | Routin | 12/29/2018 | | Results for this | | PANEL | e | 3:27 AM | | procedure are in the | | | | PDT | | results section. | + +--------+ + + + | HEPARIN XA, | STAT | 12/28/2018 | | Results for this | | UNFRACTIONATED | | 11:36 PM | | procedure are in the | | | | PDT | | results section. | + +--------+ + + + | PTT | STAT | 12/28/2018 | | Results for this | | | | 11:36 PM | | procedure are in the | | | | PDT | | results section. | + +--------+ + + + | PROTIME INR | STAT | 12/28/2018 | | Results for this | | | | 11:36 PM | | procedure are in the | | | | PDT | | results section. | + +--------+ + + + | TROPONIN I | Routin | 12/28/2018 | | Results for this | | | e | 10:17 PM | | procedure are in the | | | | PDT | | results section. | + +--------+ + + + | ECG 12 LEAD | Routin | 12/28/2018 | | Results for this | | | e | 9:51 PM | | procedure are in the | | | | PDT | | results section. | + +--------+ + + + | CULTURE, MRSA | Routin | 12/28/2018 | | Results for this | | | e | 8:24 PM | | procedure are in the | | | | PDT | | results section. | + +--------+ + + + | ECG - EXTERNAL SCAN | | 12/28/2018 | | Results for this | | | | 12:00 AM | | procedure are in the | | | | PDT | | results section. | + +--------+ + + + documented in this encounter Results NM Nuclear Stress Test (Vasodilator) (12/30/2018 9:51 AM PDT) + +--------+ + + + | Component | Value | Ref Range | Performed | Pathologist | | | | | At | Signature | + +--------+ + + + | BASELINE | 58 | bpm | [facility] | | | HEART RATE | | | | | + +--------+ + + + | BASELINE | 127/70 | mmHg | [facility] | | | BLOOD | | | | | | PRESSURE | | | | | + +--------+ + + + | PEAK HEART | 69 | | [facility] | | | RATE | | | | | + +--------+ + + + | PEAK BLOOD | 142/69 | mmHG | [facility] | | | PRESSURE | | | | | + +--------+ + + + | Target HR | 138 | | [facility] | | + +--------+ + + + | Percent HR | 43 | | [facility] | | + +--------+ + + + | LVEF-SPECT | 87 | % | [facility] | | | NUCLEAR | | | | | | STRESS/VIAB | | | | | | ILITY | | | | | + +--------+ + + + | ST | 0.0 | mm | [facility] | | | Elevation | | | | | | (mm) | | | | | + +--------+ + + + + + | Specimen | + + | | + + + + + | Narrative | Performed At | + + + | 1. Normal | [facility] | | stress and rest myocardial perfusion imaging without evidence of | | | inducible ischemia nor myocardial scar 2. Normal left ventricular | | | systolic function without regional wall motion abnormality 3. Normal | | | ECG response to pharmacologic vasodilator myocardial ECG stress test | | |stress test | | | | | + + + + +---------+ + + | Performing | Address | City/State/Zipcode | Phone Number | | Organization | | | | + +---------+ + + | [facility] | | | | + +---------+ + + Magnesium (12/30/2018 7:58 AM PDT) + +-------+ + + + | Component | Value | Ref Range | Performed | Pathologist | | | | | At | Signature | + +-------+ + + + | Magnesium | 2.1 | 1.6 - 2.6 mg/dL | [facility] | | | | | | [facility] | | | | | | MEDICAL | | | | | | CENTER - | | | | | | LABORATORY | | + +-------+ + + + + + | Specimen | + + | Blood | + + + + + + + | Performing | Address | City/State/Zipcode | Phone Number | | Organization | | | | + + + + + | [facility] | [address] | [place] | [phone] | | [facility] | | [address] | | | - LABORATORY | | | | + + + + + Basic Metabolic Panel (12/30/2018 7:58 AM PDT) + +---------+ + + + | Component | Value | Ref Range | Performed | Pathologist | | | | | At | Signature | + +---------+ + + + | Na | 135 (L) | 136 - 145 | [facility] | | | | | mmol/L | [facility] | | | | | | MEDICAL | | | | | | CENTER - | | | | | | LABORATORY | | + +---------+ + + + | K | 4.2 | 3.4 - 5.1 | [facility] | | | | | mmol/L | [facility] | | | | | | MEDICAL | | | | | | CENTER - | | | | | | LABORATORY | | + +---------+ + + + | Cl | 104 | 98 - 107 mmol/L | [facility] | | | | | | [facility] | | | | | | MEDICAL | | | | | | CENTER - | | | | | | LABORATORY | | + +---------+ + + + | CO2 | 26 | 20 - 31 mmol/L | [facility] | | | | | | [facility] | | | | | | MEDICAL | | | | | | CENTER - | | | | | | LABORATORY | | + +---------+ + + + | Anion Gap | 5 | 3 - 16 mmol/L | [facility] | | | | | | [facility] | | | | | | MEDICAL | | | | | | CENTER - | | | | | | LABORATORY | | + +---------+ + + + | Glucose | 107 (H) | 60 - 106 mg/dL | [facility] | | | | | | [facility] | | | | | | MEDICAL | | | | | | CENTER - | | | | | | LABORATORY | | + +---------+ + + + | BUN | 9 | 9 - 23 mg/dL | [facility] | | | | | | [facility] | | | | | | MEDICAL | | | | | | CENTER - | | | | | | LABORATORY | | + +---------+ + + + | Creatinine | 0.77 | 0.55 - 1.02 | [facility] | | | | | mg/dL | [facility] | | | | | | MEDICAL | | | | | | CENTER - | | | | | | LABORATORY | | + +---------+ + + + | eGFR, | >60 | >=60 | [facility] | | | non- | | mL/min/1.73m2 | [facility] | | | [place] | | | MEDICAL | | | | | | CENTER - | | | | | | LABORATORY | | + +---------+ + + + | Calcium | 9.5 | 8.7 - 10.4 | [facility] | | | | | mg/dL | [facility] | | | | | | MEDICAL | | | | | | CENTER - | | | | | | LABORATORY | | + +---------+ + + + | BUN/Creatin | 11.7 | | [facility] | | | ine Ratio | | | [facility] | | | | | | MEDICAL | | | | | | CENTER - | | | | | | LABORATORY | | + +---------+ + + + + + | Specimen | + + | Blood | + + + + + + + | Performing | Address | City/State/Zipcode | Phone Number | | Organization | | | | + + + + + | [facility] | [address] | [place] | [phone] | | [facility] | | [address] | | | - LABORATORY | | | | + + + + + CBC no Differential (12/30/2018 7:58 AM PDT) + +-------+ + + + | Component | Value | Ref Range | Performed | Pathologist | | | | | At | Signature | + +-------+ + + + | White Blood | 6.3 | 4.0 - 11.0 K/uL | [facility] | | | Cells | | | [facility] | | | | | | MEDICAL | | | | | | CENTER - | | | | | | LABORATORY | | + +-------+ + + + | Red Blood | 4.29 | 3.70 - 5.20 | [facility] | | | Cells | | M/uL | [facility] | | | | | | MEDICAL | | | | | | CENTER - | | | | | | LABORATORY | | + +-------+ + + + | Hemoglobin | 13.1 | 11.5 - 16.0 | [facility] | | | | | g/dL | [facility] | | | | | | MEDICAL | | | | | | CENTER - | | | | | | LABORATORY | | + +-------+ + + + | Hematocrit | 38.3 | 34.0 - 47.0 % | [facility] | | | | | | [facility] | | | | | | MEDICAL | | | | | | CENTER - | | | | | | LABORATORY | | + +-------+ + + + | MCV | 89.3 | 83.0 - 101.0 fL | [facility] | | | | | | [facility] | | | | | | MEDICAL | | | | | | CENTER - | | | | | | LABORATORY | | + +-------+ + + + | MCH | 30.5 | 28.0 - 35.0 pg | [facility] | | | | | | [facility] | | | | | | MEDICAL | | | | | | CENTER - | | | | | | LABORATORY | | + +-------+ + + + | MCHC | 34.2 | 32.0 - 36.0 | [facility] | | | | | g/dL | [facility] | | | | | | MEDICAL | | | | | | CENTER - | | | | | | LABORATORY | | + +-------+ + + + | RDW-CV | 12.8 | <15.0 % | [facility] | | | | | | [facility] | | | | | | MEDICAL | | | | | | CENTER - | | | | | | LABORATORY | | + +-------+ + + + | RDW-SD | 41.6 | 35.1 - 46.3 fL | [facility] | | | | | | [facility] | | | | | | MEDICAL | | | | | | CENTER - | | | | | | LABORATORY | | + +-------+ + + + | Platelet | 194 | 140 - 440 K/uL | [facility] | | | Count | | | [facility] | | | | | | MEDICAL | | | | | | CENTER - | | | | | | LABORATORY | | + +-------+ + + + | MPV | 9.3 | 6.5 - 12.4 fL | [facility] | | | | | | [facility] | | | | | | MEDICAL | | | | | | CENTER - | | | | | | LABORATORY | | + +-------+ + + + | % nRBC | 0 | 0 - 2 per 100 | [facility] | | | | | WBCs | [facility] | | | | | | MEDICAL | | | | | | CENTER - | | | | | | LABORATORY | | + +-------+ + + + | Absolute | 0.00 | 0.00 - 0.01 | [facility] | | | nRBC | | K/uL | [facility] | | | | | | MEDICAL | | | | | | CENTER - | | | | | | LABORATORY | | + +-------+ + + + + + | Specimen | + + | Blood | + + + + + + + | Performing | Address | City/State/Zipcode | Phone Number | | Organization | | | | + + + + + | [facility] | [address] | [place] | [phone] | | [facility] | | [address] | | | - LABORATORY | | | | + + + + + Extra Green Top Tube (12/30/2018 3:41 AM PDT) + +-------+ + + + | Component | Value | Ref Range | Performed | Pathologist | | | | | At | Signature | + +-------+ + + + | Extra Green | Done | | [facility] | | | Top Tube | | | [facility] | | | | | MEDICAL | | | | | | CENTER - | | | | | | LABORATORY | | + +-------+ + + + + + | Specimen | + + | Blood | + + + + + + + | Performing | Address | City/State/Zipcode | Phone Number | | Organization | | | | + + + + + | [facility] | [address] | [place], [place] | [phone] | | [facility] | | [address] | | | - LABORATORY | | | | + + + + + CBC no Differential (12/30/2018 3:41 AM PDT) + +-------+ + + + | Component | Value | Ref Range | Performed | Pathologist | | | | | At | Signature | + +-------+ + + + | White Blood | 7.0 | 4.0 - 11.0 K/uL | [facility] | | | Cells | | | [facility] | | | | | | MEDICAL | | | | | | CENTER - | | | | | | LABORATORY | | + +-------+ + + + | Red Blood | 4.39 | 3.70 - 5.20 | [facility] | | | Cells | | M/uL | [facility] | | [facility] | | [facility] | | | | | | CENTER - | | | | | | LABORATORY | | + +-------+ + + + | Hemoglobin | 13.2 | 11.5 - 16.0 | [facility] | | | | | g/dL | [facility] | | | | | | MEDICAL | | | | | | CENTER - | | | | | | LABORATORY | | + +-------+ + + + | Hematocrit | 39.0 | 34.0 - 47.0 % | [facility] | | | | | | [facility] | | | | | | MEDICAL | | | | | | CENTER - | | | | | | LABORATORY | | + +-------+ + + + | MCV | 88.8 | 83.0 - 101.0 fL | [facility] | | | | | | [facility] | | | | | | MEDICAL | | | | | | CENTER - | | | | | | LABORATORY | | + +-------+ + + + | MCH | 30.1 | 28.0 - 35.0 pg | [facility] | | | | | | [facility] | | | | | | MEDICAL | | | | | | CENTER - | | | | | | LABORATORY | | + +-------+ + + + | MCHC | 33.8 | 32.0 - 36.0 | [facility] | | | | | g/dL | [facility] | | | | | | MEDICAL | | | | | | CENTER - | | | | | | LABORATORY | | + +-------+ + + + | RDW-CV | 12.8 | <15.0 % | [facility] | | | | | | [facility] | | | | | | MEDICAL | | | | | | CENTER - | | | | | | LABORATORY | | + +-------+ + + + | RDW-SD | 41.9 | 35.1 - 46.3 fL | [facility] | | | | | | [facility] | | | | | | MEDICAL | | | | | | CENTER - | | | | | | LABORATORY | | + +-------+ + + + | Platelet | 231 | 140 - 440 K/uL | [facility] | | | Count | | | [facility] | | | | | | MEDICAL | | | | | | CENTER - | | | | | | LABORATORY | | + +-------+ + + + | MPV | 9.5 | 6.5 - 12.4 fL | [facility] | | | | | | [facility] | | | | | | MEDICAL | | | | | | CENTER - | | | | | | LABORATORY | | + +-------+ + + + | % nRBC | 0 | 0 - 2 per 100 | [facility] | | | | | WBCs | [facility] | | | | | | MEDICAL | | | | | | CENTER - | | | | | | LABORATORY | | + +-------+ + + + | Absolute | 0.00 | 0.00 - 0.01 | [facility] | | | nRBC | | K/uL | [facility] | | | | | | MEDICAL | | | | | | CENTER - | | | | | | LABORATORY | | + +-------+ + + + + + | Specimen | + + | Blood | + + + + + + + | Performing | Address | City/State/Zipcode | Phone Number | | Organization | | | | + + + + + | [facility] | [address] | [place] | [phone] | | [facility] | | [address] | | | - LABORATORY | | | | + + + + + CV CARDIAC PROCEDURE (12/29/2018 3:39 PM PDT) + + | Specimen | + + | | + + + + | Addenda | + + | Addendum by Nick Cobb MD on 12/30/2018 10:04 AM 1. Normal left | | ventricular end-diastolic pressure 2. Minimal left main coronary disease 3. Mild | | mid LAD stenosis, moderate diffuse distal and apical LAD disease with LAD wrapping | | around apex supplying distal inferior segments 4. Mild ostial left circumflex | | disease 5. Dominant right coronary artery with severe diffuse posterior descending | | artery disease 6. 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 | + + + + + | Narrative | Performed At | + + + | 1. Normal | [facility] | | left ventricular end-diastolic pressure 2. Minimal left main | | | coronary disease 3. Mild mid LAD stenosis, moderate diffuse distal | | | and apical LAD disease with LAD wrapping around apex supplying distal | | | inferior segments 4. Mild ostial left circumflex disease 5. | | | Dominant right coronary artery with severe diffuse posterior | | | descending artery disease For additional detail as to the | | | procedures performed and the equipment that was utilized, please refer | | | to the Procedure Log. | | | | | | | | | | | | | | |For additional detail as to the procedures performed and the equipment | | |that was utilized, please refer to the Procedure Log. | | | | | | | | + + + + +---------+ + + | Performing | Address | City/State/Zipcode | Phone Number | | Organization | | | | + +---------+ + + | [facility] | | | | + +---------+ + + POC ACT (12/29/2018 2:56 PM PDT) + +---------+ + + + | Component | Value | Ref Range | Performed | Pathologist | | | | | At | Signature | + +---------+ + + + | Activated | 228 (H) | 125 - 175 | [facility] | | | Clotting | | second(s) | [facility] | | | Time, POC | | | MEDICAL | | | | | | CENTER - | | | | | | LABORATORY | | + +---------+ + + + + + | Specimen | + + | | + + + + + + + | Performing | Address | City/State/Zipcode | Phone Number | | Organization | | | | + + + + + | [facility] | [address] [address] | [place] | [phone] | | [facility] | | [address] | | | - LABORATORY | | | | + + + + + PTT (12/29/2018 12:54 PM PDT) + +--------+ + + + | Component | Value | Ref Range | Performed | Pathologist | | | | | At | Signature | + +--------+ + + + | aPTT | 99 (H) | 22 - 36 seconds | [facility] | [facility] | | | [facility] | [facility] | | | | | | [facility] - | | | | | | LABORATORY | | + +--------+ + + + + + | Specimen | + + | Blood | + + + + + + + | Performing | Address | City/State/Zipcode | Phone Number | | Organization | | | | + + + + + | [facility] | [address] | [place] | [phone] | | [facility] | | [address] | | | - LABORATORY | | | | + + + + + ECG 12 lead (12/29/2018 9:09 AM PDT) + + + + + + | Component | Value | Ref Range | Performed | Pathologist | | | | | At | Signature | + + + + + + | VENTRICULAR | 60 | BPM | [facility] | | | RATE EKG | | | | | + + + + + + | ATRIAL RATE | 60 | BPM | [facility] | | + + + + + + | P-R | 160 | ms | [facility] | | | INTERVAL | | | | | + + + + + + | QRS | 84 | ms | [facility] | | | DURATION | | | | | + + + + + + | Q-T | 492 | ms | [facility] | | | INTERVAL | | | | | + + + + + + | Q-T | 492 | ms | [facility] | | | INTERVAL | | | | | | (CORRECTED) | | | | | + + + + + + | P WAVE AXIS | 43 | degrees | [facility] | | + + + + + + | QRS AXIS | 49 | degrees | [facility] | | + + + + + + | T AXIS | 128 | degrees | [facility] | | + + + + + + | INTERPRETAT | Normal sinus rhythmT | | [facility] | | | ION TEXT | wave abnormality, | | | | | | consider lateral | | | | | | ischemiaLong QTcAbnormal | | | | | | ECGWhen compared with | | | | | | ECG of 29-DEC-2018 | | | | | | 03:40,Inverted Twaves | | | | | | are more prominent in | | | | | | [id number] is new T wave | | | | | | flattening in leads | | | | | | V4-6T wave inversions | | | | | | are more prominent in | | | | | | leads I and aVLConfirmed | | | | | | by KURTIS CANTU MD | | | | | | ([id number]) on 12/30/2018 | | | | | | 6:46:42 AM | | | | + + + + + + + + | Specimen | + + | | + + + + + | Narrative | Performed At | + + + | | | + + + + +---------+ + + | Performing | Address | City/State/Zipcode | Phone Number | | Organization | | | | + +---------+ + + | [facility] | | | | + +---------+ + + ECHO Complete (12/29/2018 7:55 AM PDT) + +--------+ + + + | Component | Value | Ref Range | Performed | Pathologist | | | | | At | Signature | + +--------+ + + + | BASELINE | 121/74 | mmHg | [facility] | | | BLOOD | | | | | | PRESSURE | | | | | + +--------+ + + + | Patient | 238 | | [facility] | | | Weight | | | | | | (lbs) | | | | | + +--------+ + + + | Patient | 5'6" | | [facility] | | | Height | | | | | + +--------+ + + + | LVIDd | 5.47 | cm | [facility] | | + +--------+ + + + | FS | 35 | % | [facility] | | + +--------+ + + + | LA volume | 78.03 | mL | [facility] | | + +--------+ + + + | Ascending | 3.66 | cm | [facility] | | | aorta | | | | | + +--------+ + + + | Aortic arch | 3.03 | cm | [facility] | | + +--------+ + + + | AV mean | 9.29 | mmHg | [facility] | | | gradient | | | | | + +--------+ + + + | Aortic | 1.56 | cm2 | [facility] | | | Valve Area | | | | | | by | | | | | | Continuity | | | | | | VTI | | | | | + +--------+ + + + | MV Area by | 3.29 | cm2 | [facility] | | | P 1/2 | | | | | | method | | | | | + +--------+ + + + | IVRT | 145.33 | msec | [facility] | | + +--------+ + + + | LVOT | 1.98 | cm | [facility] | | | diameter | | | | | + +--------+ + + + | LVOT peak | 97.87 | cm/s | [facility] | | | ganesh | | | | | + +--------+ + + + | LVOT peak | 26.54 | cm | [facility] | | | VTI | | | | | + +--------+ + + + | AV peak ganesh | 204.43 | cm/s | [facility] | | + +--------+ + + + | AV VTI | 52.37 | cm | [facility] | | + +--------+ + + + | AV peak | 16.72 | mmHg | [facility] | | | gradient | | | | | + +--------+ + + + | MV Pressure | 66.88 | msec | [facility] | | | 1/2 time | | | | | + +--------+ + + + | LA Volume | 36 | mL/m2 | [facility] | | | Index | | | | | + +--------+ + + + | AV LVOT | 3.83 | mmHg | [facility] | | | Peak | | | | | | Gradient | | | | | + +--------+ + + + | AV LVOT | 2.38 | mmHg | [facility] | | | Mean | | | | | | Gradient | | | | | + +--------+ + + + | LV | 7.8 | cm | [facility] | | | Diastolic | | | | | | Length 4C | | | | | + +--------+ + + + | LV | 65 | % | [facility] | | | Ackerman's | | | | | | Biplane EF | | | | | + +--------+ + + + | LV ED | 82.13 | ml | [facility] | | | Volume | | | | | | (Ackerman's) | | | | | + +--------+ + + + | LV ED | 38 | ml/m2 | [facility] | | | Volume | | | | | | Index | | | | | + +--------+ + + + | LV ES | 29.53 | ml | [facility] | | | Volume | | | | | + +--------+ + + + | LVOT Mean | 72.35 | cm/s | [facility] | | | Velocity | | | | | + +--------+ + + + | MV E' | 6 | cm/s | [facility] | | | Septal | | | | | | Velocity | | | | | + +--------+ + + + | MV | 341.15 | cm/s2 | [facility] | | | Deceleratio | | | | | | n Richardson | | | | | + +--------+ + + + | MV | 230.62 | msec | [facility] | | | Deceleratio | | | | | | n Time | | | | | + +--------+ + + + | MV E/A | 0.97 | | [facility] | | | Ratio | | | | | + +--------+ + + + | MV Peak | 81.23 | cm/s | [facility] | | | A-Wave | | | | | + +--------+ + + + | MV Peak | 78.68 | cm/s | [facility] | | | E-Wave | | | | | + +--------+ + + + | AV Mean | 144.14 | cm/s | [facility] | | | Velocity | | | | | + +--------+ + + + | LA/Aorta | 1.39 | | [facility] | | | Ratio | | | | | + +--------+ + + + | MV E/E | 13.11 | | [facility] | | | SEPTAL | | | | | + +--------+ + + + | LA Major | 0.5237 | cm | [facility] | | + +--------+ + + + | LV ES | 14 | ml/m2 | [facility] | | | Volume | | | | | | Index | | | | | + +--------+ + + + | Aortic Root | 3.08 | cm | [facility] | | | Diameter | | | | | + +--------+ + + + | IVS | 0.94 | cm | [facility] | | | Diastolic | | | | | | Thickness | | | | | | MM | | | | | + +--------+ + + + | LVPW | 1.04 | cm | [facility] | | | Diastolic | | | | | | Thickness | | | | | | MM | | | | | + +--------+ + + + | IVS | 1.1 | cm | [facility] | | | Systolic | | | | | | Thickness | | | | | | MM | | | | | + +--------+ + + + | LV Systolic | 3.57 | cm | [facility] | | | Diameter | | | | | | MM | | | | | + +--------+ + + + | LVPW | 1.45 | cm | [facility] | | | Systolic | | | | | | Thickness | | | | | | MM | | | | | + +--------+ + + + | AV Cusp | 2.07 | cm | [facility] | | | Seperation | | | | | | MM | | | | | + +--------+ + + + | LA Systolic | 4.28 | cm | [facility] | | | Diameter | | | | | | MM | | | | | + +--------+ + + + | TAPSE | 2.1 | cm | [facility] | | + +--------+ + + + | LVEF-TTE | 55 | % | [facility] | | | TRANSTHORAC | | | | | | IC ECHO | | | | | + +--------+ + + + + + | Specimen | + + | | + + + + + | Narrative | Performed At | + + + | 1. Normal | [facility] | | left ventricular chamber diameter with mild concentric hypertrophy | | | 2. Overall normal left ventricular systolic function with moderate | | | anterior septal and anterior wall hypokinesis 3. Aortic valve | | | sclerosis with mild aortic valve stenosis, mild aortic valve | | | regurgitation | | | | | + + + + +---------+ + + | Performing | Address | City/State/Zipcode | Phone Number | | Organization | | | | + +---------+ + + | [facility] | | | | + +---------+ + + Troponin I (12/29/2018 7:55 AM PDT) + + + + + + | Component | Value | Ref Range | Performed | Pathologist | | | | | At | Signature | + + + + + + | Troponin I | 0.60 ()Comment: New | <0.06 ng/mL | [facility] | | | | method in use as of | | [facility] | | | | November 23, 2018. Check | | MEDICAL | | | | reference range for | | CENTER - | | | | changes.Some analytes | | LABORATORY | | | | show significant | | | | | | variation from the | | | | | | previous method.It may | | | | | | be necessary to set a | | | | | | new baseline for this | | | | | | analyte. | | | | + + + + + + + + | Specimen | + + | Blood | + + + + + + + | Performing | Address | City/State/Zipcode | Phone Number | | Organization | | | | + + + + + | [facility] | [address] | [place] | [phone] | | [facility] | | [address] | | | - LABORATORY | | | | + + + + + PTT (12/29/2018 5:56 AM PDT) + +--------+ + + + | Component | Value | Ref Range | Performed | Pathologist | | | | | At | Signature | + +--------+ + + + | aPTT | 82 (H) | 22 - 36 seconds | [facility] | | | | | | [facility] | | | | | | [facility] | | | | | | CENTER - | | | | | | LABORATORY | | + +--------+ + + + + + | Specimen | + + | Blood | + + + + + + + | Performing | Address | City/State/Zipcode | Phone Number | | Organization | | | | + + + + + | [facility] | [address] | [place] | [phone] | | [facility] | | [address] | | | - LABORATORY | | | | + + + + + ECG 12 lead (12/29/2018 3:40 AM PDT) + + + + + + | Component | Value | Ref Range | Performed | Pathologist | | | | | At | Signature | + + + + + + | VENTRICULAR | 62 | BPM | [facility] | | | RATE EKG | | | | | + + + + + + | ATRIAL RATE | 62 | BPM | [facility] | | + + + + + + | P-R | 160 | ms | [facility] | | | INTERVAL | | | | | + + + + + + | QRS | 84 | ms | [facility] | | | DURATION | | | | | + + + + + + | Q-T | 470 | ms | [facility] | | | INTERVAL | | | | | + + + + + + | Q-T | 477 | ms | [facility] | | | INTERVAL | | | | | | (CORRECTED) | | | | | + + + + + + | P WAVE AXIS | 46 | degrees | [facility] | | + + + + + + | QRS AXIS | 57 | degrees | [facility] | | + + + + + + | T AXIS | 113 | degrees | [facility] | | + + + + + + | INTERPRETAT | Normal sinus rhythmT | | [facility] | | | ION TEXT | wave abnormality, | | | | | | consider lateral | | | | | | ischemiaLong QTcAbnormal | | | | | | ECGWhen compared with | | | | | | ECG of 28-DEC-2018 | | | | | | 21:51, (Unconfirmed)T | | | | | | wave abnormalities in | | | | | | anterior leads are no | | | | | | longer presentConfirmed | | | | | | by KURTIS CANTU MD | | | | | | ([id number]) on 12/29/2018 | | | | | | 6:49:49 AM | | | | + + + + + + + + | Specimen | + + | | + + + + + | Narrative | Performed At | + + + | | | + + + + +---------+ + + | Performing | Address | City/State/Zipcode | Phone Number | | Organization | | | | + +---------+ + + | [facility] | | | | + +---------+ + + CK Total (12/29/2018 3:27 AM PDT) + +---------+ + + + | Component | Value | Ref Range | Performed | Pathologist | | | | | At | Signature | + +---------+ + + + | CK TOTAL | 273 (H) | 34 - 145 U/L | [facility] | | | | | | [facility] | | | | | | [facility]ICAL | | | | | | CENTER - | | | | | | LABORATORY | | + +---------+ + + + + + | Specimen | + + | Blood | + + + + + + + | Performing | Address | City/State/Zipcode | Phone Number | | Organization | | | | + + + + + | [facility] | [address] | [place], [place] | [phone] | | [facility] | | [address] | | | - LABORATORY | | | | + + + + + Troponin I (12/29/2018 3:27 AM PDT) + + + + + + | Component | Value | Ref Range | Performed | Pathologist | | | | | At | Signature | + + + + + + | Troponin I | 0.96 ()Comment: New | <0.06 ng/mL | [facility] | | | | method in use as of | | [facility] | | | | November 23, 2018. Check | | MEDICAL | | | | reference range for | | CENTER - | | | | changes.Some analytes | | LABORATORY | | | | show significant | | | | | | variation from the | | | | | | previous method.It may | | | | | | be necessary to set a | | | | | | new baseline for this | | | | | | analyte. Consistent with | | | | | | previous results. | | | | + + + + + + + + | Specimen | + + | Blood | + + + + + + + | Performing | Address | City/State/Zipcode | Phone Number | | Organization | | | | + + + + + | [facility] | [address] | [place] | [phone] | | [facility] | | [address] | | | - LABORATORY | | | | + + + + + Hemoglobin A1C (12/29/2018 3:27 AM PDT) + +-------+ + + + | Component | Value | Ref Range | Performed | Pathologist | | | | | At | Signature | + +-------+ + + + | Hemoglobin | 5.3 | 4.3 - 6.0 % | [facility] | | | A1c | | | [facility] | | | | | | [facility]ICAL | | | | | | CENTER - | | | | | | LABORATORY | | + +-------+ + + + | Estimated | 105 | mg/dL | [facility] | | | Average | | | [facility] | | | Glucose | | | MEDICAL | | | | | | CENTER - | | | | | | LABORATORY | | + +-------+ + + + + + | Specimen | + + | Blood | + + + + + + + | Performing | Address | City/State/Zipcode | Phone Number | | Organization | | | | + + + + + | [facility] | [address] | [place] | [phone] | | [facility] | | [address] | | | - LABORATORY | | | | + + + + + Lipid Panel (12/29/2018 3:27 AM PDT) + +--------+ + + + | Component | Value | Ref Range | Performed | Pathologist | | | | | At | Signature | + +--------+ + + + | Triglycerid | 139 | <=150 mg/dL | [facility] | | | es | | | [facility] | | | | | | MEDICAL | | | | | | CENTER - | | | | | | LABORATORY | | + +--------+ + + + | Cholesterol | 131 | <=200 mg/dL | [facility] | | | | | | [facility] | | | | | | MEDICAL | | | | | | CENTER - | | | | | | LABORATORY | | + +--------+ + + + | HDL | 38 (L) | 40 - 60 mg/dL | [facility] | | | | | | [facility] | | | | | | MEDICAL | | | | | | CENTER - | | | | | | LABORATORY | | + +--------+ + + + | Chol/HDL | 3.4 | | [facility] | | | Ratio | | | [facility] | | | | | | MEDICAL | | | | | | CENTER - | | | | | | LABORATORY | | + +--------+ + + + | LDL, | 65 | <=130 mg/dL | [facility] | | | Calculated | | | [facility] | | | | | | MEDICAL | | | | | | CENTER - | | | | | | LABORATORY | | + +--------+ + + + + + | Specimen | + + | Blood | + + + + + + + | Performing | Address | City/State/Zipcode | Phone Number | | Organization | | | | + + + + + | [facility] | [address] | [place] | [phone] | | [facility] | | [address] | | | - LABORATORY | | | | + + + + + CBC no Differential (12/29/2018 3:27 AM PDT) + +-------+ + + + | Component | Value | Ref Range | Performed | Pathologist | | | | | At | Signature | + +-------+ + + + | White Blood | 7.8 | 4.0 - 11.0 K/uL | [facility] | | | Cells | | | [facility] | | | | | | MEDICAL | | | | | | CENTER - | | | | | | LABORATORY | | + +-------+ + + + | Red Blood | 4.49 | 3.70 - 5.20 | [facility] | | | Cells | | M/uL | [facility] | | | | | | MEDICAL | | | | | | CENTER - | | | | | | LABORATORY | | + +-------+ + + + | Hemoglobin | 13.1 | 11.5 - 16.0 | [facility] | | | | | g/dL | [facility] | | | | | | MEDICAL | | | | | | CENTER - | | | | | | LABORATORY | | + +-------+ + + + | Hematocrit | 40.4 | 34.0 - 47.0 % | [facility] | | | | | | [facility] | | | | | | MEDICAL | | | | | | CENTER - | | | | | | LABORATORY | | + +-------+ + + + | MCV | 90.0 | 83.0 - 101.0 fL | [facility] | | | | | | [facility] | | | | | | MEDICAL | | | | | | CENTER - | | | | | | LABORATORY | | + +-------+ + + + | MCH | 29.2 | 28.0 - 35.0 pg | [facility] | | | | | | [facility] | | | | | | MEDICAL | | | | | | CENTER - | | | | | | LABORATORY | | + +-------+ + + + | MCHC | 32.4 | 32.0 - 36.0 | [facility] | | | | | g/dL | [facility] | | | | | | MEDICAL | | | | | | CENTER - | | | | | | LABORATORY | | + +-------+ + + + | RDW-CV | 12.7 | <15.0 % | [facility] | | | | | | [facility] | | | | | | MEDICAL | | | | | | CENTER - | | | | | | LABORATORY | | + +-------+ + + + | RDW-SD | 41.9 | 35.1 - 46.3 fL | [facility] | | | | | | [facility] | | | | | | MEDICAL | | | | | | CENTER - | | | | | | LABORATORY | | + +-------+ + + + | Platelet | 206 | 140 - 440 K/uL | [facility] | | | Count | | | [facility] | | | | | | MEDICAL | | | | | | CENTER - | | | | | | LABORATORY | | + +-------+ + + + | MPV | 9.7 | 6.5 - 12.4 fL | [facility] | | | | | | [facility] | | | | | | MEDICAL | | | | | | CENTER - | | | | | | LABORATORY | | + +-------+ + + + | % nRBC | 0 | 0 - 2 per 100 | [facility] | | | | | WBCs | [facility] | | | | | | MEDICAL | | | | | | CENTER - | | | | | | LABORATORY | | + +-------+ + + + | Absolute | 0.00 | 0.00 - 0.01 | [facility] | | | nRBC | | K/uL | [facility] | | | | | | MEDICAL | | | | | | CENTER - | | | | | | LABORATORY | | + +-------+ + + + + + | Specimen | + + | Blood | + + + + + + + | Performing | Address | City/State/Zipcode | Phone Number | | Organization | | | | + + + + + | [facility] | [address] | [place] | [phone] | | [facility] | | [address] | | | - LABORATORY | | | | + + + + + Basic Metabolic Panel (12/29/2018 3:27 AM PDT) + +---------+ + + + | Component | Value | Ref Range | Performed | Pathologist | | | | | At | Signature | + +---------+ + + + | Na | 136 | 136 - 145 | [facility] | | | | | mmol/L | [facility] | | | | | | MEDICAL | | | | | | CENTER - | | | | | | LABORATORY | | + +---------+ + + + | K | 3.9 | 3.4 - 5.1 | [facility] | | | | | mmol/L | [facility] | | | | | | MEDICAL | | | | | | CENTER - | | | | | | LABORATORY | | + +---------+ + + + | Cl | 105 | 98 - 107 mmol/L | [facility] | | | | | | [facility] | | | | | | MEDICAL | | | | | | CENTER - | | | | | | LABORATORY | | + +---------+ + + + | CO2 | 25 | 20 - 31 mmol/L | [facility] | | | | | | [facility] | | | | | | MEDICAL | | | | | | CENTER - | | | | | | LABORATORY | | + +---------+ + + + | Anion Gap | 6 | 3 - 16 mmol/L | [facility] | | | | | | [facility] | | | | | | MEDICAL | | | | | | CENTER - | | | | | | LABORATORY | | + +---------+ + + + | Glucose | 126 (H) | 60 - 106 mg/dL | [facility] | | | | | | [facility] | | | | | | [facility]ICAL | | | | | | CENTER - | | | | | | LABORATORY | | + +---------+ + + + | BUN | 11 | 9 - 23 mg/dL | [facility] | | | | | | [facility] | | | | | | [facility] | | | | | | CENTER - | | | | | | LABORATORY | | + +---------+ + + + | Creatinine | 0.76 | 0.55 - 1.02 | [facility] | | | | | mg/dL | [facility] | | | | | | MED[facility] | | | | | | CENTER - | | | | | | LABORATORY | | + +---------+ + + + | eGFR, | >60 | >=60 | [facility] | | | non- | | mL/min/1.73m2 | [facility] | | | [place] | | | MEDICAL | | | | | | CENTER - | | | | | | LABORATORY | | + +---------+ + + + | Calcium | 9.5 | 8.7 - 10.4 | [facility] | | | | | mg/dL | [facility] | | | | | | MEDICAL | | | | | | CENTER - | | | | | | LABORATORY | | + +---------+ + + + | BUN/Creatin | 14.5 | | [facility] | | | ine Ratio | | | [facility] | | | | | | MEDICAL | | | | | | CENTER - | | | | | | LABORATORY | | + +---------+ + + + + + | Specimen | + + | Blood | + + + + + + + | Performing | Address | City/State/Zipcode | Phone Number | | Organization | | | | + + + + + | [facility] | [address] | [place] | [phone] | | [facility] | | [address] | | | - LABORATORY | | | | + + + + + Heparin XA (12/28/2018 11:36 PM PDT) + +-------+ + + + | Component | Value | Ref Range | Performed | Pathologist | | | | | At | Signature | + +-------+ + + + | Heparin | 0.94 | IU/mL | [facility] | | | Unfractiona | | | [facility] | | | [facility] | | | [facility] | | | | | | CENTER - | | | | | | LABORATORY | | + +-------+ + + + + + | Specimen | + + | Blood | + + + + + | Narrative | Performed At | + + + | Unfractionated Heparin (UFH) Therapeutic range: 0.30 - 0.70 IU/mL | [facility] | | | [facility] | | | [facility] | | | - LABORATORY | + + + + + + + + | Performing | Address | City/State/Zipcode | Phone Number | | Organization | | | | + + + + + | [facility] | [address] | [place] | [phone] | | [facility] | | [address] | | | - LABORATORY | | | | + + + + + Protime INR (12/28/2018 11:36 PM PDT) + + + + + + | Component | Value | Ref Range | Performed | Pathologist | | | | | At | Signature | + + + + + + | Prothrombin | 13.2 | 11.3 - 13.9 | [facility] | | | Time | | seconds | [facility] | | | | | | MEDICAL | | | | | | CENTER - | | | | | | LABORATORY | | + + + + + + | INR | 1.0Comment: Usual Oral | 0.9 - 1.1 | [facility] | | | | Anticoagulation Range: | | [facility] | | | | 2.0 - 3.0High | | MEDICAL | | | | Level Oral | | CENTER - | | | | Anticoagulation Range: | | LABORATORY | | | | 2.5 - 3.5 | | | | + + + + + + + + | Specimen | + + | Blood | + + + + + + + | Performing | Address | City/State/Zipcode | Phone Number | | Organization | | | | + + + + + | [facility] | [address] | [place] | [phone] | | [facility] | | [address] | | | - LABORATORY | | | | + + + + + PTT (12/28/2018 11:36 PM PDT) + +-------+ + + + | Component | Value | Ref Range | Performed | Pathologist | | | | | At | Signature | + +-------+ + + + | aPTT | 32 | 22 - 36 seconds | [facility] | | | | | | [facility] | | | | | | MEDICAL | | | | | | CENTER - | | | | | | LABORATORY | | + +-------+ + + + + + | Specimen | + + | Blood | + + + + + + + | Performing | Address | City/State/Zipcode | Phone Number | | Organization | | | | + + + + + | [facility] | [address] | [place] | [phone] | | [facility] | | [address] | | | - LABORATORY | | | | + + + + + Troponin I (12/28/2018 10:17 PM PDT) + + + + + + | Component | Value | Ref Range | Performed | Pathologist | | | | | At | Signature | + + + + + + | Troponin I | 1.51 (HH)Comment: New | <0.06 ng/mL | [facility] | | | | method in use as of | | [facility] | | | | November 23, 2018. Check | | MEDICAL | | | | reference range for | | CENTER - | | | | changes.Some analytes | | LABORATORY | | | | show significant | | | | | | variation from the | | | | | | previous method.It may | | | | | | be necessary to set a | | | | | | new baseline for this | | | | | | analyte. Critical Result | | | | | | called to and read back | | | | | | by Claus Avery on | | | | | | 12/28/2018 at 22:48 by | | | | | | Flavio Ballesteros | | | | + + + + + + + + | Specimen | + + | Blood | + + + + + + + | Performing | Address | City/State/Zipcode | Phone Number | | Organization | | | | + + + + + | [facility] | [address] | [place], [place] | [phone] | | [facility] | | [id number] | | | - LABORATORY | | | | + + + + + ECG 12 lead (12/28/2018 9:51 PM PDT) + + + + + + | Component | Value | Ref Range | Performed | Pathologist | | | | | At | Signature | + + + + + + | VENTRICULAR | 73 | BPM | [facility] | | | RATE EKG | | | | | + + + + + + | ATRIAL RATE | 73 | BPM | [facility] | | + + + + + + | P-R | 160 | ms | [facility] | | | INTERVAL | | | | | + + + + + + | QRS | 86 | ms | [facility] | | | DURATION | | | | | + + + + + + | Q-T | 458 | ms | [facility] | | | INTERVAL | | | | | + + + + + + | Q-T | 504 | ms | [facility] | | | INTERVAL | | | | | | (CORRECTED) | | | | | + + + + + + | P WAVE AXIS | 44 | degrees | [facility] | | + + + + + + | QRS AXIS | 59 | degrees | [facility] | | + + + + + + | T AXIS | 108 | degrees | [facility] | | + + + + + + | INTERPRETAT | Normal sinus rhythmT | | [facility] | | | ION TEXT | wave abnormality, | | | | | | consider lateral | | | | | | ischemiaAnterior T wave | | | | | | abnormalities vs | | | | | | artifact: cannot exclude | | | | | | ischemiaLong | | | | | | QTcAbnormal ECGNo | | | | | | previous ECGs | | | | | | availableReconfirmed by | | | | | | KURTIS CANTU MD ([id number]) | | | | | | on 12/29/2018 6:50:04 AM | | | | + + + + + + + + | Specimen | + + | | + + + + + | Narrative | Performed At | + + + | | | + + + + +---------+ + + | Performing | Address | City/State/Zipcode | Phone Number | | Organization | | | | + +---------+ + + | [facility] | | | | + +---------+ + + Culture, MRSA (12/28/2018 8:24 PM PDT) + + + + + + | Component | Value | Ref Range | Performed | Pathologist | | | | | At | Signature | + + + + + + | Culture | 1+ Staphylococcus | | [facility] | | | | aureus,Methicillin | | [facility] | | | | resistant ([facility]SA)Comment: | | MEDICAL | | | | *INFECTION PREVENTION | | CENTER - | | | | ALERT - MRSA* CONTACT | | LABORATORY | | | | PRECAUTIONS REQUIRED. | | | | + + + + + + + + | Specimen | + + | Tissue - Both | | anterior nares (body | | structure) | + + + + + + + | Performing | Address | City/State/Zipcode | Phone Number | | Organization | | | | + + + + + | [facility] | [address] | [place] | [phone] | | [facility] | | [id number] | | | - LABORATORY | | | | + + + + + ECG - EXTERNAL SCAN (12/28/2018 12:00 AM PDT) + + + | Narrative | Performed At | + + + | Ordered by an | | | unspecified provider. | | + + + documented in this encounter Visit Diagnoses + + | Diagnosis | + + | NSTEMI (non-ST elevated myocardial infarction) (HCC) - Primary Acute myocardial | | infarction, subendocardial infarction, episode of care unspecified | + + | Nonintractable epilepsy without status epilepticus, unspecified epilepsy type ([facility]) | + + | Restless leg syndrome Restless legs syndrome (RLS) | + + | Essential hypertension Unspecified essential hypertension | + + | Hypothyroidism, unspecified type | + + | Gastroesophageal reflux disease, esophagitis presence not specified | + + documented in this encounter Administered Medications + +--------+ +-------+------+------+ | Medication Order | MAR | Action | Dose | Rate | Site | | | Action | Date | | | | + +--------+ +-------+------+------+ | aminophylline injection 75 mg | Given | 12/31/19 | 75 mg | | | | 75 mg, Intravenous, ONCE PRN, per | | 19 8:39 | | | | | doctor, Starting 12/30/18 at | | AM PDT | | | | | 0838, For 1 dose, Nuclear | | | | | | | Medicine | | | | | | + +--------+ +-------+------+------+ +---+---+ | | | +---+---+ + +-------+ +-------+---+---+ | aspirin EC tablet 81 mg 81 mg, | Given | 12/31/19 | 81 mg | | | | Oral, DAILY, First dose on Wed | | 19 8:10 | | | | | 12/29/18 at 0900 | | AM PDT | | | | + +-------+ +-------+---+---+ +-------+ +-------+---+---+ | Given | 12/30/19 | 81 mg | | | | | 19 8:02 | | | | | | AM PDT | | | | +-------+ +-------+---+---+ +---+---+ | | | +---+---+ + +-------+ +-------+---+---+ | atorvaSTATin (LIPITOR) tablet | Given | 12/29/19 | 40 mg | | | | 40 mg 40 mg, Oral, NIGHTLY, | | 19 10:13 | | | | | First dose on Wed12/28/18 at 2145 | | PM PDT | | | | + +-------+ +-------+---+---+ +---+---+ | | | +---+---+ + +-------+ +-------+---+---+ | atorvaSTATin (LIPITOR) tablet | Given | 12/30/19 | 80 mg | | | | 80 mg 80 mg, Oral, NIGHTLY, | | 19 8:23 | | | | | First dose (after last | | PM PDT | | | | | modification) on Wed12/29/18 at | | | | | | | 2100 | | | | | | + +-------+ +-------+---+---+ +---+---+ | | | +---+---+ + +-------+ +--------+---+---+ | clopidogrel (PLAVIX) tablet 300 | Given | 12/30/19 | 300 mg | | | | mg 300 mg, Oral, ONCE, Wed | | 19 5:28 | | | | | 12/29/18 at 1700, For 1 dose | | PM PDT | | | | + +-------+ +--------+---+---+ +---+---+ | | | +---+---+ + +-------+ +-------+---+---+ | clopidogrel (PLAVIX) tablet 75 | Given | 12/31/19 | 75 mg | | | | mg 75 mg, Oral, DAILY, First | | 19 8:10 | | | | | dose on Wed12/30/18 at 0900 | | AM PDT | | | | + +-------+ +-------+---+---+ +---+---+ | | | +---+---+ + +-------+ +---------+--------+---+ | dipyridamole (PERSANTINE) 60mg | Given | 12/31/19 | 15.265 | 610.6 | | | in 40 mL NS syringe 0.142 | | 19 9:00 | mg/min | mL/hr | | | mg/kg/min | | AM PDT | | | | | 107.5 kg (610.6 mL/hr), | | | | | | | Intravenous, Administer over 4 | | | | | | | Minutes, ONCE, Wed12/30/18 at | | | | | | | 0900, For 1 dose, Nuclear | | | | | | | Medicine | | | | | | + +-------+ +---------+--------+---+ +---+---+ | | | +---+---+ + +-------+ +--------+---+---+ | gabapentin (NEURONTIN) capsule | Given | 12/30/19 | 100 mg | | | | 100 mg 100 mg, Oral, 2 TIMES | | 19 8:01 | | | | | DAILY, First dose (after last | | AM PDT | | | | | modification) on [facility] 12/29/18 at | | | | | | | 0900 | | | | | | + +-------+ +--------+---+---+ +---+---+ | | | +---+---+ + +-------+ +--------+---+---+ | gabapentin (NEURONTIN) capsule | Given | 12/30/19 | 100 mg | | | | 100 mg 100 mg, Oral, 2 TIMES | | 19 8:22 | | | | | DAILY, First dose (after last | | PM PDT | | | | | modification) on [facility] 12/29/18 at | | | | | | | 1700 | | | | | | + +-------+ +--------+---+---+ +-------+ +--------+---+---+ | Given | 12/30/19 | 100 mg | | | | | 19 4:35 | | | | | | PM PDT | | | | +-------+ +--------+---+---+ +---+---+ | | | +---+---+ + + + + + +---+ | heparin in half-normal saline | Rate/Dos | 12/30/19 | 1,200 | 24 mL/hr | | | 50 units/mL infusion 1,200 | e Change | 19 6:54 | Units/hr | | | | Units/hr (24 mL/hr), at 24 mL/hr, | | AM PDT | | | | | Intravenous, CONTINUOUS, | | | | | | | Starting [facility] 12/29/18 at 0000, | | | | | | | Pharmacy heparin protocol for | | | | | | | ACS, CARDIAC DOSE; goal PTT | | | | | | | range: 54-74 seconds, | | | | | | + + + + + +---+ +---------+ + + +---+ | New Bag | 12/29/19 | 1,300 | 26 mL/hr | | | | 19 11:59 | Units/hr | | | | | PM PDT | | | | +---------+ + + +---+ +---+---+ | | | +---+---+ + +-------+ +-------+---+---+ | ketorolac (TORADOL) injection | Given | 12/30/19 | 15 mg | | | | 15 mg 15 mg, Intravenous, EVERY | | 19 6:17 | | | | | 8 HOURS PRN, Pain, Starting Wed | | AM PDT | | | | | 12/28/18 at 2117, For 2 days | | | | | | + +-------+ +-------+---+---+ +---+---+ | | | +---+---+ + +-------+ + +---+---+ | levETIRAcetam (KEPPRA) tablet | Given | 12/31/19 | 1,000 mg | | | | 1,000 mg 1,000 mg, Oral, 2 TIMES | | 19 8:10 | | | | | DAILY, First dose (after last | | AM PDT | | | | | modification) on [facility] 12/29/18 at | | | | | | | 0900 | | | | | | + +-------+ + +---+---+ +-------+ + +---+---+ | Given | 12/30/19 | 1,000 mg | | | | | 19 8:22 | | | | | | PM PDT | | | | +-------+ + +---+---+ | Given | 12/30/19 | 1,000 mg | | | | | 19 8:02 | | | | | | AM PDT | | | | +-------+ + +---+---+ +---+---+ | | | +---+---+ + +-------+ +---------+---+---+ | levothyroxine (SYNTHROID) | Given | 12/31/19 | 112 mcg | | | | tablet 112 mcg 112 mcg, Oral, | | 19 6:48 | | | | | DAILY BEFORE BREAKFAST, First | | AM PDT | | | | | dose on [facility] 12/29/18 at 0730, Give | | | | | | | before breakfast., | | | | | | + +-------+ +---------+---+---+ +-------+ +---------+---+---+ | Given | 12/30/19 | 112 mcg | | | | | 19 6:30 | | | | | | AM PDT | | | | +-------+ +---------+---+---+ +---+---+ | | | +---+---+ + +-------+ +--------+---+---+ | lisinopril (PRINIVIL,ZESTRIL) | Given | 12/31/19 | 2.5 mg | | | | tablet 2.5 mg 2.5 mg, Oral, | | 19 8:09 | | | | | DAILY, First dose on Wed12/29/18 | | AM PDT | | | | | at 0900 | | | | | | + +-------+ +--------+---+---+ +-------+ +--------+---+---+ | Given | 12/30/19 | 2.5 mg | | | | | 19 8:01 | | | | | | AM PDT | | | | +-------+ +--------+---+---+ +---+---+ | | | +---+---+ + +-------+ +---------+---+---+ | metoprolol tartrate (LOPRESSOR) | Given | 12/30/19 | 12.5 mg | | | | tablet 12.5 mg 12.5 mg, Oral, 2 | | 19 8:04 | | | | | TIMES DAILY, First dose on Wed | | AM PDT | | | | | 12/28/18 at 2145, Hold for HR<60 or | | | | | | | SBP<100 Hold the AM dose for | | | | | | | possible stress test if troponins | | | | | | | are down trending, | | | | | | + +-------+ +---------+---+---+ + +---+ | | | + +---+ | metoprolol tartrate (LOPRESSOR) | | | tablet 12.5 mg 12.5 mg, Oral, 2 | | | TIMES DAILY, First dose (after | | | last modification) on Wed12/30/18 | | | at 1115, Hold for HR<60 or | | | SBP<100 Hold the AM dose for | | | possible stress test if troponins | | | are down trending, | | + +---+ | | | + +---+ + +-------+ +-------+---+---+ | metoprolol tartrate (LOPRESSOR) | Given | 12/30/19 | 25 mg | | | | tablet 25 mg 25 mg, Oral, 2 | | 19 8:22 | | | | | TIMES DAILY, First dose (after | | PM PDT | | | | | last modification) on [facility] 12/29/18 | | | | | | | at 2100, Hold for HR<60 or | | | | | | | SBP<100 Hold the AM dose for | | | | | | | possible stress test if troponins | | | | | | | are down trending, | | | | | | + +-------+ +-------+---+---+ +---+---+ | | | +---+---+ + +-------+ +--------+---+---+ | nitroglycerin (NITROSTAT) SL | Given | 12/30/19 | 0.4 mg | | | | tablet 0.4 mg 0.4 mg, | | 19 11:26 | | | | | Sublingual, EVERY 5 MIN PRN, | | AM PDT | | | | | Chest pain, Starting 12/28/18 | | | | | | | at 2117, Maximum of 3 doses in 15 | | | | | | | minutes., | | | | | | + +-------+ +--------+---+---+ +---+---+ | | | +---+---+ + +-------+ +-------+---+---+ | pantoprazole (PROTONIX) DR | Given | 12/31/19 | 40 mg | | | | tablet 40 mg 40 mg, Oral, DAILY | | 19 6:48 | | | | | BEFORE BREAKFAST, First dose on | | AM PDT | | | | | [place] 12/29/18 at 0730, Do not cut or | | | | | | | crush., Indication: GERD | | | | | | + +-------+ +-------+---+---+ +-------+ +-------+---+---+ | Given | 12/30/19 | 40 mg | | | | | 19 6:30 | | | | | | AM PDT | | | | +-------+ +-------+---+---+ +---+---+ | | | +---+---+ + +-------+ + +---+---+ | pramipexole (MIRAPEX) tablet | Given | 12/30/19 | 0.375 mg | | | | 0.375 mg 0.375 mg, Oral, ONCE, | | 19 4:35 | | | | | [place] 12/29/18 at 1645, For 1 dose | | PM PDT | | | | + +-------+ + +---+---+ + +---+ | | | + +---+ | pramipexole (MIRAPEX) tablet | | | 0.375 mg 0.375 mg, Oral, | | | NIGHTLY, First dose on Wed12/30/18 | | | at 2100 | | + +---+ | | | + +---+ + +-------+ + +---+---+ | technetium TC-99M sestamibi | Given | 12/31/19 | 10.5 | | | | (CARDIOLITE) injection 10.5 | | 19 8:39 | millicur | | | | millicurie 10.5 millicurie, | | AM PDT | ies | | | | Intravenous, ONCE PRN, Other, | | | | | | | Starting Wed12/30/18 at 0839, For | | | | | | | 1 dose, Nuclear Medicine | | | | | | + +-------+ + +---+---+ +---+---+ | | | +---+---+ + +-------+ + +---+---+ | technetium TC-99M sestamibi | Given | 12/31/19 | 35.6 | | | | (CARDIOLITE) injection 35.6 | | 19 9:37 | millicur | | | | millicurie 35.6 millicurie, | | AM PDT | ies | | | | Intravenous, ONCE PRN, Other, | | | | | | | Starting Wed12/30/18 at 0937, For | | | | | | | 1 dose, Nuclear Medicine | | | | | | + +-------+ + +---+---+ +---+---+ | | | +---+---+ documented in this encounter
--- OUTSIDE RECORDS SUMMARY | ~2020-06-03 | XMS | Encounter Summary ---
Demographics + + + | Address | [address] | | | [place] [address] | + + + | Home Phone [...] Author + + + | Author | [facility] | | | and [place] | + + + | Organization | [facility] | | | [...] Team Providers + +------+ + | Care Encapsulator Name | Role | Phone | + +------+ + | Lupillo Valdez DO | PCP | | + +------+ + Reason for Visit + +--------+ + | Reason | Onset | Comments | | | Date | | + +--------+ + | Medication Refill | 08/21/ | | | | 2019 | | + +--------+ + Encounter Details +--------+--------+ + + + | Date | Type | Department | Care Team | Description | +--------+--------+ + + + | 08/21/ | Refill | [facility] [facility] | Hanh Burger, CC | Medication Refill | | 2019 | | [facility] | [facility] | | | | | [facility] [address] | | | | | | [address] [facility], | | | | | | [place] [address] | | | | | | [phone] | | | +--------+--------+ + + + [...] Encounter - Hanh Burger CC CMA - 08/21/2019 11:45 AM PSTLAST OFFICE VISIT , labs up to date . IDALIA Huerta CMA documented in this encounter [...] [place] | | | | | | [address] | | | | | | [phone] | | | | | | | | +--------+---------+ + + + | 08/14/ | Office | Neurology | Jessica Hnery NP | | | 2019 | Visit | | [address] | | | | | | [place], [place] | | | | | | [address] | | | | | | [phone] | | | | | | | | +--------+---------+ + + + documented as of this encounter Visit Diagnoses Not on filedocumented in this encounter"
--- OUTSIDE RECORDS SUMMARY | ~2020-06-03 | XMS | Encounter Summary ---
Demographics + + + | Address | [address] | | | [place] [address] | + + + | Home Phone [...] Providers + +------+ + | Care Maintenance Mechanic Technician Name | Role | Phone | + +------+ + | Lupillo Valdez DO | PCP | | + +------+ + Reason for Visit + +--------+ + | Reason | Onset | Comments | | | Date | | + +--------+ + | Lab Results | 12/18/ | | | | 2020 | | + +--------+ + Encounter Details +--------+ + + + + | Date | Type | Department | Care Team | Description | +--------+ + + + + | 12/18/ | Telephone | [facility] | Shilpa Yang RN | Lab Results | | 2020 | | [facility] | | | | | | CLINIC [address] | | | | | | [address] [place], | | | | | | [place] [address] | | | | | | [phone] | | | +--------+ + + + [...] Telephone Encounter - Shilpa Yang RN - 12/19/2019 12:53 PM PDTPatient notified, timmy novak. elep chau Encounter - Shlipa Yang RN - 12/19/2019 12:52 PM PDT----- Message from Zakia Neumann MD sent at 12/16/2019 3:57 PM PDT ----- Please let pt know her Keppra level is therapeutic and no dosage change is needed.Yvette coon signed by Shilpa Yang RN at 12/19/2019 12:52 PM PDTdocumented in this encounter Plan of Treatment +--------+---------+ + + + | Date | Type | Specialty | Care Team | Description | +--------+---------+ + + + | 07/01/ | Office | Primary Care | Lupillo Valdez | | 2019 | Visit | | [address] | | | | | | [place] | | | | | | [address] | | | | | | [phone] | | | | | | | | +--------+---------+ + + + | 08/14/ | Office | Neurology | Jessica Henry NP | | | 2020 | Visit | | [address] | | | | | | [place] | | | | | | [address] | | | | | | [phone] | | | | | | | | +--------+---------+ + + + documented as of this encounter Visit Diagnoses Not on filedocumented in this encounter"
--- OUTSIDE RECORDS SUMMARY | ~2020-06-03 | XMS | Encounter Summary ---
Demographics + + + | Address | [address] | | | [place] [address] | + + + | Home Phone [...] Author + + + | Author | [facility] | | | and [place] | + + + | Organization | [facility] | | | [...] Team Providers + +------+ + | Care Manufacturing Engineer Automotive Name | Role | Phone | + +------+ + | Lupillo Valdez DO | PCP | | + +------+ + Reason for Visit + +--------+ + | Reason | Onset | Comments | | | Date | | + +--------+ + | Medication Refill | 03/21/ | | | | 2019 | | + +--------+ + | Medication Refill | 04/03/ | | | | 2018 | | + +--------+ + Encounter Details +--------+--------+ + + + | Date | Type | Department | Care Team | Description | +--------+--------+ + + + | 03/21/ | Refill | [facility] | Lupillo Valdez | Medication Refill; | | 2018 | | [facility] | E, DO [address] | Medication Refill | | | | MEDICAL CLIN[facility] [address] | [place], [place] | | | | | [place], | [address] | | | | | [place] [address] | [phone] | | | | | [phone] | | | +--------+--------+ + + + [...] Encounter - Hanh Burger CC CMA - 03/21/2019 5:04 PM PDTLAST OFFICE VISIT 03/2019. Last lipid 12/29/2018. IDALIA Huerta CMA elephone Encounte r - [place], Rogelio Espinoza - 03/21/2019 4:58 PM PDTPlease refill lovastatin (MEVACOR) 40 MG tablet pt needs to pick this up at the pharmacy by . Pharmacy confirmed. Rogelio Mariano documented in this encoun ter Plan of [...] [place] | | | | | | [address] | | | | | | [phone] | | | | | | | | +--------+---------+ + + + | 08/14/ | Office | Neurology | Jessica Henry NP | | | 2019 | Visit | | [address] | | | | | | [place], [place] | | | | | | [address] | | | | | | [phone] | | | | | | | | +--------+---------+ + + + documented as of this encounter Visit Diagnoses Not on filedocumented in this encounter"
--- OUTSIDE RECORDS SUMMARY | ~2020-06-03 | XMS | Encounter Summary ---
Demographics + + + | Address | [address] | | | [place] [address] | + + + | Home Phone | | + + + | Preferred Language | Unknown | + + + | Marital Status | Single | + + + | Yazidism Affiliation | Unknown | + + + [...] Team Providers + +------+ + | Care Assistant Professor Of Forestry Name | Role | Phone | + +------+ + | Lupillo Valdez DO | PCP | | + +------+ + Reason for Visit +---------+--------+ + | Reason | Onset | Comments | | | Date | | +---------+--------+ + | Results | 01/08/ | EEG | | | 2020 | | +---------+--------+ + Encounter Details +--------+ + + + + | Date | Type | Department | Care Team | Description | +--------+ + + + + | 01/08/ | Telephone | [facility] [facility] | Shilpa Yang RN | Results (EEG) | | 2020 | | [facility] | | | | | | CLINIC [address] | | | | | | [address] [place], | | | | | | [place] [address] | | | | | | [phone] | | | +--------+ + + + [...] Telephone Encounter - Shilpa Yang RN - 01/09/2020 1:39 PM PDTReviewed normal 24 hour E EG findings and continue with current Keppra dose, verbalized understanding.Electronically s igned by Shilpa Yang RN at 01/09/2020 1:40 PM PDTTelephone Encounter - Shilpa Yang R N - 01/09/2020 1:38 PM PDT----- Message from Zakia Neumann MD sent at 01/09/2020 11:14 AM PDT ----- Please let patient know that her 24-hour EEG is normal. No changes planned for her Keppra dose. She has a follow-up with me in January.Electronically signed by Shilpa Yang RN at 12/26 1:38 PM PDTdocumented in this encounter Plan of Treatment +--------+---------+ + + + | Date | Type | Specialty | Care Team | Description | +--------+---------+ + + + | 07/01/ | Office | Primary Care | Lupillo Valdez | | 2019 | Visit | | E, DO [address] | | | | | | [place] | | | | | | [address] | | | | | | [phone] | | | | | | | | +--------+---------+ + + + | 08/14/ | Office | Neurology | Jessica Henry NP | | | 2019 | Visit | | [address] | | | | | | [place] | | | | | | [address] | | | | | | [phone] | | | | | | | | +--------+---------+ + + + documented as of this encounter Visit Diagnoses Not on filedocumented in this encounter"
--- OUTSIDE RECORDS SUMMARY | ~2020-06-03 | XMS | Encounter Summary ---
Demographics + + + | Address | [address] | | | [place] [address] | + + + | Home Phone [...] Team Providers + +------+ + | Care Machine Package Sealer Name | Role | Phone | + +------+ + | Lupillo Valdez DO | PCP | | + +------+ + Reason for Visit + +--------+ + | Reason | Onset | Comments | | | Date | | + +--------+ + | Medication Refill | 12/19/ | | | | 2019 | | + +--------+ + Encounter Details +--------+--------+ + + + | Date | Type | Department | Care Team | Description | +--------+--------+ + + + | 12/19/ | Refill | [facility] [facility] | Lavinia Arroyo, | Medication Refill | | 2018 | | [facility] | [facility] [employer] | | | | | MEDICAL CLINIC [address] | | | | | | [address] [facility], | | | | | | [place] [address] | | | | | | [phone] | | | +--------+--------+ + + + [...] Encounter - Lavinia Arroyo CC CMA - 12/19/2018 10:27 AM PDT Needs lipid panel Patient was last seen on Recent Visits 11/24/2018 Hypothyroidism, unspecified type [facility] Lupillo Valdez, DO Office Visit 08/15/2018 Gastroesophageal reflux disease without esophagitis [facility] Lupillo Valdez, DO Office Visit IDALIA Messina CMA documented in th is encounter Plan of Treatment +--------+---------+ + + + | Date | Type | Specialty | Care Team | Description | +--------+---------+ + + + | 07/01/ | Office | Primary Care | Lupillo Valdez | | | 2019 | Visit | | [address] | | | | | | [place] | | | | | | [address] | | | | | | [phone] | | | | | | | | +--------+---------+ + + + | 08/14/ | Office | Neurology | Jessica Henry NP | | | 2019 | Visit | | [address] | | | | | | [place] | | | | | | [address] | | | | | | [phone] | | | | | | | | +--------+---------+ + + + documented as of this encounter Visit Diagnoses Not on filedocumented in this encounter"
--- OUTSIDE RECORDS SUMMARY | ~2020-06-03 | XMS | Encounter Summary ---
Demographics + + + | Address | [address] | | | [place] [address] | + + + | Home Phone [...] Author + + + | Author | [facility] | + + + | Organization | [facility] | + + + | [...] Team Providers + +------+ + | Care Information Receptionist Name | Role | Phone | + +------+ + PCP | Unavailable | + +------+ + Encounter Details +--------+ + + + + | Date | Type | Department | Care Team | Description | +--------+ + + + + | 04/12/ | Abstract | Neurology at | Clinic, Neurology | | | 2018 | | [facility] | [facility] [address] | | | | | | c[address] [facility] | | | | | | [facility], | | | | | | Building | | | | | | Floor [place], [place] | | | | | | [address] | | | | | | [phone] | | | +--------+ + + + [...]
--- OUTSIDE RECORDS SUMMARY | ~2020-06-03 | XMS | Encounter Summary ---
Demographics + + + | Address | [address] | | | [place] [address] | + + + | Home Phone | | + + + | Preferred Language | Unknown | + + + | Marital Status | Single | + + + | Baptist Affiliation | Unknown | + + + [...] Providers + +------+ + | Care Automotive Electrician Helper Name | Role | Phone | + +------+ + | Lupillo Valdez DO | PCP | | + +------+ + Reason for Visit +--------+--------+ + | Reason | Onset | Comments | | | Date | | +--------+--------+ + | Other | 10/10/ | [facility]: Requesting a PA for Out Pt | | | 2019 | Therapy | +--------+--------+ + Encounter Details +--------+ + + + + | Date | Type | Department | Care Team | Description | +--------+ + + + + | 10/10/ | Telephone | [facility] | Lupillo Valdez | Other ([facility] | | 2019 | | [facility] | E, DO [address] | Out Pt Therapy: | | | | MEDICAL CLIN[facility] [address] | [place], [place] | Requesting a PA for | | | | [address] [place], | [address] | Out Pt Therapy) | | | | [place] [address] | [phone] | | | | | [phone] | | | +--------+ + + + [...] this encounter Miscellaneous Notes Telephone Encounter - China Agrawal - 12/01/2019 12:23 PM PSTMaria Is this encounter complete and ok to close? China Agrawal elephone Encounter - China Mckeon - 10/23/2019 1:37 PM PSTIs this encounter ok to close or still ongoing? Please advise China Agrawal elephone Encounter - Miguel Lynch RN - 10/10/2019 11:42 AM PSTPlease advise Miguel Brasher, RN elephone Encounter - China Agrawal - 10/10/2019 10:33 AM PSTCarrie from [facility] requ[facility] sting Dr. Valdez to submit a PA for Out Patient Therapy. Call if any questions as patient is scheduled on 10-12-19. China [facility]rawal [facility] Plan of Treatment +--------+---------+ + + + | Date | Type | Specialty | Care Team | Description | +--------+---------+ + + + | 07/01/ | Office | Primary Care | Lupillo Valdez | | 2019 | Visit | | [place] [address] | | | | | | [place] | | | | | | [address] | | | | | | [phone] | | | | | | | | +--------+---------+ + + + | 08/14/ | Office | Neurology | Jessica Henry NP | | 2019 | Visit | | [address] [place] | | | | | | [place] | | | | | | [address] | | | | | | [phone] | | | | | | | | +--------+---------+ + + + documented as of this encounter Visit Diagnoses Not on filedocumented in this encounter"
--- OUTSIDE RECORDS SUMMARY | ~2020-06-03 | XMS | Encounter Summary ---
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 Name | Role | Phone | + [...] Description | +--------+---------+ + + + | 12/29/ | Surgery | [facility] | Nick Cobb MD | CV C | | 2019 | | MED CTR [facility] | [address] | | | | | [address] | [place] | | | | | [place] | [address] | | | | | [address] | | | | | | [phone] | | | +--------+---------+ + + + [...] + + + | Blood Pressure | 116/65 | 12/29/2018 12:46 PM | | | | | PDT | | + + + + + | Pulse | 57 | 12/29/2018 12:46 PM | | | | | PDT | | + + + + + | Temperature | 36.5 C (97.7 F) | 12/29/2018 11:00 AM | | | | | PDT | | + + + + + | Respiratory Rate | 15 | 12/29/2018 12:46 PM | | | | | PDT | | + + + + + | Oxygen Saturation | 97% | 12/29/2018 12:46 PM | | | | | PDT | | + + + + + | Inhaled Oxygen | - | - | | | Concentration | | | | + + + + + | Weight | 108 kg (238 lb 1.6 | 12/29/2018 2:25 AM | | | | oz) | [...] might be different fro m the original. [place] [facility] DISCHARGE SUMMARY Pt. 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 Specialties: Interventional Cardiology, Cardiology Why: Make appt to see him for 2-4 weeks from now Contact information: [address] [facility] [address] Condition: Patient being discharged with condition improved [...] signed by: Nick Ryan MD, 12/30/2018 11:00 [facility] Reference. This is NOT part of [...] this chart may have been created with [employer] voice recognition software. Occasi onal wrong-word or [...] Care Everywhere.Heart Attack, D ischarge Instructions for (Nigerien)Clopidogrel tablets (Nigerien)Aspirin, ASA oral tablets (E nglish)Metoprolol tablets (Nigerien)documented in this encounter Medications at Time of [...] (SYNTHROID) tablet 112 mcg 112 mcg Oral [facility] Jeny Armstrong MD 112 mcg at 12/30/18 [...] DR tablet 40 mg 40 mg [facility] MD 40 mg at [...] Velocity 12/29/2018 6 cm/s Final MV Deceleration [place] 12/29/2018 341.15 cm/s2 Final MV Deceleration Time [...] ECGs available Reconfirmed by ALONDRA LOBO, KURTIS ([id number]) on 12/29/2018 6:50:04 AM aPTT 12/28/2018 32 [...] longer present Confirmed by KURTIS CANTU MD ([id number]) on 12/29/2018 6:49:49 AM VENTRICULAR RATE EKG [...] and aVL Confirmed by KURTIS CANTU MD ([id number]) on 12/30/2018 6:46:42 AM aPTT 12/29/2018 82* [...] the care of this patient. Nick Cobb MD,[facility], 12/30/2018 10:25 [place], Nick Bean MD - 12/30/2018 7:06 AM PDT [place] [facility]PITAL[place] PROGRESS NOTE Patient: Paula Mcleod : 1960: Age: 58 y.o. 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 Inflammatory markers No results for input(s): LACTATE, PROCALCITONI, CRP, ESR in the last 168 hours. Chemistry Recent Labs Lab 12/29/18 032 GLU 126* NA 136 K 3.9 CL [...] ABG No results for input(s): PHART, PO2ART, CRV3MLK, VBF2XLV, BEART, A3IRGOCS in the last 168 h ours. No results for input(s): SPECSOURCE, PHPOCB, PCO2, PO2, HCO3, TCO2, BEART, [id number] in the last 168 hours. Drug of [...] Procedure Component Value Units Date/Time Culture, MRSA [[id number]] Collected: 12/28/182023 Order Status: Sent Lab Status: [...] this chart may have been created with EatingWell voice recognition software. Occasi onal wrong-word or [...] therapy and continuation oral beta caio therapy. Milagros Garcia RN - 12/29/2018 11:28 AM PDTP t c/o chest pain on right side of chest. Describes it as if someone is thumping on the insi de of her chest. NTG given. 11 :29 AM Nick Whyte MD - 12/29/2018 7:05 AM PDTFormatting of this note might be diff erent from the original. [place] [facility]PITAL[facility] PROGRESS NOTE Patient: Paula Mcleod : 1960: Age: 58 y.o. MedRec: [id number] PCP: Lupillo Valdez DO Admission date: 12/28/2018 [...] 10 minutes, CP resolved after NTG in [place] ER, later e nroute reoccured resolved with [...] much) will will have stress test on Fri and if sig area of ischemi a will attempt to stent the mid LAD. Not need to continue hep gtt Seizure disorder, not new 4th continue Rx, a seizure could have elevated the troponin (however t wave changes did res olve on followup EKG) CPK added on PCP is in [place] (he used to be in [place], she has followed with him 25 years) [...] meycritical meysign) Nick Ryan MD 12/29/2018 7:05 [facility] Subjective CC TFER from [place] No CP nor SOB Nausea not vomit ROS See above Objective Exam General Alert NAD Cardiac RRR no MRG Extremities Lung clear not labored, no anterior chest wall tenderness over the area she had the CP of y esterday Abdominal + BS soft NT Neuro alert fluent (dot meyexam) (dot meyvent) Serial weights: Filed Weights: 12/28/18193812/29/18224 Weight: 106.8 kg (235 lb 7.2 oz) [...] Oral BID Florinda Ramos D Stopped at 12/28/18 2213 nitroglycerin (NITROSTAT) SL tablet 0.4 mg 0.4 mg Sublingual Q5 Min PRN Jeny Armstrong MD ondansetron (ZOFRAN) injection 4 mg 4 mg Intravenous Q6H PRN Jeny Armstrong MD pantoprazole (PROTONIX) DR tablet 40 mg 40 mg [facility]y Armstrong MD 40 mg at 12/29/18 0630 polyethylene glycol (MIRALAX) powder 17 g 17 g Oral Daily PRN Jeny Armstrong MD pramipexole (MIRAPEX) tablet 0.375 mg 0.375 mg Oral Nightly Jeny Armstrong MD senna (SENOKOT) tablet 8.6 mg 8.6 mg Oral BID PRN Jeny Armstrong MD Current Infusions: Heparin Infusion 1,200 Units/hr (12/29/18 0654) Hematology and anemia Recent Labs Lab 12/29/18 0327 WBC 7.8 HGB 13.1 HCT 40.4 PLT 206 Recent Labs Lab 12/29/18 0556 12/28/18 2336 PROTIME -- 13.2 INR -- 1.0 PTT 82* 32 No results for input(s): IRON, TIBC, PCTSAT, FERRITIN, TSH, [id number], FOLATE in the last 168 hours. Inflammatory [...] hours. Cardiology & Digoxin Recent Labs Lab 12/29/1832612/28/182216 TROPONIN 0.96* 1.51* ABG No results for input(s): PHART, PO2ART, UNB5SUL, GND9VDS, BEART, R6DKEBZO in the last 168 h ours. No results for input(s): SPECSOURCE, PHPOCB, PCO2, PO2, HCO3, TCO2, BEART, [id number] in the last 168 hours. Drug of [...] Procedure Component Value Units Date/Time Culture, MRSA [[id number]] Collected: 12/28/182023 Order Status: Sent Lab Status: [...] this chart may have been created with [employer]Well voice recognition software. Occasi onal wrong-word or [...] mg SC on 12/28 @ 1630 If MELT HOUSE DRAG OPERATOR medlist shows Xa inhibitor oral agent or LMWH subcutaneous Consider baseline anti-Xa and evaluate renal function ---> Renal function is very good If recent oral Xa inhibitor, use PTT monitoring for 1-5 days depending on renal function and then switch to anti-xa monitoring. Bleeding risks Unknown -- pt direct admit from [facility], limited history available History of liver dysfunction or ETOH abuse: Unknown -- pt direct admit from [facility] , limited history available History of HIT: Unknown -- pt direct admit from [facility], limited history available Reason for no bolus [...] 99 (H) Date 12/28 12/29 12/29 Time 2336 0556 1254 Xa 0.94 -- -- PTT [...] appropriate (list): enoxaparin SC already d/c'ed by [facility] 3. 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 CBC without [...] Heparin Infusion Protocol Electronically signed by: Milind Mckenna PharmD 12/29/2018 13:46 Yossi Jolly PharmD - [...] mg SC on 12/28 @ 1630 If MELT HOUSE DRAG OPERATOR medlist shows Xa inhibitor oral agent or LMWH subcutaneous Consider baseline anti-Xa and evaluate renal function ---> Renal function is very good If recent oral Xa inhibitor, use PTT monitoring for 1-5 days depending on renal function and then switch to anti-xa monitoring. Bleeding risks Unknown -- pt direct admit from [facility], limited history available History of liver dysfunction or ETOH abuse: Unknown -- pt direct admit from [facility] , limited history available History of HIT: Unknown -- pt direct admit from [facility], limited history available Reason for no bolus [...] appropriate (list): enoxaparin SC already d/c'ed by [facility] 3. 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 CBC without [...] Heparin Infusion Protocol Electronically signed by: Yossi Caballero, PharmD 12/29/2018 4:33 documented in this encounter H&P Notes Jeny Armstrong MD - 12/28/2018 11:51 PM PDTFormatting of this note might be differen t from the original. [place] [facility]OSPITAL[place] HISTORY & PHYSICAL Patient: Paula Mcleod : 1960: Age: 58 y.o. MedRec: [id number] Admission date: 12/28/2018 Hospital day # : 0 Physician author: Jeny Armstrong MD Today: 12/28/2018 CHIEF COMPLAINT: Chest pain HISTORY OF PRESENT ILLNESS: This is a 58 y.o. female with a history of Epilepsy, HTN, HLD, Hypothyroidism, GERD and RLS who presented to [facility] ER with CP. Pt reports that [...] her to go to the ER. At [facility] ER, CP resolved s/p Nitro X [...] TAKING Medication Sig Last Dose Dispense Doc. Akbar CARAFATE 1 GM/10ML suspension Not Taking Historical [...] on 12/28/2018 Not Taking 4 tablet Lupillo Valdez DO ALLERGIES: Allergies Allergen Reactions Acetaminophen Anaphylaxis Codeine [...] swelling Pych: normal mood and affect Neuro: first aid director grossly intact, no focal weakness or sensory [...] Procedure Component Value Units Date/Time Culture, MRSA [[id number]] Collected: 12/28/182023 Order Status: Sent Lab Status: In process Updated: 12/28/182053 Specimen: Tissue from Nares Radiology results No results found. I reviewed imaging EKG Results (I reviewed EKG) I reviewed and summarized old records ASSESSMENT: Principal Problem: NSTEMI (non-ST elevated myocardial infarction) ([facility]) Active Hospital Problems Diagnosis NSTEMI (non-ST elevated myocardial infarction) Resolved Hospital Problems Diagnosis No resolved problems to display. Code Status Full Medical Decision Maker Self DVT Prophylaxis Heparin gtt PLAN: # NSTEMI - EKG showed TWI in Lead 1 and aVL, no previous EKGs available to compare, although from e EKG report available in care everywhere from [...] signed by: Jeny Armstrong MD 12/28/2018 23:51 [facility] Portions of this chart may have been created with EatingWell voice recognition software. Occasi onal wrong-word or sound-alike substitutions may have occurred due to the inherent oclon itations of voice recognition software. Please read [...] history of cardiac illness who presented to [facility] with chest pain. The patient states she [...] drove her to the emergency department at [facility] in [place] where her pain was relieved after a [...] (SYNTHROID) tablet 112 mcg 112 mcg Oral [facility] Jeny Armstrong MD 112 mcg at 12/29/18 [...] mg Oral BID PRN Jeny Armstrong MD [facility] list of outpatient meds: Prescriptions Prior to [...] 12/29/2018 6 cm/s In process MV Deceleration [place] 12/29/2018 341.15 cm/s2 In process MV Deceleration [...] ECGs available Reconfirmed by ALONDRA LOBO, KURTIS ([id number]) on 12/29/2018 6:50:04 AM aPTT 12/28/2018 32 [...] longer present Confirmed by KURTIS CANTU MD ([id number]) on 12/29/2018 6:49:49 AM INTERPRETATION TEXT 12/29/2018 [...] care of this patient. Nick Cobb MD, [facility], 12/29/2018 10:11 documented in this enc ounter Miscellaneous Notes eICU Note - Claudio Sánchez RN - 12/30/2018 12:00 PM PDTAfter reviewing DC orders the AVS was printed and reviewed with the patient allowing for questions and confirming understandi ng. Extra time was spent reviewing med changes and planned follow up with providers. Paula kyle nfirmed that she had all of her personal belongings. Her peripheral IV was removed prior [facility] staff where she met her [...] c ardiac symptoms. Shared she was raised [employer]regational, converted to [employer] and currently wors hips with some influence. Accepted prayer by Daycare Director and thanked for the v isit. Spiritual Intervention Listened to her concerns with supportive listening and encouragement. Accepted prayer by Denys goetz. Spiritual Outcomes Prayed with patient and family, thanked Daycare Director for visit. Hopeful for recovery and retur n home to normal routine. Spiritual Goals/Followup lan of [facility] - Dania Lambert RN - 12/29/2018 2:01 PM PDTProblem: Discharge Planning Goal: Patient will be discharged in a safe manner Outcome: Unchanged This CM visited with patient at her bedside to discuss her potential discharge needs. She confirmed that she was transported here by ground ambulance from [facility] for her N STEMI continuity of care. She states that she lives in her low income housing apt in [place] but has not been able to pay her utilities paid due to her many health issues causing her unemployment since Jul 29. She appears very distraught, since she is from [place], and when you are under age there is just not any help available. She has already contacted the Aging People with Disabilities, she s tatkimberly and this is what they told her. [...] her CPAP from [facility] in [place], but has not been getting good service t here so may be changing to [facility], she states. She reports that she does not use any DME for her mobility, and no home 02. She reports that she has applied for disability and has a SS advocate, Adriana Lynn, p# . Left message with Adriana requesting a return call JIM; this writers' p# left with her. Had [...] some of her financial needs from their income. She does get food stamps. This CM contactcindy Benavidez, financial counselor, and she confirmed that patient's insurance valadez s now been placed in [employer]. Her boyfriend was in the room at the time of this discussion, and this was fine with her. She states that he does not live with her. She will find someone to drive her back home at discharge, she reports. Confirmed her PCP is Lupillo Valdez, who moved to [facility] now, and her pharmacy is [facility] in [place]. Dispo plan: Her goal is to return to her apt at discharge. She will be finding someone to transport her back to [place]. CM will need to continue to work with Adriana, SS advocate, and also help patient with her u tility bills issue. Electronically signed by: Dania Lambert RN 12/29/2018 14:01 14:30 This CM contacted the [place] Aging and Disabilities in [place], p# [phone] request ing assistance for people who are needing [place]SI in [place]. They gave me the p# for the SS in [facility], p# [phone]. This CM called and spoke with Ted, and he recommended that patient either call to make an appt to come in and get help with the application, or call and do it over the phone. Information given to patient with p# and address : [address] [place] [address] [address] [place] ,[place]. Let patient know that if the application was declined less than 60 days ago this would hel p speed up the process. Electronically signed by: Dania Lambert RN 12/29/2018 15:51 lan of Care - Gena, Tyrone mendez RN - 12/29/2018 12:57 AM PDTProblem: Patient [...] [place] | | | | | | [address] | | | | | | [phone] | | | | | | | | +--------+---------+ + + + | 08/14/ | Office | Neurology | Jessica Henry NP | | | 2019 | Visit | | [address] | | | | | | [place] | | | | | | [address] | | | | | | [phone] | | | | | | | [...] - VASODILATOR) | | PDT | infarction) ([facility]) | results section. | + +--------+ + [...] 2.1 | 1.6 - 2.6 mg/dL | [facility] | | | | | | [facility]. [...] + + | [facility] | [address] | [place] | [phone] | | [facility] | | [address] | | | - LABORATORY | | [...] | | non- | | mL/min/1.73m2 | [facility] | | | [facility] | | | MEDICAL | | | | | | CENTER - | | | | | | LABORATORY | | + +---------+ + + + | Calcium | 9.5 | 8.7 - 10.4 | [facility] | | | | | mg/dL | . [facility] | | | | [...] + | [facility] | [address] | [place] | [phone] | | [facility] | | [address] | | | - LABORATORY | | [...] | | Cells | | | [facility] | | | | | | MEDICAL | | | | | | CENTER - | | | | | | LABORATORY | | + +-------+ + + + | Red Blood | 4.29 | 3.70 - 5.20 | [facility] | | | Cells | | M/uL | [facility] | | | | | | MEDICAL | | | | | | CENTER - | | | | | | LABORATORY | | + +-------+ + + + | Hemoglobin | 13.1 | 11.5 - 16.0 | [facility] | | | | | g/dL | [facility] | | | | [...] | | nRBC | | K/uL | [facility] | | | | | | [...] [address] | [place] | [phone] | | [facility] | | [address] | | | - LABORATORY | | [...] | | Top Tube | | | [facility] | | [...] + | [facility] | [address] | [place] | [phone] | | [facility] | | [address] | | | - LABORATORY | | [...] | | | Cells | | | [facility] | | [...] | | | | | g/dL | . [facility] | | | | [...] | | | Count | | | [facility] | | [...] | | | | | WBCs | [facility] | | | | [...] ST. | [address] | [place], [place] | [phone] | | [facility] | | [address] | | | - LABORATORY | | [...] + | [facility] | [address] | [place] | [phone] | | [facility] | | [address] | | | - LABORATORY | | [...] [facility] | | | | | | [facility] | | [...] + + | [facility] | [address] | [place] | [phone] | | [facility] | | [address] | | | - LABORATORY | | [...] in | | | | | | K1Vzjii is new T wave | | | | | | flattening in leads | | | | | | V4-6T wave inversions | | | | | | are more prominent in | | | | | | leads I and aVLConfirmed | | | | | | by KURTIS CANTU MD | | | | | | ([id number]) on 12/30/2018 | | | | | [...] | | | | | | n [place] | | | | | + +--------+ [...] 0.60 ()Comment: New | <0.06 ng/mL | [facility] | | | | method in use as of | | [facility] | | | | November 23, 2018. [...] + | [facility] | [address] | [place] | [phone] | | [facility] | | [address] | | | - LABORATORY | | | | + + + + + PTT (12/29/2018 5:56 AM PDT) + +--------+ + + + | Component | Value | Ref Range | Performed | Pathologist | | | | | At | Signature | + +--------+ + + + | aPTT | 82 (H) | 22 - 36 seconds | [facility] | | | | | | [facility] | | | | | | [...] | + + + + + | [facility] | [address] | [place] | [phone] | | [facility] | | [address] | | | - LABORATORY | | [...] MD | | | | | | ([id number]) on 12/29/2018 | | | | | [...] [facility] | | | | | | [facility] | | [...] + | [facility] | [address] | [place] | [phone] | | [facility] | | [address] | | | - LABORATORY | | | | + + + + + Troponin I (12/29/2018 3:27 AM PDT) + + + + + + | Component | Value | Ref Range | Performed | Pathologist | | | | | At | Signature | + + + + + + | Troponin I | 0.96 ()Comment: New | <0.06 ng/mL | [facility] | | | | method in use as of | | [facility] | | | | November 23, 2018. [...] [address] | [place] | [phone] | | [facility] | | [address] | | | - LABORATORY | | [...] | | | A1c | | | [facility] | | | | | | MEDICAL | | | | | | CENTER - | | | | | | LABORATORY | | + +-------+ + + + | Estimated | 105 | mg/dL | [facility] | | | Average | | | [facility] | | | Glucose | | | [...] + | [facility] | [address] | [place] | [phone] | | [facility] | | [address] | | | - LABORATORY | | [...] | | es | | | [facility] | | | | | | MEDICAL | | | | | | CENTER - | | | | | | LABORATORY | | + +--------+ + + + | Cholesterol | 131 | <=200 mg/dL | [facility] | | | | [...] LDL, | 65 | <=130 mg/dL | [facility] | | | Calculated | | | [...] [address] | [place] | [phone] | | [facility] | | [address] | | | - LABORATORY | | [...] | | Cells | | | [facility] | | | | | | MEDICAL | | | | | | CENTER - | | | | | | LABORATORY | | + +-------+ + + + | Red Blood | 4.49 | 3.70 - 5.20 | [facility] | | | Cells | | M/uL | [facility] | | | | | | MEDICAL | | | | | | CENTER - | | | | | | LABORATORY | | + +-------+ + + + | Hemoglobin | 13.1 | 11.5 - 16.0 | [facility] | | | | | g/dL | [facility] | | | | [...] | 0.00 | 0.00 - 0.01 | [facility] | | | nRBC | | K/uL | [facility] | | | | | | MEDICAL [...] [address] | [place] | [phone] | | [facility] | | [address] | | | - LABORATORY | | [...] 11 | 9 - 23 mg/dL | [facility] | | | | | | [facility] | | [...] mL/min/1.73m2 | [facility] | | | [facility] | | | MEDICAL | | | [...] | | ine Ratio | | | [facility] | | | | | | MEDICAL [...] [address] | [place] | [phone] | | [facility] | | [address] | | | - LABORATORY | | [...] | | | Unfractiona | | | [facility] | | | [facility] | | [...] Therapeutic range: 0.30 - 0.70 IU/mL | [facility] | | | [facility] | | | [facility] | | | - LABORATORY | + + + + + + + + | Performing | Address | City/State/Zipcode | Phone Number | | Organization | | | | + + + + + | [facility] | [address] | [place], [place] | [phone] | | [facility] | | [address] | | | - LABORATORY | | [...] | [address] | [place] | [phone] | | [facility] | | [address] | | | - LABORATORY | | [...] [facility] | | | | | | [facility] | | [...] + | [facility] | [address] | [place] | [phone] | | [facility] | | [address] | | | - LABORATORY | | | | + + + + + Troponin I (12/28/2018 10:17 PM PDT) + + + + + + | Component | Value | Ref Range | Performed | Pathologist | | | | | At | Signature | + + + + + + | Troponin I | 1.51 ()Comment: New | <0.06 ng/mL | [facility] | | | | method in use as of | | [facility] | | | | November 23, 2018. [...] | | | | | | Flavio Hernandez. | | | | + + + + + + + + | Specimen | + + | Blood | + + + + + + + | Performing | Address | City/State/Zipcode | Phone Number | | Organization | | | | + + + + + | [facility] | [address] | [place] | [phone] | | [facility] | | [address] | | | - LABORATORY | | [...] | | | | KURTIS CANTU MD ([id number]) | | | | | | on [...] + + + + + | [facility] | [address] | [place] | [phone] | | [facility] | | [address] | | | - LABORATORY | | | | + + + + + ECG - EXTERNAL SCAN (12/28/2018 12:00 AM PDT) + + + | Narrative | Performed At | + + + | Ordered by an | | | unspecified provider. | | + + + documented in this encounter Visit Diagnoses Not on filedocumented in this encounter Administered Medications + +--------+ +-------+------+------+ | Medication Order | MAR | Action | Dose | Rate | Site | | | Action | Date | | | | + +--------+ +-------+------+------+ | aspirin EC tablet 81 mg 81 mg, | Given | 12/31/19 | 81 mg | | | | Oral, DAILY, First dose on Wed | | 19 8:10 | | | | | 12/29/18 at 0900 | | AM PDT | | | | + +--------+ +-------+------+------+ +-------+ +-------+---+---+ | Given | 12/30/19 | [...] | | +---+---+ + +-------+ +--------+---+---+ | heparin 1,000 units/mL | Given | 12/30/19 | 3,000 | | | | injection ONCE PRN, Starting Christina | | 19 3:01 | Units | | | | 12/29/18 at 1432, Intra-op | | PM PDT | | | | + +-------+ +--------+---+---+ +-------+ +--------+---+---+ | Given | 12/30/19 | 4,000 | | | | | 19 2:32 | Units | | | | | PM PDT | | | | +-------+ +--------+---+---+ +---+---+ | | | +---+---+ + +-------+ +---------+---+---+ | iohexol (OMNIPAQUE 350) 350 | Given | 12/30/19 | 185 mLs | | | | mg/mL injection ONCE PRN, | | 19 3:32 | | | | | Starting Christina 12/29/18 at 1532, | | PM PDT | | | | | Intra-op | | | | | | + +-------+ +---------+---+---+ +---+---+ | | | +---+---+ [...] | | | | | modification) on Christina 12/29/18 at | | | | | [...] | | | | | dose on Wed12/29/18 at 0730, Give | | | | | | | before breakfast., | | | | | | + +-------+ +---------+---+---+ +-------+ +---------+---+---+ | Given | 12/30/19 | 112 mcg | | | | | 19 6:30 | | | | | | AM PDT | | | | +-------+ +---------+---+---+ +---+---+ | | | +---+---+ + +-------+ +------+---+ + | lidocaine buffered 0.9% | Given | 12/30/19 | 1 mL | | Surgical | | injection ONCE PRN, Starting Christina | | 19 2:25 | | | Site | | 12/29/18 at 1425, Intra-op | | PM PDT | | | | + +-------+ +------+---+ + +---+---+ | | | +---+---+ + +-------+ +--------+---+---+ | lisinopril (PRINIVIL,ZESTRIL) | Given | 12/31/19 | 2.5 mg | | | | tablet 2.5 mg 2.5 mg, Oral, | | 19 8:09 | | | | | DAILY, First dose on Christina 12/29/18 | | AM PDT | | | | | at 0900 | | | | | | + +-------+ +--------+---+---+ +-------+ +--------+---+---+ | Given | 12/30/19 | 2.5 mg | | | | | 19 8:01 | | | | | | AM PDT | | | | +-------+ +--------+---+---+ + +---+ | | | + +---+ [...] | | | + +---+ + +-------+ +------+---+---+ | midazolam (VERSED) 1 mg/mL | Given | 12/30/19 | 1 mg | | | | injection ONCE PRN, Starting Christina | | 19 2:30 | | | | | 12/29/18 at 1418, Intra-op | | PM PDT | | | | + +-------+ +------+---+---+ +-------+ +------+---+---+ | Given | 12/30/19 | 2 mg | | | | | 19 2:18 | | | | | | PM PDT | | | | +-------+ +------+---+---+ +---+---+ | | | +---+---+ + +-------+ [...] | | +---+---+ + +-------+ +---------+---+---+ | nitroglycerin 100 mcg/mL | Given | 12/30/19 | 300 mcg | | | | syringe ONCE PRN, Starting Christina | | 19 2:31 | | | | | 12/29/18 at 1431, Intra-op | | PM PDT | | | | + +-------+ +---------+---+---+ +---+---+ | | | +---+---+ [...] PDT | | | | +-------+ +-------+---+---+ + +---+ | | | + +---+ | pramipexole (MIRAPEX) tablet | | | 0.375 mg 0.375 mg, Oral, | | | NIGHTLY, First dose on Wed12/30/18 | | | at 2100 | | + +---+ | | | + +---+ + +-------+ +------+---+---+ | verapamil injection ONCE PRN, | Given | 12/30/19 | 3 mg | | | | Starting Wed12/29/18 at 1431, | | 19 2:31 | | | | | Intra-op | | PM PDT | | | | + +-------+ +------+---+---+ +---+---+ | | | +---+---+ documented in this encounter
--- OUTSIDE RECORDS SUMMARY | ~2020-06-03 | XMS | Encounter Summary ---
Demographics + + + | Address | [address] | | | [place] [address] | + + + | Home Phone [...] + + + | Author | [facility] | | | and [place] | + + + | Organization | [facility] | | [...] Providers + +------+ + | Care Director Paid Media Name | Role | Phone | + +------+ + | Lupillo Valdez DO | PCP | | + +------+ + Reason for Visit + +--------+ + | Reason | Onset | Comments | | | Date | | + +--------+ + | Medication Refill | 12/02/ | | | | 2019 | | + +--------+ + Encounter Details +--------+--------+ + + + | Date | Type | Department | Care Team | Description | +--------+--------+ + + + | 12/02/ | Refill | [facility] [facility] | Hanh Burger, CC | Medication Refill | | 2019 | | [facility] | FOOD SERVICE ATTENDANT | | | | | [facility] [address] | | | | | | [address] [facility], | | | | | | [place] [address] | | | | | | [phone] | | | +--------+--------+ + + + [...] Encounter - Hanh Burger CC CMA - 12/02/2018 4:30 PM PSTLAST OFFICE VISIT . IDALIA Huerta CMA documented in this [...] [place] | | | | | | [address] | | | | | | [phone] | | | | | | | | +--------+---------+ + + + | 08/14/ | Office | Neurology | Jessica Henry NP | | 2019 | Visit | | [address] [place] | | | | | | [place], [place] | | | | | | [address] | | | | | | [phone] | | | | | | | | +--------+---------+ + + + documented as of this encounter Visit Diagnoses Not on filedocumented in this encounter"
--- OUTSIDE RECORDS SUMMARY | ~2020-06-03 | XMS | Encounter Summary ---
Demographics + + + | Address | [address] | | | [place] [address] | + + + | Home Phone [...] Author + + + | Author | [facility] | | | and [place] | + + + | Organization | [facility] | | [...] Team Providers + +------+ + | Care Creel Operator Name | Role | Phone | + +------+ + | Lupillo Valdez DO | PCP | | + +------+ + Reason for Visit + +--------+ + | Reason | Onset | Comments | | | Date | | + +--------+ + | Referral | 11/09/ | referral for a cane needs sent to [facility] in | | | 2019 | [place] | + +--------+ + Encounter Details +--------+ + + + + | Date | Type | Department | Care Team | Description | +--------+ + + + + | 11/09/ | Telephone | [place] [facility] | Lupillo Valdez | Referral (referral | | 2019 | | [facility] | E, DO [address] | for a cane needs | | | | [facility] [address] | [place], [place] | sent to [facility] | | | [address] [place], | [address] | Medical in | | | | [place] [address] | [phone] | Radha) | | | | [phone] | | | +--------+ + + + [...] Encounter - Hanh Burger CC CMA - 11/10/2019 10:55 AM PSTSpoke with patient. I located the order under medications. I have re-faxed to [facility]. I advised Abril to follow up with [facility] later today. Patient verbalized understanding. Denys Huerta CMA eleLupillo Lambert DO - 11/09/2019 6:08 PM PSTThis should be addressed by JOSE A white coordinator. eroshan ritchie Encounter - Hanh Burger CC CMA - 11/09/2019 3:46 PM PSTDo you know anything about this request? I do not show any conversation about a cane. Please advise if you want me to write order. IDALIA Huerta CMA eleChina Mendez - 11/09/2019 3:15 PM PSTTeri called to say [facility] did not rec eive referral for her cane that was suppost to be sent 3 weeks ago by combustion engineer provider when Dr. Valdez was out. Can you please send referral for Cancindy JIM to [facility] in [facility]? Call if any questions China Agrawal documented in this encou nter Plan of Treatment +--------+---------+ + + + | Date | Type | Specialty | Care Team | Description | +--------+---------+ + + + | 07/01/ | Office | Primary Care | Lupillo Valdez | | 2019 | Visit | | DO Cindy [address] | | | | | | [place] | | | | | | [address] | | | | | | [phone] | | | | | | | | +--------+---------+ + + + | 08/14/ | Office | Neurology | Jessica Henry NP | | 2019 | Visit | | [address] [place] | | | | | | [place], [place] | | | | | | [address] | | | | | | [phone] | | | | | | | | +--------+---------+ + + + documented as of this encounter Visit Diagnoses Not on filedocumented in this encounter"
--- OUTSIDE RECORDS SUMMARY | ~2020-06-03 | XMS | Encounter Summary ---
Demographics + + + | Address | [address] | | | [place] [address] | + + + | Home Phone [...] Author + + + | Author | [facility] | + + + | Organization | [facility] | + + + | Address [...] Team Providers + +------+ + | Care Coat Maker Name | Role | Phone | + +------+ + | Lupillo Valdez DO | PCP | | + +------+ + Reason for Referral Physical Therapy (Routine) +--------+--------+ + + + + | Status | Reason | Specialty | Diagnoses / | Referred By | Referred To | | | | | Procedures | Contact | Contact | +--------+--------+ + + + + | Closed | | Physical | Diagnoses | Orina, | External | | | | Therapy | Low back | MD Dain | Order | | | | | pain, | [address] | | | | | | unspecified | [address] | | | | | | back pain | Rd | | | | | | laterality, | [place], [place] | | | | | | unspecified | [address] | | | | | | chronicity, | Phone: | | | | | | unspecified | [phone] | | | | | | whether | Fax: | | | | | | sciatica | [phone] | | | | | | present | | | | | | | Procedures | | | | | | | PHYSICAL | | | | | | | THERAPY | | | | | | | REFERRAL | | | +--------+--------+ + + + + Reason for Visit + + + | Reason | Comments | + + + | New patient | | | consultation | | + + + Encounter Details +--------+---------+ + + + | Date | Type | Department | Care Team | Description | +--------+---------+ + + + | 02/06/ | Office | [facility] | Dain Berry MD | Low back pain, | | 2020 | Visit | [facility] [address] | [address] | unspecified back | | | | [facility] | [address] [facility], | pain laterality, | | | | [facility], | [place] [address] | unspecified | | | | [address] | [phone] | chronicity, | | | | [place], [place] | | unspecified whether | | | | [address] | | sciatica present | | | | [phone] | | (Primary Dx); | | | | | | Sacroiliac joint | | | | | | dysfunction of left | | | | | | side | +--------+---------+ + + + Social History [...] + documented in this encounter Progress Notes Dain Berry MD - 02/07/2020 1:00 PM PDT [facility] Department of Neurological Surgery Referring Provider: No referring provider defined for this encounter. Chief Complaint: Patient presents with: New patient consultation History of Present Illness: Ms. 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 She is referred here for evaluation o f persistent back and left leg pain following a fall in 2018. Pain is localized to the mid l ower lumbar spine and left SI region, which is her main complaint. The pain will also interm ittently radiate into the left buttock and posterolateral thigh to the knee, and sporadicall y radiate into the right buttock. However, her primary complaint is the low back and left SI region pain. This main is worsened by sitting, standing, and twisting. It is alleviated by changing positions. She is unable to walk further than 1 mile before the pain becomes limiti ng. It is associated with numbness involving the left lateral thigh to the foot. She denies any bowel/bladder incontinence. She has tried PT in the past without relief. She was doing aquatherapy prior to the coronav irus pandemic that was helping but has been put on hold. She takes Gabapentin primarily for restless leg syndrome. She is allergic to opioids and has discontinued Ibuprofen. She was ev aluated by a Frame Aligner in fall who diagnosed her with left SI joint pain an d initiated the PT and aquatherapy program. She was unable to do SI joint injections due to her insurance. Of note, she had a heart attack last year and is taking aspirin 81 mg daily. Current Medications: Current Outpatient Medications Medication Sig ascorbic acid (VITAMIN C ORAL) Take by mouth. aspirin EC 81 mg oral tablet,delayed release (DR/EC) Take 81 mg by mouth once daily. Cholecalciferol (Vitamin D3) 2,000 unit oral tablet Take 2,000 Units by mouth once zahraa y. cyanocobalamin (VITAMIN B-12) 500 mcg oral tablet Take 500 mcg by mouth once daily. docosahexaenoic acid/epa (FISH OIL ORAL) Take 1,000 mg by mouth two times daily. gabapentin 100 mg oral capsule Take 100 mg by mouth two times daily. glucos sul 2KCl/msm/chond/C/Mn (GLUCOSAMINE CHONDROITIN ORAL) Take by mouth. hydroCHLOROthiazide 12.5 mg oral capsule Take 12.5 mg by mouth. Wednesday, Wednesday, day IBUPROFEN ORAL Take by mouth. IRON ORAL Take by mouth. levETIRAcetam (KEPPRA) 750 mg oral tablet Take 750 mg by mouth two times daily. levothyroxine 100 mcg oral tablet Take 100 mcg by mouth once daily. lisinopril 20 mg oral tablet Take 20 mg by mouth two times daily. lovastatin 40 mg oral tablet 40 mg. omeprazole 20 mg oral capsule,delayed release(DR/EC) pantoprazole 40 mg oral tablet,delayed release (DR/EC) Take 40 mg by mouth once daily. pramipexole 0.125 mg oral tablet Take 0.125 mg by mouth once daily. sertraline 50 mg oral tablet Take 50 mg by mouth once daily. No current facility-administered medications for this visit. Allergies: Allergies Allergen Reactions Codeine Anaphylaxis Hydrocodone Anaphylaxis Meperidine Anaphylaxis Morphine Palpitations and Dyspnea Oxycodone Anaphylaxis Penicillins Anaphylaxis Propoxyphene Anaphylaxis Loy-Gektdevmblf-Fqfwlgkmttffu Unknown Demerol [Meperidine (Pf)] Unknown Oxycodone-Acetaminophen Unknown Propoxyphene N-Acetaminophen Unknown Review of Systems: All other systems were reviewed by me personally on a complete review of systems questionna sarita, pertinent positives noted in HPI, all others negative that will be scanned into the pat ient's medical chart. Past Medical History: Past Medical History: Diagnosis Date Epilepsy (HCC) Heart attack (HCC) Hypertension Recurrent UTI Sleep apnea Past Surgical History: Past Surgical History Procedure Laterality Date Tonsillectomy Hysterectomy Rotator cuff repair Social History: Social History Socioeconomic History Marital status: Single [...] Use Smoking status: Former Smoker Types: Cigarettes Smokeless tobacco: Never Used Substance and Sexual Activity Alcohol use: Yes Frequency: 2-4 times a month Drinks per session: 1 or 2 Drug use: Not Currently Sexual activity: Not on file Lifestyle Physical activity: Days per week: Not on file Minutes per session: Not on file Stress: Not on file Relationships Social connections: Talks on phone: Not on file Gets together: Not on file Attends [employer] service: Not on file Active member of club or organization: Not on file Attends meetings of clubs or organizations: Not on file Relationship status: Not on file Other Topics Concern Not on file Social History Narrative Not on file Family History: Non-contributory Physical Exam: Ht 1.666 m (5' 5.6") | Wt 109.9 kg (242 lb 3.2 oz) | BMI 39.57 kg/m | B SA 2.26 m General Appearance: NAD, conversant HEENT: Normocephalic, atraumatic, normal sclera, neck supple Respiratory: No labored breathing CV: 2+ dorsalis pedis and posterior tibialis pulses. Toes warm and well-perfused with amando sk capillary refill. GI: Abdomen benign, soft, non-distended Extremities: No peripheral edema or digital cyanosis Skin: Intact, no rashes or lesions Psych: Alert and oriented to person, place and time. Neurological and Musculoskeletal Exam Inspection: Normal coronal and sagittal alignment Palpation: No stepoffs or assymetry noted. Tenderness to palpation midline lumbar spine Tenderness to palpation left SI joint. More pain in extension compared to flexion. MOTOR SCORE LEFT RIGHT LOWER EXTREMITY Iliopsoas- L2 -Femoral (Hip flexion) 5 5 Quadriceps- L3 -Femoral (Knee Ext) 5 5 Anterior tibialis- L4 -Peroneal (Dorsiflex) 5 5 EHL- L5 -Deep peroneal nerve 5 5 Gastrocnemius- S1,S2 -Tibial (Plantar Flex) 5 5 Gluteus aundrea- L4,5 -Gluteal (Hip extension) 5 5 Hamstrings- L5,S1 -Sciatic (Knee flexion) 5 5 Posterior tibialis- L4,5 -Tibial (Foot inversion) 5 5 Peroneus longus- L5,S1 -SPN (Foot eversion) 5 5 Tone: Normal tone in upper and lower extremities. No spasticity, rigidity, atrophy, or abn ormal movements. Gait: Normal. Mild unsteadiness on tandem gait. Sensation: Decreased sensation in the left leg in a L5/S1 distribution DEEP TENDON REFLEXES LEFT RIGHT L3-4 (Knee jerk) 2 2 S1-2 (Achilles) 2 2 PATHOLOGIC REFLEXES LEFT RIGHT Plantar Flexion Flexor Flexor Clonus Neg Neg Straight leg raise: Right: Negative Left: Negative Imaging: I personally reviewed the imaging studies and shared the results with the patient today. EXAM: SPINE LUMBOSACRAL 2 VIEWS, SPINE ENTR SRVY STDY PA AND LAT DATE: 02/07/2020 HISTORY: low back pain COMPARISON: MRI 08/02/2019 FINDINGS: Entire spine: There is neutral coronal and sagittal balance. Minimal thoracolumbar levocurv ature and lumbar dextrocurvature are seen. There is exaggerated thoracic process measuring a pproximately 66 degrees. Multilevel degenerative disc disease is observed, mild to moderate in the cervical and thoracic spine and moderate in the lumbar spine with some sparing at L4- L5. Lower lumbar facet hypertrophy is seen. No acute fracture or focal destruction is noted. Vertebral body heights are maintained. Lumbar spine: There is static retrolisthesis at L2-L3 and L3-L4 unchanged between flexion a nd extension. Remaining vertebral body alignment is normal. Vertebral body heights are prese rved. There is multilevel degenerative disc disease, moderate at L1-L2 and L3-L4 and mild el sewhere. Severe lumbar facet hypertrophy is noted. No fracture or focal destruction is seen. Vascular calcifications are noted. IMPRESSION: Exaggerated thoracic kyphosis and mild thoracic and lumbar curvatures. Multilevel degenerative disc disease as described with severe lower lumbar facet hypertroph y. Static retrolistheses in the lumbar spine. No dynamic instability. MRI LUMBAR SPINE WO CONTRAST 02/07/2020 FINDINGS: ALIGNMENT: Normal. MARROW: Unremarkable. CONUS: The conus terminates at the mid L2 vertebral body. L1-2: Diffuse disc bulge and facet arthropathy. No significant central canal stenosis or ne ural foraminal narrowing. L2-3: Facet arthropathy and diffuse disc bulge. No significant central canal stenosis or ne ural foraminal narrowing. L3-4: Facet arthropathy, diffuse disc bulge, ligamentum flavum thickening. There is a right paracentral disc extrusion which severely narrows the right lateral recess/subarticular zon e as well as flattens the ventral thecal sac. There is at least moderate central canal steno sis at this level. The right paracentral disc extrusion appears to abut the descending right L4 nerve root. L4-5: Facet arthropathy. No significant central canal stenosis or neural foraminal narrowin g. L5-S1: No significant central canal stenosis. Facet arthropathy with mild right and moderat e left neural foraminal narrowing. PARASPINAL SOFT TISSUES: Unremarkable. IMPRESSION: Multilevel lumbar degenerative changes as above, most severe at L3-L4 with at least moderat e central canal stenosis and right lateral recess/subarticular zone narrowing secondary to a right paracentral disc extrusion. EMG/NCS 06/26/2019: ELECTROMYOGRAPHY: Needle exam performed with a sterile disposal monopolar needle after risk s and benefits of procedure explained and patient consented. MUSCLE INSERTIONAL ACTIVITY REST ACTIVITY MUAP RECRUITMENT L tibialis ant INCREASED PSW/FIB Normal Normal L medial gastroc INCREASED PSW/FIB Normal Normal L EHL INCREASED PSW/FIB Normal Normal L vastusmedialis Normal Silent Normal Normal L TFL Normal Silent Normal Normal L SHBF Normal Silent Normal Normal L LHBF Normal Silent Normal Normal L Peroneus Longus INCREASED PSW/FIB Normal Normal PSW indicates Positive Sharp Waves Fibs indicates Fibrillations --- ELECTRODIAGNOSTIC SUMMARY --- NERVE CONDUCTION STUDIES: Sural Nerve LEFT Sural sensory: PROLONGED distal latency and normal amplitude. Tibial Nerve & Branches LEFT Tibial motor: normal distal latency, LOW amplitude, and NO RESPONSE RECORDED AT THE PO PLITEAL FOSSA. Peroneal Nerve LEFT Peroneal motor: PROLONGED distal latency, LOW amplitude, and SLOWED NCV. 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 The prolonged latency of the sural nerve also corroborates a post-ganglionic l esion. There IS NO electrodiagnostic evidence of: - A LEFT lumbar L2-S1 radiculopathy affecting the muscles tested above Additional Imaging Comments: Scoliosis xrays 02/07/2020: Normal sagittal and coronal alignment. No instability on flexion-extension. MRI lumbar 02/07/2020: Right L3-4 disc herniation with moderate stenosis. No significant left-sided stenosis. MRI lumbar 08/02/2019: Right L3-4 disc herniation with moderate to severe central stenosis. No significant left si ded stenosis. Diagnosis: #1 Lumbar stenosis #2 Low back pain secondary to left SI joint dysfunction Impression and Plan: In summary, Ms. Callaway is a 59 year old female who presents with low back and left leg pain which onset in 2018 after a seizure and fall. Her primary complaint is the low back pain and this is what she is seeking relief from. Imaging demonstrates right L3-4 disc herniation ca using right-sided compression. There is no significant left-sided stenosis to explain her le ft-sided leg pain. Her low back pain is likely secondary to left sacro-iliac joint pain. Treatments for this i nclude therapies such as physical therapy, acupuncture, analgesics, and weight loss. Should this fail, consideration can be given to an SI joint fusion. I discussed with her the importance of distinguishing between back and leg pain when consid ering spinal surgery. We discussed the multifactorial nature of axial back pain and the diff iculties in managing this surgically due to the limitations in identifying a pain generator. I shared with her that axial back pain is best treated non-surgically with the above therap ies. She tells me she would not be satisfied if surgery addressed only her leg symptoms (which a re not bothersome to her at this time) but not her back pain. Should her leg symptoms becom e her main complaint, we can consider a lumbar decompression operation. In the meantime, she will continue with conservative management and weight loss. I provided a referral to physic al therapy. She is understanding of the plan and rationale. Overall, she was content with kae jo discussion. She can follow-up with us on an as-needed basis. All questions were answered. I am Indra Arriaga functioning as a scribe for Dain Berry MD at 1:25 PM on 02/07/2020 I have reviewed and verified the above scribed note of my visit with this patient as record ed by Indra Arriaga. Dain Berry MD Operater Department of Neurological Surgery [facility] and [address] [address] I spent 45 minutes [id number] with the patient. I spent more than 50% of this visit in co ordination of care and counseling in which we discussed diagnosis, treatment, imaging studie s and follow-up. documented in this enco unter Plan of Treatment Not on filedocumented as of this encounter Results X-RAY SCOLI SPINE ENTR SRVY PA AND LAT (02/07/2020 12:57 PM PDT) + + | Specimen | + + | | + + + + + | Narrative | Performed At | + + + | EXAM: SPINE LUMBOSACRAL 2 VIEWS, SPINE ENTR SRVY STDY PA AND LAT | [facility] | | HISTORY: low back pain COMPARISON: [...] | LUMBOSACRAL 2 VIEWS, SPINE ENTR SRVY JEANEY PA AND LAT HISTORY: low back pain [...] | | + +---------+ + + | [facility] | | | | | VOICE RECOGNITION 2 | | | | + +---------+ + + X-RAY SPINE LUMBOSACRAL 2 VIEWS (02/07/2020 12:57 PM PDT) + + | Specimen | + + | | + + + + + | Narrative | Performed At | + + + | EXAM: SPINE LUMBOSACRAL 2 VIEWS, SPINE ENTR BECKI LORENZO AND LAT | [facility] | | [...] | LUMBOSACRAL 2 VIEWS, SPINE ENTR SRVY NAVA LORENZO AND LAT HISTORY: low back pain COMPARISON: [...] necessary, edited the report. I agree with e report as now presented. | | [...] chronicity, unspecified | | whether sciatica present - Primary | + + | Sacroiliac joint dysfunction of left side Disorders of sacrum | + + documented in this encounter
--- OUTSIDE RECORDS SUMMARY | ~2020-06-03 | XMS | Encounter Summary ---
Demographics + + + | Address | [address] | | | [place] [address] | + + + | Home Phone [...] Team Providers + +------+ + | Care Control Operator Flow Coat Name | Role | Phone | + +------+ + | Lupillo Valdez DO | PCP | | + +------+ + Reason for Visit + +--------+ + | Reason | Onset | Comments | | | Date | | + +--------+ + | Medication Refill | 01/16/ | | | | 2020 | | + +--------+ + Encounter Details +--------+--------+ + + + | Date | Type | Department | Care Team | Description | +--------+--------+ + + + | 01/16/ | Refill | [facility] | Lupillo Valdez | Medication Refill | | 2020 | | [facility] | E, DO [address] | | | | | [facility] [address] | [place], [place] | | | | [address] [place], | [address] | | | | | [place] [address] | [phone] | | | | | [phone] | | | +--------+--------+ + + + [...] Encounter - Noemi Live CC CMA - 01/17/2020 6:33 PM PDTOV 11/28/2019. Labs [facility]. IDALIA Shelton CMA documented in this encounter Plan of [...] [place] | | | | | | [address] | | | | | | [phone] | | | | | | | | +--------+---------+ + + + | 08/14/ | Office | Neurology | Jessica Henry NP | | | 2019 | Visit | | [address] | | | | | | [place] | | | | | | [address] | | | | | | [phone] | | | | | | | | +--------+---------+ + + + documented as of this encounter Visit Diagnoses + + | Diagnosis | + + | Essential hypertension Unspecified essential hypertension | + + documented in this encounter"
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
--- OUTSIDE RECORDS SUMMARY | ~2020-06-03 | XMS | Encounter Summary ---
Demographics + + + | Address | [address] | | | [place] [address] | + + + | Home Phone [...] + + + | Author | [facility] | | | and [place] | + + + | Organization | [facility] | | | [...] Team Providers + +------+ + | Care Grounds Foreman Name | Role | Phone | + +------+ + PCP | Unavailable | + +------+ + Encounter Details +--------+ + + + + | Date | Type | Department | Care Team | Description | +--------+ + + + + | 06/16/ | Hospital | [facility] | Conversion | | | 2018 | Encounter | [facility] | Transaction, | | | | | MEDICINE [address] | Provider Unknown | | | | | [address] | [phone] | | | | | [place], [place] | | | | | | [address] | | | | | | [phone] | | | +--------+ + + + [...] [place] | | | | | | [address] | | | | | | [phone] | | | | | | | | +--------+---------+ + + + | 08/14/ | Office | Neurology | Jessica Henry NP | | | 2020 | Visit | | [address] | | | | | | [place], [place] | | | | | | [address] | | | | | | [phone] | | | | | | | | +--------+---------+ + + + documented as of this encounter Visit Diagnoses Not on filedocumented in this encounter"
--- OUTSIDE RECORDS SUMMARY | ~2020-06-03 | XMS | Encounter Summary ---
Demographics + + + | Address | [address] | | | [place] [address] | + + + | Home Phone [...] Team Providers + +------+ + | Care Seafood Packer Name | Role | Phone | + +------+ + | Lupillo Valdez DO | PCP | | + +------+ + Reason for Visit +--------+--------+ + | Reason | Onset | Comments | | | Date | | +--------+--------+ + | Other | 10/17/ | physical capacity test | | | 2018 | | +--------+--------+ + Encounter Details +--------+ + + + + | Date | Type | Department | Care Team | Description | +--------+ + + + + | 10/17/ | Telephone | [place] [facility] | Lupillo Valdez | Other (physical | | 2019 | | [facility] | E, DO [address] | capacity test) | | | | [facility] [address] | [place], [place] | | | | [address] [place], | [address] | | | | | [place] [address] | [phone] | | | | | [phone] | | | +--------+ + + + [...] this encounter Miscellaneous Notes Telephone Encounter - Jennyfer Hanh FlorindaIDALIA CHOP SAW OPERATOR - 10/17/2018 1:47 PM PSTPlease assist with th is, it appears the referral was faxed to the wrong department? It is not for physical thera py so we do not handle these. IDALIA Huerta CMA elephone Luis Carlos Patel - 10/17/2018 1:02 PM PSTPt called regarding a physical Capacity Assesme nt Test in [facility], pt has not heard from anyone yet, please call pt/robin documented in this encounter Plan of Treatment [...] [place] | | | | | | [address] | | | | | | [phone] | | | | | | | | +--------+---------+ + + + | 08/14/ | Office | Neurology | Jessica Henry NP | | | 2020 | Visit | | [address] | | | | | | [place] | | | | | | [address] | | | | | | [phone] | | | | | | | | +--------+---------+ + + + documented as of this encounter Visit Diagnoses Not on filedocumented in this encounter"
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
--- OUTSIDE RECORDS SUMMARY | ~2020-06-03 | XMS | Encounter Summary ---
Demographics + + + | Address | [address] | | | [place] [address] | + + + | Home Phone | | + + + | Preferred Language | Unknown | + + + | Marital Status | Single | + + + | Christianity Affiliation | Unknown | + + + [...] Team Providers + +------+ + | Care Axle Polisher Name | Role | Phone | + [...] | Physical | Diagnoses | Courtney, | [facility] | | | Services | Therapy | Primary | Lupillo Ken, | [facility] | | | Required | | osteoarthrit | DO [address] | | | | | is, right | [address] | [address] | | | | | ankle and | [place], [place] | [place], [place] | | | | | foot | [address] | [address] | | | | | | Phone: | Phone: | | | | | | [phone] | [phone] | | | | | | Fax: | Fax: | | | | | | [phone] | [phone] | +--------+ + + + + + Reason for Visit + +--------+ + | Reason | Onset | Comments | | | Date | | + +--------+ + | Appointment | 09/14/ | for a physical assesment test | | | 2017 | | + +--------+ + Encounter Details +--------+ + + + + | Date | Type | Department | Care Team | Description | +--------+ + + + + | 09/14/ | Telephone | [facility] | Lupillo Valdez | Appointment (for a | | 2018 | | [facility] | E, DO [address] | physical assesment | | | | [facility] | [place], [place] | test) | | | | [address] [facility], | [address] | | | | | [place] [address] | [phone] | | | | | [phone] | | | +--------+ + + + [...] this encounter Miscellaneous Notes Addendum Note - Hanh Burger CC CMA - 09/22/2018 9:40 AM PST Addended by: Hanh Burger on: 09/22/2018 09:40 Modules accepted: Orders elephone Encoun ter - Hanh Burger CC CMA - 09/22/2018 9:39 AM PSTPatient informed new referral placed f [facility], [facility]. IDALIA Huerta CMA elephone Luis Carlos Patel - 09/22/2018 7:41 AM PSTPt called Claus Reed and he charges $1200 a nd needs to be pain in [place]. Dr Reed suggested pt going to [facility]. Dr Reed did not have time to give pt the name of a physician in the [facility] that can do this test. Please call to discuss as soon as possible/robinElectronically signed by Luis Carlos Bagley at 1 11/23/2017 7:44 AM PSTTelephone Encounter - Conchita Coelho CC CMA - 09/16/2018 3:27 PM PST Per December S.- I informed patient that Claus Reed does perform the Functional Capacity T esting but it is not billable to insurance and is an out of pocket expense, but they do prov farrukh a reimbursement form to go to insurance. Patient is concerned because she has not income .She is going to call [facility] Therapy for more info. IDALIA Hickey CMA elephone Luis Carlos Patel - 09/16/2018 2:20 PM PSTPt called and was asking for an answer to the derek felton questions regarding a Functional capacity Assessment, please call today please. Pt is also needing a refill I on pramipexole (MIRAPEX) 0.125 MG tablet refill and pt uses [facility] [place]/ robin elephone Encounter - Carina Figueroa - 09/14/2018 5:[address] Valdez, he will verify tomorrow 09/15/2018 with Claus Reed if he does or does not do the Functional Capacity Testing. Thank You Carina elephone Encounter - Hanh Burger CC CMA - 09/14/2018 10:38 AM PSTReturned call, per patient Claus booth at [facility] Physical [facility] for Functional Capacity Testing does not do This test any longer. Patient reports there is a facility in [place] that does. Can you please fin d this out and send referral? Thank you, IDALIA Huerta VACUUM DRIER TENDER elephone Encounte r - Luis Carlos Bagley - 09/14/2018 9:32 AM PSTPt called and was asking about a physical asses ment test that she was to have done, please call pt/Kadielectronically signed by Luis Carlos skelton at 09/14/2018 9:34 AM PSTdocumented in this encounter Plan of [...] [place] | | | | | | [address] | | | | | | [phone] | | | | | | | | +--------+---------+ + + + | 08/14/ | Office | Neurology | Jessica Henry NP | | | 2020 | Visit | | [address] | | | | | | [place] | | | | | | [address] | | | | | | [phone] | | | | | | | | +--------+---------+ + + + + + +--------+ + + | Name | Type | Priori | Associated Diagnoses | Order Schedule | | | | ty | | | + + +--------+ + + | Minh Physical | Outpatient | Routin | Primary | Ordered: 09/22/2018 | | Medicine and Rehab - | Referral | e | osteoarthritis, | | | AMB Referral | | | right ankle and foot | | + + +--------+ + + documented as of this encounter Visit Diagnoses + + | Diagnosis | + + | Primary osteoarthritis, right ankle and foot - Primary | + + documented in this encounter"
--- OUTSIDE RECORDS SUMMARY | ~2020-06-03 | XMS | Encounter Summary ---
Demographics + + + | Address | [address] | | | [place] [address] | + + + | Home Phone | | + + + | Preferred Language | Unknown | + + + | Marital Status | Single | + + + | Jehovah'S Witness Affiliation | Unknown | + + + | Race | White | + + + | Ethnic Group | Not or | + + + Author + + + | Author | [facility] | + + + | Organization | [facility] | + + + | [...] Team Providers + +------+ + | Care Patch Press Operator Name | Role | Phone | + +------+ + | Lupillo Valdez DO | PCP | | + +------+ + Encounter Details +--------+ + + + + | Date | Type | Department | Care Team | Description | +--------+ + + + + | 02/05/ | Telephone | Neurosurgery at | Dain Berry MD | | | 2020 | | [facility] | [address] | | | | | and Healing [address] | Tammy [address] [place] | | | | | [facility] [place] [address] | | | | | Health and Healing, | [phone] | | | | | [facility] | | | | | | Floor [place], [place] | | | | | | [address] | | | | | | [phone] | | | +--------+ + + + [...] this encounter Miscellaneous Notes Telephone Encounter - Lanie Delaney - 02/06/2020 5:09 PM PDTPt called back to do [place] VID-19 screening. Pt has no symptoms,and has not been around any that has. Reviewed visitor policy. documented in this encounter Plan of Treatment Not on filedocumented as of this encounter Visit Diagnoses Not on filedocumented in this encounter"
--- OUTSIDE RECORDS SUMMARY | ~2020-06-03 | XMS | Encounter Summary ---
Demographics + + + | Address | [address] | | | [place] [address] | + + + | Home Phone [...] Team Providers + +------+ + | Care Kieselguhr Regenerator Operator Name | Role | Phone | + +------+ + PCP | Unavailable | + +------+ + Encounter Details +--------+ + + + + | Date | Type | Department | Care Team | Description | +--------+ + + + + | 11/01/ | Hospital | [facility] | | | | 1995 | Encounter | MED CTR GENERIC OP | | | | | | CONV DEPT [address] | | | | | [address] [place], | | | | | | [place] [address] | | | | | | [phone] | | | +--------+ + + + [...] [place] | | | | | | [address] | | | | | | [phone] | | | | | | | | +--------+---------+ + + + | 08/14/ | Office | Neurology | Jessica Henry NP | | | 2019 | Visit | | [address] | | | | | | [place], [place] | | | | | | [address] | | | | | | [phone] | | | | | | | | +--------+---------+ + + + documented as of this encounter Visit Diagnoses Not on filedocumented in this encounter"
--- OUTSIDE RECORDS SUMMARY | ~2020-06-03 | XMS | Encounter Summary ---
Demographics + + + | Address | [address] | | | [place] [address] | + + + | Home Phone [...] Author + + + | Author | [facility] | | | and [place] | + + + | Organization | [facility] | | | [...] Team Providers + +------+ + | Care Welding Machine Setter Name | Role | Phone | + +------+ + | Lupillo Valdez DO | PCP | | + +------+ + Reason for Referral Evaluate & Treat (Emergency) +--------+ + + + + + | Status | Reason | Specialty | Diagnoses / | Referred By | Referred To | | | | | Procedures | Contact | Contact | +--------+ + + + + + | Closed | Specialty | Neurosurgery | Diagnoses | Hulme, | Talisha, | | | Services | | Spinal | Chelle Orosco DNP | MD Harvey | | | Required | | stenosis of | [address] | [address] | | | | | lumbar | [address] | [address] | | | | | region with | [facility], [place] | [place], [place] | | | | | neurogenic | [address] | [address] | | | | | claudication | Phone: | Phone: | | | | | | [phone] | [phone] | | | | | | Fax: | Fax: | | | | | | [phone] | [phone] | +--------+ + + + + + Reason for Visit + +--------+ + | Reason | Onset | Comments | | | Date | | + +--------+ + | Referral | 10/26/ | Neurosurgery | | | 2019 | | + +--------+ + Encounter Details +--------+ + + + + | Date | Type | Department | Care Team | Description | +--------+ + + + + | 10/26/ | Telephone | [facility] | Lupillo Valdez | Referral | | 2020 | | [facility] | E, DO [address] | (Neurosurgery) | | | | MEDICAL [facility] [address] | [place], [place] | | | | [address] [place], | [address] | | | | | [place] [address] | [phone] | | | | | [phone] | | | +--------+ + + + [...] this encounter Miscellaneous Notes Addendum Note - Chelle Laurent DNP - 11/02/2019 10:24 AM PST Addended by: CHELLE LAURENT o n: 11/02/2019 10:24 AM Modules accepted: Orders elephone Encounter - Chelle Laurent DNP - 11/02/2019 10:19 AM PSTThank you for helping me to find the necessa ry report. Based on MRI findings the patient definitely should undergo neurosurgical consul tation. I have placed the order to [facility] as requested. I am not sure if [facility] will accept thi s referral. If not, it can be redirected to a different neurosurgeon. I have placed the order STAT as the findings are significant. elephone Encounter - Lavinia Arroyo CC CMA - 0 11/02/2019 8:14 AM PSTThere is a report from 08/02/19 under media tab from [facility]. It i s dated 08/07/2019 (date it was scanned in). Please advise. IDALIA Messina CMA elephone Encoun ter - Chelle Laurent DNP - 11/02/2019 8:03 AM PSTThe patient has not had an MRI on her colby k according to imaging portion of chart review. Before referral to Neurosurgery we need to have more information. If the patient has MRI r esults from an external provider we could review them and make that referral, but based on t he information readily available in her chart, I feel that more is needed to justify neurosu rgerical referral. elephone Encounter - Lavinia Arroyo CC CMA - 11/02/2019 7:20 AM PSTIs it okay to make th is referral to [facility] w/ daignosis that are in her chart? elephone Encounter - Lavinia Arroyo CC CMA - 02/2020 7:18 AM PSTI spoke with Abril. She would like a referral to neurosurgery at [facility] peter use her orthopedic surgeon won't do back surgery on her. I also reminded Abril that she should leave more information so her care can be expedited. 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 She acknowledged IDALIA Messina CMA elephone Bobbi Ren - 10/31/2019 3:37 PM PSTPt called back and states that the surgeon says that surgery is not an option at this time. Patient is hoping she can get a referral t o a neurosurgeon at [facility] at this point. Pt is hoping Frances could call Dr. Longoria at the [facility] in [place], [place] to see exactly what was needed. P: [phone] Thanks, Emersonectronically signed by Bobbi Chen at 10/31/2019 3:40 PM PSTTelephone Mary Rut[facility] HospitalBobbi Jiménez - 10/31/2019 11:01 AM PSTPatient states that she needs to visit with Frances about this. She states she is in a pickle and needs to see if Frances can help her. I kno w that it is regarding this issue, but have no further details. Please return pt's call as soon as possible. Thanks, Emersonectronically signed by Bobbi Chen at 10/31/2019 11:07 AM PSTTelephone Chelle Cardoza DNP - 10/27/2019 3:04 PM PSTI will send an order over for the cane. Lorena Valdez can address the other concerns with the patient when he returns. Electronically s igned by Chelle Laurent DNP at 10/27/2019 3:04 PM PSTTeleLavinia Denise CC CMA - 10/27/2019 11:17 AM PSTTerlupillo spoke with her surgeon in [place]. Because of results of nerve conduction studies, surgeon in [place] won't do back surgery. She has been referred to rina eurologist but has not seen him yet. Pt c/o "seizing up" in her legs. This has been causing falls. When this happens, her pain i s 10/10 in her pain. Abril also c/o bladder incontinence. Abril would like Dr. Valdez to write a letter to [facility] so she can get on disability. Abril also requesting prescription for cane sent to [facility] in [place]. Thanks, Lavinia elephone Lavinia Rojas CC CMA - 10/27/2019 7:52 AM PSTI called Abril at 0752, went straight to , I left a message requesting a call back. IDALIA Messian CMA elephone Myrna Mcgovern - 10/26/2019 10:51 AM PSTPt is requesting to speak with Dr. Valdez's [facility] staff as soon as possible. Pt is aware provider is out of office and nursing staff ks wood. Pt states she is unable to have back surgery due to results from nerve conduction studies a nd is being told she needs to see a neurologist first. Pt states she is currently unable to take any medication for pain due to allergie and any a lternate pain medication prescribe for pain interferes with her hiatal hernia Pt states she is not in a "well state of mind" and has multiple other health concerns she w ould like to speak to Lavinia or Hanh about Please call pt to discuss further Thanks Myrna documented in this encount er Plan of [...] [place] | | | | | | [address] | | | | | | [phone] | | | | | | | | +--------+---------+ + + + | 08/14/ | Office | Neurology | Jessica Henry NP | | | 2019 | Visit | | [address] | | | | | | [place] | | | | | | [address] | | | | | | [phone] | | | | | | | | +--------+---------+ + + + + + +--------+ + + | Name | Type | Priori | Associated Diagnoses | Order Schedule | | | | ty | | | + + +--------+ + + | Neurosurgery, | Outpatient | STAT | Spinal stenosis of | Ordered: 11/02/2019 | | External - AMB | Referral | | lumbar region with | | | Referral | | | neurogenic | | | | | | claudication | | + + +--------+ + + documented as of this encounter Visit Diagnoses + + | Diagnosis | + + | Syncope and collapse - Primary | + + | Gait instability Abnormality of gait | + + | Spinal stenosis of lumbar region with neurogenic claudication Spinal stenosis, lumbar | | region, with neurogenic claudication | + + | Degenerative disc disease, cervical Degeneration of cervical intervertebral disc | + + documented in this encounter
--- OUTSIDE RECORDS SUMMARY | ~2020-06-03 | XMS | Encounter Summary ---
Demographics + + + | Address | [address] | | | [place] [address] | + + + | Home Phone [...] Team Providers + +------+ + | Care Precision Agronomist Name | Role | Phone | + +------+ + PCP | Unavailable | + +------+ + Encounter Details +--------+ + + + + | Date | Type | Department | Care Team | Description | +--------+ + + + + | 08/10/ | Abstract | [facility] | Lupillo Valdez | | | 2018 | | [facility] | E, DO [address] | | | | | MEDICAL CLIN[facility] [address] | [place], [place] | | | | | [address] [place], | [address] | | | | | [place] [address] | [phone] | | | | | [phone] | | | +--------+ + + + [...] [place] | | | | | | [address] | | | | | | [phone] | | | | | | | | +--------+---------+ + + + | 08/14/ | Office | Neurology | Jessica Henry NP | | | 2019 | Visit | | [address] | | | | | | [place] | | | | | | [address] | | | | | | [phone] | | | | | | | | +--------+---------+ + + + documented as of this encounter Procedures + +--------+ + + + | Procedure Name | Priori | Date/Time | Associated Diagnosis | Comments | | | ty | | | | + +--------+ + + + | EXTERNAL LAB: CBC | Routin | 01/20/2018 | | Results for this | | | e | | | procedure are in the | | | | | | results section. | + +--------+ + + + | EXTERNAL LAB: | Routin | 01/20/2018 | | Results for this | | CREATININE | e | | | procedure are in the | | | | | | results section. | + +--------+ + + + | EXTERNAL: | Routin | 07/27/2017 | | Results for this | | COLONOSCOPY | e | | | procedure are in the | | | | | | results section. | + +--------+ + + + documented in this encounter Results External Lab: CBC (01/20/2018) + +-------+ + + + | Component | Value | Ref Range | Performed | Pathologist | | | | | At | Signature | + +-------+ + + + | WBC, | 7.8 | | | | | External | | | | | + +-------+ + + + | HGB, | 13.6 | | | | | External | | | | | + +-------+ + + + | HCT, | 40.0 | | | | | External | | | | | + +-------+ + + + External Lab: Creatinine (01/20/2018) + +-------+ + + + | Component | Value | Ref Range | Performed | Pathologist | | | | | At | Signature | + +-------+ + + + | Creatinine, | 0.76 | | | | | External | | | | | + +-------+ + + + + + | Specimen | + + | Blood | + + EXTERNAL: COLONOSCOPY (07/27/2017) + + + + + + | Component | Value | Ref Range | Performed | Pathologist | | | | | At | Signature | + + + + + + | Colonoscopy | No report found; Repeat | | | | | | years not found;Comment: | | | | | Impression, | Per [facility] | | | | | External | Medicine Medical Record | | | | + + + + + + documented in this encounter Visit Diagnoses Not on filedocumented in this encounter"
--- OUTSIDE RECORDS SUMMARY | ~2020-06-03 | XMS | Encounter Summary ---
Demographics + + + | Address | [address] | | | [place] [address] | + + + | Home Phone [...] Team Providers + +------+ + | Care Veneer Measurer Name | Role | Phone | + +------+ + | Lupillo Valdez DO | PCP | | + +------+ + Reason for Visit +--------+--------+ + | Reason | Onset | Comments | | | Date | | +--------+--------+ + | Letter | 03/04/ | | | | 2020 | | +--------+--------+ + Encounter Details +--------+ + + + + | Date | Type | Department | Care Team | Description | +--------+ + + + + | 03/04/ | Telephone | [facility] [facility] | Lupillo Valdez | Letter | | 2020 | | [facility] | E, DO [address] | | | | | MEDICAL CLINIC [address] | [place], [place] | | | | | [address] [place], | [address] | | | | | [place] [address] | [phone] | | | | | [phone] | | | +--------+ + + + [...] Encounter - Lavinia Arroyo CC CMA - 03/05/2020 11:52 AM PDTLetter written, glenys led to patient. IDALIA Messina CMA elephone Encoun ter - Lavinia Arroyo CC CMA - 03/05/2020 11:44 AM PDT03/01/2019-11/28/2019Electronically sign ed by IDALIA Rosa CMA at 03/05/2020 11:52 AM PDTTelephone Encounter - Ulices Valdez DO - 03/04/2020 5:41 PM PDTOK to send a letter stating that is was filled on the spec [facility] date in February 2019 and expires on a specific date in November 2019. elephone Encounter - Hanh Burger CC C MA - 03/04/2020 5:18 PM PDTPlease see me about this. IDALIA Huerta CMA elephone Encounte r - Lupillo Valdez DO - 03/04/2020 4:05 PM PDTNo, an rx was written 02/2019 and end james e for that prescription was 11/2019.Electronically signed by Lupillo Valdez DO at 020 4:05 PM PDTTelephone Encounter - Lavinia Arroyo CC CMA - 03/04/2020 12:04 PM PDTKepp ra written 11/08/2019 (martha provider), 11/28/2019 (Courtney), 03/01/19, and 01/31/19. I do not see anything for 08/2019. 12 :06 PM PDTTelephone Encounter - Lupillo Valdez DO - 03/04/2020 11:53 AM PDTPlease verif y both prescriptions were written, Ok to to send note. elephone Encounter - Lavinia Arroyo CC [facility] - 03/04/20 11:31 AM PDTOkay to write letter stating you wrote script? elephone Encounter - Luis Carlos Bagley - 020 11:14 AM PDTPt called and is asking for a letter stating that Dr Valdez filled a prescr iption for levETIRAcetam (KEPPRA) 500 mg tablet in and had to send another request a gain in October 2019 due to [facility] not being able to find the first prescription. Please mail to pt at [address] , [place] [address]. Please call pt with question s or when the letter rodriguez been mailed/robinElectronically signed by Luis Carlos Bagley at 2019 11:18 AM PDTdocumented in this encounter Plan of [...] [place] | | | | | | [address] | | | | | | [phone] | | | | | | | | +--------+---------+ + + + | 08/14/ | Office | Neurology | Jessica Henry NP | | | 2019 | Visit | | [address] [place] [address] | | | | | | [place] | | | | | | [address] | | | | | | [phone] | | | | | | | | +--------+---------+ + + + documented as of this encounter Visit Diagnoses Not on filedocumented in this encounter"
--- OUTSIDE RECORDS SUMMARY | ~2020-06-03 | XMS | Encounter Summary ---
Demographics + + + | Address | [address] | | | [place] [address] | + + + | Home Phone [...] Author + + + | Author | [facility] | | | and [place] | + + + | Organization | [facility] | | | [...] Team Providers + +------+ + | Care Inspector Aligning Name | Role | Phone | + +------+ + | Lupillo Valdez DO | PCP | | + +------+ + Reason for Visit + +--------+ + | Reason | Onset | Comments | | | Date | | + +--------+ + | Medication Related | 10/04/ | | | | 2019 | | + +--------+ + Encounter Details +--------+ + + + + | Date | Type | Department | Care Team | Description | +--------+ + + + + | 10/04/ | Telephone | [facility] | Lupillo Valdez | Medication Related | | 2019 | | [facility] | E, DO [address] | | | | | MEDICAL CLINIC [address] | [place], [place] | | | | | [address] [place], | [address] | | | | | [place] [address] | [phone] | | | | | [phone] | | | +--------+ + + + [...] this encounter Miscellaneous Notes Telephone Encounter - Lizette Lopez - 10/04/2018 10:11 AM PSTPt states that she usual ly gets an rx valacyclovir from her dentist, Dr. Trinity Cummings, for cold sores, but her insu philipp changed and he can no longer prescribe it to her. She would like Dr. Valdez to fill i t for her Send to [facility] in [place] Please advise Thank you Lizette Lopez documented in this en counter Plan of Treatment +--------+---------+ + + + | Date | Type | Specialty | Care Team | Description | +--------+---------+ + + + | 07/01/ | Office | Primary Care | Lupilol Valdez | | | 2019 | Visit | | E, DO [address] | | | | | | [place] | | | | | | [address] | | | | | | [phone] | | | | | | | | +--------+---------+ + + + | 08/14/ | Office | Neurology | Jessica Henry NP | | | 2019 | Visit | | [address] | | | | | | [place] | | | | | | [address] | | | | | | [phone] | | | | | | | | +--------+---------+ + + + documented as of this encounter Visit Diagnoses Not on filedocumented in this encounter"
--- OUTSIDE RECORDS SUMMARY | ~2020-06-03 | XMS | Encounter Summary ---
Demographics + + + | Address | [address] | | | [place] [address] | + + + | Home Phone [...] Team Providers + +------+ + | Care Pre Sales Architect Name | Role | Phone | + +------+ + PCP | Unavailable | + +------+ + Encounter Details +--------+ + + + + | Date | Type | Department | Care Team | Description | +--------+ + + + + | 06/20/ | Hospital | [facility] | Melvin Chen, | Acute chest pain; | | 2015 - | Encounter | [facility] | [address] | Accelerated | | | | CLINICAL DECISION | [place] [address] | hypertension; | | 06/21/ | | [address] | [phone] | Gastroesophageal | | 2015 | | [place], [place] | | reflux disease | | | | [address] | | without esophagitis; | | | | [phone] | | Obesity, | | | | | | unspecified obesity | | | | | | severity, | | | | | | unspecified obesity | | | | | | type | +--------+ + + + + Social [...] + + documented as of this encounter Discharge Summaries Dexter Ventura MD - 06/21/2015 12:26 PM PDT Discharge Summaries by Dexter Ventura MD at 06/21/15 1226 Author: Dexter Ventura MD Service: Hospitalist Author Type: Physician Filed: 07/03/15 2329 Date of Service: 06/21/15 5466 Status: Signed Inspector Eyeglass: Dexter Ventura MD (Physician) Related Notes: Original Note by Dexter Ventura MD (Physician) filed at 06/21/15 1418 Patient ID: Paula Mcleod [id number] 55 y.o. 1960 Admit date: 06/20/2015 Discharge date and time: 06/21/15 Admitting Physician: Melvin Chen MD Discharge Physician: MD Jovani Primary Discharge Diagnoses: Accelerated hypertension [401.0] Gastroesophageal reflux disease without esophagitis [530.81] Acute chest pain [786.50] Obesity, unspecified obesity severity, unspecified obesity type [278.00] Mixed Hyperlipidemia Discharged Condition: good Significant Diagnostic Studies: X-ray Chest 2 View Frontal & Lateral 06/20/2015 This is a non-reportable procedure without a radiologist report and is used fo r image storage only Echo Cardiac Adult Complete 06/21/2015 Patient Name: PAULA MCLEOD Date of : 1960 Pe rforming Physician: Jb Veronica MD INDICATIONS acute NM / WMA CONCLUSIONS 1. Overall left ve ntricular systolic function is normal with, an EF between 65 - 70 %. 2. There is mild concen tric left ventricular hypertrophy. 3. The right ventricular systolic function is normal. 4. , and the LA measures 4.4cm. 5. There is no evidence of aortic stenosis. 6. There is trace m itral regurgitation. 7. There is no evidence of pulmonary hypertension. FINDINGS -------- E CG rhythm: Resting bradycardia (HR<60bpm). Study: A 2-dimensional transthoracic echocardiogr am with m-mode, spectral and color flow Doppler was perfomed. Study: This was a technically adequate study. Left Ventricle: Overall left ventricular systolic function is normal with, an EF between 65 - 70 %. Left Ventricle: The left ventricle cavity size is normal. Left Ve ntricle: There is mild concentric left ventricular hypertrophy. Somehat Left Ventricle: Sig moid shaped septum with focal hypertrophy of the basal septum. Left Ventricle: The diasto lic filling pattern is normal for the age of the patient. Right Ventricle: The right ventric le is normal in size. Right Ventricle: The right ventricular systolic function is normal. L eft Atrium: The left atrial size is normal Left Atrium: , and the LA measures 4.4cm. Right A trium: The right atrial size is normal. Aortic Valve: The aortic valve was not well visualiz ed. Aortic Valve: There is minimal aortic valve sclerosis without stenosis. Aortic Valve: Trace amount of aortic regurgitation. Aortic Valve: There is no evidence of aortic stenosi s. Mitral Valve: The mitral valve is normal. Mitral Valve: There is trace mitral regurgitat ion. Tricuspid Valve: The tricuspid valve appears structurally normal. Tricuspid Valve: Tra ce tricuspid regurgitation present. Tricuspid Valve: There is no evidence of pulmonary hype rtension. Tricuspid Valve: The right ventricular systolic pressure (pulmonary artery systol ic pressure), as measured by Doppler, is 25.35mmHg. Pulmonic Valve: The pulmonic valve was n ot well visualized. Pericardium: There is no significant pericardial effusion. IVC/Hepatic V eins: The IVC is normal size (1.5-2.5cm) and collapses >50% with sniff, consistent with cent ral venous pressures of 5-10mmHg. MEASUREMENTS Ao asc: 3.64 cm IVC: 1.88 cm LA Diam: 4.37 cm LA Major: 5.13 cm EDV(Teich): 73.68 ml IVSd: 1.22 cm LVIDd: 4. 08 cm LVPWd: 1.11 cm LVOT Diam: 1.96 cm %FS: 51.11 % EF(Teich): 82.76 % ESV(Teich): 12.69 ml IVSs: 1.23 cm LVIDs: 1.99 cm LVPWs: 1.75 cm SV(Teich): 60.99 ml RA Major: 4.37 cm RVIDd: 2.78 cm LAESV(A-L): 53.70 ml LAESV Index (A-L): 24.86 ml/m2 LAAs A2C : 19.54 cm2 LAESV A-L A2C: 55.20 ml LAESV MOD A2C: 53.76 ml LALs A2C: 5.87 cm LAAs A 4C: 17.64 cm2 LAESV A-L A4C: 48.49 ml LAESV MOD A4C: 43.27 ml LALs A4C: 5.45 cm D-E Excursion: 1.95 cm E-F [place]umberland: 0.09 m/s EPSS: 0.22 cm HR: 56.48 BPM AV maxP.59 mmHg AV meanP.17 mmHg AV Vmax: 2.03 m/s AV Vmean: 1.31 m/s AV VTI: 47.41 cm SHAYY Vmax: 1.56 cm2 SHAYY (VTI): 1.74 cm2 LVCI Dopp: 2.25 l/minm2 LVCO Dopp: 4.86 l/min HR : 58.98 BPM LVOT maxP.44 mmHg LVOT meanP.46 mmHg LVSI Dopp: 38.20 ml/m2 LVSV Dopp: 82.51 ml LVOT Vmax: 1.05 m/s LVOT Vmean: 0.74 m/s LVOT VTI: 27.14 cm MCO: 1 626.29 ms MV A Gregory: 0.60 m/s MV DecT: 214.10 ms MV E Gregory: 0.92 m/s MV E/A Ratio: 1.5 2 MV PHT: 50.30 ms MVA By PHT: 4.37 cm2 MV A Dur: 89.96 ms IVRT: 107.26 ms Septal e ': 0.07 m/s Septal E/e': 12.67 Lateral e': 0.11 m/s Lateral E/e': 7.71 P Vein D: 0.32 m/s P Vein S/D Ratio: 1.43 P Vein S: 0.47 m/s HR: 59.18 BPM PV maxP.84 mm Hg PV meanP.45 mmHg PV Vmax: 0.97 m/s PV Vmean: 0.75 m/s PV VTI: 28.56 cm RAP: 10 mmHg RVSP: 25.34 mmHg TR maxP.34 mmHg TR Vmax: 1.95 m/s TV A Gregory: 0.26 m/s TV Dec Cumberland: 2.24 m/s2 TV Dec Time: 266.89 ms TV E Gregory: 0.59 m/s TV E/A Ratio: 2.23 Physician Relations Representative: JASSI Authenticated by: Jb Veronica MD Report Date/Time: 06-21-2015 12:25:04 06/21/2015 1. Overall left ventricular systolic function is normal with, an EF between 65 - 70 %. 2. There is mild concentric left ventricular hypertrophy. 3. The right ventricular s ystolic function is normal. 4. , and the LA measures 4.4cm. 5. There is no evidence of aorti c stenosis. 6. There is trace mitral regurgitation. 7. There is no evidence of pulmonary hyp ertension. HPI and Hospital Course: 1. A 55-year-old female with past medical history of hypertension, obesity, hypothyroidism, who has been having pain in the left breast that lasts for 10 to 2 0 seconds for the last 2 days intermittently which sometimes shoots to the left arm as well associated with shortness of breath and who went to [facility] where D-dimer was checked which was negative. The patient's troponin was 0.014 and EKG showed normal sinus rh ythm with some T-wave inversions in V1 to V6. Hence, the patient was transferred to [facility] for further cardiac workup. Her 2 repeat troponins remained negative. She underwent an echocardiogram which showed normal ejection fraction of 65% to 70%. The pa noel is going for nuclear stress test which if turns out negative she can be discharged magali e to follow up with her primary care doctor. Today, when I saw the patient she told me that she had 1 episode of pain that lasted for 5 to 10 seconds in the breast without any radiatio n and it was tender to touch the left costochondral joints in the left upper chest. Her pain is likely secondary to musculoskeletal and hence I am going to give her Robaxin p.r.n. for pain control. 2. Hypertension. The patient's blood pressure was running in the 180's on arrival to the em ergency department and she was started on amlodipine after which her blood pressure was runn ing around 160 and she was advised to continue on Lisinopril and hydrochlorothiazide low dos e have been added. The patient was advised to be on a low-salt diet and follow up with her [facility] doctor for blood pressure followup. 3. Mixed hyperlipidemia. The patient's LDL and triglycerides are abnormal and she was advis ed to do lifestyle modification, to watch her diet and lose weight by diet and exercise. Her cholesterol needs to be checked in 3 months. If her LDL remains more than 100 she should be on low-dose statins. 4. I spent more than 30 minutes on discharge. Addendum:her stress test was -ve. BP 164/70 mmHg | Pulse 62 | Temp(Src) 97.9 F (36.6 C) (Oral) | Resp 18 | Ht 1.676 m (5' 6") | Wt 109 kg (240 lb 4.8 oz) | BMI 38.80 kg/m2 | SpO2 98% No intake or output data in the 24 hours ending 06/21/15 1227 Discharge Exam: Constitutional: Alert and oriented to person, place, and time. Appears well-developed and w ell-nourished. Cardiovascular: Normal rate, regular rhythm, normal heart sounds and intact distal pulses. Exam reveals no gallop and no friction rub. No murmur heard. Pulmonary/Chest: Effort normal and breath sounds normal. No stridor. No respiratory distres s. no wheezes. no rales. exhibits Left chest Tenderness at upper costochondral joints. Abdominal: Soft. Bowel sounds are normal. exhibits no distension and no mass. There is no t enderness. There is no rebound and no guarding. Musculoskeletal: Normal range of motion.exhibits no tenderness. exhibits no edema. Neurological: Alert and oriented to person, place, and time. Has normal reflexes. display s normal reflexes. No cranial nerve deficit. Exhibits normal muscle tone. Coordination norm al. Skin: Skin is warm and dry. No rash noted. No erythema. No pallor. Psychiatric: Has a normal mood and affect. Behavior is normal. Judgment normal. Disposition: home Patient Instructions: Medication List START taking these medications amLODIPine 5 MG tablet QTY: 30 tablet Refills: 0 Commonly known as: NORVASC Take 1 tablet by mouth daily. aspirin 81 MG chewable tablet QTY: 30 tablet Refills: 0 Commonly known as: ASPIRIN CHILDRENS Take 1 tablet by mouth daily. methocarbamol 750 MG tablet QTY: 30 tablet Refills: 0 Commonly known as: ROBAXIN Take 1 tablet by mouth 3 (three) times daily as needed. CONTINUE taking these medications divalproex 500 MG EC tablet Refills: 0 Commonly known as: DEPAKOTE glucosamine-chondroitin 500-400 MG Caps Refills: 0 levothyroxine 25 MCG tablet Refills: 0 Commonly known as: SYNTHROID lisinopril 2.5 MG tablet Refills: 0 Commonly known as: ZESTRIL omeprazole 20 MG capsule Refills: 0 Commonly known as: PRILOSEC Where to Get Your Medications These are the prescriptions that you need to [facility]. You may get the following medications from any pharmacy - amLODIPine 5 MG tablet - aspirin 81 MG chewable tablet - methocarbamol 750 MG tablet Activity: activity as tolerated Diet: cardiac diet Wound Care: not applicable There are no Patient Instructions on file for this visit. Noah Cook DO [address] [place] [id number] In 1 week Satinder Nuno MD [address] [place] [address] In 1 week Signed: DEXTER VENTURA 06/21/2015 12:27 PM documented in this en counter Medications at Time of Discharge + + [...] documented as of this encounter Progress Notes Conversion Transaction, Provider Unknown - 06/21/2015 4:49 PM PDTFormatting of this note m ight be different from the original. Nurse Progress Note by Jessica Freeman RN at 06/21/15 0614 Author: Jessica Freeman RN Service: (none) Author Type: Registered Nurse Filed: 06/21/15 1649 Date of Service: 06/21/15 164 Status: Signed Inspector Eyeglass: Jessica Freeman RN (Registered Nurse) Patient given AVS and prescriptions. Verbalizes understanding and is agreeable; states no further questions at this time. Declined wheelchair ride out. Jessica Freeman RN onver mariano Transaction, Provider Unknown - 06/21/2015 8:45 AM PDT Nurse Progress Note by Jessica Freeman RN at 06/21/1545 Author: Jessica Freeman RN Service: (none) Author Type: Registered Nurse Filed: 06/21/15 1207 Date of Service: 06/21/15844 Status: Signed Inspector Eyeglass: Jessica Freeman RN (Registered Nurse) Call back from night RN; he states he took off the nitro patch 30-60 minutes after patient arrived in CDU which was 2330 last night. Jessica Freeman RN onver mariano Transaction, Provider Unknown - 06/21/2015 8:41 AM PDT Nurse Progress Note by Jessica Freeman RN at 06/21/15 0841 Author: Jessica Freeman RN Service: (none) Author Type: Registered Nurse Filed: 06/21/15 0842 Date of Service: 06/21/15840 Status: Signed Inspector Eyeglass: Jessica Freeman RN (Registered Nurse) Received a call from nuclear medicine. Wanting to know what time nitro paste was removed fr om patient. Spoke with patient, she is unsure of time. Attempted to reach night RN, as no documentation available with this information; left message asking for a call back. Jessica Freeman RN onver mariano Transaction, Provider Unknown - 06/21/2015 5:39 AM PDT Progress Notes by Marek Brown RPH at 06/21/15538 Author: Marek Brown RPH Service: (none) Author Type: Pharmacist Filed: 06/21/15538 Date of Service: 06/21/15538 Status: Signed Inspector Eyeglass: Marek Brown RPH (Pharmacist) Clinical Pharmacy Note: Renal Monitoring Paula Prock 55 y.o. female Ht Readings from Last 1 Encounters: No data found for Ht Wt Readings from Last 1 Encounters: 06/20/15 109 kg (240 lb 4.8 oz) CREATININE Date Value Ref Range Status 06/21/2015 0.84 0.50 - 1.00 mg/dL Final Comment: Testing performed at [facility], [address] [place] [address] Creatinine clearance cannot be calculated (Unknown ideal weight.) Pharmacy dosing for renal function per Dr. Chen. Currently, there are no medications needing to be adjusted. Pharmacy will continue to monit or for changes in medication orders and in renal function and adjust accordingly. Marek Brown RPh 06/21/2015 5:39 AM onver mariano Transaction, Provider Unknown - 06/20/2015 10:00 PM PDT Case Management by ERIC Frey at 06/20/152199 Author: ERIC Frey Service: (none) Author Type: Maritime Engineer Filed: 06/20/152199 Date of Service: 06/20/152199 Status: Signed Inspector Eyeglass: ERIC Frey (Maritime Engineer) Discharge planning: CM spoke with ED Lead RN regarding discharge needs. Per RN s report , she did not identify needs and feels that the pt does not need to be seen by a Case Manage r at this time. I encouraged a CM consult as needs arise. Pt is independent, will return t o prior living situation, good social support. Ruth Rodriguez docume nted in this encounter H&P Notes Melvin Chen MD - 06/20/2015 9:50 PM PDTFormatting of this note might be different fro m the original. H&P by Melvin Chen MD at 06/20/152149 Author: Melvin Chen MD Service: Hospitalist Author Type: Physician Filed: 06/21/152029 Date of Service: 06/20/152149 Status: Signed Inspector Eyeglass: Melvin Chen MD (Physician) Related Notes: Original Note by Melvin Chen MD (Physician) filed at 06/20/15 6751 [facility] Service: Hospitalist Admission History & Physical Date of Admission: 06/20/2015 Requesting Physician: , Emergency Department Reason for Admission: Recurrent chest pain History Obtained From: patient, chart review, Quality of history: good CHIEF COMPLAINT: Patient presented to the Emergency Department [place] [facility] Chief Complaint Chief Complaint Patient presents with Chest Pain Primary Care Doctor: NOAH COOK HISTORY OF PRESENT ILLNESS The patient is a 55 y.o. female with significant past medical history of Hypertension, epi lepsy, and history of grand mal seizures, on Depakote, last breakthrough seizure a year ago when she missed her medication, obesity, hypothyroidism, and GERD. The patient was transferr ed from [facility] in [place] to [facility] for evaluation o f chest pain. The patient has not had previous history of NM, congestive heart failure, arrh ythmias, or syncope. She has never had any cardiac workup or stress test in the past. The patient has had episodic chest tightness for the past 6 months, has not sought medical attention. In the past week she has noted increasing frequency of these episodes of chest ti ghtness which she describes as "twinges of pain" without specific association to position, e xertion, or food. For the past 3 months she has been under extreme stress related to work an d she has noted fluctuating blood pressures despite being compliant with medications. Yester day she had chest pain associated with elevated blood pressures and shortness of breath. She has noted associated lightheadedness without syncope,occasional palpitations. Denied any di aphoresis, fever, chills, cough. This pain is different from GERD. She describes twinges of pain that start in her left lateral breast area and then radiate across anterior chest to th e substernal area. They last for about 20 seconds, stabbing, resolve spontaneously. Not pleu ritic in nature. Denies any radiation to the jaw, intrascapular area, shoulders or arm. She has noted occasional tightness in her throat. Denied lifting heavy weights or trauma to the chest wall. More lately has been taking ibuprofen pretty regularly for headaches associated with elevated blood pressures. No report of GI bleeding. She was evaluated at [facility] yesterday. She was ruled out for an acute coronary event with EKG and enzymes. She wa s discharged home with diagnosis of stress-induced angina, on Xanax. This morning she took Xanax and it made her feel extremely loopy. [facility] ED discharge. Primary care doctor repeated an EKG. She did have some T-wave inversions which were not new, but apparently more prominent. Therefore she was redirected back to the emergency room for further cardiac workup. She was noted to have elevated blood pressure in the emergency room in the range of 160s to 170s. L aboratory workup showed white count 8.1, hemoglobin 13, hematocrit 39, MCV 90, platelet coun t 224. D-dimer was normal less than 100. BUN was 12, creatinine 0.92, sodium 138, potassium 4, chloride 103, bicarbonate 29, calcium 9.5, total protein 6.5, albumin 4, total bilirubin 0.2, AST 14, ALT 13, alkaline phosphatase 62. Troponin 0.014. EKG showed normal sinus rhythm and some T-wave inversion in V1 to V6. Chest x-ray, no official report available; on my opal d, normal. Repeat EKG here did not show any acute STEMI. Repeat troponin here was still norm al. She has not had any further twinges of pain in the emergency room. Hospitalist service w as consulted to rule out ACS. At this time the patient is asymptomatic. The patient denies recent travel. No previous history of DVT or PE. Denies any pain or redn ess in the calves. Apparently has chronic mild dependent edema. No recent trauma. Denies lif ting any heavy objects. No previous history of pancreatitis. REVIEW OF SYSTEMS Review of Systems CONSTITUTIONAL: No recent change in weight. Appetite has been decreased for the past week. No fevers or chills. HEENT: Denies any headache at this time, but does get headaches on and off with elevated bl ood pressures. No acute change in vision. No dysphagia, dysarthria, thrush, or facial numbne ss. NECK: No neck pain or neck stiffness. RESPIRATORY: Denies any asthma or COPD. Has never been evaluated for obstructive sleep apne a. The patient believes she might have obstructive sleep apnea. Denies pleuritic chest pain, hemoptysis, wheezing. CARDIOVASCULAR: No previous history of NM, arrhythmia, syncope. Has had intermittent palpit ations. GASTROINTESTINAL: Known history of GERD. No nausea, vomiting, constipation, diarrhea, or GI bleeding. GENITOURINARY: No dysuria, polyuria, hematuria, or flank pain. NEUROLOGIC: No history of TIA, strokes. Known history of seizures. Last breakthrough seizur e more than a year ago. Compliant with antiepileptic medications. No new neurological sympto ms. GYNECOLOGIC: Hysterectomy for fibroid uterus. No report of abnormal vaginal bleeding. MUSCULOSKELETAL: Osteoarthritis of the left hip and DJD of the C-spine. PSYCHIATRIC: Denies anxiety, depression, panic attacks. ENDOCRINE: Not a known diabetic. Past Medical History Diagnosis Date Epilepsy (HCC) HTN (hypertension) Hypothyroidism GERD (gastroesophageal reflux disease) Past Surgical History Procedure Laterality Date Hysterectomy Tonsillectomy Rotator cuff repair Allergies Allergen Reactions Codeine Anaphylaxis Hydrocodone Anaphylaxis Meperidine Anaphylaxis Morphine Anaphylaxis Oxycodone Anaphylaxis Penicillins Anaphylaxis Percocet [Oxycodone-Acetaminophen] Anaphylaxis Propoxyphene Anaphylaxis Prior to Admission medications Medication Sig Start Date End Date Taking? Authorizing Provider ALPRAZolam (XANAX) 0.5 MG tablet Take 0.5 mg by mouth nightly as needed for Sleep. Yes [facility] Provider divalproex (DEPAKOTE) 500 MG EC tablet Take 500 mg by mouth 3 (three) times daily. Yes [facility] Provider glucosamine-chondroitin 500-400 MG CAPS Take 1 capsule by mouth 3 (three) times daily. Ye s Historical Provider levothyroxine (SYNTHROID) 25 MCG tablet Take 75 mcg by mouth every morning before breakfast . Yes Historical Provider lisinopril (ZESTRIL) 2.5 MG tablet Take 2.5 mg by mouth daily. Yes Historical Provider omeprazole (PRILOSEC) 20 MG capsule Take 20 mg by mouth every morning before breakfast. Y es Historical Provider Family History Problem Relation Age of Onset Heart Disease Mother cardiac stent in her 70's, alive Alcoholism Father History Social History Marital Status: Single Spouse Name: N/A Number of Children: 3 Years of Education: N/A Occupational History Not on file. Social History Main Topics Smoking status: Former Smoker Smokeless tobacco: Not on file Comment: quit 30 yrs ago Alcohol Use: 0.0 oz/week 0 Not specified per week Comment: rarely Drug Use: No Sexual Activity: Not on file Other Topics Concern Not on file Social History [facility]arrative [facility], no falls, full code. History Smoking status Former Smoker Smokeless tobacco Not on file Comment: quit 30 yrs ago History Alcohol Use 0.0 oz/week 0 Not specified per week Comment: rarely History Drug Use No PHYSICAL EXAM Vital Signs: BP 170/82 mmHg | Pulse 64 | Temp(Src) 97.5 F (36.4 C) (Oral) | Resp 17 | Wt 108.863 kg (240 lb) | SpO2 99% Physical Exam GENERAL: Obese, hypertensive, alert and oriented x3. Chest pain free. HEENT: Pupils are equal and reactive to light. Anicteric. Moist oral mucosa. No thrush. NECK: Supple. No JVD. No lymphadenopathy. No thyromegaly. LUNGS: Clear to auscultation bilaterally. No wheeze or rales. Respirations are not labored. HEART: Regular rate and rhythm. No murmur. No gallop. No chest wall tenderness to palpation . ABDOMEN: Obese, soft. No tenderness in the epigastrium, right or left upper quadrant. Not d istended. No guarding. No rigidity. Bowel sounds present normally. EXTREMITIES: Bilateral lower extremities, no signs of DVT, cellulitis, or ankle edema. BACK: Normal inspection. No point tenderness to the spine. No CVA tenderness. DERMATOLOGIC: No rash or decubitus ulcers. NEUROLOGIC: Grossly nonfocal. PSYCHIATRIC: No acute delirium. Normal mood and affect. DATA Results for orders placed or performed during the hospital encounter of 06/20/15 (from the past 24 hour(s)) POC cardiac troponin Collection Time: 06/20/15 8:32 PM Result Value Ref Range POC CARDIAC TROPONIN 0.02 0.00 - 0.10 ng/mL ED INFORMATION EXCHANGE Collection Time: 06/20/15 9:16 PM Result Value Ref Range ART PRC ART CARE PLAN ECG from 2022: Sinus rhythm at 62 bpm. OR, QRS, QT, and axis are normal. No ST segment rae vations or depression. No significant Q waves. Good R wave progression through the precordia l leads. Meets No STEMI criteria for ischemia. In comparison with an old ECG from earlier t wily there are no significant changes. This study has been independently viewed and interp reted by . CXR : NORMAL PROBLEM LIST Principal Problem: Acute chest pain Active Problems: Accelerated hypertension Gastroesophageal reflux disease without esophagitis Epilepsy without status epilepticus (HCC) Obesity ASSESSMENT & PLAN 1. Acute chest pain, episodic, associated with palpitations, tightness in the throat, short ness of breath, lightheadedness without syncope. Most likely atypical chest pain that lasts for 20 seconds and resolves spontaneously. D-dimer was normal. Cardiac enzymes were negative 2 sets so far. The patient prior to transfer received treatment dose of Lovenox, nitroglyce rin, and aspirin. We will admit for observation. If she rules out, she will undergo stress t est in a.m. for risk stratification, risk factors being uncontrolled hypertension. Most like ly etiology for chest pain is accelerated hypertension, therefore will attempt to optimize b lood pressures. We will resume home blood pressure medications and increase the dose of palmira nopril, added amlodipine. The patient was recommended to get referral from PCP for outpatien t sleep study. 2. Gastroesophageal reflux disease appears to be stable without esophagitis, although she h as had recent use of NSAIDs. Ordered Protonix daily. 3. Hypothyroidism. Resume levothyroxine. 4. Obesity. The patient counseled on weight reduction. 5. History of grand mal seizures on Depakote, stable. Seizure precautions to be maintained. Resume Depakote and check Depakote level in a.m. Disposition: observation Code Status: Full code Primary Care Physician: NOAH HCEN MD 06/20/2015 documented in this e ncounter Procedure Notes Selvin Lamb ARNP - 06/21/2015 2:14 PM PDTFormatting of this note might be different fr om the original. Procedures by MITUL Don at 06/21/15 [id number] Author: MITUL Don Service: (none) Author Type: Advanced Registered Nurse Prac titioner Filed: 06/21/151416 Date of Service: 06/21/151413 Status: Signed Inspector Eyeglass: MITUL Don (Advanced Registered Nurse Practitioner) Pre-procedure Diagnoses: 1. Chest pain, unspecified chest pain type [786.50] Post-procedure Diagnoses: 1. Chest pain, unspecified chest pain type [786.50] Procedures: 1. NM MYOCARDIAL PERFUSION SPECT - STRESS AND REST [TZJ345 (Custom)] [facility] Service: Diagnostic Imaging/Nuclear Medicine Cardiac Stress Test Note Type of Stress Test performed (protocol): Pharmacologic Stress with low level treadmill exe rcise Denis protocol time (if applicable): NA Rhythm changes: None Ectopy: None Symptoms experienced during exam: None ST/T wave changes: None Medications administered: Lexiscan 0.4mg Angel Treadmill Score: NA Attempted Denis Protocol, pt fatigued during stage 2 unable to achieve target heart rate. MITUL Don 06/21/2015 2:15 PM documented in this encounter ED Notes Conversion Transaction, Provider Unknown - 06/20/2015 8:34 PM PDTFormatting of this note m ight be different from the original. ED Notes by Angela Soria RN at 06/20/152033 Author: Angela Soria RN Service: (none) Author Type: Registered Nurse Filed: 06/20/152037 Date of Service: 06/20/152033 Status: Signed Inspector Eyeglass: Angela Soria RN (Registered Nurse) Pt arrived via EMS from [place] for elevated troponin. Pt c/o mild chest pain, but state s "I think it's anxiety." Pt denies nausea/SOB at this time. Pt updated on plan of care by Dr. Nash. Tele called. Call light within reach. Angela Soria RN 06/20/152037 had Erickson MD - 06/20/2015 8:27 PM PDTFormatting of this note might be different from the or iginal. ED Provider Notes by Chad Nash MD at 06/20/152026 Author: Chad Nash MD Service: Emergency Department Author Type: Physician Filed: 06/20/152113 Date of Service: 06/20/152026 Status: Signed Inspector Eyeglass: Chad Nash MD (Physician) [facility] Department of Emergency Medicine No flowsheet data found. History of Present Illness Patient Identification Paula Mcleod is a 55 y.o. female. Patient information was obtained from patient, friend and past medical records. History/Exam limitations: none. Patient presented to the Emergency Department [facility] Room: Chief Complaint Chief Complaint Patient presents with Chest Pain 55 y.o. female with chest pain. Patient states that recently she is been having chest pain. Is described as a tightness in her chest and intermittently sharp pain that shoots from her left arm through her breast. She was seen in outside emergency department yesterday where s he was told it was likely related to stress after the did an EKG and negative troponin evalu ation. They prescribed Xanax for her. After she took today she felt very loopy and confused. She followed up with her primary care physician who did a repeat EKG in the office and he f elt that it had changed compared to previous [facility] evaluation and noted that her troponin was 0.014 and a t ransferred to our facility for further cardiac evaluation. Patient feels her symptoms are re lated to stress from her job. Symptoms are described as moderate. Worse with thinking about her work. No significant alleviating factors. Primary Care Doctor: NOAH COOK Past Medical History Diagnosis Date Epilepsy (HCC) HTN (hypertension) Hypothyroidism GERD (gastroesophageal reflux disease) Past Surgical History Procedure Laterality Date Hysterectomy Tonsillectomy Rotator cuff repair Prior to Admission medications Not on File Allergies Allergen Reactions Codeine Anaphylaxis Hydrocodone Anaphylaxis Meperidine Anaphylaxis Morphine Anaphylaxis Oxycodone Anaphylaxis Penicillins Anaphylaxis Percocet [Oxycodone-Acetaminophen] Anaphylaxis Propoxyphene Anaphylaxis History Social History Marital Status: Single Spouse Name: N/A Number of Children: N/A Years of Education: N/A Occupational History Not on file. Social History Main Topics Smoking status: Not on file Smokeless tobacco: Not on file Alcohol Use: Not on file Drug Use: Not on file Sexual Activity: Not on file Other Topics Concern Not on file Social History Narrative No narrative on file No family history on file. Review of Systems Positive for: Chest pain, stress No fever, chills, nausea or vomiting. No vision changes, difficulty breathing. No headache, abdominal pain, weakness or rash. No difficulty with urination or bowel movements. No other complaints. See HPI for further relevant details. All systems otherwise negative, except as recorded above and as recorded in the HPI. Physical Exam Filed Vitals: 06/20/152020 BP: 187/83 Pulse: 61 Temp: 97.5 F (36.4 C) TempSrc: Oral Resp: 16 Weight: 108.863 kg (240 lb) SpO2: 99% INTERPRETATION OF VITALS Pulse Oximetry interpretation: Normal Hypertensive. Otherwise normal PHYSICAL EXAM Appearance: Alert. No acute distress. Head: Normal external exam. Eyes: EOMI, PERRL, no scleral icterus. ENT: Normal external ENT inspection. Neck: Supple. FROM. CVS: Normal heart rate and rhythm. Heart sounds normal. Pulses normal. Respiratory: No respiratory distress. No wheezing, rales, or rhonchi. Abdomen: Soft and nontender. No rebound or guarding. Obese. Genitourinary: Deferred. Back: Moves without difficulty. Skin: Skin warm and dry. Extremities: No deformity. Neuro: Moves all extremities. No gross deficit. Medical Decision Making and Emergency Department Course ED Department Course: 8:27 PM Paula Mcleod is a 55 y.o. female who presents with a chief complaint of chest pain. Different ial diagnosis includes stress, angina, unstable angina, NM, other. After discussing diagnost ic and therapeutic options with the patient we will place her on continuous cardiac monitori ng. We will repeat her EKG. We will repeat her troponin.. EKG shows sinus rhythm with nonspecific ST changes. Appears improved compared to yesterday. No significant change compared to earlier today. Repeat troponin is 0.02. Patient updated. [facility]. 9:10 PM Discussed the case with Dr. Chen (hospitalist) who agrees to see the patient for admission . Records Reviewed Old medical records. Previous electrocardiograms. Nursing notes. Ambulance run sheet. Previous radiology studies. Laboratory Evaluation Results Procedure Component Value Ref Range Date/Time POC cardiac troponin [[id number]] Collected: 06/20/152031 Order Status: Completed Updated: 06/20/152046 POC CARDIAC TROPONIN 0.02 0.00 - 0.10 ng/mL Lab Interpretation I have reviewed lab results from the emergency department workup and abnormal results have been posted to the chart. Pertinent positive and negative findings have been addressed appr opriately. Radiology and EKG Evaluation Imaging Results None ECG from 2022: Sinus rhythm at 62 bpm. OR, QRS, QT, and axis are normal. No ST segment rae vations or depression. No significant Q waves. Good R wave progression through the precordia l leads. Meets No STEMI criteria for ischemia. In comparison with an old ECG from earlier today there are no significant changes. This study has been independently viewed and inter preted by me. ED Diagnosis Final diagnosis Acute chest pain Disposition: ED Disposition Admit/Observation Bed request special needs: None Diagnosis?: chest pain Follow-up Information None Discharge Medications: New Prescriptions No new medications This document has been prepared with a voice recognition system. The possibility of "sound alike" material control associate errors, addition and/or deletions may occur. If there is any question p lease contact the author of the document. Procedures Additional Documentation Procedures Chad Nash MD 06/20/152113 onversion Transactjose n, Provider Unknown - 06/20/2015 8:21 PM PDT ED Notes by Andra Zamora RN at 06/20/152020 Author: Andra Zamora RN Service: (none) Author Type: Registered Nurse Filed: 06/20/152020 Date of Service: 06/20/152020 Status: Signed Inspector Eyeglass: Andra Zamora RN (Registered Nurse) Bed: 20 Expected date: Expected time: Means of arrival: Comments: onver mariano Transaction, Provider Unknown - 06/20/2015 6:50 PM PDT ED Notes by Andra Zamora RN at 06/20/15 1850 Author: Andra Zamora RN Service: (none) Author Type: Registered Nurse Filed: 06/20/151955 Date of Service: 06/20/151849 Status: Addendum Inspector Eyeglass: Andra Zamora RN (Registered Nurse) Related Notes: Original Note by Andra Zamora RN (Registered Nurse) filed at 06/20/15 19 Transfer from [facility] at [facility]. Came yesterday for chest pain that starts on the left and goes acrossed her chest. .Troponin was .012, 2hr later, negative. Diagnosed with stress induced angin. Given xanax that didn't help. DCd's home. Went to her primary care this mo rning with complaints of 'twinge' pain in her chest. Her PCP sent her back to the ER. MD that has seen her today states that she does have some minor EKG changes. She is in NSR. Troponin tonight 0.014. Negative D Dimer. She has had 324 , 1" of nitro paste and 1000 of lovenox. 20g R AC. Pt leaving now by ground. Hx or hypertension, epilepsy, hypothyroid, and GERD. No cardiac history. Andra Zamora RN 06/20/151856 Andra Zamora RN 06/20/151857 Andra Zamora RN 06/20/151900 Andra Zamora RN 06/20/151955 docume nted in this encounter Plan of Treatment +--------+---------+ + + + | Date | Type | Specialty | Care Team | Description | +--------+---------+ + + + | 07/01/ | Office | Primary Care | Lupilol Cook | | | 2019 | Visit | | E, DO [address] | | | | | | [place] | | | | | | [phone] | | | | | | [phone] | | | | | | | | +--------+---------+ + + + | 08/14/ | Office | Neurology | Jessica Henry NP | | | 2020 | Visit | | [address] [place] | | | | | | [place] | | | | | | [address] | | | | | | [phone] | | | | | | | | +--------+---------+ + + + documented as of this encounter Procedures + +--------+ + + + | Procedure Name | Priori | Date/Time | Associated Diagnosis | Comments | | | ty | | | | + +--------+ + + + | NM MYOCARDIAL | Routin | 06/21/2015 | | Results for this | | PERFUSION MULT SPECT | e | 3:01 PM | | procedure are in the | | | | PDT | | results section. | + +--------+ + + + | ECHO COMPLETE | Routin | 06/21/2015 | | Results for this | | | e | 9:00 AM | | procedure are in the | | | | PDT | | results section. | + +--------+ + + + | ECG 12 LEAD | Routin | 06/21/2015 | | Results for this | | | e | 7:04 AM | | procedure are in the | | | | PDT | | results section. | + +--------+ + + + | EXTERNAL LAB: CBC | Routin | 06/21/2015 | | Results for this | | | e | 3:56 AM | | procedure are in the | | | | PDT | | results section. | + +--------+ + + + | LIPID PANEL | Routin | 06/21/2015 | | Results for this | | | e | 3:56 AM | | procedure are in the | | | | PDT | | results section. | + +--------+ + + + | VALPROIC ACID LEVEL | Routin | 06/21/2015 | | Results for this | | | e | 3:56 AM | | procedure are in the | | | | PDT | | results section. | + +--------+ + + + | COMPREHENSIVE | Routin | 06/21/2015 | | Results for this | | METABOLIC PANEL | e | 3:56 AM | | procedure are in the | | | | PDT | | results section. | + +--------+ + + + | TROPONIN I | Routin | 06/21/2015 | | Results for this | | | e | 12:05 AM | | procedure are in the | | | | PDT | | results section. | + +--------+ + + + | CK-MB | Routin | 06/21/2015 | | Results for this | | | e | 12:05 AM | | procedure are in the | | | | PDT | | results section. | + +--------+ + + + | CK TOTAL | Routin | 06/21/2015 | | Results for this | | | e | 12:05 AM | | procedure are in the | | | | PDT | | results section. | + +--------+ + + + | ECG 12 LEAD | Routin | 06/20/2015 | | Results for this | | | e | 8:23 PM | | procedure are in the | | | | PDT | | results section. | + +--------+ + + + | XR CHEST 2 VIEWS | Routin | 06/19/2015 | | Results for this | | | e | 6:23 PM | | procedure are in the | | | | PDT | | results section. | + +--------+ + + + documented in this encounter Results NM Myocardial Perfusion Mult SPECT (06/21/2015 3:01 PM PDT) + + | Specimen | + + | | + + + + + | Impressions | Performed At | + + + | 1. I see no evidence of ischemia. 2. Probable artifactual | | | thinning of the distal anteroseptal wall at the apex, greater on rest | | | than stress images. 3. Normal LV wall motion. 4. LVEF 67% | | | stress, 68% rest. Electronically signed by Nestor Cummings MD on | | | 06/21/2015 3:16 PM | | + + + + + + | Narrative | Performed At | + + + | HISTORY: Chest pain. TECHNIQUE: The patient was intravenously | | | injected with 10.4 millicuries technetium 99m Myoview. Rest gated | | | supine SPECT images were obtained. The patient attempted a Denis | | | protocol, but was unable to achieve a target heart rate, and switched | | | to a walking Regadenason protocol. The patient was then | | | intravenously injected with 0.4 mg Regadenason per protocol. The | | | patient was finally intravenously injected with 40.6 mCi technetium | | | 99m tetrofosmin, and stress gated supine SPECT, and prone SPECT | | | scintigraphic images were obtained. COMPARISON: Chest x-ray | | | 06/19/15. Echocardiogram 06/21/15. FINDINGS: Rest images show | | | thinning of the anteroseptal junction at the apex. Gastrointestinal | | | activity is seen on rest images. Thinning of the anteroseptal junction | | | of the apex improves on stress images, and is nearly resolved on | | | stress prone images, likely artifactual. I do not see evidence of | | | ischemia. Normal LV wall motion. LVEF 67% stress, 68% rest. | | | Rest EDV 78 mL. Rest ESV 25 mL. Stress EDV 80 mL. Stress ESV 27 mL. | | | Transient ischemic dilatation ratio 1.12, slightly elevated. No left | | | ventricular dilatation is seen visually on motion images. | | + + + + + | Procedure Note | + + | Hollis, Rad Conversion - 05/12/2019 10:23 AM PDT HISTORY:Chest pain. TECHNIQUE:The | | patient was intravenously injected with 10.4 millicuries technetium 99m Myoview. Rest | | gated supine SPECT images were obtained. The patient attempted a Denis protocol, but was | | unable to achieve a target heart rate, and switched to a walking Regadenason protocol. | | The patient was then intravenously injected with 0.4 mg Regadenason per protocol. The | | patient was finally intravenously injected with 40.6 mCi technetium 99m tetrofosmin, | | and stress gated supine SPECT, and prone SPECT scintigraphic images were obtained. | | COMPARISON:Chest x-ray 06/19/15. Echocardiogram 06/21/15. FINDINGS:Rest images show | | thinning of the anteroseptal junction at the apex. Gastrointestinal activity is seen on | | rest images. Thinning of the anteroseptal junction of the apex improves on stress | | images, and is nearly resolved on stress prone images, likely artifactual. I do not see | | evidence of ischemia. Normal LV wall motion. LVEF 67% stress, 68% rest. Rest EDV 78 | | mL.Rest ESV 25 mL.Stress EDV 80 mL.Stress ESV 27 mL.Transient ischemic dilatation ratio | | 1.12, slightly elevated. No left ventricular dilatation is seen visually on motion | | images. IMPRESSION: 1. I see no evidence of ischemia.2. Probable artifactual thinning | | of the distal anteroseptal wall at the apex, greater on rest than stress images.3. | | Normal LV wall motion.4. LVEF 67% stress, 68% rest. | |Rest ESV 25 mL. | |Stress EDV 80 mL. | |Stress ESV 27 mL. | |Transient ischemic dilatation ratio 1.12, slightly elevated. No left ventricular dilatation is seen visually on motion images. | | | |IMPRESSION: | |1. I see no evidence of ischemia. | |2. Probable artifactual thinning of the distal anteroseptal wall at the apex, greater on r est than stress images. | |3. Normal LV wall motion. | |4. LVEF 67% stress, 68% rest. | | | | | + + ECHO Complete (06/21/2015 9:00 AM PDT) + + | Specimen | + + | | + + + + + | Impressions | Performed At | + + + | 1. Overall left ventricular systolic function is normal with, an EF | | | between 65 - 70 %. 2. There is mild concentric left ventricular | | | hypertrophy. 3. The right ventricular systolic function is normal. | | | 4. , and the LA measures 4.4cm. 5. There is no evidence of aortic | | | stenosis. 6. There is trace mitral regurgitation. 7. There is no | | | evidence of pulmonary hypertension. | | + + + + + + | Narrative | Performed At | + + + | Patient Name: PAULA MCLEOD Date of : 1960 | | | Performing Physician: Jb Veronica MD | | | | | | INDICATIONS acute NM / WMA CONCLUSIONS | | | 1. Overall left ventricular systolic function is normal with, an EF | | | between 65 - 70 %. 2. There is mild concentric left ventricular | | | hypertrophy. 3. The right ventricular systolic function is normal. | | | 4. , and the LA measures 4.4cm. 5. There is no evidence of aortic | | | stenosis. 6. There is trace mitral regurgitation. 7. There is no | | | evidence of pulmonary hypertension. FINDINGS -------- ECG | | | rhythm: Resting bradycardia (HR<60bpm). Study: A 2-dimensional | | | transthoracic echocardiogram with m-mode, spectral and color flow | | | Doppler was perfomed. Study: This was a technically adequate study. | | | Left Ventricle: Overall left ventricular systolic function is normal | | | with, an EF between 65 - 70 %. Left Ventricle: The left ventricle | | | cavity size is normal. Left Ventricle: There is mild concentric left | | | ventricular hypertrophy. Somehat Left Ventricle: Sigmoid shaped | | | septum with focal hypertrophy of the basal septum. Left Ventricle: | | | The diastolic filling pattern is normal for the age of the patient. | | | Right Ventricle: The right ventricle is normal in size. Right | | | Ventricle: The right ventricular systolic function is normal. Left | | | Atrium: The left atrial size is normal Left Atrium: , and the LA | | | measures 4.4cm. Right Atrium: The right atrial size is normal. | | | Aortic Valve: The aortic valve was not well visualized. Aortic Valve: | | | There is minimal aortic valve sclerosis without stenosis. Aortic | | | Valve: Trace amount of aortic regurgitation. Aortic Valve: There is | | | no evidence of aortic stenosis. Mitral Valve: The mitral valve is | | | normal. Mitral Valve: There is trace mitral regurgitation. Tricuspid | | | Valve: The tricuspid valve appears structurally normal. Tricuspid | | | Valve: Trace tricuspid regurgitation present. Tricuspid Valve: There | | | is no evidence of pulmonary hypertension. Tricuspid Valve: The right | | | ventricular systolic pressure (pulmonary artery systolic pressure), as | | | measured by Doppler, is 25.35mmHg. Pulmonic Valve: The pulmonic | | | valve was not well visualized. Pericardium: There is no significant | | | pericardial effusion. IVC/Hepatic Veins: The IVC is normal size | | | (1.5-2.5cm) and collapses >50% with sniff, consistent with central | | | venous pressures of 5-10mmHg. MEASUREMENTS Ao asc: | | | 3.64 cm IVC: 1.88 cm LA Diam: 4.37 cm LA Major: 5.13 | | | cm EDV(Teich): 73.68 ml IVSd: 1.22 cm LVIDd: 4.08 cm | | | LVPWd: 1.11 cm LVOT Diam: 1.96 cm %FS: 51.11 % EF(Teich): | | | 82.76 % ESV(Teich): 12.69 ml IVSs: 1.23 cm LVIDs: 1.99 | | | cm LVPWs: 1.75 cm SV(Teich): 60.99 ml RA Major: 4.37 cm | | | RVIDd: 2.78 cm LAESV(A-L): 53.70 ml LAESV Index (A-L): | | | 24.86 ml/m2 LAAs A2C: 19.54 cm2 LAESV A-L A2C: 55.20 ml LAESV | | | MOD A2C: 53.76 ml LALs A2C: 5.87 cm LAAs A4C: 17.64 cm2 | | | LAESV A-L A4C: 48.49 ml LAESV MOD A4C: 43.27 ml LALs A4C: | | | 5.45 cm D-E Excursion: 1.95 cm E-F [place]: 0.09 m/s EPSS: | | | 0.22 cm HR: 56.48 BPM AV maxP.59 mmHg AV meanP.17 | | | mmHg AV Vmax: 2.03 m/s AV Vmean: 1.31 m/s AV VTI: 47.41 | | | cm SHAYY Vmax: 1.56 cm2 SHAYY (VTI): 1.74 cm2 LVCI Dopp: 2.25 | | | l/minm2 LVCO Dopp: 4.86 l/min HR: 58.98 BPM LVOT maxPG: | | | 4.44 mmHg LVOT meanP.46 mmHg LVSI Dopp: 38.20 ml/m2 LVSV | | | Dopp: 82.51 ml LVOT Vmax: 1.05 m/s LVOT Vmean: 0.74 m/s | | | LVOT VTI: 27.14 cm MCO: 1626.29 ms MV A Gregory: 0.60 m/s MV | | | DecT: 214.10 ms MV E Gregory: 0.92 m/s MV E/A Ratio: 1.52 MV | | | PHT: 50.30 ms MVA By PHT: 4.37 cm2 MV A Dur: 89.96 ms | | | IVRT: 107.26 ms Septal e': 0.07 m/s Septal E/e': 12.67 | | | Lateral e': 0.11 m/s Lateral E/e': 7.71 P Vein D: 0.32 m/s | | | P Vein S/D Ratio: 1.43 P Vein S: 0.47 m/s HR: 59.18 BPM | | | PV maxP.84 mmHg PV meanP.45 mmHg PV Vmax: 0.97 m/s | | | PV Vmean: 0.75 m/s PV VTI: 28.56 cm RAP: 10 mmHg RVSP: | | | 25.34 mmHg TR maxP.34 mmHg TR Vmax: 1.95 m/s TV A Gregory: | | | 0.26 m/s TV Dec [place]: 2.24 m/s2 TV Dec Time: 266.89 ms TV | | | E Gregory: 0.59 m/s TV E/A Ratio: 2.23 Physician Relations Representative: JASSI | | | Authenticated by: Jb Veronica MD Report Date/Time: 06-21-2015 | | | 12:25:04 | | + + + + + | Procedure Note | + + | Julio Shafer Conversion - 05/12/2019 10:23 AM PDT Patient Name: Birgit MCLEOD of | | : 1960 Performing Physician: Jb Veronica | | INDICATIONS a | | cute NM / WMA CONCLUSIONS 1. Overall left ventricular systolic function is | | normal with, an EF between 65 - 70 %.2. There is mild concentric left ventricular | | hypertrophy.3. The right ventricular systolic function is normal.4. , and the LA | | measures 4.4cm.5. There is no evidence of aortic stenosis.6. There is trace mitral | | regurgitation.7. There is no evidence of pulmonary hypertension. FINDINGS--------ECG | | rhythm: Resting bradycardia (HR<60bpm).Study: A 2-dimensional transthoracic | | echocardiogram with m-mode, spectral and color flow Doppler was perfomed.Study: This was | | a technically adequate study.Left Ventricle: Overall left ventricular systolic function | | is normal with, an EF between 65 - 70 %.Left Ventricle: The left ventricle cavity size | | is normal.Left Ventricle: There is mild concentric left ventricular hypertrophy. | | SomehatLeft Ventricle: Sigmoid shaped septum with focal hypertrophy of the basal | | septum.Left Ventricle: The diastolic filling pattern is normal for the age of the | | patient.Right Ventricle: The right ventricle is normal in size.Right Ventricle: The | | right ventricular systolic function is normal.Left Atrium: The left atrial size is | | normalLeft Atrium: , and the LA measures 4.4cm.Right Atrium: The right atrial size is | | normal.Aortic Valve: The aortic valve was not well visualized.Aortic Valve: There is | | minimal aortic valve sclerosis without stenosis.Aortic Valve: Trace amount of aortic | | regurgitation.Aortic Valve: There is no evidence of aortic stenosis.Mitral Valve: The | | mitral valve is normal.Mitral Valve: There is trace mitral regurgitation.Tricuspid | | Valve: The tricuspid valve appears structurally normal.Tricuspid Valve: Trace tricuspid | | regurgitation present.Tricuspid Valve: There is no evidence of pulmonary | | hypertension.Tricuspid Valve: The right ventricular systolic pressure (pulmonary artery | | systolic pressure), as measured by Doppler, is 25.35mmHg.Pulmonic Valve: The pulmonic | | valve was not well visualized.Pericardium: There is no significant pericardial | | effusion.IVC/Hepatic Veins: The IVC is normal size (1.5-2.5cm) and collapses >50% with | | sniff, consistent with central venous pressures of 5-10mmHg. MEASUREMENTS Ao | | asc: 3.64 cmIVC: 1.88 cmLA Diam: 4.37 cmLA Major: 5.13 cmEDV(Teich): 73.68 | | mlIVSd: 1.22 cmLVIDd: 4.08 cmLVPWd: 1.11 cmLVOT Diam: 1.96 cm%FS: 51.11 | | %EF(Teich): 82.76 %ESV(Teich): 12.69 mlIVSs: 1.23 cmLVIDs: 1.99 cmLVPWs: 1.75 | | cmSV(Teich): 60.99 mlRA Major: 4.37 cmRVIDd: 2.78 cmLAESV(A-L): 53.70 mlLAESV | | Index (A-L): 24.86 ml/m2LAAs A2C: 19.54 [id number] A-L A2C: 55.20 mlLAESV MOD A2C: | | 53.76 mlLALs A2C: 5.87 cmLAAs A4C: 17.64 [id number] A-L A4C: 48.49 mlLAESV MOD A4C: | | 43.27 mlLALs A4C: 5.45 cmD-E Excursion: 1.95 cmE-F [place]: 0.09 m/sEPSS: 0.22 | | cmHR: 56.48 BPMAV maxP.59 mmHgAV meanP.17 mmHgAV Vmax: 2.03 m/Rosana | | Vmean: 1.31 m/Rosana VTI: 47.41 cmAVA Vmax: 1.56 cm2AVA (VTI): 1.74 [id number] Dopp: | | 2.25 l/jfae4XVNK Dopp: 4.86 l/minHR: 58.98 BPMLVOT maxP.44 mmHgLVOT meanPG: | | 2.46 mmHgLVSI Dopp: 38.20 ml/m2LVSV Dopp: 82.51 mlLVOT Vmax: 1.05 m/sLVOT Vmean: | | 0.74 m/sLVOT VTI: 27.14 cmMCO: 1626.29 msMV A Gregory: 0.60 m/sMV DecT: 214.10 | | msMV E Gregory: 0.92 m/sMV E/A Ratio: 1.52MV PHT: 50.30 msMVA By PHT: 4.37 cm2MV A | | Dur: 89.96 msIVRT: 107.26 msSeptal e': 0.07 m/sSeptal E/e': 12.67Lateral e': | | 0.11 m/sLateral E/e': 7.71P Vein D: 0.32 m/sP Vein S/D Ratio: 1.43P Vein S: 0.47 | | m/sHR: 59.18 BPMPV maxP.84 mmHgPV meanP.45 mmHgPV Vmax: 0.97 m/sPV | | Vmean: 0.75 m/sPV VTI: 28.56 cmRAP: 10 mmHgRVSP: 25.34 mmHgTR maxP.34 | | mmHgTR Vmax: 1.95 m/sTV A Gregory: 0.26 m/sTV Dec [place]: 2.24 m/s2TV Dec Time: | | 266.89 msTV E Gregory: 0.59 m/sTV E/A Ratio: 2.23 Physician Relations Representative: GDAuthenticated by: Jb | | Jeremías MDRepmadonna Date/Time: 06-21-2015 12:25:04 IMPRESSION: 1. Overall left ventricular | | systolic function is normal with, an EF between 65 - 70 %.2. There is mild concentric | | left ventricular hypertrophy.3. The right ventricular systolic function is normal.4. , | | and the LA measures 4.4cm.5. There is no evidence of aortic stenosis.6. There is trace | | mitral regurgitation.7. There is no evidence of pulmonary hypertension. | |Ao asc: 3.64 cm | |IVC: 1.88 cm | |LA Diam: 4.37 cm | |LA Major: 5.13 cm | |EDV(Teich): 73.68 ml | |IVSd: 1.22 cm | |LVIDd: 4.08 cm | |LVPWd: 1.11 cm | |LVOT Diam: 1.96 cm | |%FS: 51.11 % | |EF(Teich): 82.76 % | |ESV(Teich): 12.69 ml | |IVSs: 1.23 cm | |LVIDs: 1.99 cm | |LVPWs: 1.75 cm | |SV(Teich): 60.99 ml | |RA Major: 4.37 cm | |RVIDd: 2.78 cm | |LAESV(A-L): 53.70 ml | |LAESV Index (A-L): 24.86 ml/m2 | |LAAs A2C: 19.54 cm2 | |LAESV A-L A2C: 55.20 ml | |LAESV MOD A2C: 53.76 ml | |LALs A2C: 5.87 cm | |LAAs A4C: 17.64 cm2 | |LAESV A-L A4C: 48.49 ml | |LAESV MOD A4C: 43.27 ml | |LALs A4C: 5.45 cm | |D-E Excursion: 1.95 cm | |E-F [place]: 0.09 m/s | |EPSS: 0.22 cm | |HR: 56.48 BPM | |AV maxP.59 mmHg | |AV meanP.17 mmHg | |AV Vmax: 2.03 m/s | |AV Vmean: 1.31 m/s | |AV VTI: 47.41 cm | |SHAYY Vmax: 1.56 cm2 | |SHAYY (VTI): 1.74 cm2 | |LVCI Dopp: 2.25 l/minm2 | |LVCO Dopp: 4.86 l/min | |HR: 58.98 BPM | |LVOT maxP.44 mmHg | |LVOT meanP.46 mmHg | |LVSI Dopp: 38.20 ml/m2 | |LVSV Dopp: 82.51 ml | |LVOT Vmax: 1.05 m/s | |LVOT Vmean: 0.74 m/s | |LVOT VTI: 27.14 cm | |MCO: 1626.29 ms | |MV A Gregory: 0.60 m/s | |MV DecT: 214.10 ms | |MV E Gregory: 0.92 m/s | |MV E/A Ratio: 1.52 | |MV PHT: 50.30 ms | |MVA By PHT: 4.37 cm2 | |MV A Dur: 89.96 ms | |IVRT: 107.26 ms | |Septal e': 0.07 m/s | |Septal E/e': 12.67 | |Lateral e': 0.11 m/s | |Lateral E/e': 7.71 | |P Vein D: 0.32 m/s | |P Vein S/D Ratio: 1.43 | |P Vein S: 0.47 m/s | |HR: 59.18 BPM | |PV maxP.84 mmHg | |PV meanP.45 mmHg | |PV Vmax: 0.97 m/s | |PV Vmean: 0.75 m/s | |PV VTI: 28.56 cm | |RAP: 10 mmHg | |RVSP: 25.34 mmHg | |TR maxP.34 mmHg | |TR Vmax: 1.95 m/s | |TV A Gregory: 0.26 m/s | |TV Dec [place]: 2.24 m/s2 | |TV Dec Time: 266.89 ms | |TV E Gregory: 0.59 m/s | |TV E/A Ratio: 2.23 | | | |Physician Relations Representative: GD | |Authenticated by: Jb Veronica MD | |Report Date/Time: 06-21-2015 12:25:04 | | | |IMPRESSION: | |1. Overall left ventricular systolic function is normal with, an EF between 65 - 70 %. | |2. There is mild concentric left ventricular hypertrophy. | |3. The right ventricular systolic function is normal. | |4. , and the LA measures 4.4cm. | |5. There is no evidence of aortic stenosis. | |6. There is trace mitral regurgitation. | |7. There is no evidence of pulmonary hypertension. | + + ECG 12 lead (06/21/2015 7:04 AM PDT) + + + + + + | Component | Value | Ref Range | Performed | Pathologist | | | | | At | Signature | + + + + + + | DIAGNOSIS: | Normal sinus rhythmST & | | EXTERNAL | | | | T wave abnormality, | | LAB | | | | consider anterolateral | | | | | | ischemiaProlonged | | | | | | QTAbnormal ECGWhen | | | | | | compared with ECG of | | | | | | 20-JUN-2015 | | | | | | 20:23,Inverted T waves | | | | | | have replaced | | | | | | nonspecific T wave | | | | | | abnormality in Lateral | | | | | | leadsConfirmed by | | | | | | JB VERONICA ([id number]) on | | | | | | 06/21/2015 8:08:20 AM | | | | + + + + + + + + | Specimen | + + | | + + + + + | Narrative | Performed At | + + + | [facility] Epic [facility] | EXTERNAL LAB | + + + + +---------+ + + | Performing | Address | City/State/Zipcode | Phone Number | | Organization | | | | + +---------+ + + | EXTERNAL LAB | | | | + +---------+ + + External Lab: CBC (06/21/2015 3:56 AM PDT) + + + + + + | Component | Value | Ref Range | Performed | Pathologist | | | | | At | Signature | + + + + + + | WBC | 7.64Comment: Testing | 3.80 - 11.00 | EXTERNAL | | | | performed at [facility], [address] | K/uL | LAB | | | | [address], | | | | | | [place] [address] | | | | + + + + + + | Non- | 4.34Comment: Testing | 3.70 - 5.10 | EXTERNAL | | | Red Blood | performed at [facility], [address] | M/uL | LAB | | | Cells | [address], | | | | | Counted | [place] [address] | | | | + + + + + + | Hemoglobin | 12.9Comment: Testing | 11.3 - 15.5 | EXTERNAL | | | | performed at [facility], [address] | g/dL | LAB | | | | [address], | | | | | | [place] [address] | | | | + + + + + + | Hematocrit, | 38.7Comment: Testing | 34.0 - 46.0 % | EXTERNAL | | | POC | performed at [facility], [address] | | LAB | | | | [address], | | | | | | [place] [address] | | | | + + + + + + | MCV | 89.1Comment: Testing | 80.0 - 100.0 fl | EXTERNAL | | | | performed at [facility], [address] | | LAB | | | | [address], | | | | | | [place] [address] | | | | + + + + + + | MCH | 29.8Comment: Testing | 27.0 - 34.0 pg | EXTERNAL | | | | performed at [facility], [address] | | LAB | | | | [address], | | | | | | [place] [address] | | | | + + + + + + | MCHC | 33.4Comment: Testing | 32.0 - 35.5 | EXTERNAL | | | | performed at [facility], [address] | g/dL | LAB | | | | [address], | | | | | | [place] [address] | | | | + + + + + + | RDW-CV | 41.1Comment: Testing | 37 - 53 fl | EXTERNAL | | | | performed at [facility], [address] | | LAB | | | | [address], | | | | | | [place] [address] | | | | + + + + + + | Platelet | 199Comment: Testing | 150 - 400 K/uL | EXTERNAL | | | Count | performed at [facility], [address] | | LAB | | | Plasma | [address], | | | | | | [place] [address] | | | | + + + + + + | MPV | 7.9Comment: Testing | fl | EXTERNAL | | | | performed at [facility], [address] | | LAB | | | | [address], | | | | | | [place] [address] | | | | + + + + + + | Differentia | AUTOMATEDComment: | | EXTERNAL | | | l Type | Testing performed at | | LAB | | | | [facility], [address] | | | | | | [place] | | | | | | [address] | | | | + + + + + + | % Segmented | 49.96Comment: Testing | % | EXTERNAL | | | | performed at [facility], [address] | | LAB | | | Neutrophils | [address], | | | | | | [place] [address] | | | | + + + + + + | % | 39.89Comment: Testing | % | EXTERNAL | | | Lymphocytes | performed at [facility], [address] | | LAB | | | | [address], | | | | | | [place] [address] | | | | + + + + + + | % Monocytes | 7.05Comment: Testing | % | EXTERNAL | | | | performed at [facility], [address] | | LAB | | | | [address], | | | | | | [place] [address] | | | | + + + + + + | % | 2.10Comment: Testing | % | EXTERNAL | | | Eosinophils | performed at [facility], [address] | | LAB | | | | [address], | | | | | | [place] [address] | | | | + + + + + + | % Basophils | 1.00Comment: Testing | % | EXTERNAL | | | | performed at [facility], [address] | | LAB | | | | [address], | | | | | | [place] [address] | | | | + + + + + + | Absolute | 3.82Comment: Testing | 1.90 - 7.40 | EXTERNAL | | | Segmented | performed at [facility], [address] | K/uL | LAB | | | Neutrophils | [address], | | | | | | [place] [address] | | | | + + + + + + | Absolute | 3.05Comment: Testing | 1.00 - 3.90 | EXTERNAL | | | Lymphocytes | performed at [facility], [address] | K/uL | LAB | | | | [address], | | | | | | [place] [address] | | | | + + + + + + | Absolute | 0.54Comment: Testing | 0.00 - 0.80 | EXTERNAL | | | Monocytes | performed at [facility], [address] | K/uL | LAB | | | | [address], | | | | | | [place] [address] | | | | + + + + + + | Absolute | 0.16Comment: Testing | 0.00 - 0.50 | EXTERNAL | | | Eosinophils | performed at [facility], [address] | K/uL | LAB | | | | [address], | | | | | | [place] [address] | | | | + + + + + + | Absolute | 0.08Comment: Testing | 0.00 - 0.10 | EXTERNAL | | | Basophils | performed at [facility], [address] | K/uL | LAB | | | | [address], | | | | | | [place] [address] | | | | + + + + + + + + | Specimen | + + | Blood specimen | | (specimen) | + + + +---------+ + + | Performing | Address | City/State/Zipcode | Phone Number | | Organization | | | | + +---------+ + + | EXTERNAL LAB | | | | + +---------+ + + Valproic Acid Level (06/21/2015 3:56 AM PDT) + + + + + + | Component | Value | Ref Range | Performed | Pathologist | | | | | At | Signature | + + + + + + | Date of | UNKNOWNComment: Testing | | EXTERNAL | | | Last Dose | performed at [facility];[address] | | LAB | | | [address];[place] | | | | | | [address] | | | | + + + + + + | Time of | UNKNOWNComment: Testing | | EXTERNAL | | | Last Dose | performed at [facility];[address] | | [address] | | | [address];[place] | | | | | | [address] | | | | + + + + + + | Valproic | 26 (L)Comment: Testing | 50 - 100 ug/mL | EXTERNAL | | | Acid Lvl | performed at [facility];[address] | | LAB | | | [address];[place] | | | | | | [address] | | | | + + + + + + + + | Specimen | + + | Blood specimen | | (specimen) | + + + +---------+ + + | Performing | Address | City/State/Zipcode | Phone Number | | Organization | | | | + +---------+ + + | EXTERNAL LAB | | | | + +---------+ + + Lipid Panel (06/21/2015 3:56 AM PDT) + + + + + + | Component | Value | Ref Range | Performed | Pathologist | | | | | At | Signature | + + + + + + | Cholesterol | 196Comment: Testing | mg/dL | EXTERNAL | | | | performed at [facility], [address] | | LAB | | | | [address], | | | | | | [place] [address] | | | | + + + + + + | Triglycerid | 220 (H)Comment: Testing | mg/dL | EXTERNAL | | | es | performed at [facility], [address] | | LAB | | | | [address], | | | | | | [place] [address] | | | | + + + + + + | HDL | 41Comment: Testing | mg/dL | EXTERNAL | | | | performed at [facility], [address] | | LAB | | | | [address], | | | | | | [place] [address] | | | | + + + + + + | LDL, | 111 (H)Comment: Testing | mg/dL | EXTERNAL | | | Calculated | performed at [facility], [address] | | LAB | | | | [address], | | | | | | [place] [address] | | | | + + + + + + + + | Specimen | + + | Blood specimen | | (specimen) | + + + +---------+ + + | Performing | Address | City/State/Zipcode | Phone Number | | Organization | | | | + +---------+ + + | EXTERNAL LAB | | | | + +---------+ + + Comprehensive Metabolic Panel (06/21/2015 3:56 AM PDT) + + + + + + | Component | Value | Ref Range | Performed | Pathologist | | | | | At | Signature | + + + + + + | Na | 135Comment: Testing | 135 - 143 | EXTERNAL | | | | performed at [facility], [address] | mmol/L | LAB | | | | [address], | | | | | | [place] [address] | | | | + + + + + + | K | 4.1Comment: Testing | 3.5 - 4.9 | EXTERNAL | | | | performed at [facility], [address] | mmol/L | LAB | | | | [address], | | | | | | [place] [address] | | | | + + + + + + | Cl | 104Comment: Testing | 99 - 109 mmol/L | EXTERNAL | | | | performed at [facility], [address] | | LAB | | | | [address], | | | | | | [place] [address] | | | | + + + + + + | CO2 | 26Comment: Testing | 23 - 32 mmol/L | EXTERNAL | | | | performed at [facility], [address] | | LAB | | | | [address], | | | | | | [place] [address] | | | | + + + + + + | Anion Gap | 9Comment: Testing | 5 - 20 mmol/L | EXTERNAL | | | | performed at [facility], [address] | | LAB | | | | [address], | | | | | | [place] [address] | | | | + + + + + + | Glucose, | 110 (H)Comment: Testing | 65 - 99 mg/dL | EXTERNAL | | | Fasting | performed at [facility], [address] | | LAB | | | | [address], | | | | | | [place] [address] | | | | + + + + + + | BUN | 13Comment: Testing | 8 - 25 mg/dL | EXTERNAL | | | | performed at [facility], [address] | | LAB | | | | [address], | | | | | | [place] [address] | | | | + + + + + + | Creatinine | 0.84Comment: Testing | 0.50 - 1.00 | EXTERNAL | | | | performed at [facility], [address] | mg/dL | LAB | | | | [address], | | | | | | [place] [address] | | | | + + + + + + | BUN/Creatin | 15Comment: Testing | | EXTERNAL | | | ine Ratio | performed at [facility], [address] | | LAB | | | | [address], | | | | | | [place] [address] | | | | + + + + + + | Calcium | 9.5Comment: Testing | 8.5 - 10.5 | EXTERNAL | | | | performed at [facility], [address] | mg/dL | LAB | | | | [address], | | | | | | [place] [address] | | | | + + + + + + | Protein, | 6.1 (L)Comment: Testing | 6.3 - 8.2 g/dL | EXTERNAL | | | Total | performed at [facility], [address] | | LAB | | | | [address], | | | | | | [place] [address] | | | | + + + + + + | Albumin | 3.7Comment: Testing | 3.6 - 5.0 g/dL | EXTERNAL | | | | performed at [facility], [address] | | LAB | | | [address], | | | | | | [place] [address] | | | | + + + + + + | Globulin | 2.4Comment: Testing | 1.3 - 4.9 g/dL | EXTERNAL | | | | performed at [facility], [address] | | LAB | | | [address], | | | | | | [place] [address] | | | | + + + + + + | A/G Ratio | 1.5Comment: Testing | 1.0 - 2.4 | EXTERNAL | | | | performed at [facility], [address] | | LAB | | | | [address], | | | | | | [place] [address] | | | | + + + + + + | Bilirubin | 0.3Comment: Testing | 0.1 - 1.5 mg/dL | EXTERNAL | | | Total | performed at [facility], [address] | | LAB | | | | [address], | | | | | | [place] [address] | | | | + + + + + + | ALP, | 55Comment: Testing | 35 - 115 U/L | EXTERNAL | | | External | performed at [facility], [address] | | LAB | | | | [address], | | | | | | [place] [address] | | | | + + + + + + | AST | 15Comment: Testing | 10 - 45 U/L | EXTERNAL | | | | performed at [facility], [address] | | LAB | | | | [address], | | | | | | [place] [address] | | | | + + + + + + | ALT | 14Comment: Testing | 10 - 65 U/L | EXTERNAL | | | | performed at [facility], [address] | | LAB | | | | [facility], | | | | | | [place] [address] | | | | + + + + + + | Estimated | >60Comment: GFR <60: | mL/min/1.73m2 | EXTERNAL | | | GFR | CHRONIC KIDNEY DISEASE, | | LAB | | | | IF FOUND OVER A 3 MONTH | | | | | | PERIOD.GFR <15: KIDNEY | | | | | | FAILURE.FOR | | | | | | AMERICANS, MULTIPLY THE | | | | | | CALCULATED GFR BY | | | | | | 1.210.Testing performed | | | | | | at [facility], [address] | | | | | | [facility], | | | | | | [place] [address] | | | | + + + + + + + + | Specimen | + + | Blood specimen | | (specimen) | + + + +---------+ + + | Performing | Address | City/State/Zipcode | Phone Number | | Organization | | | | + +---------+ + + | EXTERNAL LAB | | | | + +---------+ + + CK-MB (06/21/2015 12:05 AM PDT) + + + + + -+ | Component | Value | Ref Range | Performed | Pathologist | | | | | At | Signature | + + + + + -+ | CK-MB | 2.1Comment: Testing | 0.5 - 3.6 ng/mL | EXTERNAL | | | | performed at [facility];[address] | | LAB | | | | [address];[place], [place] | | | | | | [address] | | | | + + + + + -+ | CK-MB Index | 2.0Comment: CK INDEX | | EXTERNAL | | | | INTERPRETATION: | | LAB | | | | MMB ng/mL | | | | | | | | | | | |CK INDEX INTERPRETATION: | | | | | | MMB ng/mL | | | | | | | | | | + + + + + -+ + + | Specimen | + + | | + + + +---------+ + + | Performing | Address | City/State/Zipcode | Phone Number | | Organization | | | | + +---------+ + + | EXTERNAL LAB | | | | + +---------+ + + Troponin I (06/21/2015 12:05 AM PDT) + + + + + + | Component | Value | Ref Range | Performed | Pathologist | | | | | At | Signature | + + + + + + | Troponin I, | 0.026Comment: 0.00 to | 0.00 - 0.10 | EXTERNAL | | | Qual | 0.10 CONSISTENT WITH | ng/mL | LAB | | | | NORMAL POPULATION0.11 to | | | | | | 0.60 CONSISTENT WITH | | | | | | INCREASED RISK FOR | | | | | | ADVERSE OUTCOMES> 0.60 | | | | | | CONSISTENT | | | | | | WITH WHO CRITERIA FOR | | | | | | ACUTE NM Testing | | | | | | performed at [facility];[address] | | | | | | [address];[place], [place] | | | | | | [address] | | | | + + + + + + + + | Specimen | + + | Blood specimen | | (specimen) | + + + +---------+ + + | Performing | Address | City/State/Zipcode | Phone Number | | Organization | | | | + +---------+ + + | EXTERNAL LAB | | | | + +---------+ + + CK Total (06/21/2015 12:05 AM PDT) + + + + + + | Component | Value | Ref Range | Performed | Pathologist | | | | | At | Signature | + + + + + + | CK, Total | 107Comment: Testing | 30 - 240 U/L | EXTERNAL | | | | performed at [facility];[address] | | LAB | | | | [address];[place], [place] | | | | | | [address] | | | | + + + + + + + + | Specimen | + + | Blood specimen | | (specimen) | + + + +---------+ + + | Performing | Address | City/State/Zipcode | Phone Number | | Organization | | | | + +---------+ + + | EXTERNAL LAB | | | | + +---------+ + + ECG 12 lead (06/20/2015 8:23 PM PDT) + + + + + + | Component | Value | Ref Range | Performed | Pathologist | | | | | At | Signature | + + + + + + | DIAGNOSIS: | Normal sinus | | EXTERNAL | | | | rhythmNonspecific ST and | | LAB | | | | T wave | | | | | | abnormalityAbnormal | | | | | | ECGNo previous ECGs | | | | | | availableThis ECG | | | | | | contains Unconfirmed | | | | | | Interpretation | | | | | | Statements. See ED | | | | | | Record for Physician | | | | | | Interpretation. | | | | | | Confirmed by MUSE READ | | | | | | ONLY, -COMPUTER ([id number]), | | | | | | sound editor Lanie Cody | | | | | | (25) on 06/21/2015 | | | | | | 2:25:05 AM | | | | + + + + + + + + | Specimen | + + | | + + + + + | Narrative | Performed At | + + + | Historically converted procedure from [facility] environment | EXTERNAL LAB | + + + + +---------+ + + | Performing | Address | City/State/Zipcode | Phone Number | | Organization | | | | + +---------+ + + | EXTERNAL LAB | | | | + +---------+ + + XR Chest 2 Vws (06/19/2015 6:23 PM PDT) + + | Specimen | + + | | + + + + + | Narrative | Performed At | + + + | This is a non-reportable procedure without a radiologist report and | | | is used for image storage only | | + + + + + | Procedure Note | + + | Julio Shafer - 05/12/2019 10:23 AM PDT This is a non-reportable procedure | | without a radiologist report and isused for image storage only | + + documented in this encounter Visit Diagnoses + + | Diagnosis | + + | Acute chest pain Chest pain, unspecified | + + | Accelerated hypertension Essential hypertension, malignant | + + | Gastroesophageal reflux disease without esophagitis Esophageal reflux | + + | Obesity, unspecified obesity severity, unspecified obesity type | + + documented in this encounter
--- OUTSIDE RECORDS SUMMARY | ~2020-06-03 | XMS | Encounter Summary ---
Demographics + + + | Address | [address] | | | [place] [address] | + + + | Home Phone [...] | + + +---------+ + | Rosita Casye | ECON | Unknown | | + + +---------+ + | Lanie Malhotra | ECON | Unknown | | + + +---------+ + Care Team Providers + +------+ + | Care Civil Technician Name | Role | Phone | + +------+ + | Lupillo Valdez DO | PCP | | + +------+ + Reason for Visit + +--------+ + | Reason | Onset | Comments | | | Date | | + +--------+ + | Medication Refill | 08/30/ | | | | 2018 | | + +--------+ + Encounter Details +--------+--------+ + + + | Date | Type | Department | Care Team | Description | +--------+--------+ + + + | 08/30/ | Refill | [facility] | Hanh Burger, CC | Medication Refill | | 2018 | | [facility] | [employer] [employer] | | | | | [facility] [address] | | | | | | [address] [facility], | | | | | | [place] [address] | | | | | | [phone] | | | +--------+--------+ + + + [...] Encounter - Hanh Burger CC CMA - 08/30/2018 3:30 PM PSTLAST OFFICE VISIT . IDALIA Huerta [...] [place] | | | | | | [address] | | | | | | [phone] | | | | | | | | +--------+---------+ + + + | 08/14/ | Office | Neurology | Jessica Henry NP | | | 2019 | Visit | | [address] [place] | | | | | | [place] | | | | | | [address] | | | | | | [phone] | | | | | | | | +--------+---------+ + + + documented as of this encounter Visit Diagnoses Not on filedocumented in this encounter"
--- OUTSIDE RECORDS SUMMARY | ~2020-06-03 | XMS | Encounter Summary ---
Demographics + + + | Address | [address] | | | [place] [address] | + + + | Home Phone [...] + + + | Author | [facility] | | | and [place] | + + + | Organization | [facility] | | [...] Providers + +------+ + | Care Electrical Laboratory Technician Name | Role | Phone | + +------+ + | Lupillo Valdez DO | PCP | | + +------+ + Reason for Visit + +--------+ + | Reason | Onset | Comments | | | Date | | + +--------+ + | Referral | 08/24/ | | | | 2018 | | + +--------+ + Encounter Details +--------+ + + + + | Date | Type | Department | Care Team | Description | +--------+ + + + + | 08/24/ | Telephone | [facility] | Lupillo Valdez | Referral | | 2018 | | [facility] | E, DO [address] | | | | | MEDICAL CLINIC [address] | [place], [place] | | | | [address] [place], | [address] | | | | | [place] [address] | [phone] | | | | | [phone] | | | +--------+ + + + [...] Notes Telephone Encounter - Carina Figueroa - 08/29/2018 4:40 PM PSTI have re-faxed pt referral t o EO PT. Carina elephone Encounter - Corinneanita Myrna Wang - 08/29/2018 3:45 PM PSTSandi is needing referral for Physical capacit y evaluation faxed to them as soon as possible. Please fax Thanks Myrna elephone Myrna Brown - 08/24/2018 3:59 PM PSTSandi is needing referral faxed, concepcion the y never received referral. Please [phone] Thanks Myrna elephone Luis Carlos Mcdonnell - 08/24/2018 3:53 PM PSTShannon called and they are needing updated referral for Physical capacity evaluation, please call Shannon with questions/Foreign coon signed by Luis Carlos Bagley at 08/24/2018 3:56 PM PSTdocumented in this encounter Plan of [...] [place] | | | | | | [address] | | | | | | [phone] | | | | | | | | +--------+---------+ + + + | 08/14/ | Office | Neurology | Jessica Henry NP | | | 2020 | Visit | | [address] [place] [address] | | | | | | [place] | | | | | | [address] | | | | | | [phone] | | | | | | | | +--------+---------+ + + + documented as of this encounter Visit Diagnoses Not on filedocumented in this encounter"
--- OUTSIDE RECORDS SUMMARY | ~2020-06-03 | XMS | Encounter Summary ---
Demographics + + + | Address | [address] | | | [place] [address] | + + + | Home Phone [...] Team Providers + +------+ + | Care Knitted Garment Finisher Name | Role | Phone | + +------+ + | Lupillo Valdez DO | PCP | | + +------+ + Reason for Visit + +--------+ + | Reason | Onset | Comments | | | Date | | + +--------+ + | Medication Refill | 09/15/ | | | | 2018 | | + +--------+ + Encounter Details +--------+--------+ + + + | Date | Type | Department | Care Team | Description | +--------+--------+ + + + | 09/15/ | Refill | [facility] | Hanh Burger, CC | Medication Refill | | 2017 | | [facility] | RN INTERNSHIP | | | | | MEDICAL CLINIC [address] | | | | | | [address]TH [facility], | | | | | | [place] [address] | | | | | | [phone] | | | +--------+--------+ + + + [...] Encounter - Hanh Burger CC CMA - 09/15/2018 2:49 PM PSTLAST OFFICE VISIT . IDALIA Huerta [...] [place] | | | | | | [address] | | | | | | [phone] | | | | | | | | +--------+---------+ + + + | 08/14/ | Office | Neurology | Jessica Henry NP | | | 2019 | Visit | | [address] | | | | | | [place] | | | | | | [address] | | | | | | [phone] | | | | | | | | +--------+---------+ + + + documented as of this encounter Visit Diagnoses Not on filedocumented in this encounter"
--- OUTSIDE RECORDS SUMMARY | ~2020-06-03 | XMS | Encounter Summary ---
Demographics + + + | Address | [address] | | | [place] [address] | + + + | Home Phone [...] Team Providers + +------+ + | Care Hand Stone Polisher Name | Role | Phone | + +------+ + | Lupillo Valdez DO | PCP | | + +------+ + Reason for Visit +--------+--------+ + | Reason | Onset | Comments | | | Date | | +--------+--------+ + | Other | 11/06/ | Pt request call back JIM this morning | | | 2019 | | +--------+--------+ + Encounter Details +--------+ + + + + | Date | Type | Department | Care Team | Description | +--------+ + + + + | 11/06/ | Telephone | [facility] | Lupillo Valdez | Other (Pt request | | 2019 | | [facility] | E, DO [address] | call back [facility] this | | | | MEDICAL CLINIC [address] | , [place] | ) | | | | [facility], | [address] | | | | | [place] [address] | [phone] | | | | | [phone] | | | +--------+ + + + [...] Encounter - Lavinia Arroyo CC CMA - 11/06/2019 10:03 AM PSTI spoke with Lyn and she will fax ppw today. Once filled out, please fax to the number on the ppw. IDALIA Messina CMA elephone Lupillo Mejias DO - 11/06/2019 8:45 AM PSTPlease obtain the PPWK to review. She should FAX it today. TTelephone Encounter - Lavinia Arroyo CC CMA - 11/06/2019 8:[address] Bryant wesley prescribes Keppra so she would like him to fill out the SS PPW. She needs the ppw filled o and send to [place] by . Sxs have increased (back pain, bladder incontinence, and tingling). Pt states no new sxs. Pt would like a sooner appt then 11/09. Please advise. IDALIA Messina CMA elephone China Matias - 11/06/2019 8:23 AM PSTPatient is requesting a call back JIM re: i ncreased Symptoms, being referred to a neurologist and Social Security paperwork that needs filled out which she will explain all on return call this morning. Evidently these are time sensitive issues which is why she wants called back JIM. China Agrawal documented in this encou nter [...] [place] | | | | | | [address] | | | | | | [phone] | | | | | | | | +--------+---------+ + + + | 08/14/ | Office | Neurology | Jessica Henry NP | | 2019 | Visit | | [address] | | | | | | [place], [place] | | | | | | [address] | | | | | | [phone] | | | | | | | | +--------+---------+ + + + documented as of this encounter Visit Diagnoses Not on filedocumented in this encounter"
--- OUTSIDE RECORDS SUMMARY | ~2020-06-03 | XMS | Encounter Summary ---
Demographics + + + | Address | [address] | | | [place] [address] | + + + | Home Phone [...] | + + +---------+ + | Lanie Mlahotra | ECON | Unknown | | + + +---------+ + Care Team Providers + +------+ + | Care Skate Shop Attendant Name | Role | Phone | + +------+ + | Lupillo Valdez DO | PCP | | + +------+ + Reason for Visit + +--------+ + | Reason | Onset | Comments | | | Date | | + +--------+ + | Appointment Question | 01/28/ | | | | 2019 | | + +--------+ + Encounter Details +--------+ + + + + | Date | Type | Department | Care Team | Description | +--------+ + + + + | 01/28/ | Telephone | [facility] | Lupillo Valdez | Appointment Question | | 2019 | | [facility] | E, DO [address] | | | | | W[facility] CLIN[facility] [address] | [facility] [place] | | | | | [address] [facility], | [address] | | | | | [place] [address] | [phone] | | | | | [phone] | | | +--------+ + + + [...] this encounter Miscellaneous Notes Telephone Encounter - Alin Jordan - 01/31/2019 2:39 PM PDTPt notified Thanks ALIN elephone Encou nter - Lavinia Arroyo CC CMA - 01/31/2019 12:12 PM PDTNo records. IDALIA Messina CMA elephone Carina Piña - 01/31/2019 8:01 AM PDTPer my review in Dr. Valdez's inbox there are no records for this patient, can you please call patient and let her know. Carina elephone Encounter - Lydia Ruiz - 01/28/2019 2:29 PM PDTPt is wondering if we have received her record s from her flap curer for upcomming apt on 01/28. Can we call back and advise? Thank you. Lydia Ruiz documented in this enco unter Plan of [...] [place] | | | | | | [address] | | | | | | [phone] | | | | | | | | +--------+---------+ + + + | 08/14/ | Office | Neurology | Jessica Henry NP | | | 2019 | Visit | | [address] | | | | | | [place] | | | | | | [address] | | | | | | [phone] | | | | | | | | +--------+---------+ + + + documented as of this encounter Visit Diagnoses Not on filedocumented in this encounter"
--- OUTSIDE RECORDS SUMMARY | ~2020-06-03 | XMS | Encounter Summary ---
Demographics + + + | Address | [address] | | | [place] [address] | + + + | Home Phone | | + + + | Preferred Language | Unknown | + + + | Marital Status | Single | + + + | Spiritism Affiliation | Unknown | + + + | Race | White | + + + | Ethnic Group | Not or | + + + Author + + + | Author | [facility] | | | and [place] | + + + | Organization | [facility] | | [...] Team Providers + +------+ + | Care Electric Organ Inspector And Repairer Name | Role | Phone | + +------+ + | Lupillo Valdez DO | PCP | | + +------+ + Reason for Visit + +--------+ + | Reason | Onset | Comments | | | Date | | + +--------+ + | Medication Question | 05/13/ | | | | 2020 | | + +--------+ + Encounter Details +--------+ + + + + | Date | Type | Department | Care Team | Description | +--------+ + + + + | 05/13/ | Telephone | [facility] | Lupillo Valdez | Medication Question | | 2020 | | [facility] | E, DO [address] | | | | | MEDICAL CLINIC [address] | [place], [place] | | | | | [address] [place], | [address] | | | | | [place] [address] | [phone] | | | | | [phone] | | | +--------+ + + + [...] Notes Telephone Encounter - Cherie Malhotra - 05/13/2020 2:42 PM PDTPt is calling to discuss medic ation for anxiety, she is wondering what is next. Pt can be reached at [phone] (pt said she called earlier but I did not see a message) Thank you documented in this encounter Plan of Treatment +--------+---------+ + + + | Date | Type | Specialty | Care Team | Description | +--------+---------+ + + + | 07/01/ | Office | Primary Care | Lupillo Valdez | | 2019 | Visit | | [address] | | | | | | [place] | | | | | | [address] | | | | | | [phone] | | | | | | | | +--------+---------+ + + + | 08/14/ | Office | Neurology | Jessica Henry NP | | | 2019 | Visit | | [address] | | | | | | [place] | | | | | | [address] | | | | | | [phone] | | | | | | | | +--------+---------+ + + + documented as of this encounter Visit Diagnoses Not on filedocumented in this encounter"
--- OUTSIDE RECORDS SUMMARY | ~2020-06-03 | XMS | Encounter Summary ---
Demographics + + + | Address | [address] | | | [place] [address] | + + + | Home Phone | | + + + | Preferred Language | Unknown | + + + | Marital Status | Single | + + + | Latter Day Affiliation | Unknown | + + + [...] Team Providers + +------+ + | Care Clergy Member Name | Role | Phone | + +------+ + | Lupillo Valdez DO | PCP | | + +------+ + Reason for Visit + +--------+ + | Reason | Onset | Comments | | | Date | | + +--------+ + | Medication Question | 09/07/ | | | | 2018 | | + +--------+ + Encounter Details +--------+ + + + + | Date | Type | Department | Care Team | Description | +--------+ + + + + | 09/07/ | Telephone | [facility] | Lupillo Valdez | Medication Question | | 2018 | | [facility] | E, DO [address] | | | | | MEDICAL CLINIC [address] | [place], [place] | | | | | [address] [place], | [address] | | | | | [place] [address] | [phone] | | | | | [phone] | | | +--------+ + + + [...] this encounter Miscellaneous Notes Telephone Encounter - Lupillo Valdez DO - 09/08/2018 10:26 AM PSTThere is nothing to a ddress in this message. A M PSTTelephone Encounter - Gali Bourgeois CC CHECK CASHIER - 09/07/2018 3:09 PM PSTThis is not at all what the patient wants. This was just an FYI from the patient. ER that she went to has already gave her flexeril. And dr. valdez already referred her for her acid reflux. She has n't taken her medication yet so she will let him know how that goes. However, this is not at all what is going on. She actually went to the ER so they can put vito in her head due t o falling a flight of stairs. IDALIA Quiñonez CMA elephone Encounter - Angela Talbot - 8 1:42 PM PSTPatient states she was recently in the ER due to lack of sleep from acid reflu x. She stopped taking her meloxicam due to the acid reflux being so severe. Patient would like to let Dr. Valdez know that she has a scope consult with Dr. Carroll in [place] Patient requesting to speak with medical staff on different medication options. Thanks Ariana documented in this en counter [...] [place] | | | | | | [address] | | | | | | [phone] | | | | | | | | +--------+---------+ + + + | 08/14/ | Office | Neurology | Jessica Henry NP | | | 2019 | Visit | | [address] | | | | | | [place] | | | | | | [address] | | | | | | [phone] | | | | | | | | +--------+---------+ + + + documented as of this encounter Visit Diagnoses Not on filedocumented in this encounter"
--- OUTSIDE RECORDS SUMMARY | ~2020-06-03 | XMS | Encounter Summary ---
Demographics + + + | Address | [address] | | | [place] [address] | + + + | Home Phone | | + + + | Preferred Language | Unknown | + + + | Marital Status | Single | + + + | Scientologist Affiliation | Unknown | + + + | Race | White | + + + | Ethnic Group | Not or | + + + Author + + + | Author | [facility] | | | and [place] | + + + | Organization | [facility] | | | [...] Providers + +------+ + | Care Hand Weaver Name | Role | Phone | + +------+ + | Lupillo Valdez DO | PCP | | + +------+ + Reason for Visit + +--------+ + | Reason | Onset | Comments | | | Date | | + +--------+ + | Paperwork | 11/24/ | | | | 2019 | | + +--------+ + Encounter Details +--------+ + + + + | Date | Type | Department | Care Team | Description | +--------+ + + + + | 11/24/ | Telephone | [facility] | Hanh Burger, CC | Paperwork | | 2019 | | [facility] | INVESTMENT UNDERWRITER | | | | | MEDICAL CLINIC [address] | | | | | | [address]TH [facility] [place], | | | | | | [place] [address] | | | | | | [phone] | | | +--------+ + + + [...] Encounter - Hanh Burger CC CMA - 11/24/2018 5:22 PM PSTPatient informed and agreeable to plan. IDALIA Huerta CMA elephone Encounte r - Lupillo Valdez DO - 11/24/2018 5:08 PM PSTShe should attach the evaluation by the RN with our Progress office note. elephone Encounter - Hanh Burger CC CMA - 11/24/2018 5:02 PM PSTSince mellisa white cannot alter today's note, patient would like to know what is needed for a communications evaluation to confirm Adriana Irvin RN assessment. Please advise. IDALIA Huerta CMA documented in this encounter [...] [place] | | | | | | [address] | | | | | | [phone] | | | | | | | | +--------+---------+ + + + | 08/14/ | Office | Neurology | Jessica Henry NP | | | 2019 | Visit | | [address] [place] [address] | | | | | | [place] | | | | | | [address] | | | | | | [phone] | | | | | | | | +--------+---------+ + + + documented as of this encounter Visit Diagnoses Not on filedocumented in this encounter"
--- OUTSIDE RECORDS SUMMARY | ~2020-06-03 | XMS | Encounter Summary ---
Demographics + + + | Address | [address] | | | [place] [address] | + + + | Home Phone [...] Providers + +------+ + | Care Inspector Tester Sorter Name | Role | Phone | + +------+ + | Lupillo Valdez DO | PCP | | + +------+ + Reason for Visit + + + | Reason | Comments | + + + | Follow-up | Complex partial seizures | + + + Consultation (Routine) + [...] Services | | | Lupillo Ken, | Zakia Orosco, | | | Required | | Nonintractab | DO [address] | | | | [address], | | | | | without | [place], [place] | [place] | | | | | status | [address] | [place], [place] | | | | | epilepticus, | Phone: | [phone] Phone: | | | | | unspecified | [phone] | [phone] | | | | | epilepsy | Fax: | Fax: | | | | | type ([facility]) | [phone] | [phone] | + + + + + + + Encounter Details +--------+---------+ + + + | Date | Type | Department | Care Team | Description | +--------+---------+ + + + | 02/07/ | Office | [facility] | Zakia Neumann | Complex partial | | 2020 | Visit | [facility]OSPITAL [facility] | MD Ana Luisa [address] | seizures evolving to | | | | CLINIC [address] | [place] | generalized | | | | DR [address] [place], | [place] [address] | tonic-clonic | | | | [place] [address] | [phone] | seizures (HCC) | | | | [phone] | | (Primary Dx); RLS | | [...] + + + | Blood Pressure | 134/66 | 02/08/2020 4:17 PM | | | | | PDT | | + + + + + | Pulse | 66 | 02/08/2020 4:17 PM | | | | | PDT | | + + + + + | Temperature | 36.4 C (97.5 F) | 02/08/2020 4:17 PM | | | | | PDT | | + + + + + | Respiratory Rate | 18 | 02/08/2020 4:17 PM | | | | | PDT | | + + + + + | Oxygen Saturation | 98% | 02/08/2020 4:17 PM | | | | | PDT | | + + + + + | Inhaled Oxygen | - | - | | | Concentration | | | | + + + + + | Weight | 109.7 kg (241 lb | 02/08/2020 4:17 PM | | | | 12.8 oz) | PDT | | + + + + + | Height | 167.6 cm (5' 6") | 02/08/2020 4:17 PM | | | | | PDT | | + + + + + | Body Mass Index | 39.03 | 02/08/2020 4:17 PM | | | | | PDT | | + + + + + documented in this encounter Patient Instructions Patient Instructions Zakia Neumann MD - 02/08/2020 4:30 PM PDTFormatting of this no te might be different from the original. Living Well with Epilepsy People with epilepsycan [...] for people with epilepsy. Date Last Reviewed: 07/28/201719997490-8366 [employer]. [address] [place] [address]. All righ ts reserved. This information is not intended as a substitute for professional medical care. Always follow your healthcare professional's instructions. documented in this encounter Progress Notes Zakia Neumann MD - 02/08/2020 4:30 PM PDT Patient: Abril Callaway Medical Record: [id number] Date of Services: 02/08/2020 Referring Doctor: Lupillo Valdez DO Chief Complaint Patient presents with Follow-up Complex partial seizures HISTORY OF PRESENT ILLNESS: The patient is a 59-year-old female who comes back to the neurology clinic regarding her co mplex partial seizures and RLS. I first met her on 12/14/2019. She has a longstanding history of seizures since and w as fairly well-controlled until November 09 when she had a seizure. This was because she mi ssed 3 doses of her Keppra due to a late refill from her pharmacy. 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 She did not have a work-up for long time. I ordered a brain MRI with and without contrast which revealed no acute findings. There were mild white matter changes noted. Both routine and 24-hour EEGs were normal. Keppra level was therapeutic. 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 The patient also has RLS. She takes Mirapex 0.125 mg 3 tablets at 9 PM. She takes gabapen tin 100 mg at 7 AM. On her last visit, I asked her to discontinue the gabapentin. However, when she did this, she started noticing RLS symptoms in the afternoon and is back on it. The patient also has a known history of ALVINA which is currently untreated. REVIEW OF SYSTEMS: General: No fever HEENT: [...] trochanteric Class 3 severe obesity in adult ([facility]) 01/31/2019 Coronary artery disease involving togiak coronary artery of togiak heart without angina pectoris 01/09/2019 Depression Epilepsy ([facility]) Fatigue Gastroesophageal reflux disease without esophagitis 06/20/2015 Hernia of abdominal cavity Hyperlipidemia 01/09/2019 Hypertension Hyposmolality Hypothyroid Hypothyroidism Neoplasm of soft tissue NSTEMI (non-ST elevated myocardial infarction) ([facility]) 12/28/2018 Organic sleep apnea Piriformis syndrome Pure hypercholesterolemia 01/31/2019 Reaction to chronic stress RLS (restless legs syndrome) Syncope and collapse Past Surgical History: Procedure Laterality Date CARDIAC CATHERIZATION N/A 12/29/2018 Procedure: CV LHC; Surgeon: Nick Cobb MD; Location: [facility] CV LAB CARDIAC CATHERIZATION N/A 12/29/2018 Procedure: CV Cor Angio; Surgeon: Nick Cobb MD; Location: [facility] CV LAB COLONOSCOPY 07/27/2017 ROTATOR CUFF [...] Anaphylaxis Propoxyphene Unknown and Anaphylaxis Oxycodone-Acetaminophen Unknown Qwclwzrdv-Vgyttqevllc-Dcza Other (See Comments) Propoxyphene N-Acetaminophen Other (See [...] file Gets together: Not on file Attends rastafari service: Not on file Active member of [...] Mother Sleep apnea Mother PHYSICAL EXAMINATION: BP 134/66 | Pulse 66 | Temp 36.4 C (97.5 F) (Temporal) | Resp 18 | Ht 1.676 m (5' 6 ") | Wt 109.7 kg (241 lb 12.8 oz) | SpO2 98% | BMI 39.03 kg/m General appearance: Well kept, well nourished, in no acute distress Neck is supple. Lungs are clear. Heart sounds are within normal limits. Abdomen is soft and non-tender, There is no extremity cyanosis or edema. NEUROLOGIC EXAMINATION: MENTAL STATUS: The patient is awake, alert, and oriented to time, place, and person. Spee ch is fluent. Memory, attention, comprehension, and general [...] CEREBELLAR EXAMINATION: There is no dysmetria on onwxln-ow-nauh test. IMPRESSION: 1. Seizure disorder, likely complex partial with secondary generalization, not in status, not intractable, seizure-free for more than 90 days 2. RLS, controlled on Mirapex and gabapentin 3. 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 She will remain on Keppra and was counseled on the importance of not missing a dose. I went over her brain MRI and EEG results again during this visit. For her RLS, she will remain on Mirapex 0.125 mg 3 tablets at 9 PM and gabapentin 100 mg at 7 AM. She was strongly encouraged to get a referral for a sleep evaluation. Sleep fragmentation from any cause can also cause lower her seizure threshold. We will continue to follow her. She is to come back in 6 months to see WING Tena. More than 50% of this 30-minute visit was spent on ykfw-ht-kgem with the patient, rachid g her test results and counseling her on living well with epilepsy. Thank you for the opportunity to participate in the care of this patient. Zakia Neumann MD 02/08/2020 4:45 PM Electronically signed This note was transcribed using [...] [place] | | | | | | [address] | | | | | | [phone] | | | | | | | | +--------+---------+ + + + | 08/14/ | Office | Neurology | Jessica Henry NP | | | 2019 | Visit | | [address] | | | | | | [place] | | | | | | [address] | | | | | | [phone] | | | | | | | [...]
--- OUTSIDE RECORDS SUMMARY | ~2020-06-03 | XMS | Encounter Summary ---
Demographics + + + | Address | [address] | | | [place] [address] | + + + | Home Phone [...] Team Providers + +------+ + | Care Tool/Die Maker Name | Role | Phone | + +------+ + | Lupillo Valdez DO | PCP | | + +------+ + Reason for Visit + + + | Reason | Comments | + + + | Hospital Follow-up | Follow up recent NSTEMI, unsure if angiogram done was of good | | | quality. Pt reports having a nuclear stress test that was | | | normal. Pt reports she is still SOB. | + + + Encounter Details +--------+---------+ + + + | Date | Type | Department | Care Team | Description | +--------+---------+ + + + | 01/09/ | Office | [place] [facility] | Lupillo Valdez | Coronary artery | | 2019 | Visit | [facility] | E, DO [address] | disease involving | | | | [facility] [address] | [place], [place] | oneida coronary | | | | [address] [place], | [address] | artery of oneida | | | | [place] [address] | [phone] | heart without angina | | | | [phone] | | pectoris (Primary | | | | | | Dx); NSTEMI (non-ST | | | | | | elevated myocardial | | | | | | infarction) (HCC); | | | | | | Essential | | | | | | hypertension; Mixed | | | | | | hyperlipidemia; | | | | | | Nonintractable [...] + + + | Blood Pressure | 116/60 | 01/09/2019 4:22 PM | | | | | PDT | | + + + + + | Pulse | 78 | 01/09/2019 4:22 PM | | | | | PDT | | + + + + + | Temperature | - | - | | + + + + + | Respiratory Rate | 19 | 01/09/2019 4:22 PM | | | | | PDT | | + + + + + | Oxygen Saturation | 98% | 01/09/2019 4:22 PM | | | | | PDT | | + + + + + | Inhaled Oxygen | - | - | | | Concentration | | | | + + + + + | Weight | 109.3 kg (241 lb) | 01/09/2019 4:22 PM | | | | | PDT | | + + + + + | Height | 167.6 cm (5' 6") | 01/09/2019 4:22 PM | | | | | PDT | | + + + + + | Body Mass Index | 38.9 | 01/09/2019 4:22 PM | | | | | PDT | | + + + + + documented in this encounter Patient Instructions Patient Instructions Carina Figueroa - 01/09/2019 4:20 PM PDT-Keep appointment with Dr. Santoyo -Lenin Lisinopril half tablet daily -HCTZ 12.5 mg on Wednesday, Wednesday, and Wednesday -Follow up 3 weeks HTN, decreasing Lisinopril and starting HCTZ documented in this encounter Progress Notes Lupillo Valdez, - 01/09/2019 4:20 PM PDT Patient ID: Abril Callaway is a 58 y.o. year old female Chief Complaint Patient presents with Hospital Follow-up Follow up recent NSTEMI, unsure if angiogram done was of good quality. Pt reports having a nuclear stress test that was normal. Pt reports she is still SOB. Assessment: Coronary artery disease involving oneida coronary artery of one[place] heart without angina pec toris (Primary) NSTEMI (non-ST elevated myocardial infarction) (HCC) Essential hypertension - hydroCHLOROthiazide; Take 12.5 mg Wednesday, Wednesday, and Wednesday Dispense: 30 capsule ; Refill: 0 Mixed hyperlipidemia Nonintractable epilepsy without status epilepticus, unspecified epilepsy type (HCC) Plan: -Keep appointment with Dr. Santoyo -Lenin Lisinopril half tablet daily -HCTZ 12.5 mg on Wednesday, Wednesday, and Wednesday -Follow up 3 weeks HTN, decreasing Lisinopril and starting HCTZ Subjective: ROBERT Samuels presents to the clinic today for a follow up from ED visit for NSTEMI. While cleaning her bathroom, next thing she remembers she was sitting on the toilet bent er. She thought maybe she had a light seizure, she has never had a history of a seizure. She went to her mothers to sleep it off. She had short of breath and dull chest ache. She never had headache, nausea, didn't loose bowel or bladder. She went to [facility] they gave her N itro, she was sent to [place], she was given more Nitro. The dull chest ache went away w ith the Nitro. She had a CV LHC, they tried to go through her arm. She had a Nuclear stress test, that was a normal test. The manager emergency department do not want her to go up and down her stairs in her home. Now she feels pretty good. She has had a lot of stress in her life. She no ojrge susan has a job to go back too. She has a follow up with Dr. Santoyo 01/24/2019. She tested positive for Mersa, everyone in her family was worried about it. She has a restriction to her driving until she saw me. We discussed that as long as she rebecca es her seizure medications Keppra 750 mg BID. She would like to start a water pill, with the heat her body retains water. She would like to take HCTZ. Current Outpatient Medications Medication Sig Dispense Refill aspirin 81 MG EC tablet Take 1 tablet by mouth Daily. 30 tablet cholecalciferol (VITAMIN D-3) 5000 units TABS Take 5,000 Units by mouth Daily. clopidogrel (PLAVIX) 75 mg tablet Take 1 tablet by mouth Daily. 30 tablet 0 gabapentin (NEURONTIN) 100 mg capsule Take 1 capsule by mouth 2 times daily. 180 capsul e 3 levETIRAcetam (KEPPRA) 750 MG tablet Take 750 mg by mouth 2 times daily. levothyroxine (SYNTHROID) 100 mcg tablet Take 100 mcg by mouth every morning (before br eakfast). lisinopril (PRINIVIL, ZESTRIL) 20 mg tablet Take 1 tablet by mouth Daily. 90 tablet 3 lovastatin (MEVACOR) 40 MG tablet Take 1 tablet by mouth nightly. 90 tablet 0 metoprolol tartrate (LOPRESSOR) 25 mg tablet Take 0.5 tablets by mouth 2 times daily. 3 0 tablet 0 Multiple Vitamins-Minerals (MULTIVITAMIN ADULT PO) [...] times daily. (Patient deejay luis differently: Take 0.375 mg by mouth nightly.) 90 tablet 3 No current facility-administered medications for this visit. Review of Systems Constitutional: Feeling well Cardiovascular: Negative for chest pain, palpitations and leg swelling. Objective: Vitals: BP 116/60 | Pulse 78 | Resp 19 | Ht 1.676 m (5' 6") | Wt 109.3 kg (241 lb) | SpO2 98% | ? No | BMI 38.90 kg/m Physical Exam Constitutional: She is oriented to person, place, and time. She appears well-developed and well-nourished. No distress. Eyes: EOM are normal. Cardiovascular: Normal rate and regular rhythm. Friction rub: right sternum border. Murmur heard. Pulmonary/Chest: Effort normal and breath sounds normal. Neurological: She is alert and oriented to person, place, and time. Psychiatric: She has a normal mood and affect. Entered by Carina Figueroa [facility], acting as scribe for Noah Valdez D.O. [...] [place] | | | | | | [address] | | | | | | [phone] | | | | | | | | +--------+---------+ + + + | 08/14/ | Office | Neurology | Jessica Henry NP | | | 2019 | Visit | | [address] [place] | | | | | | [place] | | | | | | [address] | | | | | | [phone] | | | | | | | | +--------+---------+ + + + documented as of this encounter Visit Diagnoses + + | Diagnosis | + + | Coronary artery disease involving oneida coronary artery of one[place] heart without | | angina pectoris - Primary | + + | NSTEMI (non-ST elevated myocardial infarction) (HCC) Acute myocardial infarction, | | subendocardial infarction, episode of care unspecified | + + | Essential hypertension Unspecified essential hypertension | + + | Mixed hyperlipidemia | + + | Nonintractable epilepsy without status epilepticus, unspecified epilepsy type (HCC) | + + documented in this encounter
--- OUTSIDE RECORDS SUMMARY | ~2020-06-03 | XMS | Encounter Summary ---
Demographics + + + | Address | [address] | | | [place] [address] | + + + | Home Phone [...] | | +--------+--------+ + | Other | 12/30/ | plan of care | | | 2019 | | +--------+--------+ + Encounter Details +--------+ + + + + | Date | Type | Department | Care Team | Description | +--------+ + + + + | 12/30/ | Telephone | [facility] | Nick Cobb MD | Other (plan of care) | | 2019 | | CARDIOLOGY [address] | | | | | [place], | [place], [place] | | | | | [place] [address] | [address] | | | | | [phone] | | | +--------+ + + + [...] this encounter Miscellaneous Notes Telephone Encounter - Rosalind Daniels - 01/03/2019 9:54 AM PDTPatient scheduled 01-24-[address] elephone Encounter - Rosalind Daniels - 12/30/2018 11:50 AM PDTSpoke with Patient in regards to req uesting referral from PCP's office. Pt has [employer] insurance and an Auth is required. Pat ient will be scheduled once referral is received. elephone Encounter - Maribel Benton RN - 12/30/2018 11:00 AM PDTI will ask PSR's to coordinate an appointment with the patient .......................... .................Maribel Benton RN on 12/30/18 at 11:00 elephone Encounter - Maribel Benton RN - 12/30/2018 10:59 AM PDT----- Message from Nick Cobb MD sent a t 12/30/2018 10:41 PDT ----- CLINIC FU 2-4 WEEKS d ocumented in this encounter Plan of Treatment +--------+---------+ [...] [place] | | | | | | [address] | | | | | | [phone] | | | | | | | | +--------+---------+ + + + | 08/14/ | Office | Neurology | Jessica Henry NP | | | 2019 | Visit | | [address] | | | | | | [place] | | | | | | [address] | | | | | | [phone] | | | | | | | | +--------+---------+ + + + documented as of this encounter Visit Diagnoses Not on filedocumented in this encounter"
--- OUTSIDE RECORDS SUMMARY | ~2020-06-03 | XMS | Encounter Summary ---
Demographics + + + | Address | [address] | | | [place] [address] | + + + | Home Phone | | + + + | Preferred Language | Unknown | + + + | Marital Status | Single | + + + | Yazidi Affiliation | Unknown | + + + [...] Team Providers + +------+ + | Care Mold Blower Name | Role | Phone | + [...] | back | Alfredo Matti | Issa [place]nes | | | | | location, | [place] | Research | | | | | unspecified | [facility] [place] | [place] | | | | | back pain | [address] | [place], [place] | | | | | laterality, | Phone: | [phone] | | | | | unspecified | [phone] | Phone: | | | | | chronicity | Fax: | [phone] | | | | | Procedures | [phone] | Fax: | | | | | MRI SPINE | | [phone] | | | | | LUMBAR WO | | | | | | | [place] | | | | | | | MRI, LUMBAR | | | | | | | SPINE | | | +--------+--------+ + + + + Reason for Visit Diagnostic Testing (Urgent) +--------+--------+ + + + [...] | | | | | unspecified | MD [address] | Matti Munoz | | | | | back | Alfredo [place] | Issa Haynes | | | | | location, | [place] | Research | | | | | unspecified | | [place] | | | | | back pain | [address] | [place], [place] | | | | | laterality, | Phone: | [address] | | | | | unspecified | [phone] | Phone: | | | | | chronicity | Fax: | [phone] | | | | | Procedures | [phone] | Fax: | | | | | MRI SPINE | | [phone] | | | | | LUMBAR WO | | | | | | | [place] | | | | | | | MRI, LUMBAR | | | | | | | SPINE | | | +--------+--------+ + + + + Encounter Details +--------+ + + + + | Date | Type | Department | Care Team | Description | +--------+ + + + + | 02/06/ | Hospital | Diagnostic Imaging | Harvey Woodall MD | | | 2020 | Encounter | Services at [facility] | [address] | | | | | [address] | [place], [place] | | | | | [place] | [address] | | | | | [facility] | [phone] | | | | | [place], [place] | | | | | | [address] | | | | | | [phone] | | | +--------+ + + + [...] + +--------+ + + + | MRI SPINE LUMBAR WO | Urgent | 02/07/2020 | Back pain, | Results for this | | CONT | | 10:15 AM | unspecified back | procedure are in the | | | | PDT | location, | results section. | | | | | unspecified back | | | | | | pain laterality, | | | | | | unspecified | | | | | | chronicity | | + +--------+ + + + documented in this encounter Results MRI SPINE LUMBAR WO [...] back pain laterality, unspecified | | chronicity | + + documented in this encounter"
--- OUTSIDE RECORDS SUMMARY | ~2020-06-03 | XMS | Encounter Summary ---
Demographics + + + | Address | [address] | | | [place] [address] | + + + | Home Phone [...] Author + + + | Author | [facility] | | | and [place] | + + + | Organization | [facility] | | | [...] Team Providers + +------+ + | Care Database Programmer Name | Role | Phone | + +------+ + | Lupillo Valdez DO | PCP | | + +------+ + Reason for Visit + +--------+ + | Reason | Onset | Comments | | | Date | | + +--------+ + | Medication Refill | 04/19/ | | | | 2020 | | + +--------+ + Encounter Details +--------+ + + + + | Date | Type | Department | Care Team | Description | +--------+ + + + + | 04/19/ | Telephone | [facility] | Lupillo Valdez | Medication Refill | | 2019 | | [facility] | E, DO [address] | | | | | MEDICAL CL[facility] [address] | [place], [place] | | | | | [address] [place], | [address] | | | | | [place] [address] | [phone] | | | | | [phone] | | | +--------+ + + + [...] Telephone Encounter - Luis Carlos Bagley - 04/19/2020 10:41 AM PDTDULoxetine (CYMBALTA) [address] nance, pt called docu mented in this encounter Plan of Treatment +--------+---------+ + + + | Date | Type | Specialty | Care Team | Description | +--------+---------+ + + + | 07/01/ | Office | Primary Care | Lupillo Valdez | | 2019 | Visit | | DO [address] | | | | | | [place] | | | | | | [address] | | | | | | [phone] | | | | | | | | +--------+---------+ + + + | 08/14/ | Office | Neurology | Jessica Henry NP | | | 2020 | Visit | | [address] | | | | | | [place] | | | | | | [address] | | | | | | [phone] | | | | | | | | +--------+---------+ + + + documented as of this encounter Visit Diagnoses Not on filedocumented in this encounter"
--- OUTSIDE RECORDS SUMMARY | ~2020-06-03 | XMS | Encounter Summary ---
Demographics + + + | Address | [address] | | | [place] [address] | + + + | Home Phone [...] Author + + + | Author | [facility] | | | and [place] | + + + | Organization | [facility] | | | [...] Team Providers + +------+ + | Care Tallow Refiner Name | Role | Phone | + +------+ + | Lupillo Valdez DO | PCP | | + +------+ + Reason for Visit +--------+--------+ + | Reason | Onset | Comments | | | Date | | +--------+--------+ + | Triage | /03/ | Chest pain, seizure | | | 2018 | | +--------+--------+ + Encounter Details +--------+ + + + + | Date | Type | Department | Care Team | Description | +--------+ + + + + | 12/28/ | Telephone | [facility] | Lavinia Arroyo, | Triage (Chest pain, | | 2019 | | [facility] | CC COMPLETION MANAGER | seizure) | | | | MEDICAL [facility] [address] | | | | | | [address]TH [facility], | | | | | | [place] [address] | | | | | | [phone] | | | +--------+ + + + [...] Encounter - Lavinia Arroyo CC CMA - 12/28/2018 2:24 PM PDTPatient called and stated she had a seizure, hit her head, lost consciousness, and is now having "severe" chest pain that gets up to a 6 before going back down to a 2/10. Per Dr. Valdez's standing orders I instructed patient to go to ED immediately. I asked zacarias martin if she needed me to call EMS and she states she has someone with her who will either ta ke her to ED or give her a ride to the hospital. I also spoke with Angelia Chilel RN, who agreed with sending patient to ED. IDALIA Messina CMA documented in th is [...] [place] | | | | | | [address] | | | | | | [phone] | | | | | | | | +--------+---------+ + + + | 08/14/ | Office | Neurology | Jessica Henry NP | | | 2020 | Visit | | [address] [place] [address] [place] | | | | | | [place] | | | | | | [address] | | | | | | [phone] | | | | | | | | +--------+---------+ + + + documented as of this encounter Visit Diagnoses Not on filedocumented in this encounter
--- OUTSIDE RECORDS SUMMARY | ~2020-06-03 | XMS | Encounter Summary ---
Demographics + + + | Address | [address] | | | [place] [address] | + + + | Home Phone [...] Team Providers + +------+ + | Care Buffer Copper Name | Role | Phone | + [...] | Physical | Diagnoses | Courtney, | [facility] | | | Services | Therapy | Low back | Lupillo Ken, | HOSPITAL | | | Required | | pain, | DO [address] | PHYSICAL | | | | | unspecified | [address] | THERAPY [address] | | | | | back pain | [place], [place] | [place] | | | | | laterality, | [address] | [place], [place] | | | | | unspecified | Phone: | [phone] | | | | | chronicity, | [phone] | Phone: | | | | | unspecified | Fax: | [phone] | | | | | whether | [phone] | Fax: | | | | | sciatica | | [phone] | | | | | present | | | +--------+ + + + + + + + | Scheduling Instructions | + + | [facility] | + + Reason for Visit + +--------+ + | Reason | Onset | Comments | | | Date | | + +--------+ + | Referral (Follow up) | 02/13/ | PT | | | 2020 | | + +--------+ + Encounter Details +--------+ + + + + | Date | Type | Department | Care Team | Description | +--------+ + + + + | 02/13/ | Telephone | [facility] [facility] | Lavinia Arroyo, | Referral (Follow up) | | 2019 | | [facility] | CC FINANCIAL INSTITUTION TREASURER | (PT ) | | | | MEDICAL CLINIC [address] | | | | | | [address] [place], | | | | | | [place] [address] | | | | | | [phone] | | | +--------+ + + + [...] Encounter - Lavinia Arroyo CC CMA - 02/14/2020 11:39 AM PDTPlease sign pended referral to [facility] doctor wants you to order. documented in this encounter Plan of Treatment +--------+---------+ + + + | Date | Type | Specialty | Care Team | Description | +--------+---------+ + + + | 07/01/ | Office | Primary Care | Lupillo Valdez | | 2019 | Visit | | E, DO [address] | | | | | | [place] | | | | | | [address] | | | | | | [phone] | | | | | | | | +--------+---------+ + + + | 08/14/ | Office | Neurology | Jessica Henry NP | | | 2019 | Visit | | [address] | | | | | | [place] | | | | | | [address] | | | | | | [phone] | | | | | | | | +--------+---------+ + + + + + +--------+ + + | Name | Type | Priori | Associated Diagnoses | Order Schedule | | | | ty | | | + + +--------+ + + | Physical Therapy - | Outpatient | Routin | Low back pain, | Ordered: 02/14/2020 | | Ambulatory Referral | Referral | e | unspecified back | | | | | | pain laterality, | | | | | | unspecified | | | | | | chronicity, | | | | | | unspecified whether | | | | | | sciatica present | | + + +--------+ + + documented as of this encounter Visit Diagnoses + + | Diagnosis | + + | Low back pain, unspecified back pain laterality, unspecified chronicity, unspecified | | whether sciatica present - Primary | + + documented in this encounter"
--- OUTSIDE RECORDS SUMMARY | ~2020-06-03 | XMS | Encounter Summary ---
Demographics + + + | Address | [address] | | | [place] [address] | + + + | Home Phone [...] Author + + + | Author | [facility] | | | and [place] | + + + | Organization | [facility] | | [...] Team Providers + +------+ + | Care Feeder Tender Name | Role | Phone | + +------+ + | Lupillo Valdez DO | PCP | | + +------+ + Reason for Referral Evaluate (Routine) + +--------+ + + + + | Status | Reason | Specialty | Diagnoses / | Referred By | Referred To | | | | | Procedures | Contact | Contact | + +--------+ + + + + | Canceled | | Bariatrics | Diagnoses | Courtney, | ST | | | | | Class 2 | Lupillo Ken, | HAI | | | | | obesity with | DO [address] | BARIATRIC | | | | | body mass | ST [address] | SURGERY 6140 | | | | | index (BMI) | [place], [place] | [address] | | | | | of 39.0 to | [address] | [address] | | | | | 39.9 in | Phone: | [place], [place] | | | | | adult, | [phone] | [address] | | | | | unspecified | Fax: | Phone: | | | | | obesity | [phone] | [phone] | | | | | type, | | Fax: | | | | | unspecified | | [phone] | | | | | whether | | | | | | | serious | | | | | | | comorbidity | | | | | | | present | | | + +--------+ + + + + Reason for Visit +--------+--------+ + | Reason | Onset | Comments | | | Date | | +--------+--------+ + | Other | 03/20/ | regarding gastric bypass surgery | | | 2019 | | +--------+--------+ + Encounter Details +--------+ + + + + | Date | Type | Department | Care Team | Description | +--------+ + + + + | 03/20/ | Telephone | [facility] | Lupillo Valdez | Other (regarding | | 2018 | | [facility] | E, DO [address] | gastric bypass | | | | MEDICAL CLINIC [address] | [place], [place] | surgery) | | | | [address] [place], | [address] | | | | | [place] [address] | [phone] | | | | | [phone] | | | +--------+ + + + [...] - Hanh Burger CC CMA - 03/21/2019 4:47 PM PDTCalled [facility] to [facility] written. Patient now has changed her mind and would like to Give it more time since she is dropping the weight on her own. I have cancelled the referral per pts request. IDALIA Huerta CMA elephone Carina Paredes - 03/21/2019 4:23 PM PDTPlease sign pended referral. Carina elephone Encounter - Lupillo Valdez DO - 03/21/2019 4:08 PM PDTOk Let's get the referral started! elephone Encounter - Hanh Burger CC CMA - 03/21/2019 2:59 PM PDTPatient d id discuss with her insurance as you requested her to do on 01/31/2019. Referral needs to be placed, per patient the surgery would be covered at 100% if done this year. Patient repo rts her weight is down to 235 lbs. Patient would prefer to go to [place] since she has famil y there, please advise. IDALIA Huerta CMA elephone Encounte r - Minnie You-UmanaBirdie booth - 03/21/2019 2:27 PM PDTPt states she already discussed this in her last appt with Dr. Valdez and feels it is not necessary to schedule another one. Please ca ll pt to explain. Thanks, Birdie Hartman Elmers elephone Encounter - Lupillo Valdez DO - 03/21/2019 1:30 PM PDTWe need appt to discuss a plan for this.Francy ctronically signed by Lupillo Valdez DO at 03/21/2019 1:30 PM PDTTelephone Encounter - Luis Carlos Bagley - 03/20/2019 1:15 PM PDTPt called and would like to talk to you regarding a referral for gastric bypass surgery, I let pt know that you were out of clinic today and a call back tomorrow would be fine/robin documented in this encounter Plan of Treatment [...] [place] | | | | | | [address] | | | | | | [phone] | | | | | | | | +--------+---------+ + + + | 08/14/ | Office | Neurology | Jessica Henry NP | | | 2020 | Visit | | [address] | | | | | | [place] | | | | | | [address] | | | | | | [phone] | | | | | | | | +--------+---------+ + + + + + +--------+ + + | Name | Type | Priori | Associated Diagnoses | Order Schedule | | | | ty | | | + + +--------+ + + | Bariatrics Weight | Outpatient | Routin | Class 2 obesity | Ordered: 03/21/2019 | | Control, External - | Referral | e | with body mass index | | | AMB Referral | | | (BMI) of 39.0 to | | | | | | 39.9 in adult, | | | | | | unspecified obesity | | | | | | type, unspecified | | | | | | whether serious | | | | | | comorbidity present | | + + +--------+ + + documented as of this encounter Visit Diagnoses + + | Diagnosis | + + | Class 2 obesity with body mass index (BMI) of 39.0 to 39.9 in adult, unspecified | | obesity type, unspecified whether serious comorbidity present - Primary | + + documented in this encounter"
--- OUTSIDE RECORDS SUMMARY | ~2020-06-03 | XMS | Encounter Summary ---
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 | [place] | [facility] [address] | | | | | memory | CLINIC | [address] | | | | | difficulties | NEUROLOGY | [facility] for | | | | | , second | [address] | Health and | | | | | opinion | [place] | Healing, | | | | | Procedures | [place], [place] | Building [address], | | | | | [place] | [address] | 8th Floor | | | | | PATIENT | Phone: | [place], [place] | | | | | LEVEL V | [phone] | [address] | | | | | | Fax: | Phone: | | | | | | [phone] | [phone] | | | | | | | Fax: | | | | | | | [phone] | +--------+--------+ + + + + Encounter Details +--------+---------+ + + + | Date | Type | Department | Care Team | Description | +--------+---------+ + + + | 05/19/ | Office | Neurology at | Jacobo Thorpe MD | Cognitive | | 2018 | Visit | [facility] & | [address] | impairment, mild, so | | | | Healing [address] | [place], [place] | stated; Current | | | | [facility] | [address] | moderate episode of | | | | Health and [facility], | [phone] | major depressive | | | | Building | | disorder without | | | | Floor [place], [place] | | prior episode (HCC) | | | | [address] | | | | | | [phone] | | | +--------+---------+ + + + [...] usual state of cognitive health until approximately 2015. She was working [employer]. 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 She then had an apparent generalize d [...] overt motor problems, other than the current [facility] uloskeletal problems. Current Medications: Include Keppra 750 [...] chavez register. 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 She has had a thyroid disease since [...] fish oil to her current drug regimen. MD THOMAS Quintanilla/HERIBERTOL /[id number] Jacobo Campos MD - 08/23/2 018 9:15 AM PDTThis office note has been dictated. I spent 12 minutes with the patient, ov er half in counseling. CSN #: [id number] documented in this encoun ter Plan of [...]
--- OUTSIDE RECORDS SUMMARY | ~2020-06-03 | XMS | Encounter Summary ---
Demographics + + + | Address | [address] | | | [place] [address] | + + + | Home Phone | | + + + | Preferred Language | Unknown | + + + | Marital Status | Single | + + + | Uatsdin Affiliation | Unknown | + + + [...] Team Providers + +------+ + | Care Asphalt Spreader Operator Name | Role | Phone | + +------+ + | Lupillo Valdez DO | PCP | | + +------+ + Reason for Visit + +--------+ + | Reason | Onset | Comments | | | Date | | + +--------+ + | Paperwork | 01/03/ | | | | 2020 | | + +--------+ + Encounter Details +--------+ + + + + | Date | Type | Department | Care Team | Description | +--------+ + + + + | 01/03/ | Telephone | [facility] | Lupillo Valdez | Paperwork | | 2020 | | [facility] | E, DO [address] | | | | | MED[facility] [address] | [place], [place] | | | | [address] [place], | [address] | | | | | [place] [address] | [phone] | | | | | [phone] | | | +--------+ + + + [...] Miscellaneous Notes Telephone Encounter - Jennyfer Hanh IDALIA Neely CMA - 01/05/2020 2:10 PM PDTFaxed amended paperwo rk to [employer] [phone] and mailed to patient per request. IDALIA Ambrocio CMA elephone Lavinia Lerner CC CMA - 01/05/2020 11:55 AM PDTI called Abril and let her know the ppw is in Dr Valdez's box and he will review today. Abril is frustrated it is not done yet. I e xplained to her we have been very busy for the last few days, I apologized that it was rukhsana kelley so long, and I let her know we would call her as soon as the PPW is done. IDALIA Messina CMA elephone Bobbi Ren - 01/05/2020 11:48 AM PDTI let pt know that we are working on this still. Pt states that her unit is all packed up and she is ready to move. Her current unit i s already planning on being rented out to the next person. Pt states if she doesn't have thi s ppw this afternoon, the unit will move on to the next person. Pt is frustrated that this p rocess has taken so long, and is crying. She states that the housing people have come in on their day off and are also waiting on this ppw. Please contact pt JIM with a status update. Thanks, Emersonectronically signed by Bobbi Chen at 01/05/2020 11:51 AM PDTTelephone Luis Carlos Yoo - 01/05/2020 10:19 AM PDTPt called and would like know as soon as maurice perez if the paperwork for her therapy animals is going to be taken care of, please call/luis carlos elephone Encounter - Side rs, IDALIA Snow CMA - 01/05/2020 9:[address] [facility] IDALIA Messina CMA elephone Encoun Hanh Christina CC CMA - 01/04/2020 4:26 PM PDTPatient called back after speaking to [employer]. All questions need to be marked yes of pg 6, 9 & 10. In addit ion, we need to be specific on pg 6, question 6, pg 10 question 7, and pg 14 question 7 as t o how each animal and therapy equipment will improve patient. I have marked pages and place d in your inbox. I informed patient we will call be with an outcome or once paperwork is co mplete. IDALIA Huerta CMA elephone Encounte Hanh Ashley CC CMA - 01/04/2020 3:36 PM PDTPatient informed the forms we filled out and faxed were the forms she asked us to fill out. There are 13 pages. I advised her to c all [employer] and ask if they received all pages, or if something differen t was needed. Patient agreed, she will call back if needed. IDALIA Huerta CMA elephone Encounte r Luis Carlos Crow - 01/04/2020 3:16 PM PDTPt called and please just fill out the forms an d fax back before 4 pm today/robin 3:1 7 PM PDTTelephone Encounter - Lupillo Valdez DO - 01/04/2020 2:41 PM PDTPlease reach o ut to the patient and clarify. The forms we signed were to address this. Electronically sign ed by Lupillo Valdez DO at 01/04/2020 2:42 PM PDTTelephone Encounter - Hanh Burger CC CMA - 01/04/2020 1:24 [address]Dr. Rojas, Please advise if you want me to write a letter in addition to the paperwork we faxed/mailed . IDALIA Huerta CMA elephone Encounte r - Luis Carlos Bagley - 01/04/2020 1:05 PM PDTPt called and the prescription for the animals needs to state that the dog is needed for safety and the cat is stress management. These we re listed before as serving the same purpose and the [employer] will not accept it this way. [place] white write a new letter stating that each animal serves a different purpose, Please fax [facility]. The second bedroom is for therapy equipment, pt is sorry but they are being very picky this time, please call pt with questions. Please do this today or pt cannot mov e in/robin documented in th is encounter Plan of [...] [place] | | | | | | [address] | | | | | | [phone] | | | | | | | | +--------+---------+ + + + | 08/14/ | Office | Neurology | Jessica Henry NP | | | 2019 | Visit | | [address] [place] [address] | | | | | | [place] | | | | | | [address] | | | | | | [phone] | | | | | | | | +--------+---------+ + + + documented as of this encounter Visit Diagnoses Not on filedocumented in this encounter"
--- OUTSIDE RECORDS SUMMARY | ~2020-06-03 | XMS | Encounter Summary ---
Demographics + + + | Address | [address] | | | [place] [address] | + + + | Home Phone [...] Team Providers + +------+ + | Care Operational Trainer Name | Role | Phone | + +------+ + | Lupillo Valdez DO | PCP | | + +------+ + Encounter Details +--------+ + + + + | Date | Type | Department | Care Team | Description | +--------+ + + + + | 01/07/ | Hospital | [facility] | ThienZakia anderson | Complex partial | | 2019 | Encounter | [facility] | MD Ana Luisa [address] | seizures evolving to | | | | THERAPY [address] | NIMESH HUDSON | generalized | | | | [address] [place], [place] | [place] [address] | tonic-clonic | | | | [address] | [phone] | seizures (HCC) | | | | [phone] | | | +--------+ + + + [...] encounter Progress Notes Azar Noguera RRT - 01/08/2020 10:00 AM PDTDownload Ambulatory EEG for neurologist to in [facility]. Diagnostic video hours were 21.25 out of 22.30 hours EEG recording time minus imped ance setup time. Patient had 95% video time during EEG. Azar Arriaga R RT - 01/08/2020 10:00 AM PDT Setup Ambulatory EEG with video. Explain use of equipment to th e patient. Abril will return EEG equipment tomorrow and staff will download study. 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 year-old female with complex par tial seizures. This study was performed to further ascertain the nature of the patient's sp ells. This study utilized 20 channels of EEG derived from 21 scalp electrodes placed over the fro ntal, temporal, parietal, occipital, and central regions. The International 10 20 system of electrode placement was used. The recording was started at 11:24 AM on 01/08/2020 and ended at 9:54 AM on 01/09/2020 for a total record duration of approximately 22.5 hours. More than 80% of the study included re corded video. RESULTS: The study was reviewed using the Ameristream EEG digital system. During the awake portion s of the recording, a normal background pattern consisting of 9-10 hz was noted. The patien t was asleep between 10:45 PM and 6:29 AM. ABNORMAL POTENTIALS: No focal slow waves or epileptiform discharges were seen. PUSH BUTTON/VOICE ENTRY EVENTS: There were none IMPRESSION: Normal video ambulatory EEG study. There was no electrographic evidence of a seizure disor kori during the 22.5 hour duration of this recording. Thank you for the opportunity to participate in the care of this patient. Zakia Neumann MD01/09/202011:10 AM documented in thi s encounter Plan [...] [place] | | | | | | [address] | | | | | | [phone] | | | | | | | | +--------+---------+ + + + | 08/14/ | Office | Neurology | Jessica Henry NP | | | 2019 | Visit | | [address] [place] | | | | | | [place] | | | | | | [address] | | | | | | [phone] | | | | | | | | +--------+---------+ + + + documented as of this encounter Procedures + +--------+ + + + | Procedure Name | Priori | Date/Time | Associated Diagnosis | Comments | | | ty | | | | + +--------+ + + + | *TERMED* NV EEG | Routin | 01/08/2020 | Complex partial | Results for this | | MONITORING/VIDEORECO | e | 10:00 AM | seizures evolving to | procedure are in the | | RD | | PDT | generalized | results section. | | | | | tonic-clonic | | | | | | seizures (HCC) | | + +--------+ + + + documented in this encounter Results EEG 24 HR AMBULATORY [...] | The study was reviewed using the Ameristream EEG digital system. | | | During [...] of this | | | patient. 

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
--- OUTSIDE RECORDS SUMMARY | ~2020-06-03 | XMS | Encounter Summary ---
Demographics + + + | Address | [address] | | | [place] [address] | + + + | Home Phone [...] Team Providers + +------+ + | Care Inventory Audit Clerk Name | Role | Phone | + +------+ + | Lupillo Valdez DO | PCP | | + +------+ + Encounter Details +--------+ + + + + | Date | Type | Department | Care Team | Description | +--------+ + + + + | 04/26/ | Orders Only | [facility] | Provider, | | | 2018 | | [facility] | MD [address] | | | | | [address] | [address] | | | | | [address] [place], [place] | [place] [address] | | | | | [address] | | | | | | [phone] | | | +--------+ + + + [...] [place] | | | | | | [address] | | | | | | [phone] | | | | | | | | +--------+---------+ + + + | 08/14/ | Office | Neurology | Jessica Henry NP | | | 2019 | Visit | | [address] [place] | | | | | | [place] | | | | | | [address] | | | | | | [phone] | | | | | | | | +--------+---------+ + + + documented as of this encounter Visit Diagnoses Not on filedocumented in this encounter"
--- OUTSIDE RECORDS SUMMARY | ~2020-06-03 | XMS | Encounter Summary ---
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 from | | | 2018 | [place] | +--------+--------+ + Encounter Details +--------+ + + + + | Date | Type | Department | Care Team | Description | +--------+ + + + + | 09/05/ | Telephone | [place] [facility] | Lupillo Valdez | Other (Patient | | 2018 | | [facility] | E, DO [address] | corporate associate attorney is | | | | [facility] [address] | [place], [place] | requesting a call | | | | [place], | [address] | back from | | | | [place] [address] | [phone] | [place]) | | | | [phone] | | | +--------+ + + + [...] Glasses of wine | 0.0 | Occassional, january | | | 0 Cans of beer [...] Notes Telephone Encounter - China Agrawal - 09/07/2019 7:44 AM PSTTeleconference is scheduled today 09-07-[address] Valdez. China Agrawal elephone Encounter - Hanh Anderson CC [facility] - 09/05/2019 5:58 PM PSTBarisaace, Please advise. IDALIA Huerta [facility] Electronically signed by IDALIA Noyola [facility] at 09/05/2019 5:58 PM PSTTelephone Encounte r - Lupillo Valdez DO - 09/05/2019 5:53 PM PSTThis needs to be a scheduled, documented teleconference. Do not double book. Electronically signed by Lupillo Valdez DO at 09/05 5:54 PM PSTTelephone Encounter - China Agrawal - 09/05/2019 3:04 PM PSTPatients [facility] is calling to request a call back from Dr. Valdez. He wanted to tell Lorena Valdez that he's sorry he had to serve him with a Subpoena. He states they had a surpris e in this case because defendants are now saying Abril does not have Epilepsy. Please call Bart back to discuss and states he can be flexible with your time if necessar y. After I had already taken most of this message I wondered if this should be a teleconferenc e appointment. Sorry if that's the case. Thanks very much China Agrawal documented in this encou nter [...] [place] | | | | | | [address] | | | | | | [phone] | | | | | | | | +--------+---------+ + + + | 08/14/ | Office | Neurology | Jessica Henry NP | | 2019 | Visit | | [address] [place] | | | | | | [place] | | | | | | [address] | | | | | | [phone] | | | | | | | | +--------+---------+ + + + documented as of this encounter Visit Diagnoses Not on filedocumented in this encounter"
--- OUTSIDE RECORDS SUMMARY | ~2020-06-03 | XMS | Encounter Summary ---
Demographics + + + | Address | [address] | | | [place] [address] | + + + | Home Phone [...] Team Providers + +------+ + | Care Commercial Finance Manager Name | Role | Phone | + +------+ + PCP | Unavailable | + +------+ + Encounter Details +--------+ + + + + | Date | Type | Department | Care Team | Description | +--------+ + + + + | 11/16/ | Abstract | [place] [facility] | Henry Carina Orosco | | | 2017 | | [facility] | | | | | | [facility] [address] | | | | | [address] [place], | | | | | | [place] [address] | | | | | | [phone] | | | +--------+ + + + [...] [place] | | | | | | [address] | | | | | | [phone] | | | | | | | | +--------+---------+ + + + | 08/14/ | Office | Neurology | Jessica Henry NP | | | 2019 | Visit | | [address] [place] | | | | | | [place] | | | | | | [address] | | | | | | [phone] | | | | | | | | +--------+---------+ + + + documented as of this encounter Visit Diagnoses Not on filedocumented in this encounter"
--- OUTSIDE RECORDS SUMMARY | ~2020-06-03 | XMS | Encounter Summary ---
Demographics + + + | Address | [address] | | | [place] [address] | + + + | Home Phone [...] Author + + + | Author | [facility] | + + + | Organization | [facility] | + + + | [...] Team Providers + +------+ + | Care Resident Care Technician Name | Role | Phone [...] [place] | | | | | [facility] | Tammy [place]ons [place], | | | | | [facility], | [place] [address] | | | | | [facility] | [phone] | | | | | Floor [place], [place] | | | | | | [address] | | | | | | [phone] | | | +--------+ + + + [...] + +--------+ + + + | X-RAY SCOLI SPINE | Routin | 02/07/2020 | Low back pain, | Results for this | | ENTR BECKI AP &LAT | e | 12:57 PM | unspecified [...] + documented in this encounter Results X-RAY SCOLI SPINE ENTR SRVY MAURA AND LAT (02/07/2020 12:57 PM PDT) + + | Specimen | + + | | + + + + + | Narrative | Performed At | + + + | EXAM: SPINE LUMBOSACRAL 2 VIEWS, SPINE ENTR SRVY NAVA LORENZO AND LAT | [facility] | | [...]
--- OUTSIDE RECORDS SUMMARY | ~2020-06-03 | XMS | Encounter Summary ---
Demographics + + + | Address | [address] | | | [place] [address] | + + + | Home Phone [...] Team Providers + +------+ + | Care Substance Abuse Services Director Name | Role | Phone | + +------+ + PCP | Unavailable | + +------+ + Encounter Details +--------+ + + + + | Date | Type | Department | Care Team | Description | +--------+ + + + + | 11/13/ | Hospital | [facility] | | | | 1993 | Encounter | [facility] GENER[facility] | | | | | | CONV DEPT [address] | | | | | | [place], | | | | | | [place] [address] | | | | | | [phone] | | | +--------+ + + + [...] [place] | | | | | | [address] | | | | | | [phone] | | | | | | | | +--------+---------+ + + + | 08/14/ | Office | Neurology | Jessica Henry NP | | | 2019 | Visit | | [address] [place] | | | | | | [place], [place] | | | | | | [address] | | | | | | [phone] | | | | | | | | +--------+---------+ + + + documented as of this encounter Visit Diagnoses Not on filedocumented in this encounter"
--- OUTSIDE RECORDS SUMMARY | ~2020-06-03 | XMS | Encounter Summary ---
Demographics + + + | Address | [address] | | | [place] [address] | + + + | Home Phone [...] Author + + + | Author | [facility] | + + + | Organization | [facility] | + + + | Address [...] Team Providers + +------+ + | Care Stoner Out Name | Role | Phone | + +------+ + | Lupillo Valdez DO | PCP | | + +------+ + Encounter Details +--------+ + + + + | Date | Type | Department | Care Team | Description | +--------+ + + + + | 02/01/ | Procedure | Diagnostic Imaging | | | | 2019 | Pass | Services at [facility] | | | | | | [address] [place] | | | | | | [place] | | | | | | [facility] | | | | | | [place], [place] | | | | | | [address] | | | | | | [phone] | | | +--------+ + + + [...]
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
--- NOTE | 2020-06-04 20:22 | EKG ---
[facility] [address] [facility] [place], [place] [address] Signed Normal sinus rhythm Prolonged QT Abnormal ECG When compared with ECG of 03-JUN-2020 12:29, (Unconfirmed) No significant change was found Confirmed by CINDI BRADFORD MD ([id number]) on 06/04/2020 8:21:52 PM Electronically Signed By: CINDI BRADFORD MD 06/04/202021 PATIENT NAME: PAULA MCLEOD Electrocardiogram DATE OF : 60 PHYSICIAN: CINDI BRADFORD MD REPORT #: [id number] REPORT IS CONFIDENTIAL AND NOT TO BE RELEASED WITHOUT AUTHORIZATION
== END ==
LOC: ED 12:20
DX: R07.89 Other chest pain (principal); I10 Essential (primary) hypertension; E78.5 Hyperlipidemia, unspecified; E03.9 Hypothyroidism, unspecified; Z87.891 Personal history of nicotine dependence; Z88.0 Allergy status to penicillin; Z88.5 Allergy status to narcotic agent; Z88.1 Allergy status to other antibiotic agents; Z79.899 Other long term (current) drug therapy; Z88.8 Allergy status to other drugs, medicaments and biological substances; Z79.82 Long term (current) use of aspirin
CPT/HCPCS: 71045; 80053; 82542; 83735; 83880; 84484; 85025; 93005; 93010; 99285-25

== ENCOUNTER 2020-10-23 11:37 | Emergency (ER) | payer OTHER ==
[~2020-10-23] VITALS: Ht 167.6 cm; Wt 108.9 kg
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
--- NOTE | 2020-10-23 14:55 | EKG ---
[facility] [address] [facility] [place], [place] [address] Signed Normal sinus rhythm Normal ECG When compared with ECG of 21-OCT-2020 12:46, No significant change was found Confirmed by THIAGO LIMA DO ([id number]) on 10/23/2020 2:54:53 PM Electronically Signed By: THIAGO LIMA DO 10/23/20 1455 PATIENT NAME: PAULA MCLEOD Electrocardiogram DATE OF : 60 PHYSICIAN: THIAGO LIMA DO REPORT #: [id number] REPORT IS CONFIDENTIAL AND NOT TO BE RELEASED WITHOUT AUTHORIZATION
== END 2020-10-23 16:01 | disposition home or self-care (01) ==
LOC: ED 11:37
DX: R55 Syncope and collapse (principal); I10 Essential (primary) hypertension; E78.5 Hyperlipidemia, unspecified; E03.9 Hypothyroidism, unspecified; I25.2 Old myocardial infarction; Z88.5 Allergy status to narcotic agent; Z88.8 Allergy status to other drugs, medicaments and biological substances; Z88.0 Allergy status to penicillin; Z91.041 Radiographic dye allergy status; Z79.899 Other long term (current) drug therapy; Z79.82 Long term (current) use of aspirin
CPT/HCPCS: 71045; 80053; 83690; 83735; 84484; 85025; 85379; 93005; 93010; 96374; 99285-25; J2405

== ENCOUNTER 2020-10-25 06:55 | Day surgery (SDC) | payer OTHER ==
[~2020-10-25] VITALS: Ht 167.6 cm; Wt 110.9 kg
[2020-10-25] MEDS ORDERED: OMEPRAZOLE20 MG PO (07:08)
--- NOTE | 2020-10-25 09:08 | NUR ---
10/25/20 0908 Reema Buchanan 0859: PT ARRIVES TO PACU WITH ORAL AIRWAY IN PLACE.
--- NOTE | 2020-10-29 06:16 | OR ---
[facility] [address] [place], [place] [address] Signed DATE OF OPERATION: 10/25/2020 SURGEON: Viktor Vargas MD PREOPERATIVE DIAGNOSES: 1. Large hiatal hernia (32-40 cm). 2. Gastroesophageal reflux disease. POSTOPERATIVE DIAGNOSES: 1. Moderate to large hiatal hernia ( cm). 2. Mild patchy acute gastritis. PROCEDURE: EGD with CLOtest and biopsies of the antrum and GE junction. ESTIMATED BLOOD LOSS: None. INDICATIONS: Paula is a 60-year-old female with a long past medical history as listed in her history and physical. She is known to have a hiatal hernia and that is moderate to large measuring . She had her last endoscopy in 2019. She has also had a barium swallow in the past, which has of course demonstrated the hiatal hernia along with the acid reflux. She is on omeprazole. She said without omeprazole, she is quite miserable, but even then she has acid reflux as expected. Of course, when she lies down it is worse, it can wake her up at night with acid in her mouth or some bile. Elevated the head of her bed 5 inches and she does not feel that helped in significant degree. She has been trying to exercise to help lose weight as well. She has had some trouble because of the epilepsy, and her back issues and memory issues. She reports she has been unemployed since 2018. She is also trying to take care of aging parents. She has been quite miserable due to her symptoms. She is aware of prior discussions that there is surgical treatment for hiatal hernias. Her primary care provider had asked her to come back and see me for a repeat upper endoscopy. In addition, she had a heart murmur her whole life, which she said was long before her children were born. She said it has never bothered her. Because of her long list of medical allergies, her complex medical history and her round, full face and heavy neck, we asked an anesthesia provider help us with increased monitoring sedation with propofol. That worked out well in the past and that worked out well today. She expressed understanding and wished to proceed. PROCEDURE NOTE: Electronically Signed By: VIKTOR VARGAS MD 10/29/20 0616 PATIENT NAME: PAULA MCLEOD OPERATIVE REPORT DATE OF : 60 REPORT #: [id number] PHYSICIAN: VIKTOR VARGAS MD PCP: NOAH COOK DO REPORT IS CONFIDENTIAL AND NOT TO BE RELEASED WITHOUT AUTHORIZATION [facility] [address] [place] [id number] Signed Paula was taken into our endoscopy suite and placed in the semi-recumbent position. A bite block was utilized for the case. She was maintained on sedation per our nurse tobacco conditioner. The adult gastroscope had been introduced and advanced under direct visualization of camera without difficulty. The duodenum and pyloric bulb were not particularly concerning she has very mild patchy erythematous changes. We went ahead and took a biopsy of the antrum for pathologic review as well as CLOtest. We had taken pictures throughout for photodocumentation. Upon retroflexion of scope, we can easily see her hiatal hernia. We measured out the hiatal hernia once again from right around 32-33 cm to 40 cm. Consequently, it has really not changed. It has no disruption to the Z-line. Certainly, no Acuña's mucosa and no distal esophagitis. We went and did a biopsy along the edge of the Z-line for pathologic review. The distal, middle, and upper esophagus were unremarkable. Vocal cords and arytenoids in the posterior oropharynx were unremarkable. After this, the gas had been suctioned out and the gastroscope removed. Paula tolerated the procedure quite well. RECOMMENDATIONS: I will see Paula back in my office in 7 to 14 days to review the results. We will give her another brochure on acid reflux and hiatal hernias and review her medical versus surgical options. Viktor Vargas MD ALB/MODL /[id number] cc: MD Noah Ibarra DO Copies: VIKTOR VARGAS MD, FRANK E DO ~ Electronically Signed By: VIKTOR VARGAS MD 10/29/20 0616 PATIENT NAME: PAULA MCLEOD OPERATIVE REPORT DATE OF : 60 REPORT #: [id number] PHYSICIAN: VIKTOR VARGAS MD PCP: NOAH COOK DO REPORT IS CONFIDENTIAL AND NOT TO BE RELEASED WITHOUT AUTHORIZATION
--- NOTE | 2020-10-29 16:34 | PATH ---
[facility] [address] [place], [place] [address] Signed SPECIMEN(S): A ANTRUM/PYLORUS SPECIMEN(S): B GE JUNCTION SPECIMEN SOURCE: A. ANTRUM/PYLORUS B. GE JUNCTION CLINICAL HISTORY: Esophagogastroduodenoscopy with biopsy with mac. Preop: Acid reflux, hiatal hernia. Postop: Mild gastritis, hiatal hernia. MICROSCOPIC DESCRIPTION: Histologic sections of all submitted blocks are examined by light microscopy. These findings, together with the gross examination, support the pathologic diagnosis. FINAL PATHOLOGIC DIAGNOSIS: A. Stomach, antrum/pylorus, biopsy: - Mild active gastritis and reactive gastropathy. - Negative for Helicobacter organisms on HE stain, see Comment. - Negative for dysplasia or malignancy. B. Gastroesophageal junction, biopsy: - Squamocolumnar junctional mucosa with mild chronic inflammation. - Negative for Helicobacter organisms on HE stain. - Negative for intestinal metaplasia, dysplasia, or malignancy. COMMENT: Regarding specimen A: An H. pylori immunohistochemical stain is pending and will be reported in an addendum. NAL:cml:C2NR GROSS DESCRIPTION: Two specimens are received in two containers, labeled "TP." A. The specimen, labeled "TP, antrum biopsy," is received in formalin and consists of one corona soft tissue fragment that measures 0.2 cm in greatest dimension. The specimen is entirely submitted in cassette (A1). B. The specimen, labeled "TP, GE junction," is received in formalin and consists of one corona soft tissue fragment that measures 0.2 cm in greatest dimension. The specimen is entirely submitted in cassette (B1). JS (under the direct supervision of a pathologist) PATIENT NAME: PAULA MCLEOD PATHOLOGY DATE OF : 60 REPORT #: [id number] PHYSICIAN: [facility] PCP: MARCELINO COOK DO REPORT IS CONFIDENTIAL AND NOT TO BE RELEASED WITHOUT AUTHORIZATION [facility] [address] [place], [place] [address] Signed The Gross Description was prepared using a voice recognition system. The report was reviewed for accuracy; however, sound-alike word errors, addition and/or deletions may occur. If there is any question about this report, please contact Client Services. ADDITIONAL NOTES: Immunohistochemical and/or in situ hybridization studies were performed on this case with the appropriate positive controls that react as expected. This test was developed and its performance characteristics determined by [employer]. It has not been cleared or approved by the U.S. Food and Drug Administration. The FDA has determined that such clearance or approval is not necessary. This test is used for clinical purposes. It should not be regarded as investigational or for research. [employer] is certified under the Clinical Laboratory Improvement Amendments of 1988 (CLIA) as qualified to perform high complexity clinical laboratory testing. PERFORMING LABORATORY: The technical component was performed by [employer], [address] [place] [id number] (Brick Setter: Lynn Olsen MD; CLIA# [id number]). Professional interpretation [facility] [address] [address] (CLIA# [id number]). Diagnostician: Shayy Lan MD Pathologist Electronically Signed 10/29/2020 Copies: ~ PATIENT NAME: PAULA MCLEOD PATHOLOGY DATE OF : 60 REPORT #: [id number] PHYSICIAN: [facility] PCP: MARCELINO COOK DO REPORT IS CONFIDENTIAL AND NOT TO BE RELEASED WITHOUT AUTHORIZATION
== END 2020-10-25 09:50 | disposition home or self-care (01) ==
LOC: OPS 06:55 → DS 06:55 → OPS 07:30
PROVIDERS: ATTEND Colon & Rectal Surgery
PROC: 0DB48ZZ Excision of Esophagogastric Junction, Via Natural or Artificial Opening Endoscopic (ICD-10-PCS; principal; 2020-10-25 07:30)
DX: K21.00 Gastro-esophageal reflux disease with esophagitis, without bleeding (principal); K44.9 Diaphragmatic hernia without obstruction or gangrene; K29.70 Gastritis, unspecified, without bleeding; K31.9 Disease of stomach and duodenum, unspecified; G40.909 Epilepsy, unspecified, not intractable, without status epilepticus; I10 Essential (primary) hypertension; E03.9 Hypothyroidism, unspecified; I25.2 Old myocardial infarction; I25.10 Atherosclerotic heart disease of native coronary artery without angina pectoris; E78.00 Pure hypercholesterolemia, unspecified; G25.81 Restless legs syndrome; M19.071 Primary osteoarthritis, right ankle and foot; F32.9 Major depressive disorder, single episode, unspecified; R01.1 Cardiac murmur, unspecified; G47.33 Obstructive sleep apnea (adult) (pediatric); E66.01 Morbid (severe) obesity due to excess calories; G89.29 Other chronic pain; M54.5 Low back pain; M54.16 Radiculopathy, lumbar region; R94.31 Abnormal electrocardiogram [ECG] [EKG]; Z98.1 Arthrodesis status; Z79.82 Long term (current) use of aspirin; Z56.0 Unemployment, unspecified; Z88.5 Allergy status to narcotic agent; Z88.8 Allergy status to other drugs, medicaments and biological substances; Z88.6 Allergy status to analgesic agent; Z91.041 Radiographic dye allergy status; Z68.39 Body mass index [BMI] 39.0-39.9, adult; Z87.891 Personal history of nicotine dependence
CPT/HCPCS: 86677; J2704; J7121

== ENCOUNTER 2021-01-13 12:51 | Emergency (ER) | payer OTHER ==
[~2021-01-13] VITALS: Ht 167.6 cm; Wt 108.9 kg
--- OUTSIDE RECORDS SUMMARY | 2021-01-13 12:56 | XMS ---
PreManage Notification: PAULA MCLEOD Security Package Crimper Events No recent Security Events currently on file CRITERIA MET - [facility] - Has Care Guidelines CARE PROVIDERS MATHEW COOK [facility] 09/07/2018-Current PHONE: [phone] Guidelines Source: [facility] Guidelines Date: 07/24/2019 Care Coordination: Receives mental health services with [facility].\T\nbsp; Please contact [facility] for any mental health concerns.\T\nbsp; [place]: [phone]\ T\nbsp; [place]: [phone]. E.D. VISIT COUNT (12 MO.) 3 [facility] TOTAL 3 NOTE: Visits indicate total known visits. ED/UCC VISIT TRACKING (12 MO.) 01/13/2021 12:52 [facility] [place] TYPE: Emergency COMPLAINT: - RT KNEE SWELLING, PAIN DOWN LEG 10/23/2020 11:38 [facility] [place] TYPE: Emergency COMPLAINT: - NAUSEA, WEAKNESS DIAGNOSES: - Allergy status to narcotic agent - Radiographic dye allergy status - Hypothyroidism, unspecified - Syncope and collapse - Essential (primary) hypertension - Allergy status to other drugs, medicaments and biological substances - Old myocardial infarction - Hyperlipidemia, unspecified - Weakness - Allergy status to penicillin - Other shelter (current) drug therapy - [facility] (current) use of aspirin 06/03/2020 12:[address] [facility] [place] TYPE: Emergency COMPLAINT: - CHEST PAIN DIAGNOSES: - Hyperlipidemia, unspecified - Essential (primary) hypertension - Hypothyroidism, unspecified - Allergy status to narcotic agent - Allergy status to other antibiotic agents - Chest pain, unspecified - Allergy status to penicillin - Allergy status to other drugs, medicaments and biological substances - Other chest pain - Other shelter (current) drug therapy - [facility] (current) use of aspirin - Personal history of nicotine dependence INPATIENT VISIT TRACKING (12 MO.) No inpatient visits to display in this time frame [email or web address]
== END 2021-01-13 16:04 | disposition home or self-care (01) ==
LOC: ED 12:51
DX: R60.0 Localized edema (principal); I10 Essential (primary) hypertension; E78.5 Hyperlipidemia, unspecified; E03.9 Hypothyroidism, unspecified; I25.2 Old myocardial infarction; Z87.891 Personal history of nicotine dependence; Z88.8 Allergy status to other drugs, medicaments and biological substances; Z88.5 Allergy status to narcotic agent; Z88.0 Allergy status to penicillin; Z91.041 Radiographic dye allergy status; Z79.899 Other long term (current) drug therapy; Z79.82 Long term (current) use of aspirin
CPT/HCPCS: 93971; 99283-25; A9270

== ENCOUNTER 2021-02-28 07:40 | Day surgery (SDC) | payer OTHER ==
[~2021-02-28] VITALS: Ht 167.6 cm; Wt 109.0 kg
[~2021-02-28 07:40] MED LIST changes: +CONTRAVE ER 8-1 EACH PO; +NEPHPLEX RX TA1 EACH PO; +VIT C-ROSE HIP500 MG PO
--- NOTE | 2021-02-28 10:34 | NUR ---
SMALL CUT TO LOWER LIP PRIOR TO INDUCTION
--- NOTE | 2021-02-28 11:02 | NUR ---
02/28/21 1102 Kaye Guidry 1054 PATIENT ARRIVES TO PACU UNRESPONSIVE TO PAIN. ORAL AIRWAY IN PLACE. RESP EVEN AND UNLABORED, MASK AT 6 LITERS.
--- NOTE | 2021-02-28 12:00 | NUR ---
PATIENT BACK TO ROOM FROM RECOVERY, BEDSIDE REPORT FROM CHUNG TARIQ. PATIENT ON 2L NC APPEARS DROWSY, AWAKE ON AND OFF. APPEARS TO BE MOVING LEGS BACK AND FORTH FAST. PATIENT STATES " MY LEGS ARE MAKING MY STOMACH HURT" BUT THEN PATIENT WOULD FALL BACK TO SLEEP. TOLD PATIENT THAT ONCE SHE DRANK AND ATE SOME SNACKS WOULD GET HER A PAIN PILL. RATES PAIN 7/10. DRESSING TO ABDOMEN APPEAR TO HAVE SMALL AMOUNT OF DRAINAGE. ICE BAGS IN PLACE. CALL LIGHT WITHIN REACH.
--- NOTE | 2021-02-28 12:45 | NUR ---
PATIENT PROFESSOR OF POLITICAL SCIENCE LIGHT TO ASK FOR PILLOWS TO BE FLUFFED, AND LEGS REPOSITIONED ON PILLOWS. ENOCURAGED PATIENT TO EAT SNACK AND DRINK FLUID. RAISED PATIENT HEAD UP TO 45 DEGREES. PATIENT TOLERATED WELL.
--- NOTE | 2021-02-28 12:50 | NUR ---
ADMINISTERED PAIN MEDICATION PER MAR. PATIENT UP TO BATHROOM VOIDED 400 ML CLEAR URINE. PATIENT BACK TO BED SITTING ON EDGE OF BED. NO OTHER NEEDS AT THIS TIME. CALL LIGHT WITHIN REACH. PATIENT MOVING LEGS UP AND DOWN RAPIDLY STOPPED AFTER GETTING AND HAVING THEM DANGLE AT BEDSIDE. DRESSING C/D/I.
--- NOTE | 2021-02-28 13:30 | NUR ---
PATIENT UP TO BATHROOM, PATIENT REPORTED WEAKNESS, HOWEVER APPEARED STEADY ON FEET. VOIDED WELL BACK TO BED, SITTING AT EDGE OF BED. LEGS APPEAR TO HAVE STOPPED MOVING FAST, AND PATIENT REPORTS RELIEF FROM RESTLESS LEGS. ADMINISTERED PAIN MEDICATION PER NOV. CALL LIGHT WITHIN REACH.
--- NOTE | 2021-02-28 14:30 | NUR ---
PATIENT REPORTS PAIN MEDICATION EFFECTIVE. AND READY TO GO HOME. PROVIDED DISCHARGE INSTRUCTION TO PATIENT'S DAUGHTER ALISE OVER THE PHONE ON SPEAKER WITH PATIENT LISTENING. ANSWERED QUESTIONS AND CONCERNS. CASSIDY TARIQ DRESSED PATIENT AND PROVIDED WHEELCHAIR RIDE TO FRONT WHERE FRIEND TIANNA PICKED PATIENT UP.
--- NOTE | 2021-02-28 18:16 | OR ---
[facility] [address], [place] [address] Signed DATE OF OPERATION: 02/28/2021 SURGEON: Viktor Vargas MD PREOPERATIVE DIAGNOSES: 1. Chronic cholecystitis. 2. Hyperkinetic gallbladder with biliary colic. POSTOPERATIVE DIAGNOSES: 1. Chronic cholecystitis. 2. Hyperkinetic gallbladder with biliary colic. PROCEDURE: Laparoscopic cholecystectomy with intraoperative cholangiogram. ESTIMATED BLOOD LOSS: None. FINDINGS: The intraoperative cholangiogram was unremarkable. Paula did have chronic cholesterolosis. INDICATIONS: Paula is a 60-year-old female with a body mass index of 39. She had presented with epigastric pain and bloating after meals. She said it has been quite miserable. She is aware of her hiatal hernia and her acid reflux. She told me these symptoms are different. Repeat upper endoscopy again did not add any additional information. Her old gallbladder ultrasound showed fatty liver. HIDA scan showed hyperkinetic gallbladder with a gallbladder ejection fraction of 92%. Injection of the CCK reproduced her symptoms. She said it was miserable with all the nausea, vomiting, and abdominal cramping and pain. In the office, I gave her a brochure on the gallbladder. We had discussed the location and function of the gallbladder. We discussed laparoscopic versus open cholecystectomy. She understands there is risk including, but not limited to bleeding, infection, scarring, change in contour of the skin, damage to bowel, damage to the main bile duct, incisional hernias and other unforeseen comorbidities. She understands expected intraop and postop course. She had expressed understanding and wished to proceed. PROCEDURE NOTE: Paula was taken in the operating room and placed in a supine position under general Electronically Signed By: VIKTOR VARGAS MD 02/28/21 1816 PATIENT NAME: PAULA MCLEOD OPERATIVE REPORT DATE OF : 60 REPORT #: [id number] PHYSICIAN: VIKTOR VARGAS MD PCP: NOAH COOK DO REPORT IS CONFIDENTIAL AND NOT TO BE RELEASED WITHOUT AUTHORIZATION [facility] [address], [place] [address] Signed endotracheal tube anesthesia. She was given preoperative antibiotics along with subcutaneous heparin. SCDs were utilized. She was then prepped and draped in the usual sterile fashion. All trocars were placed in her usual positions under direct visualization of camera without difficulty. Pictures were taken throughout for photodocumentation. The gallbladder was grasped and elevated in the right upper quadrant. The triangle of Calot was dissected free and a clip was placed across the cystic artery and it was divided. The intraoperative cholangiocatheter was inserted into the cystic duct without difficulty. Intraoperative cholangiogram was unremarkable. The cystic duct stump was secured with a PDS Endoloop. Two clips were placed across the cystic duct stump to melissa its location. The gallbladder was then removed from the gallbladder fossa and placed into an EndoCatch bag without difficulty. We used our laparoscopic suturing device to pass 0 Vicryl suture on either side of the fascia of the subxiphoid trocar site. This was tied down to close this fascia primarily. After this, the gas was allowed to escape and all the trocars were removed along with the gallbladder. The gallbladder was opened on the back table by our circulating nurse for photodocumentation. She had a small hernia near the base of the umbilicus. Most likely, a tiny epigastric hernia. We had used that for the Duc trocar. We simply closed that with [id number] and simple 0-Vicryl suture. Local anesthetic was then injected into the each trocar site. Each trocar site was irrigated and suctioned out until clear. The skin and dermis of each trocar site were closed with interrupted 3-0 subcuticular Monocryl sutures. Dry gauze and tape were applied to all incisions. After this, she was weaned from her anesthesia, extubated in the OR, and taken to recovery room in stable condition. Viktor Vargas MD [facility]/MODL /[id number] cc: MD Noah Ibarra DO Copies: VIKTOR VARGAS MD Electronically Signed By: VIKTOR VARGAS MD 02/28/21 1816 PATIENT NAME: PAULA MCLEOD OPERATIVE REPORT DATE OF : 60 REPORT #: [id number] PHYSICIAN: VIKTOR VARGAS MD PCP: NOAH COOK DO REPORT IS CONFIDENTIAL AND NOT TO BE RELEASED WITHOUT AUTHORIZATION [address] [address] Signed NOAH COOK DO ~ Electronically Signed By: VIKTOR VARGAS MD 02/28/21 1816 PATIENT NAME: PAULA MCLEOD OPERATIVE REPORT DATE OF : 60 REPORT #: [id number] PHYSICIAN: VIKTOR VARGAS MD PCP: NOAH COOK DO REPORT IS CONFIDENTIAL AND NOT TO BE RELEASED WITHOUT AUTHORIZATION
--- NOTE | 2021-03-03 18:17 | PATH ---
[facility] [address] [place], [place] [address] Signed SPECIMEN(S): A GALLBLADDER SPECIMEN SOURCE: A. GALLBLADDER CLINICAL HISTORY: Laparoscopic cholecystectomy. Chronic cholecystitis. FINAL PATHOLOGIC DIAGNOSIS: Gallbladder, cholecystectomy: - Gallbladder with features of mild chronic cholecystitis. NAL:cml:C2NR MICROSCOPIC EXAMINATION: Histologic sections of all submitted blocks are examined by light microscopy. These findings, together with the gross examination, support the pathologic diagnosis. GROSS DESCRIPTION: The specimen, labeled "TP," and designated on the requisition "gallbladder," is received in formalin and consists of Specimen: Previously opened gallbladder. Dimensions: 6.5 x 5.3 x 2.0 cm. Serosa: Yellow-corona, smooth. Cystic Duct: Unobstructed. Calculi: Not grossly identified. Mucosa: Brown-corona and velvety. Wall thickness: Up to 0.8 cm. Lymph node: No pericystic lymph nodes are grossly identified. Additional: None. Doughnut Icer Machine sections are submitted in cassette (A1). AC (under the direct supervision of a pathologist) The Gross Description was prepared using a voice recognition system. The report was reviewed for accuracy; however, sound-alike word errors, addition and/or deletions may occur. If there is any question about this report, please contact Client Services. PERFORMING LABORATORY: The technical component was performed by [facility], [address] [place] [id number] (Machine Umbrella Tipper: Lynn Olsen MD; CLIA# [id number]). Professional interpretation was performed by PATIENT NAME: PAULA MCLEOD PATHOLOGY DATE OF : 60 REPORT #: [id number] PHYSICIAN: [facility] PCP: MARCELINO COOK DO REPORT IS CONFIDENTIAL AND NOT TO BE RELEASED WITHOUT AUTHORIZATION [facility] [address] [place], [place] [address] Signed [facility], [facility], [address] [facility], [facility] [address], [place] [address] (CLIA# [id number]). Diagnostician: Shayy Lan MD Pathologist Electronically Signed 03/03/2021 Copies: ~ PATIENT NAME: PAULA MCLEOD PATHOLOGY DATE OF : 60 REPORT #: [id number] PHYSICIAN: [facility] PCP: MARCELINO COOK DO REPORT IS CONFIDENTIAL AND NOT TO BE RELEASED WITHOUT AUTHORIZATION
== END 2021-02-28 15:10 | disposition home or self-care (01) ==
LOC: DS 07:40
PROVIDERS: ATTEND Colon & Rectal Surgery
PROC: BF0CYZZ Plain Radiography of Hepatobiliary System, All using Other Contrast (ICD-10-PCS; 2021-02-28)
PROC: 0FT44ZZ Resection of Gallbladder, Percutaneous Endoscopic Approach (ICD-10-PCS; principal; 2021-02-28 09:30)
DX: K81.1 Chronic cholecystitis (principal); I10 Essential (primary) hypertension; E66.9 Obesity, unspecified; K21.9 Gastro-esophageal reflux disease without esophagitis; K44.9 Diaphragmatic hernia without obstruction or gangrene; I25.10 Atherosclerotic heart disease of native coronary artery without angina pectoris; E03.9 Hypothyroidism, unspecified; E78.5 Hyperlipidemia, unspecified; Z68.39 Body mass index [BMI] 39.0-39.9, adult
CPT/HCPCS: 00790; 74300; 88304; J0330; J0690; J1100; J1644; J1885; J2250; J2405; J2704; J2765; J3010; J7121; Q9967

== ENCOUNTER 2021-03-28 06:30 | Day surgery (SDC) | payer OTHER ==
[~2021-03-28] VITALS: Ht 167.6 cm; Wt 109.0 kg
[2021-03-28] MEDS ORDERED: DICLOFENAC SODI75 MG PO (09:16)
[2021-03-28] MEDS ORDERED: TRAMADOL HCL50 MG PO (09:17)
--- NOTE | 2021-03-28 09:17 | NUR ---
03/28/21 0917 Angela Aguayo 0911- PT ARRIVES TO PACU NONAROUSABLE TO NOXIOUS STIMULI. RESP EVEN AND UNLABORED. OXYGEN SAT HIGH 90'S TO 100% ON 6L VIA MASK.
--- NOTE | 2021-03-28 09:55 | NUR ---
PATIENT BACK TO DAYSURGERY, RATING PAIN 7/10 ON PAIN SCALE SHARP. 4 MG IV ZOFRAN ADMINISTERED, REPORTED SOME NAUSEA ON TRANSFER FROM PACU. BEDSIDE REPORT DOUGLAS RN. DRESSING TO RIGHT LEG C/D/I, ELEVATED WITH ICE IN PLACE. PATIENT APPEARS AWAKE. NOW EATING SALTINE CRACKERS. DISCUSSED POC FOR PAIN MANAGEMENT. CALL LIGHT WITHIN REACH.
[2021-03-28] MEDS ORDERED: DILAUDID2 MG PO (10:54)
--- NOTE | 2021-03-28 11:09 | NUR ---
PT HAS REQUESTED MORE PAIN MEDICINE AND GIVEN TORADOL AND DILAUDID. PT IMMEDIATELY STATES SHE CAN FEEL IT WORKING.
--- NOTE | 2021-03-28 11:40 | NUR ---
c/o of no relief of pain wants leg repositioned held foot and calf let knee gatch down and pt loudly complaining and wants knee raised back and to leave alone. cms intact. informed she has had all the pain medicine.
--- NOTE | 2021-03-28 12:38 | NUR ---
PATIENT UP TO BATHROOM, DID NOT TOLERATE ACTIVITY WELL. RATING PAIN 6/10 ON PAIN SCALE. PATIENT REPORTS UNABLE TO BEAR ANY WEIGHT ON RIGHT LEG. PROVIDED WALKER AND PATIENT WAS ABLE TO SLOWLY GET BACK TO BED. APPEARS TEARFUL AND STATES " I FEEL LIKE A BIG BABY, BUT I DIDN'T KNOW THIS GONNA FEEL THIS WAY". RJ MONTERROSO INTO ROOM, PROVIDED PATIENT FINDINGS. PLANS TO DO A NERVE BLOCK TO HELP REDUCE SHARP PAIN TO SURGICAL LEG. PEDAL PULSE PRESENT. DRESSING C/D/I.
--- NOTE | 2021-03-28 13:30 | NUR ---
INTO ROOM PATIENT REPORTS PAIN IMPROVED WITH NERVE BLOCK. PATIENT REPORTS CONCERNS OF GOING HOME. VERBALIZED PLAN FOR PATIENT TO GET UP AGAIN AND TRY MOVING AROUND WITH BLOCK IN PLACE. DISCUSSED PAIN CONTROL GOING HOME, PATIENT VERBALIZED UNDERSTANDING. DRESSING C/D/I. STRONG PEDAL PULSE. PATIENT NOW RESTING BACK WITH EYES CLOSED. RJ MONTERROSO TO ROOM TO CHECK ON PATIENT, WHO IS NOW SNORING.
--- NOTE | 2021-03-28 14:30 | NUR ---
PATIENT UP AMBULATED TO DOOR, WITH WALKER. APPEARED TO TOLERATE ACTIVITY. TOOK SMALL STEPS AND APPEARED APPRHENSIVE STATING " WHAT AM i GOONA DO WHEN THE PAIN COMES BACK" PROVIDED PATIENT WITH REASSURANCE. CALL TO DR. KOCH TO UPDATE ON PATIENT STATUS MEETING CRITERIA AND NERVE BLOCK PROVIDING EFFECTIVE PAIN RELIEF. DR. KOCH VERBALIZED PATIENT TO DISCHARGE HOME. PROVIDED DISCHARGE INSTRUCTION AND THEN PATIENT LAUGHING AND USING WALKER AMBULATED TO WHEELCHAIR IN [place], NO GRIMACE AND APPEARED TO BE TOLERATING THE ACTIVITY WELL. PATIENT THEN WHEELCHAIRED OUT TO CAR, TRANSFERED INTO CAR WELL. MAGGIE UPDATED ON DISCHARGE EDUCATION BY DOUGLAS TARIQ.
--- NOTE | 2021-04-02 07:10 | OR ---
[facility] [address] [place], [place] [address] Signed DATE OF OPERATION: 03/28/2021 SURGEON: Hany Hahn MD PREOPERATIVE DIAGNOSIS: Medial and lateral meniscus tears, right knee. POSTOPERATIVE DIAGNOSES: Medial and lateral meniscus tears, right knee. PROCEDURE PERFORMED: Right knee arthroscopy with partial medial and lateral meniscectomy. GOLF COURSE LABORER: None. ANESTHESIA: General. BLOOD LOSS: Minimal. BRIEF HISTORY: Paula is a 60-year-old female with pain and instability in her knee. MRI was consistent with the above findings. Risks, benefits, and alternatives were discussed with her, she elected to proceed. DESCRIPTION OF PROCEDURE: Once consent was obtained, she was taken to the operating room after adequate anesthesia. She was placed on the operating room table. All downside pressure points were well padded. The left leg was flexed, abducted, and externally rotated on a well-padded leg ramos, right was placed in well-padded proximal thigh leg ramos. No tourniquet was placed. The portal sites were then pre-injected using 0.25% Marcaine with epinephrine under an alcohol prep. The leg was then prepped and draped in the standard sterile fashion. The standard inferior lateral and superolateral portals were made and the scope was introduced in the knee. 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 Medial and gutters were clear. The ACL and PCL were intact. The medial compartment showed minimal Electronically Signed By: HANY HAHN MD 04/02/21 0710 PATIENT NAME: PAULA MCLEOD OPERATIVE REPORT DATE OF : 60 REPORT #: [id number] PHYSICIAN: HANY HAHN MD PCP: MARCELINO COOK DO REPORT IS CONFIDENTIAL AND NOT TO BE RELEASED WITHOUT AUTHORIZATION [facility] [address] [place], [place] [address] Signed chondromalacia with only grade 1 softening. The medial meniscus showed a complex tear from mid medial extending posteriorly. The lateral compartment showed no chondromalacia. There was a complex tear with the anterior lateral, extending to the mid lateral portion. DESCRIPTION OF OPERATION: Standard inferomedial portal was made after localization using a spinal needle. The straight and curved biters were used to trim both tears back to a stable rim. This was then smoothed and feathered out. The debris was evacuated using the shaver. The scope was then withdrawn. Portals were closed with 3-0 nylon and the knee was injected with 60 mg Toradol at the end of the procedure. The portals were dressed with Adaptic, ABD, and Robert wrap. She tolerated the procedure well. All sponge, needle, and instrument counts were correct. Hany Hahn MD [facility] /[id number] Copies: ~ Electronically Signed By: HANY HAHN MD 04/02/21 0710 PATIENT NAME: PAULA MCLEOD OPERATIVE REPORT DATE OF : 60 REPORT #: [id number] PHYSICIAN: HANY HAHN MD PCP: MARCELINO COOK DO REPORT IS CONFIDENTIAL AND NOT TO BE RELEASED WITHOUT AUTHORIZATION
== END 2021-03-28 14:45 | disposition home or self-care (01) ==
LOC: DS 06:30
PROVIDERS: ATTEND Specialist
PROC: 0SBC4ZZ Excision of Right Knee Joint, Percutaneous Endoscopic Approach (ICD-10-PCS; 2021-03-28)
PROC: 0SBC4ZZ Excision of Right Knee Joint, Percutaneous Endoscopic Approach (ICD-10-PCS; principal; 2021-03-28 07:45)
DX: S83.231A Complex tear of medial meniscus, current injury, right knee, 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 (principal); S83.271A Complex tear of lateral meniscus, current injury, right knee, 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; G89.18 Other acute postprocedural pain; G47.30 Sleep apnea, unspecified; R56.9 Unspecified convulsions; I10 Essential (primary) hypertension; K21.9 Gastro-esophageal reflux disease without esophagitis; I25.2 Old myocardial infarction; Z88.5 Allergy status to narcotic agent; Z88.0 Allergy status to penicillin; Z87.891 Personal history of nicotine dependence; V48.5XXA Car driver injured in noncollision transport accident in traffic accident, 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
CPT/HCPCS: 01400; 64447; 64450; 76942; J0690; J1100; J1885; J2001; J2405; J2704; J2795; J3010; J7121

== ENCOUNTER 2021-12-17 05:25 | Emergency (ER) | payer MEDICARE, OTHER ==
[~2021-12-17] VITALS: Ht 167.6 cm; Wt 108.9 kg
[~2021-12-17 05:25] MED LIST changes: +DICLOFENAC SODI75 MG PO; +TRAMADOL HCL50 MG PO
[2021-12-17] MEDS ORDERED: LEVOTHYROXINE137 MCG PO (05:58)
--- NOTE | 2021-12-17 17:18 | EKG ---
[facility] [address] [facility] [place] [address] Signed Sinus tachycardia Possible Left atrial enlargement Marked ST abnormality, possible inferior subendocardial injury Abnormal ECG When compared with ECG of 25-MAR-2021 15:03, Vent. rate has increased BY [address] now depressed in Inferior leads ST now depressed in Anterolateral leads QT has lengthened Confirmed by CINDI BRADFORD MD ([id number]) on 12/17/2021 5:18:38 PM Electronically Signed By: CINDI BRADFORD MD 12/17/21 1718 PATIENT NAME: PAULA MCLEOD Electrocardiogram DATE OF : 60 PHYSICIAN: CINDI BRADFORD MD REPORT #: [id number] REPORT IS CONFIDENTIAL AND NOT TO BE RELEASED WITHOUT AUTHORIZATION
--- NOTE | 2021-12-17 17:19 | EKG ---
[facility] [address] [facility] [place] [address] Signed Sinus rhythm with premature supraventricular complexes Nonspecific ST and T wave abnormality Prolonged QT Abnormal ECG When compared with ECG of 17-DEC-2021 05:28, (Unconfirmed) premature supraventricular complexes are now present ST no longer depressed in Anterior leads Confirmed by CINDI BRADFORD MD ([id number]) on 12/17/2021 5:18:49 PM Electronically Signed By: CINDI BRADFORD MD 12/17/21 1719 PATIENT NAME: PAULA MCLEOD Electrocardiogram DATE OF : 60 PHYSICIAN: CINDI BRADFORD MD REPORT #: [id number] REPORT IS CONFIDENTIAL AND NOT TO BE RELEASED WITHOUT AUTHORIZATION
== END 2021-12-17 08:30 | disposition home or self-care (01) ==
LOC: ED 05:25
DX: R07.89 Other chest pain (principal); R06.00 Dyspnea, unspecified; E83.42 Hypomagnesemia; I25.2 Old myocardial infarction; I10 Essential (primary) hypertension; E78.5 Hyperlipidemia, unspecified; E03.9 Hypothyroidism, unspecified; Z87.891 Personal history of nicotine dependence; Z88.0 Allergy status to penicillin; Z88.5 Allergy status to narcotic agent; Z88.8 Allergy status to other drugs, medicaments and biological substances; Z91.041 Radiographic dye allergy status; Z79.82 Long term (current) use of aspirin; Z79.899 Other long term (current) drug therapy
CPT/HCPCS: 36415; 71045; 80053; 83735; 84484; 85025; 85379; 93005; 93010; 96374; 96375; 99285-25; J1170; J2405

== ENCOUNTER 2022-11-27 16:41 | Emergency (ER) | payer MEDICARE, OTHER ==
[~2022-11-27] VITALS: Ht 167.6 cm; Wt 108.6 kg
[~2022-11-27 16:41] MED LIST changes: +LEVOTHYROXINE137 MCG PO
--- OUTSIDE RECORDS SUMMARY | 2022-11-27 18:08 | XMS ---
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 ED/UCC VISIT TRACKING (12 MO.) 11/27/2022 16:42 [facility] [place] TYPE: Emergency COMPLAINT: - POSS DEHYDRATION 12/19/2021 14:46 Britton Coll[facility] [place] TYPE: Emergency DIAGNOSES: - Heart Palpitations - nausea, heart palpitations - Palpitations 12/17/2021 05:25 NILSA Azevedo TYPE: Emergency COMPLAINT: - CHEST PAIN DIAGNOSES: - Allergy status to penicillin - Hyperlipidemia, unspecified - Other alf (current) drug therapy - Essential (primary) hypertension - Radiographic dye allergy status - Old myocardial infarction - Hypothyroidism, unspecified - Personal history of nicotine dependence - Allergy status to narcotic agent - skilled nursing (current) use of aspirin - Hypomagnesemia - Dyspnea, unspecified - Allergy status to other drugs, medicaments and biological substances - Other chest pain INPATIENT VISIT TRACKING (12 MO.) 06/23/2022 10:[address] Rosita MARTINES TYPE: Surgical Services DIAGNOSES: - Idiopathic aseptic necrosis of left femur [email or web address]
== END 2022-11-27 19:25 | disposition home or self-care (01) ==
LOC: ED 16:41
DX: K52.9 Noninfective gastroenteritis and colitis, unspecified (principal); I10 Essential (primary) hypertension; E78.5 Hyperlipidemia, unspecified; E03.9 Hypothyroidism, unspecified; I25.2 Old myocardial infarction; Z87.891 Personal history of nicotine dependence; Z79.899 Other long term (current) drug therapy; Z79.82 Long term (current) use of aspirin; Z88.5 Allergy status to narcotic agent; Z88.0 Allergy status to penicillin
CPT/HCPCS: 36415; 80048; 85025; 96360; 96361; 99284-25; J7030

== ENCOUNTER 2024-09-07 03:36 | Emergency (ER) | payer MEDICARE, OTHER ==
[~2024-09-07] VITALS: Ht 167.6 cm; Wt 112.0 kg
[2024-09-07] MEDS ORDERED: GLUCOSAMINE HC500 MG PO (03:54)
[2024-09-07 03:55] LABS: BASOPHILS 0.9 % (0-2); EOSINOPHILS 0.2 % (0-6); HEMATOCRIT 40.3 % (35.0-50.0); HEMOGLOBIN 14.1 g/dL (12.0-18.0); LYMPHOCYTES 17.5 % (24-44); MCH 31.2 (27-36); MCV 89.2 fl (81-99); MONOCYTES 6.2 % (0-12); NEUTROPHILS 75.2 % (39-80); PLATELET COUNT 296 K/uL (140-440); RBC 4.52 M/ul (4.3-5.7); RDW 13.1 (10.5-15.0)
[2024-09-07 04:05] LABS: INR 0.89 (0.80-1.30); PROTIME 11.7 Sec (11.2-14.2)
[2024-09-07 04:17] LABS: ALBUMIN 3.8 g/dL (3.4-5.0); ALBUMIN/GLOBULIN RATIO 0.97 (1.1-2.4); ANION GAP 11.1 (7-21); BILIRUBIN, TOTAL 0.3 ng/dL (0.2-1.0); BUN/CREATININE RATIO 28.88 (6.0-28.6); CALCIUM 9.5 mg/dL (8.5-10.1); CREATININE, SERUM 0.9 mg/dL (0.55-1.02); MAGNESIUM 1.9 mg/dL (1.8-2.4); POTASSIUM 4.1 mmol/L (3.5-5.1); PROTEIN, TOTAL 7.7 g/dL (6.4-8.2)
[2024-09-07] MEDS ORDERED: methylPREDNISolone SOD SUCC 125 MG/2 ML VIAL IV ONE (04:30)
[2024-09-07] MEDS ORDERED: ALBUTEROL/IPRATROPIUM 3 ML NEB INH ONE (04:30)
[2024-09-07] MEDS ORDERED: CYCLOBENZAPRINE HCL 10 MG HOME.PACK PO ONE (06:00)
[2024-09-07 06:16] VITALS: BP 165/71
--- NOTE | 2024-09-08 15:30 | EKG ---
[facility] [address] [facility] [place] [address] Signed Normal sinus rhythm Nonspecific ST and T wave abnormality Abnormal ECG When compared with ECG of 27-JAN-2023 22:03, QT has shortened Confirmed by Kvng Blancas MD () on 09/08/2024 3:30:35 PM Electronically Signed By: KVNG BLANCAS MD 09/08/24 1530 PATIENT NAME: PAULA MCLEOD Electrocardiogram DATE OF : 60 PHYSICIAN: KVNG BLANCAS MD REPORT #: [id number] REPORT IS CONFIDENTIAL AND NOT TO BE RELEASED WITHOUT AUTHORIZATION
== END 2024-09-07 06:16 | disposition home or self-care (01) ==
LOC: ED 03:36
PROVIDERS: Family Medicine
DX: R07.89 Other chest pain (principal); I10 Essential (primary) hypertension; E78.5 Hyperlipidemia, unspecified; E03.9 Hypothyroidism, unspecified; I25.2 Old myocardial infarction; Z87.891 Personal history of nicotine dependence; Z88.5 Allergy status to narcotic agent; Z88.0 Allergy status to penicillin; Z88.8 Allergy status to other drugs, medicaments and biological substances; Z91.041 Radiographic dye allergy status; Z79.890 Hormone replacement therapy; Z79.899 Other long term (current) drug therapy
CPT/HCPCS: 36415; 71045; 80053; 83735; 83880; 84484; 85025; 85379; 85610; 93005; 93010; 94640; 96374; 99285-25; J2919

== ENCOUNTER 2024-10-19 00:07 | Emergency (ER) | payer MEDICARE, OTHER ==
[~2024-10-19] VITALS: Ht 167.6 cm; Wt 112.5 kg
[~2024-10-19 00:07] MED LIST changes: +GLUCOSAMINE HC500 MG PO
[2024-10-19] MEDS ORDERED: DOXYCYCLINE MO100 MG PO (00:23)
[2024-10-19] MEDS ORDERED: PREDNISONE50 MG PO (00:23)
[2024-10-19 00:27] LABS: HEMATOCRIT 40.8 % (35.0-50.0); HEMOGLOBIN 14.3 g/dL (12.0-18.0); MCH 30.9 (27-36); MCV 88.5 fl (81-99); PLATELET COUNT 317 K/uL (140-440); RBC 4.61 M/ul (4.3-5.7); RDW 13.4 (10.5-15.0)
[2024-10-19] MEDS ORDERED: ASPIRIN 81 MG CHEW PO ONE (00:30)
[2024-10-19] MEDS ORDERED: NITROGLYCERIN PACKET TOP ONE (00:30)
[2024-10-19 00:37] LABS: INR 0.87 (0.80-1.30); PROTIME 11.7 Sec (11.2-14.2)
[2024-10-19 00:39] LABS: BANDS, MANUAL DIFF 2; LYMPHOCYTES, MANUAL DIFF 12; MONOCYTES, MANUAL DIFF 4; NEUTROPHILS, MANUAL DIFF 82
[2024-10-19 00:49] LABS: ALBUMIN 3.5 g/dL (3.4-5.0); BILIRUBIN, TOTAL 0.3 ng/dL (0.2-1.0); BUN/CREATININE RATIO 13.82 (6.0-28.6); CALCIUM 9.8 mg/dL (8.5-10.1); CREATININE, SERUM 0.94 mg/dL (0.55-1.02); MAGNESIUM 1.4 mg/dL (1.8-2.4)
[2024-10-19] MEDS ORDERED: MAGNESIUM SULFATE 2 GM/50 ML BAG IV ONE (01:00)
[2024-10-19] MEDS ORDERED: CEFDINIR300 MG PO (02:47)
[2024-10-19] MEDS ORDERED: CEFDINIR 300 MG HOME.PACK PO ONE (03:00)
[2024-10-19 03:07] VITALS: BP 151/78
--- NOTE | 2024-10-19 22:21 | EKG ---
[facility] [address] [facility] [place] [address] Signed Normal sinus rhythm Nonspecific ST abnormality Abnormal ECG When compared with ECG of 07-SEP-2024 03:42, No significant change was found Confirmed by Kvng Blancas MD () on 10/19/2024 10:20:49 PM Electronically Signed By: KVNG BLANCAS MD 10/19/242220 PATIENT NAME: PAULA MCLEOD Electrocardiogram DATE OF : 60 PHYSICIAN: KVNG BLANCAS MD REPORT #: [id number] REPORT IS CONFIDENTIAL AND NOT TO BE RELEASED WITHOUT AUTHORIZATION
== END 2024-10-19 03:08 | disposition home or self-care (01) ==
LOC: ED 00:07
PROVIDERS: Family Medicine
DX: R07.89 Other chest pain (principal); T36.4X5A Adverse effect of tetracyclines, 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; I10 Essential (primary) hypertension; I25.2 Old myocardial infarction; E03.9 Hypothyroidism, unspecified; E78.2 Mixed hyperlipidemia; Z88.5 Allergy status to narcotic agent; Z88.0 Allergy status to penicillin; Z88.6 Allergy status to analgesic agent; Z91.041 Radiographic dye allergy status; Z79.899 Other long term (current) drug therapy
CPT/HCPCS: 36415; 71045; 80053; 83735; 83880; 84484; 85025; 85379; 85610; 93005; 93010; 96365; 99285-25; A9270; J3475